=== PATIENT | female | born 1935 | race Caucasian/White ===

== ENCOUNTER 2023-12-18 21:48 | Emergency (ER) | payer MEDICARE, MEDICAID, SELFPAY ==
--- NOTE | ~2023-12-18 | XR_ITS ---
XR hip RT 2V w AP pelvis Ordering provider: Eric Brown MD History: . fall, groin pain . Comparison: None. FINDINGS: BONES: No acute fracture or dislocation. HIP JOINT SPACES: Bilateral hip osteoarthritic changes. SACROILIAC JOINT SPACES/LUMBAR SPINE: The sacroiliac joint spaces are normal. Mild degenerative mclain es of the visualized lower lumbar spine. PUBIC SYMPHYSIS: Normal. SOFT TISSUES: Vascular calcifications. IMPRESSION: No acute osseous abnormality pelvis and right hip. Reviewed, dictated and finalized at location A.
[2023-12-18 21:54] VITALS: BP 138/49; PULSE 80; RESP 17; TEMP 36.5; O2SAT 96
[2023-12-19 00:40] VITALS: BP 121/57; PULSE 75; RESP 18; O2SAT 98
--- NOTE | 2023-12-19 01:54 | ED.GENADULT ---
HPI - General Adult General Chief complaint: Fall Stated complaint: fall, right leg pain Time Seen by Provider: 12/19/23 00:46 History of Present Illness HPI narrative: this is an 88-year-old female presenting ED with chief complaint of hip pain. Patient had a fall earlier today. She was able to get up and ambulate although the pain has been increasing throughout the day. She is not taking anything for pain control yet. No other symptoms. Related Data Allergies Allergy/AdvReac Type Severity Reaction Status Date / Time Penicillins Allergy Unknown Rash Verified 12/19/23 00:43 FOR[facility]LY [facility], [facility]–1983 Family History Family History Sibling Family history of chronic obstructive pulmonary disease Family history of diabetes mellitus in first degree relative Social History Social History Smoking status: Never smoker Alcohol intake: never Exam Narrative: APPEARANCE: No apparent distress. Head: atraumatic. EYES: EOMI, NOSE: Atraumatic NECK: Trachea midline RESPIRATORY: No increased rate of breathing CARDIOVASCULAR: RRR, ABDOMINAL: Non-distended MUSCULOSKELETAl: Focal exam of the right lower extremity revealed no obvious deformity. Neurovascularly intact. No pain with internal-external rotation hip. NEURO: Alert. Moving 4/4 extremities SKIN:: Warm, dry. Normal color PSYCHIATRIC: Normal affect Course Vital Signs Vital signs: Vital Signs Temperature 97.7 F 12/18/23 21:54 Pulse Rate 80 12/18/23 21:54 Respiratory Rate 17 12/18/23 21:54 Blood Pressure 138/49 L 12/18/23 21:54 Pulse Oximetry 96 12/18/23 21:54 Oxygen Delivery Room Air 12/18/23 21:54 Temperature 97.7 F 12/18/23 21:54 Pulse Rate 75 12/19/23 00:40 Respiratory Rate 18 12/19/23 00:40 Blood Pressure 121/57 L 12/19/23 00:40 Pulse Oximetry 98 12/19/23 00:40 Oxygen Delivery Room Air 12/18/23 21:54 Medical Decision Making [facility] Narrative Medical decision making narrative: -Course: 88-year-old female presenting with right hip pain. X-rays negative for fracture. Patient was given tramadol with improvement in pain. She was able ambulate around the emergency department without difficulty. Patient be referred right hip pain medications and discharged with primary care follow-up. -DDX includes but is not limited to: Soft tissue injury, bony injury -Interventions: tramadol 50 mg -Shared decision making / Disposition: discharged -RX tramadol 50 mg Vital Signs Vital Signs: Vital Signs Temperature 97.7 F 12/18/23 21:54 Pulse Rate 80 12/18/23 21:54 Respiratory Rate 17 12/18/23 21:54 Blood Pressure 138/49 L 12/18/23 21:54 Pulse Oximetry 96 12/18/23 21:54 Oxygen Delivery Room Air 12/18/23 21:54 Temperature 97.7 F 12/18/23 21:54 Pulse Rate 75 12/19/23 00:40 Respiratory Rate 18 12/19/23 00:40 Blood Pressure 121/57 L 12/19/23 00:40 Pulse Oximetry 98 12/19/23 00:40 Oxygen Delivery Room Air 12/18/23 21:54 Discharge Plan Discharge Clinical Impression: Acute hip pain Patient Disposition: Home, Self-Care Condition: Stable Instructions: Antibiotic Form, Hip Pain (ED) Additional Instructions: you were seen in the emergency department for hip pain. Please take tramadol for pain. Please follow-up with your primary care physician as needed. Return if you develop severe pain or weakness in your leg. Prescriptions: New tramadol 50 mg tablet 50 mg PO Q6H PRN (Reason: pain) Qty: 20 0RF Follow-up/Referrals: UNKNOWN,DOCTOR [Primary Care Provider] -
[2023-12-19] MEDS: traMADol HCL (*CRX) 50 MG TABLET PO (01:56)
== END 2023-12-19 02:19 | disposition home or self-care (01) ==
LOC: ANHED 12-19 02:02
PROVIDERS: Emergency Provider Emergency Medicine
DX: S79.911A Unspecified injury of right hip, initial encounter (principal); W19.XXXA Unspecified fall, initial encounter
CPT/HCPCS: 73502; 99283; A9270

== ENCOUNTER 2024-08-27 09:16 | Inpatient (IN) | payer MEDICARE, MEDICAID, SELFPAY ==
--- NOTE | ~2024-08-27 | CT_ITS ---
History: Fall PROCEDURE: CT head without contrast. COMPARISON: None TECHNIQUE: Axial imaging of the head performed from the skull base to the vertex without IV contrast. Sagittal a nd coronal reformations obtained. DLP: 530 mGy-cm FINDINGS: The ventricles are enlarged. The dilatation of the ventricles is proportional to the degree of sulcal prominence, not uncommon in the senescent brain. Decreased attenuation is identified within the periventricular white matter, likely secondary to micr ovascular ischemic disease, in a patient of this age. There is no mass, mass effect or midline shift. There is no abnormal extra-axial fluid collection or intracranial hemorrhage. Visualized paranasal sinuses are clear. The mastoid air cells are well aerated. No acute displaced fractures within the overlying cranium. Impression: No acute intracranial hemorrhage or suspicious mass effect. Reviewed, dictated and finalized at location A. CARE SALES REPRESENTATIVE Impression: No acute intracranial hemorrhage or suspicious mass effect.
--- NOTE | ~2024-08-27 | CT_ITS ---
History: Fall PROCEDURE: CT cervical spine and facial bones without intravenous contrast. COMPARISON: None TECHNIQUE: Multiple contiguous axial images of the cervical spine and facial bones were performed without the ad ministration of intravenous contrast. DLP: 526 mGy-cm FINDINGS: Straightening and slight reversal of the normal curvature of the cervical spine is identified, likely muscular in origin. Degenerative disease is also noted, with osteophyte formation, disc space narrowing, endplate changes and facet arthropathy. Ossification of the ligamentum flavum is suspected at the level of C6. No acute fractures are present. Diffuse bony demineralization is present. Densely calcified atherosclerotic disease is noted. The bilateral lung apices are unremarkable. No soft tissue abnormality is present. The airway is patent. Trace mucoperiosteal thickening within the left maxillary sinus. Trace mucoperiosteal thickening with in the bilateral ethmoid sinuses. Remaining paranasal sinuses are unremarkable. Impression: Straightening and slight reversal of the normal curvature of the cervical spine, likely muscular in o rigin. Significant degenerative disease, without acute fracture within the cervical spine. Trace inflammatory sinus disease, without acute facial fracture, as detailed above. Reviewed, dictated and finalized at location A. TER REPRESENTATIVE Impression: Straightening and slight reversal of the normal curvature of the cervical spine , likely muscular in origin. Significant degenerative disease, without acute fracture within the cervical sp ine. Trace inflammatory sinus disease, without acute facial fracture, as detailed ab ove.
--- NOTE | ~2024-08-27 | US_ITS ---
EXAM: RENAL ULTRASOUND HISTORY: SILVINO COMPARISON: Reference is made to a CT examination of the chest dated 08/27/2024 FINDINGS: RIGHT KIDNEY: 10.5 x 3.9 x 3.6 cm. The parenchyma of the right kidney is unremarkable in echogenicity. No hydronephrosis or bulky renal calculi. LEFT KIDNEY: 10.7 x 4.8 x 4.6 cm No hydronephrosis or renal calculi. The parenchyma of the left kidney is unremarkable in echogenicity. Exophytic from the interpolar region of the left kidney is a well-circumscribed anechoic focus measur ing 16 x 13 x 11 mm, consistent with a simple cyst for which no further follow-up is needed. BLADDER: Layering sludge within the bladder. Bilateral ureteral jets are visualized. IMPRESSION: No hydronephrosis or renal calculi. Simple cyst within the left kidney for which no further follow-up is needed. Layering sludge within the bladder. Reviewed, dictated and finalized at location A. IENCE TRAINER
--- NOTE | ~2024-08-27 | XR_ITS ---
EXAMINATION: XR chest 1V portable DATE: 08/27/2024 09:48 INDICATION: Cough and weakness. TECHNIQUE: A single frontal view of the chest was obtained. COMPARISON: Chest 2 views 11/19/2012 FINDINGS: A calcified left lung nodule and calcified left hilar lymph nodes are consistent with old g ranulomatous disease. There are airspace opacities at the lung bases. No pleural effusion or pneumoth orax. The heart size is normal. Median sternotomy wires are noted. IMPRESSION: 1. Airspace opacities at the lung bases, consistent with atelectasis versus pneumonia. Reviewed, dictated and finalized at location A. ISTICAL SECRETARY IMPRESSION: 1. Airspace opacities at the lung bases, consistent with atelectasis versus pne umonia.
--- NOTE | ~2024-08-27 | CT_ITS ---
EXAMINATION: CT chest abdomen pelvis wo con DATE: 08/27/2024 11:48 INDICATION: Cough. Abdominal pain. Hematuria. TECHNIQUE: Computed tomography (CT) of the chest, abdomen, and pelvis was performed without intraveno us contrast. Automated exposure control and iterative reconstruction technique were employed. The dos e-length product was 1064.32 mGy-cm. COMPARISON: Chest single view 08/27/2024 FINDINGS: CHEST CT: There is mild atelectasis in the upper lobes. A calcified left lung nodule and calcified left hilar a nd mediastinal lymph nodes are consistent with old granulomatous disease. There are airspace and grou ndglass opacities in right middle lobe and the lower lobes, consistent with pneumonia. There is a tra ce right pleural effusion. Cardiomegaly is noted. There are coronary artery calcifications. No perica rdial effusion. There is mild mediastinal lymphadenopathy, likely reactive. There is a small sliding hiatal hernia. There is moderate thoracic spondylosis. ABDOMEN/PELVIS CT: Calcifications in the liver and spleen are consistent with old granulomatous disease. The gallbladder , pancreas, adrenal glands, and right kidney are normal. There is a 1.5 cm cyst in left kidney. There is no urolithiasis. There is diverticulosis of the colon without evidence of diverticulitis. The migel endix is not visualized. There is calcified atherosclerosis of the aorta and many of the other arteri es. There are no pathologically enlarged lymph nodes. There is no free intraperitoneal fluid. There i s moderate lumbar spondylosis. IMPRESSION: 1. Airspace and groundglass opacities in right middle lobe and the lower lobes, consistent with pneum onia. 2. Mild mediastinal lymphadenopathy, likely reactive. 3. Small sliding hiatal hernia. Reviewed, dictated and finalized at location A. [employer] IMPRESSION: 1. Airspace and groundglass opacities in right middle lobe and the lower lobes, consistent with pneumonia. 2. Mild mediastinal lymphadenopathy, likely reactive. 3. Small sliding hiatal hernia.
[2024-08-27 09:17] VITALS: BP 97/53; PULSE 85; RESP 18; TEMP 36.1; O2SAT 97
--- NOTE | 2024-08-27 09:31 | ECG_ITS ---
Test Date: 2024-08-27 09:35:56 Measurements Intervals [place] Rate: 77 P: 51 MO: 132 QRS: 1 QRSD: 86 T: 57 QT: 384 QTc: 436 Interpretive Statements SINUS RHYTHM SINGLE RIGHT BUNDLE BRANCH BLOCK COMPLEX LEFT VENTRICULAR HYPERTROPHY AND ST-T CHANGE CONSIDER INFERIOR INFARCT, AGE INDETERMINATE BASELINE ARTIFACT- I, II, III, AVR, AVL, AVF ABNORMAL ECG No previous ECG available for comparison Electronically Signed On 08-27-2024 10:10:48 [employer] by Josh Mccloud D.O.
--- OUTSIDE RECORDS SUMMARY | 2024-08-27 09:44 | XMS_ITS | Encounter Summary ---
Author Organization [facility] Address [facility] [place] [address] Care Team Providers Care System Operation Superintendent Name Role Phone Madelyn Mcbriedecca DESIREE Primary Care Provider [phone] Olman Sanderson MD Unavailable [phone] Arjun Nuñez MD Primary Care Provider [phone] Guilherme Wilson Primary Care Provider [phone] Encounter Details Date Type Department Care Team (Late st Contact Info) Description 08/05/2016 Abstract [facility] AT [address] [address] Brayan Gill MA Social History Tobacco Use Types Packs/Day Years Used Date Smoking Tobacco: Never Smokeless Tobacco: Never Alcohol Use Standard Drinks/Week Comments No 0 (1 standard drink = 0.6 oz pur e alcohol) Comments Unknown Sex and Gender Information Value Date Recorded Sex Assigned at Female 03/03/2019 10:28 AM CDT Legal Sex Female 10:55 PM CDT Gender Identity Female 03/03/2019 10:28 AM CDT Sexual Orientation Straight 03/03/2019 10 :28 AM CDT Occupation Industry Job Start Date Job End Date Not on file Not on file Not on file Not on file documented as of this encounter Plan of Treatment Upcoming Encounters Date Type Department Care Team (Late st Contact Info) Description 09/04/2024 11:00 AM PIT AND 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 SUPERVISOR Patient Outreach [facility] [address] [place] [address] Amelia Costello, PharmD [address] [place] [address] 09/15/2024 8:20 AM CDT Office Visit [facility] Family & Internal [facility] [address] [place] [address] [place] [address] [place] [address] 10/16/2024 10:45 AM CDT Office Visit [facility] [address] [place] [id number] Olman Sanderson MD [address] [address] documented as of this encounter Procedures Procedure Name Priority Date/Time Associated Diagnosis Comments CBC (OUTSIDE LAB) Routine 07/06/2018 COMPREHENSIVE METABOLIC PANEL Routine 07/06/2018 MAGNESIUM Routine 07/06/2018 COMPREHENSIVE METABOLIC PANEL Routine 01/21/2018 THYROID STIM HORMONE TSH Routine 01/21/2018 FOLATE (OUTSIDE LAB) Routine 07/22/2017 CBC (OUTSIDE LAB) Routine 07/22/2017 COMPREHENSIVE METABOLIC PANEL Routine 07/22/2017 IRON BINDING TEST Routine 07/22/2017 IRON Routine 07/22/2017 FERRITIN Routine 07/22/2017 LIPID PANEL Routine 01/23/2017 HEMOGLOBIN, GLYCOSYLATED Routine 01/23/2017 THYROID STIM HORMONE TSH Routine 01/23/2017 IRON Routine 01/23/2017 CBC (OUTSIDE LAB) Routine 01/18/2017 COMPREHENSIVE METABOLIC PANEL Routine 01/18/2017 IRON BINDING TEST Routine 01/18/2017 FERRITIN Routine 01/18/2017 CBC (OUTSIDE LAB) Routine 05/17/2016 BASIC METABOLIC PANEL Routine 05/17/2016 COMPREHENSIVE METABOLIC PANEL Routine 03/23/2016 LIPID PANEL Routine 03/23/2016 HEMOGLOBIN, GLYCOSYLATED Routine 03/23/2016 THYROID STIM HORMONE TSH Routine 03/23/2016 documented in this encounter Results * MAGNESIUM (07/06/2018) MAGNESIUM 1.9 07/06/2018 us Doc [facility] Final Result * (ABNORMAL) COMPREHENSIVE METABOLIC PANEL (07/06/2018) SODIUM S/P/B 138 POTASSIUM S/P/B 3.5 CO2 28.7 CHLORIDE S/P/B 102 GLUCOSE 180 mg/dL CALCIUM S/P/B 8.5 BUN 9 CREATININE S/P/B 1.19(A) 0.5 - 1.0 EGFR AFR. AMER. 49 <=90 EGFR NON-AFR. AMER. 42 <=90 ALKALINE PHOSPHATASE S/P/B 56 ALT 6 AST 12 BILIRUBIN TOTAL S/P/B 0.5 ALBUMIN S/P/B 2.8(A) 3.5 - 5.0 07/06/2018 us Doc [facility] Edited Resul t - Final * CBC (OUTSIDE LAB) (07/06/2018) WBC 6.3 HGB 12.0 HCT 37.7 PLT 184 07/06/2018 us Doc [facility] LAB-OUTSIDE/ABSTRACTED Final Result * THYROID STIM HORMONE, TSH (01/21/2018) Pathologist [facility] TSH 0.587 01/21/2018 us Doc [facility] Final Result * (ABNORMAL) COMPREHENSIVE METABOLIC PANEL (01/21/2018) SODIUM S/P/B 140 POTASSIUM S/P/B 4.6 CO2 30 CHLORIDE S/P/B 101 GLUCOSE 129 mg/dL CALCIUM S/P/B 9.5 BUN 17 CREATININE S/P/B 1.19(A) 0.5 - 1.0 EGFR AFR. AMER. 50 <=90 EGFR NON-AFR. AMER. 43 <=90 ALKALINE PHOSPHATASE S/P/B 74 ALT 8 AST 15 BILIRUBIN TOTAL S/P/B 0.5 ALBUMIN S/P/B 3.7 3.5 - 5.0 TOTAL PROTEIN S/P/B 7.3 01/21/2018 us Doc [facility] Final Result * FOLATE (OUTSIDE LAB) (07/22/2017) FOLATE 8.12 07/22/2017 us Doc [facility] LAB-OUTSIDE/ABSTRACTED Final Result * FERRITIN (07/22/2017) FERRITIN 49.3 07/22/2017 us Doc [facility] Final Result * IRON BINDING TEST (07/22/2017) [facility] IRON BINDING CAPACITY 326 07/22/2017 us Doc [facility] Final Result * IRON (07/22/2017) [facility] IRON 86 07/22/2017 us Doc [facility] Final Result * (ABNORMAL) COMPREHENSIVE METABOLIC PANEL (07/22/2017) [facility] SODIUM S/P/B 143 POTASSIUM S/P/B 4.5 CO2 26 CHLORIDE S/P/B 106 GLUCOSE 131 mg/dL CALCIUM S/P/B 9.7 BUN 15 CREATININE S/P/B 1.11(A) 0.5 - 1.0 EGFR NON-AFR. AMER. 50 <=90 ALKALINE PHOSPHATASE S/P/B 80 ALT <6 AST 14 BILIRUBIN TOTAL S/P/B 0.5 ALBUMIN S/P/B 4.0 3.5 - 5.0 TOTAL PROTEIN S/P/B 7.0 07/22/2017 us Doc [facility] Final Result * CBC (OUTSIDE LAB) (07/22/2017) [facility] WBC 9.9 HGB 14.9 HCT 45.9 PLT 244 07/22/2017 us Doc [facility] LAB-OUTSIDE/ABSTRACTED Final Result * THYROID STIM HORMONE, TSH (01/23/2017) [facility] TSH 2.74 01/23/2017 us Doc [facility] Final Result * LIPID PANEL (01/23/2017) CHOLESTEROL 180 HDL 31 TRIGLYCERIDES 179 DIRECT LDL 126 01/23/2017 us Doc [facility] Final Result * HEMOGLOBIN, GLYCOSYLATED (01/23/2017) HGB A1C 7.2 01/23/2017 us Doc [facility] Final Result * IRON (01/23/2017) IRON 78 01/23/2017 us Doc [facility] Final Result * FERRITIN (01/18/2017) FERRITIN 81.3 01/18/2017 us Doc [facility] Final Result * IRON BINDING TEST (01/18/2017) IRON BINDING CAPACITY 290 01/18/2017 us Doc [facility] Final Result * (ABNORMAL) COMPREHENSIVE METABOLIC PANEL (01/18/2017) SODIUM S/P/B 142 POTASSIUM S/P/B 4.9 CO2 28 CHLORIDE S/P/B 106 GLUCOSE 117 CALCIUM S/P/B 9.1 BUN 17 CREATININE S/P/B 1.10(A) 0.5 - 1.0 EGFR NON-AFR. AMER. 51 <=90 ALKALINE PHOSPHATASE S/P/B 61 ALT <6 AST 12 BILIRUBIN TOTAL S/P/B 0.4 ALBUMIN S/P/B 3.7 3.5 - 5.0 TOTAL PROTEIN S/P/B 7.1 01/18/2017 us Doc [facility] Edited Resul t - Final * CBC (OUTSIDE LAB) (01/18/2017) WBC 9.9 HGB 15.1 HCT 45.1 PLT 225 01/18/2017 us Doc [facility]-OUTSIDE/ABSTRACTED Final Result * CBC (OUTSIDE LAB) (05/17/2016) Pathologist [facility] WBC 8.7 HGB 12.1 HCT 39.1 PLT 269 05/17/2016 us Doc [facility] LAB-OUTSIDE/ABSTRACTED Final Result * (ABNORMAL) BASIC METABOLIC PANEL (05/17/2016) Pathologist [facility] SODIUM S/P/B 137 POTASSIUM S/P/B 4.6 CO2 20 CHLORIDE S/P/B 108 GLUCOSE 99 CALCIUM S/P/B 8.8 BUN 26 CREATININE S/P/B 1.35(A) 0.5 - 1.0 EGFR NON-AFR. AMER. 40 <=90 05/17/2016 us Doc [facility] Final Result * THYROID STIM HORMONE, TSH (03/23/2016) Pathologist [facility] TSH 1.43 03/23/2016 us Doc [facility] Final Result * LIPID PANEL (03/23/2016) Pathologist [facility] CHOLESTEROL 151 HDL 31 TRIGLYCERIDES 185 LDL (CALCULATED) 83 03/23/2016 us Doc [facility] Final Result * HEMOGLOBIN, GLYCOSYLATED (03/23/2016) Pathologist [facility] HGB A1C 7.6 03/23/2016 us Doc [facility] Final Result * (ABNORMAL) COMPREHENSIVE METABOLIC PANEL (03/23/2016) SODIUM S/P/B 140 POTASSIUM S/P/B 4.7 CO2 30 CHLORIDE S/P/B 104 GLUCOSE 116 CALCIUM S/P/B 9.5 BUN 20 CREATININE S/P/B 1.41(A) 0.5 - 1.0 EGFR NON-AFR. AMER. 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 12/29/2023 COVID-19 Rule Out 08/05/2024 08/05/2024 08/05/2024 7:01 AM PIT AND AUXILIARIES SUPERVISOR Influenza - Seasonal 08/05/2024 08/05/2024 025 12:32 AM PIT AND AUXILIARIES SUPERVISOR documented as of this encounter Care Teams System Operation Superintendent Relationship Specialty Start Date End Date Venus Mcbride APNP PCP - General DIRECTOR TRANSLATION 12/04/15 08/04/17 Arjun Nuñ[place] [address] [place] [address] PCP - General FAMILY PRACTICE 08/05/17 08/15/23 [place] [address] [place] [address] PCP - General Physician Seo Manager Medical 08/16/23 Olman Sanderson MD [facility]. [address] [address] [place] [address] Buyer CARDIOVASCULAR DISEASE 12/04/15 documented as of this encounter
--- OUTSIDE RECORDS SUMMARY | 2024-08-27 09:44 | XMS_ITS | Clinical Summary ---
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 Gender Identity Not on file Sexual Orientation Not on file Plan of Treatment Health Maintenance Due Date Last Done Comments Depression Screening 1935 Fall Risk Assessment 1935 Hepatitis B Screening 02[birth year]04[birth year]1954 Well Visit 65+ 02/04/2001 Zoster Vaccine (2 of 2) 10/30/2019 09/04/2019 Covid-19 Vaccine (2023-2 5 season) 2024 04/14/2021, 10/13/2020, 09/17/2020 Influenza Vaccine (#1) 2024 , 03/20/2020, 04/07/2019, Additional history exists DTaP/Tdap/Td Vaccine (2 - Td or Tdap) 03/20/2030 03/20/2020 Pneumococcal vaccine 65+ Completed 04/07/2019, 03/05 Insurance MEDICARE ID[place] Care Teams Instructional Design Technologist Relationship Specialty Start Date End Date No, Physician PCP - General 08/27/21
--- OUTSIDE RECORDS SUMMARY | 2024-08-27 09:44 | XMS_ITS | Clinical Summary ---
Author Organization [facility] Address [address], [facility] [address] [place] [address] Phone Care Team Providers Care Test Development Engineer Name Role Phone Unavailable Primary Care Provider Unavailabl e Allergies Active Allergy Reactions Criticality Noted Date Comments Folic Acid Vomiting 08/01/2015 Penicillins Unknown Medications insulin glargine (LANTUS) 100 UNIT/ML Solution nightly. Act mekhi HYDROcodone-acet aminophen (NORCO) 10-325 MG Tablet 1-2 Tabs as needed for Pain. Active fosinopril (MONOPRIL) 20 MG Tablet 20 mg daily. Active carbidopa-levodo pa CR (SINEMET CR) 50-200 MG Tablet Controlled Release 1 Tab 2 times daily. Active levothyroxine (SYNTHROID) 50 MCG Tablet daily. Active amLODIPine (NORVASC) 5 MG Tablet 5 mg every morning. Active rOPINIRole (REQUIP) 0.5 MG Tablet Take 1 mg by mouth nightly. Active clopidogrel (PLAVIX) 75 MG Tablet Take 75 mg by mouth daily. Active pravastatin (PRAVACHOL) 40 MG Tablet Take 40 mg by mouth daily. Active metoprolol tartrate (LOPRESSOR) 25 MG Tablet Take 25 mg by mouth 2 times daily. Active hydroCHLOROthiaz newotn 12.5 MG Tablet Take by mouth daily. Active Active Problems Patient Care Coordination No te Formatting of this note migh t be different from the original. 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 Iron deficiency anemia Social History Tobacco Use Types Packs/Day Years Used Date Smoking Tobacco: Never Smokeless Tobacco: Never Alcohol Use Standard Drinks/Week Comments Not Asked 0 (1 standard drink = 0.6 oz pur e alcohol) Comments Unknown Sex and Gender Information Value Date Recorded Sex Assigned at Not on file Legal Sex Female 9:27 AM CDT Gender Identity Not on file Sexual Orientation Not on file Last Filed Vital Signs Vital Sign Reading Time Taken Comments Blood Pressure 124/80 10/21/2017 1:49 PM CDT Pulse 64 10/21/2017 1:49 PM CDT Temperature 36.3 C (97.3 F) 10/21/2017 1:49 PM CDT Respiratory Rate - - Oxygen Saturation 97% 10/21/2017 1:49 PM CDT Inhaled Oxygen Concentration - - Weight 103.9 kg (229 lb) 10/21/2017 1:49 PM CDT Height 152.4 cm (5') 08/06/2016 9:55 AM REHAB OFFICE COORDINATOR Body Mass Index 44.72 08/06/2016 9:55 AM REHAB OFFICE COORDINATOR Plan of Treatment Health Maintenance Due Date Last Done Comments DEXA Bone Density 1935 Hepatitis C Virus (HCV) Screening 1935 TdaP Immunization 1935 Pneumococcal Immunization (50+ years) (1 of 1 - PCV) 02/04/1986 Zoster Immunization (1 of 2) 02/04/1986 Respiratory Syncytial Virus (RSV) Immunization (Adult) (1 - 1-dose 75+ series) 02/04/2011 Influenza Immunization (#1) 03/05/202404/04, 03/20/2016, 03/29/2015, Additional history exists SARS-COV-2 Immunization (2023- season) 2024 Hepatitis B Immunization Aged Out No longer eligible based on patient's age to complete this topic Meningococcal Immunization (ACWY) Aged Out No longer eligible based on patient's age to complete this topic Rotavirus Immunization Aged Out No lo nger eligible based on patient's age to complete this topic Insurance MEDICARE [place]ICAID [place]
--- OUTSIDE RECORDS SUMMARY | 2024-08-27 09:44 | XMS_ITS | Clinical Summary ---
Author Organization [facility] Address [address] [address] Phone Care Team Providers Care Associate Drafter Name Role Phone Unavailable Primary Care Provider Unavailabl e Allergies Active Allergy Reactions Criticality Noted Date Comments Folic Acid Vomiting 09/08/2023 Penicillins Hives 09/08/2023 Medications Medication Sig Dispensed Refills Start Date End Date Status amLODIPine (NORVASC) 10 MG tablet Take 10 mg by mouth 1 (one) time each day Active carbidopa-levodopa CR (SINEMET CR) 50-200 MG per CR tablet Take 1 tablet by mouth in the morning and 1 tablet in the evening. Active clopidogrel (PLAVIX) 75 MG tablet Take 75 mg by mouth 1 (one) time each day Active fenofibrate (TRICOR) 54 MG tablet Take 54 mg by mouth 1 (one) time each day with breakfast Active levothyroxine (SYNTHROID) 50 MCG tablet Take 50 mcg by mouth 1 (one) time each day Active metoprolol tartrate (LOPRESSOR) 25 MG tablet Take 25 mg by mouth in the morning and 25 mg in the evening. Active pravastatin (PRAVACHOL) 40 MG tablet Take 40 mg by mouth at bed time Active rOPINIRole (REQUIP) 2 MG tablet Take 2 mg by mouth 3 (three) times a day if needed Active spironolactone (ALDACTONE) 25 MG tablet Take 25 mg by mouth 1 (one) time each day Active traZODone (DESYREL) 50 MG tablet Take 50 mg by mouth every night Active Active Problems Problem Noted Date Diagnosed Date Edema of lower extremity 09/08/2023 Congestive heart failure 09/08/2023 Diabetes mellitus 09/08/2023 Essential hypertension 09/08/2023 Dyslipidemia 09/08/2023 Stage 3b chronic kidney disease 09/08/2023 Resolved Problems Problem Noted Date Diagnosed Date Resolved Date Cellulitis 09/08/2023 09/08/2023 Family History Medical History Relation Comments No Known Problems Father Heart attack Mother Relation Status Comments Father Mother Other Social History Tobacco Use Types Packs/Day Years Used Date Smoking Tobacco: Never Smokeless Tobacco: Never Tobacco Cessation:Counseling Given: Not Answered Alcohol Use Standard Drinks/Week Comments Never 0 (1 standard drink = 0.6 oz pur e alcohol) Sex and Gender Information Value Date Recorded Sex Assigned at Not on file Gender Identity Not on file Sexual Orientation Not on file Last Filed Vital Signs Vital Sign Reading Time Taken Comments Blood Pressure 167/118 04/18/2024 3:04 PM CDT Pulse 88 04/18/2024 3:04 PM CDT Temperature - - Respiratory Rate - - Oxygen Saturation - - Inhaled Oxygen Concentration - - Weight 88.9 kg (196 lb) 04/18/2024 3:04 PM CDT Height 154.9 cm (5' 1) 04/18/2024 3:04 PM CDT Body Mass Index 37.03 04/18/2024 3:04 PM CDT Plan of Treatment Health Maintenance Due Date Last Done Comments Diabetic Foot Exam 02/04/1946 Ophthalmology Exam 02/04/1946 Pneumococcal PPSV23/PCV13 65 + Years / High and Highest Risk (2 of 4 - PPSV23 or PCV20) 07/05/2022 05/10/2022, 03/22/2018 COVID-19 Vaccine (4 - 2023-2 5 season) 2024 04/14/2021, 10/13/2020, 09/17/2020 Influenza Vaccine (#1) 2024 3, 05/10/2022, 04/14/2021, Additional history exists [address] [id number]
--- OUTSIDE RECORDS SUMMARY | 2024-08-27 09:44 | XMS_ITS | Encounter Summary ---
Author Organization [facility] Address [address] [place] [address] Care Team Providers Care Board Finisher Name Role Phone Madelyn Mcbridejudith RAMÍREZ Primary Care Provider [phone] Olman Sanderson MD Unavailable [phone] Arjun Nuñez MD Primary Care Provider [phone] Guilherme Wilson Primary Care Provider [phone] Encounter Details Date Type Department Care Team (Late st Contact Info) Description 12/25/2015 Abstract [facility] CONVERSION [address] [place] [address] , Generic Conversion, Social History Tobacco Use Types Packs/Day Years Used Date Smoking Tobacco: Never Comments Unknown Sex and Gender Information Value Date Recorded Sex Assigned at Female 03/03/2019 10:28 AM CDT Legal Sex Female 10:55 PM CDT Gender Identity Female 03/03/2019 10:28 AM CDT Sexual Orientation Straight 03/03/2019 10 :28 AM CDT documented as of this encounter Plan of Treatment Upcoming Encounters Date Type Department Care Team (Late st Contact Info) Description 09/04/2024 11:00 AM SANE RN Patient Outreach [facility] Family & Internal Medicine [facility] [address] [place] [phone] Amelia Costello, PharmD [address] [place] [address] 09/15/2024 8:20 AM CDT Office Visit [facility] Family & Internal Medicine - [place] [address] [place] [address] [place] [address] [place], [place] [id number] 10/16/2024 10:45 AM CDT Office Visit [facility] [address] [place] [phone] Olman Sanderson MD [address] [address] documented as of this encounter Visit Diagnoses Not on filedocumented in this encounter Additional Health Concerns Infection Onset Date Last Indicated Resolved Time COVID-19 Rule Out 07/14/2021 07/14/2021 07/14/2021 1:26 PM SANE RN COVID-19 Confirmed 07/14/2021 07/14/2021 12:34 AM SANE RN 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) 12/09/2023 01/20/2024 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 [address] [address] [place] CARDIOVASCULAR DISEASE 12/04/15 documented as of this encounter
--- OUTSIDE RECORDS SUMMARY | 2024-08-27 09:44 | XMS_ITS | Clinical Summary ---
Author Organization [facility] Address [address] [place] [address] Care Team Providers Care Hardware Trainer Name Role Phone Olman Sanderson MD Unavailable [phone] Guilherme Wilson Primary Care Provider [phone] Allergies Active Allergy Reactions Criticality Noted Date Comments Folic Acid Vomiting Low 08/01/2015 Penicillins Hives Low 05/19/2016 Medications DIABETIC SHOES Wear daily 0 018 Active ALBUTEROL SULFATE HFA 108 (90 Base) MCG/ACT inhalerIndicatio ns:Wheezing INHALE 2 PUFFS INTO THE LUNGS EVERY 6 HOURS NEEDED FOR WHEEZE 18 g 2 022 Active Blood Pressure Monitoring (BLOOD PRESSURE MONITOR/L CUFF) MiscIndications: Essential (primary) hypertension Take BP as directed 1 each 022 Active clobetasol (TEMOVATE) 0.05 % creamIndications :Rash and other nonspecific skin eruption APPLY TWICE DAILY TO RASH UP TO 2 WEEKS/MONTH NEEDED. 023 Active traMADol (ULTRAM) 50 MG tabletIndication s:Chronic Pain Take 1 tablet (50 mg total) by mouth every 6 (six) hours as needed. Indications: Chronic Pain 30 tablet 024 Active HYDROcodone-acet aminophen (NORCO) 7.5-325 MG tabletIndication s:Chronic Pain Take 1 tablet by mouth every 6 (six) hours as needed for Pain. Indications: Chronic Pain 60 tablet Active Blood Glucose Monitoring Suppl (ONE TOUCH ULTRA 2) w/Device KitIndications:T ype 2 diabetes mellitus without complication, with long-term current use of insulin ([facility]) 1 each by Does not apply route daily. 1 kit 024 Active Glucose Blood (BLOOD GLUCOSE TEST STRIPS 333) StripIndications :Type 2 diabetes mellitus without complication, with long-term current use of insulin ([facility]) 1 each by In Vitro route daily. 100 strip 3 024 Active gentamicin (GARAMYCIN) 0.1 % ointmentIndicati ons:Wound Care Indications: Wound Care Apply with dressing changes 15 g Active insulin detemir (LEVEMIR) 100 UNIT/ML injectionIndicat ions:dm [The details of the medication are not available because there are pending changes by a home health clinician.] 30 mL Active Additional Information Patient taking differently: 35 UnitsSubcutaneous Every morning, Indications: dm, Reported on 07/31/2024 acetaminophen (TYLENOL) 325 MG tabletIndication s:Pain Take 2 tablets (650 mg total) by mouth every 4 (four) hours as needed for Pain or Fever. Active bacitracin 500 UNIT/GM ointmentIndicati ons:Wound Care Apply topically 2 (two) times daily. 28 g 024 Active dextrose (GLUTOSE) 40 % oral gelIndications:D iabetes Mellitus Take 37.5 g by mouth as needed for Low blood sugar. 37.5 g 024 Active ferrous sulfate, 65 mg elemental, 325 (65 FE) MG tabletIndication s:supplement Take 1 tablet (325 mg total) by mouth 2 (two) times daily with meals. 60 tablet 024 Active nystatin (MYCOSTATIN) powderIndication s:Skin Irritation Apply topically 2 (two) times daily. Cleanse areas of excoriation, apply powder under breasts and groin, then apply Interdry 30 g 024 Active polyethylene glycol (GLYCOLAX) packetIndication s:Constipation Take 240 mLs (17 g total) by mouth daily as needed for Constipation. Dissolve powder in 240 mL water 07/02/2 024 Active sodium chloride (OCEAN) 0.65 % SolutionIndicati ons:Nasal Discomfort 1 spray by Each Nostril route 3 (three) times daily. May also 1 spray as needed for Dryness. 50 mL Active naloxone (NARCAN) 4 MG/0.1ML nasal sprayIndications :Reversal of Opioid Effects 1 spray by Nasal route as needed. 1 each Active Skin Protectants, Misc. (INTERDRY 48Z534) SHEET Apply 1 Application topically 2 (two) times a day. Please apply after cleansing areas of excoriation, applying nystatin powder under breasts and groin, then apply InterDry 10 each Active spironolactone (ALDACTONE) 25 MG tabletIndication s:Diuresis take 1 tablet by mouth every day 90 tablet 1 024 Active pravastatin (PRAVACHOL) 40 MG tabletIndication s:Hyperlipidemia take 1 tablet by mouth everyday at bedtime 90 tablet 1 024 Active traZODone (DESYREL) 50 MG tabletIndication s:Insomnia TAKE 1-2 TABLETS BY MOUTH 30-60MIN BEFORE BEDTIME 180 tablet 024 Active clopidogrel (PLAVIX) 75 MG tabletIndication s:Anticoagulant Therapy take 1 tablet by mouth every day 90 tablet 024 Active rOPINIRole (REQUIP) 2 MG tabletIndication s:restless legs Take 1 tablet (2 mg total) by mouth 3 (three) times daily as needed. 270 tablet Active Additional Information Patient not taking.Reported on 07/31/2024 hydroCHLOROthiaz newton (HYDRODIURIL) 25 MG tabletIndication s:Hypertension Take 0.5 tablets (12.5 mg total) by mouth every morning. Indications: High Blood Pressure Disorder 45 tablet 1 024 2024 Active levothyroxine (SYNTHROID) 50 MCG tabletIndication s:Hypothyroidism take 1 tablet by mouth every day 90 tablet 024 Active carbidopa-levodo pa CR (SINEMET CR) 50-200 MG tabletIndication s:Parkinson's Disease take 1 tablet by mouth twice a day 180 tablet 1 024 Active rOPINIRole (REQUIP) 2 MG tabletIndication s:Restless legs syndrome Take 1 tablet (2 mg total) by mouth 3 (three) times daily. 270 tablet Active bumetanide (BUMEX) 1 MG tabletIndication s:Edema TAKE 1 TABLET (1 MG TOTAL) BY MOUTH EVERY OTHER DAY. INDICATIONS: EDEMA 30 tablet Active isosorbide dinitrate (ISORDIL) 10 MG tabletIndication s:Hypertension TAKE 1 TABLET BY MOUTH TWICE A DAY 60 tablet Active fenofibrate (TRICOR) 54 MG tabletIndication s:Hyperlipidemia TAKE 1 TABLET BY MOUTH EVERY DAY WITH BREAKFAST 30 tablet Active gabapentin (NEURONTIN) 300 MG capsuleIndicatio ns:Restless leg syndrome Take 1 capsule (300 mg total) by mouth every evening. 90 capsule 024 2024 Active Insulin Syringe-Needle U-100 (BD INSULIN SYRINGE U/F) 31G X 5/16 0.5 ML MiscIndications: Uncontrolled type 2 diabetes mellitus with hyperglycemia ([facility]) Inject 25 Units into the skin nightly at bedtime. 100 each 2 Active benzonatate (TESSALON PERLES) 100 MG capsuleIndicatio ns:Bronchitis Take 1 capsule (100 mg total) by mouth 3 (three) times daily as needed for Cough. 40 capsule Active levoFLOXacin (LEVAQUIN) 750 MG tablet Take 1 tablet (750 mg total) by mouth daily for 7 days. 7 tablet 025 2024 Active doxycycline hyclate (VIBRAMYCIN) 100 MG capsuleIndicatio ns:Bronchitis Take 1 capsule (100 mg total) by mouth 2 (two) times daily for 10 days. 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 Morbid (severe) obesity due to excess calories ([facility]) 02/20/2022 Body mass index (BMI) 40.0-44.9, adult ([facility]) 02/20/2022 Murmur, cardiac 09/12/2018 Iron deficiency anemia 06/17/2018 Mass of soft tissue of left lower extremity 03/06 Choking episode 02/18/2018 Insomnia 11/17/2017 Folate deficiency 04/22/2017 Restless legs syndrome 08/14/2016 Bilateral carotid artery disease 08/04/2016 Anemia in chronic renal disease 11/28/2013 Parkinson's disease ([facility]) 05/24/2013 Hyperlipidemia 04/28/2013 Hypothyroidism 04/28/2013 Type 2 diabetes mellitus wit hout complication, with long-term current use of insulin ([facility]) 04/28/2013 Essential hypertension Dyslipidemia CAD (coronary artery disease) Arthritis Resolved Problems Problem Noted Date Diagnosed Date Resolved Date Wears glasses 11/17/2017 03/15/2020 Encounters Date Type Department Care Team Description 08/25/2024 8:23 PM [facility] - 08/25/2024 10:41 PM [facility] Emergency [facility] Emergency Room [address] [place] [id number] Ileana Dhaliwal MD Fall Discharge Disposition: Home or Self Care (Routine Discharge) 08/25/2024 Travel 08/24/2024 Telephone [facility] Internal [address] [address] Guilherme Wilson PA UTI 08/23/2024 10:18 PM PANELBOARD ASSEMBLER - 08/24/2024 12:33 AM [facility] Emergency [facility] Emergency Room [address] [place] [address] Aníbal Plasencia MD Urinary Symptoms; Rectal Pain Discharge Disposition: Home or Self Care (Routine Discharge) 08/23/2024 Travel 08/10/2024 Telephone [facility] Family Internal [address] [address] Guilherme Wilson PA Appointment Request 08/07/2024 Telephone [facility] Internal [address] [address] Amelia Costello, PharmD Appointment Request 08/05/2024 5:24 AM PANELBOARD ASSEMBLER - 08/05/2024 10:05 AM PANELBOARD ASSEMBLER Emergency [facility] Emergency Room [address] [place] [id number] Kashif Sheehan MD Harp, Jordan, MD Weakness Discharge Disposition: Home or Self Care (Routine Discharge) 08/05/2024 Travel 07/20/2024 8:40 AM PANELBOARD ASSEMBLER Office Visit [address] [phone] Tasha Medina PA Cough (X 3 weeks) 07/20/2024 Travel 07/13/[address] [phone] Guilherme Wilson, PA Other 07/03/2024 Scan Net[facility] SRVCS Scanned, [facility] 06/09/2024 12:44 PM PANELBOARD ASSEMBLER - 06/09/2024 11:59 PM PANELBOARD ASSEMBLER Hospital Encounter [facility] [address] [place] [phone] Guilherme Wilson, PA Discharge Disposition: Home or Self Care (Routine Discharge) 06/09/2024 9:30 AM PANELBOARD ASSEMBLER Laboratory Only [address] [phone] Guilherme Wilson PA 06/09/2024 8:20 AM PANELBOARD ASSEMBLER Office Visit [address] [phone] Guilherme Wilson PA Follow Up (3 month follow up); Diabetes; Hypothyroidism; Hypertension; Hyperlipidemia 06/09/2024 Travel 06/07/2024 Scan [facility] HE[facility] INFO SRVCS Scanned, [facility] from Last 3 Months Immunizations Name Administration Dates Next Due Fluad influenza vaccine, Prince drivalent (aIIV4), Inactivated, adjuvanted, preservative free, 0.5 mL,IM use 04/14/2021 Fluzone High Dose (IIV, triv alent, 0.5mL) 03/23/2024 Fluzone High Dose - >Age 65 (Prefilled Syringe) 05/09/2022,03/20/2020,04/07/2019,2017,04/18/2017,03/20/2016,03/29/2015,0 03/23/2014 Influenza (Generic) 03/29/2015 Influenza Adult (Generic) 05/25/2023,12/2021,04/14/2021,2017,04/19/2017,03/20/2016,03/23/2014 PFIZER COVID-19 (ORIGINAL FORMULATION, PURPLE CAP) mRNA, LNP-S, PF, 30 MCG/0.3 ML DOSE 04/14/2021,10/13/2020,09/17/2020 PFIZER COVID-19 BIVALENT (12 +) mRNA, LNP-S, PF, 30 MCG/0.3 ML DOSE 03/12/2022 Pneumococcal (Pneumovax 23) 04/07/2019 Pneumococcal (Prevnar 13) 05/10/2022,03/22/2018 Pneumococcal (Prevnar 20) 05/25/2023,05/09/2022 Shingrix 09/04/2019 Tdap (Adacel) 03/20/2020 Tdap (Boostrix) 03/20/2020 Family History Medical History Relation Comments No Known Problems Father Heart Attack Mother Relation Status Comments Father Mother Social History Tobacco Use Types Packs/Day Years Used Date Smoking Tobacco: Never Smokeless Tobacco: Never Tobacco Cessation:Counseling Given: No Comments:no hx tobacco Alcohol Use Standard Drinks/Week Comments No 0 (1 standard drink = 0.6 oz pur e alcohol) OASIS D0700: Social Isolation Answer Da te Recorded Frequency of experiencing loneliness or isolatio n Never 04/24/2024 OASIS A1250: Transportation Answer Date Recorded Lack of Transportation (Medical) No 04/24/2024 Lack of Transportation (Non-Medical) No 04/24/2024 Patient Unable or Declines to Respond No 04/24/2024 OASIS B1300: Health Literacy Answer Kadeem e Recorded Frequency of needing help to read materials from doctor or pharmacy Never 04/24/2024 [facility] Utilities Answer Date Recorded In the past 12 months has th e electric, gas, oil, or water company threatened to shut off services in your home? No 12/29/2023 Humiliation, Afraid, Rape, and Kick questionnair e Answer Date Recorded Within the last year, have y ou been afraid of your partner or ex-partner? Patient declined 12/29/2023 Within the last year, have y ou been humiliated or emotionally abused in other ways by your partner or ex-partner? Patient declined 12/29/2023 Within the last year, have y ou been kicked, hit, slapped, or otherwise physically hurt by your partner or ex-partner? Patient declined 12/29/2023 Within the last year, have y ou been raped or forced to have any kind of sexual activity by your partner or ex-partner? Patient declined 12/29/2023 Overall Financial Resource Strain (CARDIA) Answe r Date Recorded How hard is it for you to pa y for the very basics like food, housing, medical care, and heating? Not hard at all 12/29/2023 PHQ-2 Answer Date Recorded Patient Health Questionnaire-2 Score 0 07/20/2024 Hunger Vital Sign Answer Date Recorded Within the past 12 months, y ou worried that your food would run out before you got the money to buy more. Never true 12/29/19 24 Within the past 12 months, t he food you bought just didn't last and you didn't have money to get more. Never true 12/29/2023 PRAPARE - Transportation Answer Date Re corded In the past 12 months, has l ack of transportation kept you from medical appointments or from getting medications? No 12/04 In the past 12 months, has l ack of transportation kept you from meetings, work, or from getting things needed for daily living? No 12/29/2023 Housing Stability Vital Sign Answer Kadeem e Recorded In the last 12 months, was t here a time when you were not able to pay the mortgage or rent on time? No 12/29/2023 In the past 12 months, how m any times have you moved where you were living? 0 12/29/2023 At any time in the past 12 m [facility], were you homeless or living in a penitentiary (including now)? No 12/29/2023 Comments No Sex and Gender Information Value Date Recorded Sex Assigned at Female 03/03/2019 10:28 AM CDT Legal Sex Female 10:55 PM CDT Gender Identity Female 03/03/2019 10:28 AM CDT Sexual Orientation Straight 03/03/2019 10 :28 AM CDT Occupation Industry Job Start Date Job End Date Not on file Not on file Not on file Not on file Last Filed Vital Signs Vital Sign Reading Time Taken Comments Blood Pressure 130/68 08/25/2024 10:02 PM PANELBOARD ASSEMBLER Pulse 94 08/25/2024 10:02 PM PANELBOARD ASSEMBLER Temperature 36.6 C (97.8 F) 08/25/2024 10:02 PM PANELBOARD ASSEMBLER Respiratory Rate 19 08/25/2024 10:02 PM PANELBOARD ASSEMBLER Oxygen Saturation 94% 08/25/2024 10:02 PM PANELBOARD ASSEMBLER Inhaled Oxygen Concentration - - Weight 86.9 kg (191 lb 9.3 oz) 08/25/2024 8:20 P M PANELBOARD ASSEMBLER Height 152.4 cm (5') 08/25/2024 8:20 PM PANELBOARD ASSEMBLER Body Mass Index 37.42 08/25/2024 8:20 PM PANELBOARD ASSEMBLER Plan of Treatment Upcoming Encounters Date Type Department Care Team (Late st Contact Info) Description 09/04/2024 11:00 AM PANELBOARD ASSEMBLER Patient Outreach [facility] Family & Internal Medicine [address] [phone] Amelia Costello, PharmD [address] [place] [address] 09/15/2024 8:20 AM CDT Office Visit [facility] Family & Internal [facility] [address] [place] [address] [place] [address] [place] [address] 10/16/2024 10:45 AM CDT [facility] [address] [place] [phone] Olman Sanderson MD [facility]. [facility] [address] [place] [address] Health Maintenance Due Date Last Done Comments Annual Medicare Wellness Visit 02/04/2001 RSV Immunization or 60+ Years (1 - 1-dose 75+ series) 02/04/2011 Zoster Vaccines (2 of 2) 10/30/2019 09/04/2019 Diabetes: Retinopathy Eye Exam 11/06/2023 11/05/2021, 10/30/2020 Hemoglobin A1C 09/07/2024 06/09/2024, 12/04, 12/07/2023, Additional history exists Lipid Panel 10/24/2024 10/25/2023, 04/04, 01/08/2021, Additional history exists DTaP, Tdap and Td Vaccines (3 - Td or Tdap) 03/20/2030 03/20/2020, 03/20/2020 Pneumococcal Vaccine: 65+ Years Completed 05/25/2023, 05/10/2022, 05/09/2022, Additional history exists COVID-19 Vaccine Completed 03/23/2024, 02/2022, 04/14/2021, Additional history exists Influenza Adult Completed 03/23/2024, 05/06, 05/10/2022, Additional history exists PHQ-2 (Physician [place]) Completed 07/20/2024 Meningococcal B Vaccine Aged Out No l onger eligible based on patient's age to complete this topic Meningococcal Vaccine Aged Out No khadijah chuck eligible based on patient's age to complete this topic RSV Immunizations Under 20 Months Aged Out No longer eligible based on patient's age to complete this topic Procedures Procedure Name Priority Date/Time Associated Diagnosis Comments CT HEAD WO CON STAT 08/25/2024 9:15 PM PANELBOARD ASSEMBLER LACERATION REPAIR Routine 08/25/2024 8:5 7 PM PANELBOARD ASSEMBLER POCT GLUCOSE - BARBER DOCKED DEVICE Routine 08/25/2024 8:20 PM PANELBOARD ASSEMBLER URINE BACTERIA CULTURE STAT 11:40 PM PANELBOARD ASSEMBLER URINALYSIS, AUTO, COMPLETE STAT 08/23/2024 11:40 PM PANELBOARD ASSEMBLER XR CHEST PORTABLE STAT 08/05/2024 6:3 8 AM PANELBOARD ASSEMBLER CORONAVIRUS (COVID 19) STAT 6:26 AM PANELBOARD ASSEMBLER INFLUENZA A & B STAT 08/05/2024 6:26 AM PANELBOARD ASSEMBLER URINALYSIS, AUTO, COMPLETE STAT 08/05/2024 6:26 AM PANELBOARD ASSEMBLER PRO-BRAIN NATRIURETIC PEPTIDE STAT 08/05/2024 6:26 AM PANELBOARD ASSEMBLER LACTIC ACID W REFLEX (SEPSIS) STAT 08/05/2024 6:26 AM PANELBOARD ASSEMBLER TROPONIN, QUANT STAT 08/05/2024 6:26 AM PANELBOARD ASSEMBLER COMPREHENSIVE METABOLIC PANEL STAT 08/05/2024 6:26 AM PANELBOARD ASSEMBLER CBC W/DIFF AUTOMATED STAT 08/05/2024 6:26 AM PANELBOARD ASSEMBLER POCT GLUCOSE - BARBER DOCKED DEVICE Routine 08/05/2024 6:15 AM PANELBOARD ASSEMBLER ECG 12-LEAD Routine 08/05/2024 5:41 AM PANELBOARD ASSEMBLER COLLECTION VENOUS BLOOD VENIPUNCTURE Routine 06/09/2024 9:50 AM PANELBOARD ASSEMBLER Other iron deficiency anemia Chronic kidney disease, unspecified CKD stage CBC W/DIFF AUTOMATED Routine 06/09/2024 9:26 AM PANELBOARD ASSEMBLER Other iron deficiency anemia COMPREHENSIVE METABOLIC PANEL Routine 06/09/2024 9:26 AM PANELBOARD ASSEMBLER Chronic kidney disease, unspecified CKD stage MAGNESIUM Routine 06/09/2024 9:26 AM PANELBOARD ASSEMBLER Chronic kidney disease, unspecified CKD stage COLLECT.CAPILLARY (FNGR,HEEL,EAR) Routine 06/09/2024 8:39 AM PANELBOARD ASSEMBLER Type 2 diabetes mellitus without complication, with long-term current use of insulin ([facility] HHS/HCC) HEMOGLOBIN, GLYCOSYLATED Routine 06/09/2024 Type 2 diabetes mellitus without complication, with long-term current use of insulin ([facility] HHS/HCC) LIPID PANEL Routine 10/25/2023 12:22 PM CDT Coronary artery disease involving [place] coronary artery of [place] heart without angina pectoris DIABETIC RETINOPATHY EXAM (NEGATIVE)(SCAN ORDER) Routine 11/05/2021 from Last 3 Months or Most Recently Relevant to Health Maintenance Results * CT HEAD WO CON (08/25/2024 9:15 PM PANELBOARD ASSEMBLER) Anatomical Region Laterality Modality Head Computed Tomogra phy 08/25/2024 9:26 PM PANELBOARD ASSEMBLER Impressions 08/25/2024 9:56 PM PANELBOARD ASSEMBLER IMPRESSION: 1. No acute fractures are seen. 2. No acute intracranial abnormality. 3. Redemonstration of partially calcified extra-axial mass along the tuberculum sella suggesting meningioma similar appearance to the previous study. This appears to have some mass effect on the optic chiasm. Gadolinium-enhanced MRI could be considered for more optimal evaluation. 4. Scattered changes of chronic microangiopathy. The attending radiologist has reviewed the image(s) and agrees with the content of this report. Ordered By: ILEANA DHALIWAL Interpreted By: Polo Grove MD, 08/25/2024 9:26 PM Narrative 08/25/2024 9:56 PM PANELBOARD ASSEMBLER [facility] [address] [place] [address] EXAMINATION: CT HEAD WO CON EXAM TIME: 08/25/2024 8:55 PM HISTORY: Fall. Hit chin on carpet. COMPARISON: CT head 12/28/2023. TECHNIQUE: Computed tomography of the head was performed without contrast according to routine protocol. A dose lowering technique was used for this procedure, which may include, but is not limited to, dose reduction technique, automated exposure control, and/or the use of iterative reconstruction, in accordance with ALARA (As Low As Reasonably Achievable)/Image Gently principle. FINDINGS: No acute intracranial hemorrhage or mass effect. There is redemonstration of a partially calcified mass along the tuberculum sella suggesting meningioma similar to previous study. The sella itself is not expanded. There are scattered changes of chronic microangiopathy. The ventricles are normal in size and configuration. The basal cisterns are preserved. The calvarium is unremarkable. There are bilateral lens replacements. There is scattered ethmoid sinus mucosal thickening. The mastoid air cells are clear. There is interval decrease in soft tissue swelling compared to prior head CT 12/28/2023. No acute facial bone fractures are seen. Procedure Note Geovanni Hernandez MD - 08/25/2024 [facility] [address] [facility] [place] [address] EXAMINATION: CT HEAD WO CON EXAM TIME: 08/25/2024 8:55 PM HISTORY: Fall. Hit chin on carpet. COMPARISON: CT head 12/28/2023. TECHNIQUE: Computed tomography of the head was performed without contrastaccording to routine protocol. A dose lowering technique was used for thisprocedure, which may include, but is not limited to, dose reductiontechnique, automated exposure control, and/or the use of iterativereconstruction, in accordance with ALARA (As Low As ReasonablyAchievable)/Image Gently principle. FINDINGS: No acute intracranial hemorrhage or mass effect. There isredemonstration of a partially calcified mass along the tuberculum sellasuggesting meningioma similar to previous study. The sella itself is notexpanded. There are scattered changes of chronic microangiopathy. Theventricles are normal in size and configuration. The basal cisterns arepreserved. The calvarium is unremarkable. There are bilateral lensreplacements. There is scattered ethmoid sinus mucosal thickening. Themastoid air cells are clear. There is interval decrease in soft tissueswelling compared to prior head CT 12/28/2023. No acute facial bonefractures are seen. IMPRESSION: 1. No acute fractures are seen. 2. No acute intracranial abnormality. 3. Redemonstration of partially calcified extra-axial mass along thetuberculum sella suggesting meningioma similar appearance to the previousstudy. This appears to have some mass effect on the optic chiasm.Gadolinium-enhanced MRI could be considered for more optimal evaluation. 4. Scattered changes of chronic microangiopathy. The attending radiologist has reviewed the image(s) and agrees with thecontent of this report. Ordered By: ILEANA DHALIWAL Interpreted By: Polo Grove MD, 08/25/2024 9:26 PM us Ileana Dhaliwal MD CT Final Resul t * Lac Repair (08/25/2024 8:57 PM PANELBOARD ASSEMBLER) Ileana Hamilton MD - 08/25/2024 8:57 PM PANELBOARD ASSEMBLER Ileana Dhaliwal MD 08/25/2024 10:07 PM Lac Repair Date/Time: 08/25/2024 8:57 PM Performed by: Ileana Dhaliwal MD Authorized by: Ileana Dhaliwal MD Consent: Consent obtained: Verbal Consent given by: Patient Risks discussed: Infection, pain, retained foreign body, poor cosmetic result, need for additional repair, nerve damage, poor wound healing and vascular damage Alternatives discussed: No treatment, delayed treatment, observation and referral [place] protocol: Imaging studies available: yes (CT head noncontrast) Patient identity confirmed: Verbally with patient Anesthesia: Anesthesia method: Local infiltration Local anesthetic: Lidocaine 1% WITH epi Laceration details: Wound length (cm): two lacerations, 2 cm and 2.5 cm. Exploration: Limited defect created (wound extended): no Imaging outcome: foreign body not noted Contaminated: no Treatment: Area cleansed with: Saline Amount of cleaning: Standard Debridement: None Skin repair: Repair method: Sutures Suture size: 4-0 Suture material: Nylon Number of sutures: two in laceration 1, three in laceration 2. Repair type: Repair type: Simple Post-procedure details: Procedure completion: Tolerated well, no immediate complications us Ileana Dhaliwal MD PROCEDURE/MINOR SURGICAL OR DERABLES Final Result * (ABNORMAL) POCT glucose (08/25/2024 8:20 PM PANELBOARD ASSEMBLER) Only the most recent of2 resultswithin the time period is included. GLUCOSE POC 286(H) 70 - 110 mg/dL 08/25/2024 8:21 PM PANELBOARD ASSEMBLER [facility] 08/25/2024 8:20 PM PANELBOARD ASSEMBLER us Attending Physician Emergency MD POCT ORDERABLES - DEVICE Final Result [facility] [address] [place] [address], * (ABNORMAL) CULTURE URINE (08/23/2024 11:40 PM PANELBOARD ASSEMBLER) SPEC DESCRIPTION URINE CLEAN CATCH 08/24/2024 12:18 AM PANELBOARD ASSEMBLER [facility] SPECIAL REQUESTS NO SPECIAL REQUEST 08/24/2024 12:18 AM PANELBOARD ASSEMBLER [facility] CULTURE RESULT >100,000 COL/ML PROTEUS MIRABILIS (A) 08/26/2024 7:09 AM PANELBOARD ASSEMBLER [facility] URINE SPECIMEN OBTAINED BY CLEAN CATCH PROCEDURE / Unknown 08/23/2024 11:40 PM PANELBOARD ASSEMBLER 08/24/2024 4:09 AM PANELBOARD ASSEMBLER Narrative Organism Antibiotic Method Susceptibility Proteus mirabilis AMPICILLIN THEODORE (VITEK) <=2: Sensitive Proteus mirabilis AMPICILLIN/SULBACTAM THEODORE (VITEK) <=2: Sensitive Proteus mirabilis CEFTRIAXONE THEODORE (VITEK) <=1: Sensitive Proteus mirabilis CEFTAZIDIME THEODORE (VITEK) <=1: Sensitive Proteus mirabilis CEFAZOLIN THEODORE (VITEK) <=4: Sensitive Proteus mirabilis NITROFURANTOIN THEODORE (VITEK) 64: Resistant Proteus mirabilis GENTAMICIN THEODORE (VITEK) <=1: Sensitive Proteus mirabilis LEVOFLOXACIN THEODORE (VITEK) >=8: Resistant Proteus mirabilis PIPRACIL/TAZO THEODORE (VITEK) <=4: Sensitive Proteus mirabilis TRIMETH-SULFAMETH. THEODORE (VITEK) >=320: Resistant Aníbal Plasencia MD MICROBIOLOGY - GENERAL ORD ERABLES Final Result [facility] [address] [place] [address], [place] [phone] [facility] [address] [place] [address], [place] [phone] * (ABNORMAL) URINALYSIS, AUTO, COMPLETE (08/23/2024 11:40 PM PANELBOARD ASSEMBLER) Only the most recent of2 resultswithin the time period is included. COLOR (U) ORANGE 08/23/2024 11:59 PM PANELBOARD ASSEMBLER [facility] TRANSPARENCY CLOUDY 08/23/2024 11:59 PM PANELBOARD ASSEMBLER [facility] SPECIFIC GRAVITY (U) 1.015 1.000 - 1.030 08/23/2024 11:59 PM PANELBOARD ASSEMBLER [facility] U PH 7.5 5.0 - 9.0 08/23/2024 11:59 PM PANELBOARD ASSEMBLER [facility] LEUKOCYTES (U) TRACE(A) NEGATIVE 08/23/2024 11:59 PM PANELBOARD ASSEMBLER [facility] NITRITES POSITIVE(A) NEGATIVE 08/23/2024 11:59 PM PANELBOARD ASSEMBLER [facility] PROTEIN RANDOM (U) 2+(A) NEGATIVE 08/23/2024 11:59 PM PANELBOARD ASSEMBLER [facility] GLUCOSE (U) 3+(A) NEGATIVE 08/23/2024 11:59 PM PANELBOARD ASSEMBLER [facility] KETONES MG/DL (U) NEGATIVE NEGATIVE 08/23/2024 11:59 PM PANELBOARD ASSEMBLER [facility] BILIRUBIN (U) NEGATIVE NEGATIVE 08/23/2024 11:59 PM PANELBOARD ASSEMBLER [facility] BLOOD (U) TRACE(A) NEGATIVE 08/23/2024 11:59 PM PANELBOARD ASSEMBLER [facility] WBC/HPF 5-10 0 - 5 /HPF 08/23/2024 11:59 PM PANELBOARD ASSEMBLER [facility] RBC/HPF 0-5 0 - 5 /HPF 08/23/2024 11:59 PM PANELBOARD ASSEMBLER [facility] EPI/HPF RARE /HPF 08/23/2024 11:59 PM PANELBOARD ASSEMBLER [facility] BACTERIA (U) MODERATE /HPF 08/23/2024 11:59 PM PANELBOARD ASSEMBLER [facility] URINE SPECIMEN OBTAINED BY CLEAN CATCH PROCEDURE / Unknown 08/23/2024 11:40 PM PANELBOARD ASSEMBLER us Aníbal Plasencia MD URINE ORDERABLES Final Res ult [facility] [address] [place] [address], [place] [phone] * XR CHEST PORTABLE (08/05/2024 6:38 AM PANELBOARD ASSEMBLER) Anatomical Region Laterality Modality Chest Radiographic Adwoa ging 08/05/2024 6:39 AM PANELBOARD ASSEMBLER Impressions 08/05/2024 6:40 AM PANELBOARD ASSEMBLER IMPRESSION: 1. Prominence of pulmonary vascular pattern which may be seen with pulmonary vascular congestion. 2. Mild cardiomegaly. Referred By: Interpreted By: Uche Mckeon MD, 08/05/2024 6:39 AM Narrative 08/05/2024 6:40 AM PANELBOARD ASSEMBLER [place] [id number] [facility] [place] [address] EXAMINATION: XR CHEST PORTABLE, 08/05/2024 6:39 AM TECHNIQUE: AP portable radiograph of the chest HISTORY: Weakness COMPARISON: Chest radiograph 12/28/2023 FINDINGS: Multiple leads overlying the chest. Cerclage wires approximated median sternotomy. Coronary artery stent. Mild cardiomegaly. Prominence of pulmonary vascular pattern. No focal pulmonary consolidation. No pleural effusion. No pneumothorax. 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 Procedure Note Uche Mckeon MD - 08/05/2024 [facility] [address] [facility] [place] [address] EXAMINATION: XR CHEST PORTABLE, 08/05/2024 6:39 AM TECHNIQUE: AP portable radiograph of the chest HISTORY: Weakness COMPARISON: Chest radiograph 12/28/2023 FINDINGS: Multiple leads overlying the chest. Cerclage wires approximatedmedian sternotomy. Coronary artery stent. Mild cardiomegaly. Prominenceof pulmonary vascular pattern. No focal pulmonary consolidation. Nopleural effusion. No pneumothorax. 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 IMPRESSION: 1. Prominence of pulmonary vascular pattern which may be seen withpulmonary vascular congestion. 2. Mild cardiomegaly. Referred By: Interpreted By: Uche Mckeon MD, 08/05/2024 6:39 AM Kashif Sheehan MD GENERAL IMAGING Final Result * LACTIC ACID W REFLEX (SEPSIS) (08/05/2024 6:26 AM PANELBOARD ASSEMBLER) LACTIC ACID VENOUS 1.4 0.4 - 2.0 MMOL/L 08/05/2024 6:59 AM PANELBOARD ASSEMBLER [facility] 08/05/2024 6:26 AM PANELBOARD ASSEMBLER Kashif Sheehan MD LABORATORY Final Result [facility] [address] [place] [address], [place] [phone] * CORONAVIRUS (COVID-19) MOLECULAR (08/05/2024 6:26 AM PANELBOARD ASSEMBLER) CORONAVIRUS SARS COV 2 RNA NEGATIVE NEGATIVE 08/05/2024 7:01 AM PANELBOARD ASSEMBLER [facility] Comment: NEGATIVE RESULTS DO NOT RULE OUT COVID 19 AND SHOULD NOT BE USED THE SOLE BASIS FOR TREATMENT OR PATIENT MANAGEMENT DECISIONS, INCLUDING INFECTION CONTROL DECISIONS. NEGATIVE RESULTS SHOULD BE CONSIDERED IN THE CONTEXT OF A PATIENT'S RECENT EXPOSURES, HISTORY AND THE PRESENCE OF CLINICAL SIGNS AND SYMPTOMS CONSISTENT WITH COVID 19. THE ID NOW COVID-19 2.0 TEST HAS BEEN AUTHORIZED BY THE FDA UNDER EAU FOR USE BY AUTHORIZED LABORATORIES. PERFORMED BY NUCLEIC ACID AMPLIFICATION FOR MOLECULAR QUALITATIVE DETECTION OF SARS-COV-2. SPECIMEN TYPE NASAL 08/05/2024 6:29 AM PANELBOARD ASSEMBLER [facility] NASOPHARYNGEAL SWAB / Unknown 08/05/2024 6:26 AM PANELBOARD ASSEMBLER us Kashif Sheehan MD MICROBIOLOGY - G ENERAL ORDERABLES Final Result Performing Organization Address City/State/[facility] Co de Phone Number [facility] [address] [place] [address], [place] [phone] * (ABNORMAL) PRO-BRAIN NATRIURETIC PEPTIDE (08/05/2024 6:26 AM PANELBOARD ASSEMBLER) PRO-B TYPE NATRIURETIC PEPTIDE 1,535(H) <450 PG/ML 08/05/2024 7:05 AM PANELBOARD ASSEMBLER [facility] Comment: CUT POINTS ESTABLISHED BY INTERNATIONAL COLL[employer] ON NT PROBNP (ICON) STUDY (2006). AGE INDEPENDENT: <300 PG/ML HAS A 99% NEGATIVE PREDICTIVE VALUE FOR EXCLUDING ACUTE CHF <50 YEARS: >450 PG/ML IS CONSISTENT WITH ACUTE CHF 50-75 YEARS: >900 PG/ML IS CONSISTENT WITH ACUTE CHF >75 YEARS: >1800 PG/ML IS CONSISTENT WITH ACUTE CHF IN PATIENTS WITH RENAL INSUFFICIENCY (GFR <60), >1200 PG/ML YIELDS A DIAGNOSTIC SENSITIVITY AND SPECIFICITY OF 89% AND 72% FOR ACUTE CHF. 08/05/2024 6:26 AM PANELBOARD ASSEMBLER us Kashif Sheehan MD LABORATORY Final Result Performing Organization Address City/[facility] Co de Phone Number [facility] [address] [place] [address], [place] [phone] * (ABNORMAL) INFLUENZA A & B (08/05/2024 6:26 AM PANELBOARD ASSEMBLER) SPECIMEN TYPE NASOPHARYNGEAL SWAB 08/05/2024 6:35 AM PANELBOARD ASSEMBLER [facility] INFLUENZA A NEGATIVE NEGATIVE 08/05/2024 7:02 AM PANELBOARD ASSEMBLER [facility] INFLUENZA B POSITIVE(A) NEGATIVE 08/05/2024 7:02 AM [facility] NASAL NASOPHARYNGEAL SWAB / Unknown 08/05/2024 6:26 AM PANELBOARD ASSEMBLER Kashif Sheehan MD MICROBIOLOGY - G ENERAL ORDERABLES Final Result Performing Organization Address [facility] de Phone Number [facility] [address] [place] [address], [place] [phone] * (ABNORMAL) COMPREHENSIVE METABOLIC PANEL (08/05/2024 6:26 AM PANELBOARD ASSEMBLER) Only the most recent of2 resultswithin the time period is included. GLUCOSE 305(H) 70 - 99 MG/DL 08/05/2024 7:05 AM [facility] BUN 32(H) 7 - 18 MG/DL 08/05/2024 7:05 AM [facility] CREATININE S/P/B 1.52(H) 0.55 - 1.02 MG/DL 08/05/2024 7:05 AM [facility] SODIUM S/P/B 137 136 - 145 MMOL/L 08/05/2024 7:05 AM [facility] POTASSIUM S/P/B 3.8 3.5 - 5.1 MMOL/L 08/05/2024 7:05 AM [facility] CHLORIDE S/P/B 100 100 - 108 MMOL/L 08/05/2024 7:05 AM [facility] CO2 26.8 21 - 32 MMOL/L 08/05/2024 7:05 AM [facility] CALCIUM S/P/B 9.2 8.5 - 10.1 MG/DL 08/05/2024 7:05 AM [facility] BILIRUBIN TOTAL S/P/B 0.3 0.2 - 1.2 MG/DL 08/05/2024 7:05 AM [facility] TOTAL PROTEIN S/P/B 7.5 6.4 - 8.2 G/DL 08/05/2024 7:05 AM [facility] ALBUMIN S/P/B 3.2(L) 3.4 - 5.0 G/DL 08/05/2024 7:05 AM [facility] AST 26 15 - 37 U/L 08/05/2024 7:05 AM [facility] ALT 23 14 - 55 U/L 08/05/2024 7:05 AM [facility] ALKALINE PHOSPHATASE S/P/B 66 50 - 136 U/L 08/05/2024 7:05 AM [facility] ANION GAP 10.2 5 - 15 MMOL/L 08/05/2024 7:05 AM [facility] BUN CREATININE RATIO 21.1 6 - 26 08/05/2024 7:05 AM [facility] A/G RATIO 0.7(L) 1.0 - 2.0 RATIO 08/05/2024 7:05 AM [facility] GFR ESTIMATE 33(L) >90 ML/MIN/1.7 3 M2 08/05/2024 7:05 AM [facility] Comment: NOTE: eGFR is not calculated for patients <18 years of age. This is an estimated GFR calculation using the new CKD EPI creatinine equation without race and so does not require a correction factor for race. This estimated GFR should not be used for calculating drug doses. 08/05/2024 6:26 AM PANELBOARD ASSEMBLER Kashif Sheehan MD LABORATORY Final Result [facility] [address] [place] [address], [place] [phone] * (ABNORMAL) CBC W/DIFF AUTOMATED (08/05/2024 6:26 AM PANELBOARD ASSEMBLER) Only the most recent of2 resultswithin the time period is included. WBC 10.09 4.4 - 11.0 x10'3/uL 08/05/2024 6:40 AM [facility] RBC 5.30(H) 4.50 - 5.10 x10'6/uL 08/05/2024 6:40 AM [facility] HGB 12.9 12.3 - 15.3 G/DL 08/05/2024 6:40 AM [facility] HCT 41.6 35.9 - 44.6 % 08/05/2024 6:40 AM [facility] MCV 78.5(L) 80.0 - 96.0 FL 08/05/2024 6:40 AM [facility] MCH 24.3(L) 25.3 - 30.9 PG 08/05/2024 6:40 AM [facility] MCHC 31.0 31.0 - 34.1 G/DL 08/05/2024 6:40 AM [facility] RDW 16.4(H) 12.4 - 15.1 % 08/05/2024 6:40 AM [facility] PLT 268 151 - 353 x10'3/uL 08/05/2024 6:40 AM [facility] MPV 10.2 9.6 - 12.0 FL 08/05/2024 6:40 AM [facility] RBC MORPHOLOGY NORMAL 08/05/2024 6:40 AM [facility] PLT MORPH. NORMAL 08/05/2024 6:40 AM [facility] WBC MORPHOLOGY NORMAL 08/05/2024 6:40 AM [facility] LYMPHOCYTES % 19.8 15.8 - 45.0 % 08/05/2024 6:40 AM [facility] NEUTROPHILS % 66.2 42.1 - 71.9 % 08/05/2024 6:40 AM [facility] MONOCYTES % 9.2 5.7 - 12.5 % 08/05/2024 6:40 AM [facility] EOSINOPHILS 4.1 0.0 - 5.6 % 08/05/2024 6:40 AM [facility] BASOPHILS 0.4 0.0 - 1.3 % 08/05/2024 6:40 AM [facility] ABS. NEUTROPHILS 6.68(H) 1.40 - 6.00 x10'3/uL 08/05/2024 6:40 AM [facility] IMMATURE GRANS % 0.3 0.0 - 0.5 % 08/05/2024 6:40 AM [facility] ABS. LYMPHOCYTES 2.00 0.80 - 4.70 x10'3/uL 08/05/2024 6:40 AM [facility] 08/05/2024 6:26 AM PANELBOARD ASSEMBLER Kashif Sheehan MD LABORATORY Final Result Performing Organization Address City/State/[facility] Co de Phone Number [facility] [address] [place] [address], [place] [phone] * TROPONIN, QUANT (08/05/2024 6:26 AM PANELBOARD ASSEMBLER) TROPONIN I HIGH SENSITIVITY 34 0 - 50 ng/L 08/05/2024 7:01 AM PANELBOARD ASSEMBLER [facility] Comment: HIGH DOSES OF BIOTIN, TROPONIN-SPECIFIC AUTOANTIBODIES, AND ANTIBODY THERAPY CONTAINING HAMA MAY INTERFERE WITH THIS TEST RESULT. CORRELATION TO CLINICAL HISTORY AND PRESENTATION RECOMMENDED. 08/05/2024 6:26 AM PANELBOARD ASSEMBLER Kashif Sheehan MD LABORATORY Final Result Performing Organization Address [facility] Co de Phone Number [facility] [address] [place] [address], * ECG 12 lead (08/05/2024 5:41 AM PANELBOARD ASSEMBLER) 08/05/2024 5:41 AM PANELBOARD ASSEMBLER Narrative [facility] RAD - 08/05/2024 11:51 AM PANELBOARD ASSEMBLER [facility] Test Date: 2024-08-05 Pat Name: MOSES NAPIER Department: 85 Room: [place] [address] Gender: Female Veterinary Medicine Teacher: : 1935 Requested By: KASHIF SHEEHAN Order Number: [id number] Reading MD: Olman Sanderson Measurements Intervals [place] Rate: 78 P: 31 MT: 143 QRS: -4 QRSD: 83 T: 85 QT: 395 QTc: 450 Interpretive Statements SINUS RHYTHM LEFT VENTRICULAR HYPERTROPHY AND ST-T CHANGE [VOLTAGE CRITERIA PLUS ST/T ABNORMALITY] Compared to ECG 12/28/2023 12:48:57 Left ventricular hypertrophy now present ST (T wave) deviation now present T-wave abnormality no longer present LBOARD ASSEMBLER Procedure Note Olman Sanderson MD - 08/05/2024 [facility] Test Date: 2024-08-05 Pat Name: MOSES NAPIER Department: 85 Room: [place] [address] Gender: Female Veterinary Medicine Teacher: : 1935 Requested By: KASHIF SHEEHAN Order Number: [id number] Reading MD: Olman Sanderson Measurements Intervals [place] Rate: 78 P: 31 MT: 143 QRS: -4 QRSD: 83 T: 85 QT: 395 QTc: 450 Interpretive Statements SINUS RHYTHM LEFT VENTRICULAR HYPERTROPHY AND ST-T CHANGE [VOLTAGE CRITERIA PLUSST/T ABNORMALITY] Compared to ECG 12/28/2023 12:48:57 Left ventricular hypertrophy now present ST (T wave) deviation now present T-wave abnormality no longer present LBOARD ASSEMBLER us Kashif Sheehan MD ECG ORDERABLES Final Result Performing Organization Address City/[facility] Co de Phone Number [facility] RAD * MAGNESIUM (06/09/2024 9:26 AM PANELBOARD ASSEMBLER) MAGNESIUM 2.0 1.8 - 2.4 MG/DL 06/09/2024 2:01 PM PANELBOARD ASSEMBLER [facility] 06/09/2024 9:26 AM PANELBOARD ASSEMBLER us Guilherme DAVIDSON LABORATORY Final Result Performing Organization Address City/[facility]/ZIP Co de Phone Number [facility] [address] [place] [address], [place] [phone] * A1C (BACK OFFICE) (06/09/2024) HGB A1C 10.1 % [id number] [facility] 06/09/2024 us Guilherme DAVIDSON LABORATORY Final Result [id number] SAJ[facility] [address] [place] [address], * (ABNORMAL) LIPID PANEL (10/25/2023 12:22 PM CDT) CHOLESTEROL 106 <200.0 MG/DL 10/25/2023 1:49 PM CDT [facility] TRIGLYCERIDES 101 <150 MG/DL 10/25/2023 1:49 PM CDT [facility] HDL 36(L) >40.0 MG/DL 10/25/2023 1:49 PM CDT [facility] LDL (CALCULATED) 50 <100 MG/DL 10/25/19 1:49 PM CDT [facility] NON HDL CHOLESTEROL 70 <130 MG/DL 10/24 1:49 PM CDT [facility] CHOL/HDL RATIO 2.9 0.0 - 4.5 10/25/2023 1:49 PM CDT [facility] VLDL CALCULATION 20 5 - 55 MG/DL 10/25/2023 1:49 PM CDT [facility] LIPID INTERPRETATION 10/25/2023 1:49 PM CDT [facility] Comment: [facility] CONCENSUS REPORT RECOMMENDATIONS: ADULT CHILD LOW RISK: CHOLESTEROL <200 <170 TRIGLYCERIDE <150 --- HDL >=60 --- LDL <100 <110 BORDERLINE: CHOLESTEROL 200-239 170-199 TRIGLYCERIDE 150-199 --- HDL 40-59 --- LDL 100-159 110-129 HIGH RISK: CHOLESTEROL >=240 >=200 TRIGLYCERIDE >=200 --- HDL <40 --- LDL >=160 >=130 10/25/2023 12:2 2 PM CDT Amelia Platt SUPERVISOR [employer] LABORATORY Final Result Performing Organization Address City/[facility] Co de Phone Number [facility] [address] [place] [address], * DIABETIC RETINOPATHY EXAM (NEGATIVE)(SCAN) (11/05/2021) us Documents Scanned SCANNING Final Result 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 12/29/2023 [facility] [address] MEDICAID Advance Directives * Full Code (Latest Code Status on File) Date Activated Date Inactivated Comments 01/26/2024 9:01 AM 08/05/2024 5:24 AM * Full Code Date Activated Date Inactivated Comments 12/28/2023 9:40 PM 01/04/2024 2:47 PM * Full Code Date Activated Date Inactivated Comments 11/08/2023 8:33 AM 12/28/2023 12:13 PM * Full Code Date Activated Date Inactivated Comments 08/09/2023 11:11 AM 08/16/2023 5:25 PM Care Teams Hardware Trainer Relationship Specialty [place] [address] [place] [address] PCP - General Physician Sharepoint Administrator Medical 08/16/23 Olman Sanderson MD [facility]. [address] [address] Jonny Microphone Operator CARDIOVASCULAR DISEASE 12/04/15
--- OUTSIDE RECORDS SUMMARY | 2024-08-27 09:44 | XMS_ITS | Encounter Summary ---
Author Organization [facility] Address [facility] [place] [address] Care Team Providers Care Labor Economics Teacher Name Role Phone Olman Sanderson MD Unavailable [phone] Arjun Nuñez MD Primary Care Provider [phone] Guilherme Wilson Primary Care Provider [phone] Encounter Details Date Type Department Care Team (Late st Contact Info) Description 08/28/2021 Abstract [facility] [address] Brayan Gill MA Social History Tobacco Use Types Packs/Day Years Used Date Smoking Tobacco: Never Smokeless Tobacco: Never Alcohol Use Standard Drinks/Week Comments No 0 (1 standard drink = 0.6 oz pur e alcohol) PHQ-2 Answer Date Recorded PHQ-2 Score - If the patient scores above 3, please move on to questions 3-9 0 08/29/2021 Comments No Sex and Gender Information Value Date Recorded Sex Assigned at Female 03/03/2019 10:28 AM CDT Legal Sex Female 10:55 PM CDT Gender Identity Female 03/03/2019 10:28 AM CDT Sexual Orientation Straight 03/03/2019 10 :28 AM CDT Occupation Industry Job Start Date Job End Date Not on file Not on file Not on file Not on file COVID-19 Exposure Response Date Recorded In the last 10 days, have yo u been in contact with someone who was confirmed or suspected to have Coronavirus/COVID-19? No / Unsure 08/29/2021 11:13 AM EDUCATION DEPARTMENT REGISTRAR documented as of this encounter Plan of Treatment Upcoming Encounters Date Type Department Care Team (Late st Contact Info) Description 09/04/2024 11:00 AM EDUCATION DEPARTMENT REGISTRAR Patient Outreach [facility] [address] [place] [address] Amelia Costello, PharmD [address] [place] [address] 09/15/2024 8:20 AM CDT Office Visit [facility] [address] [place] [address] [place] [address] [place], [place] [id number] 10/16/2024 10:45 AM CDT [facility] [address] [place] [address] Olman Sanderson MD [address] [address] documented as of this encounter Procedures Procedure Name Priority Date/Time Associated Diagnosis Comments NT-PRO BNP VISTA Routine 08/27/2021 CBC (OUTSIDE LAB) Routine 08/27/2021 COMPREHENSIVE METABOLIC PANEL Routine 08/27/2021 THYROID STIM HORMONE TSH Routine 08/27/2021 documented in this encounter Results * Nt-Pro Bnp [place] (08/27/2021) PRO-BRAIN NATRIURETIC PEPTIDE 838 08/27/2021 us Doc [facility] GENERAL SUPPLY & EQUIPMENT O RDERABLES Final Result * THYROID STIM HORMONE, TSH (08/27/2021) Pathologist [facility] TSH 3.24 08/27/2021 us Doc [facility] Abstract LABORATORY Edited Resul t - Final * (ABNORMAL) COMPREHENSIVE METABOLIC PANEL (08/27/2021) Pathologist [facility] SODIUM S/P/B 137 POTASSIUM S/P/B 4.9 CO2 22 CHLORIDE S/P/B 103 GLUCOSE 142 mg/dL CALCIUM S/P/B 9.4 BUN 26 CREATININE S/P/B 1.07(A) 0.5 - 1.0 EGFR NON-AFR. AMER. 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 [address] [address] Jonny Crane Helper CARDIOVASCULAR DISEASE 12/04/15 documented as of this encounter
--- OUTSIDE RECORDS SUMMARY | 2024-08-27 09:44 | XMS_ITS | Encounter Summary ---
Author Organization [facility] Address [facility] [place] [address] Care Team Providers Care Sales Consultant Name Role Phone Olman Sanderson MD Unavailable [phone] Guilherme Wilson Primary Care Provider [phone] Reason for Visit * Reason Onset Date Comments UTI 08/24/2024 Encounter Details Date Type Department Care Team (Late st Contact Info) Description 08/24/2024 Telephone [facility] Medical [facility] Family & Internal Medicine [facility] [address] [place] [address] Guilherme Wilson [place] [id number] [place] [address] UTI Social History Tobacco Use Types Packs/Day Years Used Date Smoking Tobacco: Never Smokeless Tobacco: Never Comments:no hx tobacco Alcohol Use Standard Drinks/Week [...] materials from doctor or pharmacy Never 04/24/2024 [facility] Utilities Answer Date Recorded In [...] any time in the past 12 m [facility], were you homeless or living in a senior care (including now)? No 12/29/2023 Comments No Sex [...] on file documented as of this encounter Functional Status * Are you deaf or do you have serious difficulty hearing Answer Date of Assessment Author Status No 12/28/2023 11:00 PM LINDAT Vidya Navas RN Active * Are you blind or do you have serious difficulty seeing, even when wearing glasses? Answer Date of Assessment Author Status No 12/28/2023 11:00 PM LINDAT Vidya Navas RN Active * Do you have serious difficulty walking or climbing stairs? Answer Date of Assessment Author Status Yes 12/28/2023 11:00 PM Vidya Martinez RN Active * Do you have difficulty dressing or bathing? Answer Date of Assessment Author Status No 12/28/2023 11:00 PM Vidya Martinez RN Active * Because of a physical, mental, or emotional condition, do you have difficulty doing errands alone such as visiting a doctor's office or shopping? Answer Date of Assessment Author Status No 12/28/2023 11:00 PM Vidya Martinez RN Active documented as of this encounter Mental Status * Because of a physical, mental, or emotional condition, do you have serious difficulty concentrating, remembering, or making decisions? Answer Entry Date Author Status No 12/28/2023 11:00 PM Vidya Martinez RN Active documented in this encounter Progress Notes * Priscilla Vuong RN - 08/24/2024 2:31 PM CST Noted. UCTION CONTROL SCHEDULER * Roxanne Pelaez LPN - 08/24/2024 10:51 AM CST Pt was at ER [facility] 08/23/24 UTI meds given but she is having extreme burning even when not urinating Pt wants to see [facility] PCP she will come to [facility] tomorrow morning as Parish is in [facility] No request to call back [phone] UCTION CONTROL SCHEDULER documented in this encounter Plan of Treatment Upcoming Encounters Date Type Department Care Team (Late st Contact Info) Description 09/04/2024 11:00 AM PRODUCTION CONTROL SCHEDULER Patient Outreach [facility] Family & Internal Medicine [facility] [address] [place] [address] Amelia Costello, PharmD [address] [place] [address] 09/15/2024 8:20 AM CDT Office Visit [facility] Family & Internal [facility] [address] [place] [address] [place] [address] [place], [place] [id number] 10/16/2024 10:45 AM CDT Office Visit 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 [address] [address] [place] Bilingual Executive Assistant CARDIOVASCULAR DISEASE 12/04/15 documented as of this encounter
--- OUTSIDE RECORDS SUMMARY | 2024-08-27 09:44 | XMS_ITS | Encounter Summary ---
Author Organization [facility] Address [address] [place] [address] Care Team Providers Care Electrical Engineer Name Role Phone Madelyn Mcbridejudith RAMÍREZ Primary Care Provider [phone] Olman Sanderson MD Unavailable [phone] Arjun Nuñez MD Primary Care Provider [phone] Guilherme Wilson Primary Care Provider [phone] Encounter Details Date Type Department Care Team (Late st Contact Info) Description 02/22/2015 Abstract [facility] CONVERSION [address] [place] [address] , Generic Conversion, Social History [...] st Contact Info) Description 09/04/2024 11:00 AM CONGRESSIONAL REPRESENTATIVE Patient Outreach [facility] Family & Internal Medicine [facility] [address] [place] [phone] Amelia Costello, PharmD [address] [place] [address] 09/15/2024 8:20 AM CDT Office Visit [facility] Family & Internal Medicine - [place] [address] [place] [address] [place] [address] [place], [place] [phone] 10/16/2024 10:45 AM CDT Office Visit [facility] [address] [place] [phone] Olman Sanderson MD [address] [address] documented as of this encounter Visit Diagnoses Not on filedocumented in this encounter Additional Health Concerns Infection Onset Date Last Indicated Resolved Time COVID-19 Rule Out 07/14/2021 07/14/2021 07/14/2021 1:26 PM CONGRESSIONAL REPRESENTATIVE COVID-19 Confirmed 07/14/2021 07/14/2021 12:34 AM CONGRESSIONAL REPRESENTATIVE 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 [address] [address] [place] Craniologist CARDIOVASCULAR DISEASE 12/04/15 documented as of this encounter
--- OUTSIDE RECORDS SUMMARY | 2024-08-27 09:44 | XMS_ITS | Referral Summary ---
Author Organization [address] Address [address] [place] [address] Care Team Providers Care Client Program Manager Name Role Phone No, Physician Primary Care Provider [phone] Social History Tobacco Use Types Packs/Day Years Used Date Smoking Tobacco: Never Assessed Personal Safety Answer Date Recorded Getting School Help Needed Not on file 09/18 Comments Unknown Sex and Gender Information Value Date Recorded Sex Assigned at Not on file Legal Sex Female 10:35 AM MARINA PORTER Gender Identity Not on file Sexual Orientation Not on file Plan of Treatment Not on file Insurance [address] [place] [phone] [address] [facility] Address: [address] [address] [place] [address] ID[employer] Care Teams Client Program Manager Relationship Specialty Start Date End Date No, Physician PCP - General 08/27/21
--- OUTSIDE RECORDS SUMMARY | 2024-08-27 09:44 | XMS_ITS | Encounter Summary ---
Author Organization [facility] Address [address] [place] [address] Care Team Providers Care [place] Seamer Name Role Phone Olman Sanderson MD Unavailable [phone] Guilherme Wilson Primary Care Provider [phone] Reason for Referral * Imaging (Emergency) - New Request Specialty Diagnoses / Procedures Referred By Sameera vitale Referred To Contact RADIOLOGY Procedures CT HEAD WO CON Ileana Dhaliwal MD [address] [place] [address] Phone: tel: fax: Referral ID Status Reason Start Date Expiration Date V isits Requested Visits Authorized New Request 08/25/2024 08/25/2025 1 1 ION PLANNER Reason for Visit * Reason Comments Fall Encounter Details Date Type Department Care Team (Late st Contact Info) Description 08/25/2024 8:23 PM MISSION PLANNER - 08/25/2024 10:41 PM MISSION PLANNER Emergency [facility] Emergency Room [id number] [place] [address] Ileana Dhaliwal MD [address] [place] [id number] Fall Discharge Disposition: Home or Self Care (Routine Discharge) Social History Tobacco Use Types Packs/Day Years [...] materials from doctor or pharmacy Never 04/24/2024 [facility] Utilities Answer Date Recorded In the past 12 months has e [place] gas, oil, or water [employer] threatened to shut off services in your [...] any time in the past 12 m [facility], were you homeless or living in a senior living (including now)? No 12/29/2023 Comments No Sex [...] on file documented as of this encounter Last Filed Vital Signs Vital Sign Reading Time Taken Comments Blood Pressure 130/68 08/25/2024 10:02 PM MISSION PLANNER Pulse 94 08/25/2024 10:02 PM MISSION PLANNER Temperature 36.6 C (97.8 F) 08/25/2024 10:02 PM MISSION PLANNER Respiratory Rate 19 08/25/2024 10:02 PM MISSION PLANNER Oxygen Saturation 94% 08/25/2024 10:02 PM MISSION PLANNER Inhaled Oxygen Concentration - - Weight 86.9 kg (191 lb 9.3 oz) 08/25/2024 8:20 P M MISSION PLANNER Height 152.4 cm (5') 08/25/2024 8:20 PM MISSION PLANNER Body Mass Index 37.42 08/25/2024 8:20 PM MISSION PLANNER documented in this encounter Functional Status * Are you deaf or do you have serious difficulty hearing Answer Date of Assessment Author Status No 12/28/2023 11:00 PM CDT Vidya Navas RN Active * Are you blind or do you have serious difficulty seeing, even when wearing glasses? Answer Date of Assessment Author Status No 12/28/2023 11:00 PM Vidya Martinez RN Active * Do you have serious [...] Martinez RN Active documented in this encounter Discharge Instructions * Discharge Instructions* Ileana Dhaliwal MD - 08/25/2024 9:00 PM MISSION PLANNER Suture can be removed at your Primary care doctors office in 5 days ION PLANNER documented in this encounter Medications at Time of Discharge acetaminophen (TYLENOL) 325 MG tabletIndications: Pain Take 2 tablets (650 mg total) by mouth every 4 (four) hours as needed for Pain or Fever. 01/04/2024 ALBUTEROL SULFATE HFA 108 (90 Base) MCG/ACT inhalerIndications :Wheezing INHALE 2 PUFFS INTO THE LUNGS EVERY 6 HOURS NEEDED FOR WHEEZE 18 g 2 12/08/2021 bacitracin 500 UNIT/GM ointmentIndication s:Wound Care Apply topically 2 (two) times daily. 28 g 01/04/2024 benzonatate (TESSALON PERLES) 100 MG capsuleIndications :Bronchitis Take 1 capsule (100 mg total) by mouth 3 (three) times daily as needed for Cough. 40 capsule 07/20/2024 Blood Glucose Monitoring Suppl (ONE TOUCH ULTRA 2) w/Device KitIndications:Typ e 2 diabetes mellitus without complication, with long-term current use of insulin ([facility] HHS/HCC) 1 each by Does not apply route daily. 1 kit 12/07/2023 Blood Pressure Monitoring (BLOOD PRESSURE MONITOR/L CUFF) MiscIndications:Es sential (primary) hypertension Take BP as directed 1 each 04/13/2022 bumetanide (BUMEX) 1 MG tabletIndications: Edema TAKE 1 TABLET (1 MG TOTAL) BY MOUTH EVERY OTHER DAY. INDICATIONS: EDEMA 30 tablet 06/06/2024 carbidopa-levodopa CR (SINEMET CR) 50-200 MG tabletIndications: Parkinson's Disease take 1 tablet by mouth twice a day 180 tablet 1 03/24/2024 clobetasol (TEMOVATE) 0.05 % creamIndications:R bel and other nonspecific skin eruption APPLY TWICE DAILY TO RASH UP TO 2 WEEKS/MONTH NEEDED. 07/09/2022 clopidogrel (PLAVIX) 75 MG tabletIndications: Anticoagulant Therapy take 1 tablet by mouth every day 90 tablet 02/14/2024 dextrose (GLUTOSE) 40 % oral gelIndications:Micaela betes Mellitus Take 37.5 g by mouth as needed for Low blood sugar. 37.5 g 01/04/2024 DIABETIC SHOES Wear daily 0 06/13/2018 fenofibrate (TRICOR) 54 MG tabletIndications: Hyperlipidemia TAKE 1 TABLET BY MOUTH EVERY DAY WITH BREAKFAST 30 tablet 06/06/2024 ferrous sulfate, 65 mg elemental, 325 (65 FE) MG tabletIndications: supplement Take 1 tablet (325 mg total) by mouth 2 (two) times daily with meals. 60 tablet 01/04/2024 gabapentin (NEURONTIN) 300 MG capsuleIndications :Restless leg syndrome Take 1 capsule (300 mg total) by mouth every evening. 90 capsule 06/09/2024 gentamicin (GARAMYCIN) 0.1 % ointmentIndication s:Wound Care Indications: Wound Care Apply with dressing changes 15 g 12/13/2023 Glucose Blood (BLOOD GLUCOSE TEST STRIPS 333) StripIndications:T ype 2 diabetes mellitus without complication, with long-term current use of insulin ([facility] HHS/HCC) 1 each by In Vitro route daily. 100 strip 3 12/07/2023 hydroCHLOROthiazid e (HYDRODIURIL) 25 MG tabletIndications: Hypertension Take 0.5 tablets (12.5 mg total) by mouth every morning. Indications: High Blood Pressure Disorder 45 tablet 1 03/15/2024 5 HYDROcodone-acetam inophen (NORCO) 7.5-325 MG tabletIndications: Chronic Pain Take 1 tablet by mouth every 6 (six) hours as needed for Pain. Indications: Chronic Pain 60 tablet 11/04/2023 insulin detemir (LEVEMIR) 100 UNIT/ML injectionIndicatio ns:dm [The details of the medication are not available because there are pending changes by a home health clinician.] 30 mL 01/04/2024 Insulin Syringe-Needle U-100 (BD INSULIN SYRINGE U/F) 31G X 5/16 0.5 ML MiscIndications:Un controlled type 2 diabetes mellitus with hyperglycemia (CMS/HCC HHS/HCC) Inject 25 Units into the skin nightly at bedtime. 100 each 2 06/09/2024 isosorbide dinitrate (ISORDIL) 10 MG tabletIndications: Hypertension TAKE 1 TABLET BY MOUTH TWICE A DAY 60 tablet 06/06/2024 levoFLOXacin (LEVAQUIN) 750 MG tablet Take 1 tablet (750 mg total) by mouth daily for 7 days. 7 tablet 08/24/2024 5 levothyroxine (SYNTHROID) 50 MCG tabletIndications: Hypothyroidism take 1 tablet by mouth every day 90 tablet 03/24/2024 naloxone (NARCAN) 4 MG/0.1ML nasal sprayIndications:R eversal of Opioid Effects 1 spray by Nasal route as needed. 1 each 01/04/2024 nystatin (MYCOSTATIN) powderIndications: Skin Irritation Apply topically 2 (two) times daily. Cleanse areas of excoriation, apply powder under breasts and groin, then apply Interdry 30 g 01/04/2024 polyethylene glycol (GLYCOLAX) packetIndications: Constipation Take 240 mLs (17 g total) by mouth daily as needed for Constipation. Dissolve powder in 240 mL water 01/04/2024 pravastatin (PRAVACHOL) 40 MG tabletIndications: Hyperlipidemia take 1 tablet by mouth everyday at bedtime 90 tablet 1 02/14/2024 rOPINIRole (REQUIP) 2 MG tabletIndications: restless legs Take 1 tablet (2 mg total) by mouth 3 (three) times daily as needed. 270 tablet 03/08/2024 rOPINIRole (REQUIP) 2 MG tabletIndications: Restless legs syndrome Take 1 tablet (2 mg total) by mouth 3 (three) times daily. 270 tablet 03/31/2024 Skin Protectants, Misc. (INTERDRY 31Y689) SHEET Apply 1 Application topically 2 (two) times a day. Please apply after cleansing areas of excoriation, applying nystatin powder under breasts and groin, then apply InterDry 10 each 01/04/2024 sodium chloride (OCEAN) 0.65 % SolutionIndication s:Nasal Discomfort 1 spray by Each Nostril route 3 (three) times daily. May also 1 spray as needed for Dryness. 50 mL 01/04/2024 spironolactone (ALDACTONE) 25 MG tabletIndications: Diuresis take 1 tablet by mouth every day 90 tablet 1 02/14/2024 traMADol (ULTRAM) 50 MG tabletIndications: Chronic Pain Take 1 tablet (50 mg total) by mouth every 6 (six) hours as needed. Indications: Chronic Pain 30 tablet 09/01/2023 traZODone (DESYREL) 50 MG tabletIndications: Insomnia TAKE 1-2 TABLETS BY MOUTH 30-60MIN BEFORE BEDTIME 180 tablet 02/14/2024 documented as of this encounter ED Notes * Ileana Dhaliwal MD - 08/25/2024 8:51 PM CSTAssociated Order(s): Lac Repair Chief Complaint Chief Complaint Patient presents with Fall History of Present Illness 89-year-old female with a history of HTN, CAD, who presents following a ground- level fall which shelanded on her chin. She has a history of gait instability, restless leg syndrome, states that she was wearing a footwear that made her fall. She denies chest pain, shortness of breath or palpitation prior to the fall. No dizziness or loss of consciousness. He sustained multiple lacerations to her left valentin. Of note she is not on blood thinners. No focal weakness of upper or lower limbs, vision orspeech changes. Medical History ALLERGIES: Review of patient's allergies indicates: Allergen Reactions Folic Acid Vomiting Penicillins Hives MEDICATIONS: Prior to Admission medications Medication Sig Start Date End Date Taking? Authorizing Provider acetaminophen (TYLENOL) 325 MG tablet Take 2 tablets (650 mg total) by mouth every 4 (four) hours as needed for Pain or Fever. 01/04/24 [place] G BEATRIZ Vides ALBUTEROL SULFATE HFA 108 (90 Base) MCG/ACT inhaler INHALE 2 PUFFS INTO THE LUNGS EVERY 6 HOURS NEEDED FOR WHEEZE 12/08/21 Arjun Nuñez MD bacitracin 500 UNIT/GM ointment Apply topically 2 (two) times daily. 01/04/24 [place] G BEATRIZ Vides benzonatate (TESSALON PERLES) 100 MG capsule Take 1 capsule (100 mg total) by mouth 3 (three) timesdaily as needed for Cough. 07/20/24 LETY Rocha Blood Glucose Monitoring Suppl (ONE TOUCH ULTRA 2) w/Device Kit 1 each by Does not apply route daily. 12/07/23 LETY Lopez Blood Pressure Monitoring (BLOOD PRESSURE MONITOR/L CUFF) [facility] Take BP as directed 04/13/22 Olman Sanderson MD bumetanide (BUMEX) 1 MG tablet TAKE 1 TABLET (1 MG TOTAL) BY MOUTH EVERY OTHER DAY. INDICATIONS: EDEMA 06/06/24 IBIS Patterson carbidopa-levodopa CR (SINEMET CR) 50-200 MG tablet take 1 tablet by mouth twice a day 03/24/24 LETY Lopez clobetasol (TEMOVATE) 0.05 % cream APPLY TWICE DAILY TO RASH UP TO 2 WEEKS/MONTH NEEDED. 07/09/22 Default History Genericprovider clopidogrel (PLAVIX) 75 MG tablet take 1 tablet by mouth every day 02/14/24 Arjun Nuñez MD dextrose (GLUTOSE) 40 % oral gel Take 37.5 g by mouth as needed for Low blood sugar. 01/04/24 Caryl Vides NP DIABETIC SHOES Wear daily 06/13/18 Doc [facility] fenofibrate (TRICOR) 54 MG tablet TAKE 1 TABLET BY MOUTH EVERY DAY WITH BREAKFAST 06/06/24 IBIS Patterson ferrous sulfate, 65 mg elemental, 325 (65 FE) MG tablet Take 1 tablet (325 mg total) by mouth 2 (two) times daily with meals. 01/04/24 [place] G BEATRIZ Vides gabapentin (NEURONTIN) 300 MG capsule Take 1 capsule (300 mg total) by mouth every evening. LETY Lopez gentamicin (GARAMYCIN) 0.1 % ointment Indications: Wound Care Apply with dressing changes 12/13/23 LETY Lopez Glucose Blood (BLOOD GLUCOSE TEST STRIPS 333) Strip 1 each by In Vitro route daily. 12/07/23 LETY Burton hydroCHLOROthiazide (HYDRODIURIL) 25 MG tablet Take 0.5 tablets (12.5 mg total) by mouth every morning. Indications: High Blood Pressure Disorder 03/15/24 09/11/24 LETY Lopez HYDROcodone-acetaminophen (NORCO) 7.5-325 MG tablet Take 1 tablet by mouth every 6 (six) hours as needed for Pain. Indications: Chronic Pain 11/04/23 Arjun Nuñez MD insulin detemir (LEVEMIR) 100 UNIT/ML injection Inject 20 Units into the skin every morning. Indications: dm Patient taking differently: Inject 35 Units into the skin every morning. Indications: dm 01/04/24 [place] Vides NP Insulin Syringe-Needle U-100 (BD INSULIN SYRINGE U/F) 31G X 11/17 0.5 ML Misc Inject 25 Units into the skin nightly at bedtime. 06/09/24 LETY Lopez isosorbide dinitrate (ISORDIL) 10 MG tablet TAKE 1 TABLET BY MOUTH TWICE A DAY 06/06/24 Olman Sanderson MD levoFLOXacin (LEVAQUIN) 750 MG tablet Take 1 tablet (750 mg total) by mouth daily for 7 days. 08/24/24 08/31/24 Aníbal Plasencia MD levothyroxine (SYNTHROID) 50 MCG tablet take 1 tablet by mouth every day 03/24/24 Arjun Nuñez MD naloxone (NARCAN) 4 MG/0.1ML nasal spray 1 spray by Nasal route as needed. 01/04/24 [place] G BEATRIZ Vides nystatin (MYCOSTATIN) powder Apply topically 2 (two) times daily. Cleanse areas of excoriation, apply powder under breasts and groin, then apply Interdry 01/04/24 [place] G Mahogany, [employer] polyethylene glycol (GLYCOLAX) packet Take 240 mLs (17 g total) by mouth daily as needed for Constipation. Dissolve powder in 240 mL water 01/04/24 [place] G Kras, [employer] pravastatin (PRAVACHOL) 40 MG tablet take 1 tablet by mouth everyday at bedtime 02/14/24 Olman Villegas MD rOPINIRole (REQUIP) 2 MG tablet Take 1 tablet (2 mg total) by mouth 3 (three) times daily as needed. Patient not taking: Reported on 07/31/2024 03/08/24 LETY Lopez rOPINIRole (REQUIP) 2 MG tablet Take 1 tablet (2 mg total) by mouth 3 (three) times daily. 03/31/24 LETY Lopez Skin Protectants, Misc. (INTERDRY 49H968) SHEET Apply 1 Application topically 2 (two) times a day. Please apply after cleansing areas of excoriation, applying nystatin powder under breasts and groin, then apply InterDry 01/04/24 [place] G Mahogany, [employer] sodium chloride (OCEAN) 0.65 % Solution 1 spray by Each Nostril route 3 (three) times daily. May also 1 spray as needed for Dryness. 01/04/24 [place] G Mahogany, [employer] spironolactone (ALDACTONE) 25 MG tablet take 1 tablet by mouth every day 02/14/24 Olman Sanderson MD traMADol (ULTRAM) 50 MG tablet Take 1 tablet (50 mg total) by mouth every 6 (six) hours as needed. Indications: Chronic Pain 09/01/23 LETY Lopez traZODone (DESYREL) 50 MG tablet TAKE 1-2 TABLETS BY MOUTH 30-60MIN BEFORE BEDTIME 02/14/24 Arjun Banda MD PAST MEDICAL HISTORY: Past Medical History: Diagnosis Date Arthritis CAD (coronary artery disease) CHF (congestive heart failure) ([facility]) COVID-19 07/2021 Diabetes ([facility]) Dyslipidemia Essential hypertension Rheumatic fever 1937 PAST SURGICAL HISTORY: Past Surgical History: Procedure Laterality Date CABG, ARTERIAL, THREE CORONARY ANGIOPLASTY HEART CATH HYSTERECTOMY FAMILY HISTORY: Family History Problem Relation Name Age of Onset Heart Attack Mother No Known Problems Father unknown SOCIAL HISTORY: Social History Tobacco Use Smoking status: Never Smokeless tobacco: Never Tobacco comments: no hx tobacco Vaping Use Vaping status: Never Used Substance Use Topics Alcohol use: No Drug use: Not Currently Review of Systems Review of Systems Physical Exam Filed Vitals: 08/25/24 2030 08/25/24 2115 08/25/24 2130 08/25/24 2202 BP: 132/74 138/66 132/81 130/68 Pulse: 83 87 89 94 Resp: 15 19 19 19 Temp: TempSrc: SpO2: 97% 95% 95% 94% Weight: Height: Physical Exam Vitals reviewed. Constitutional: Appearance: Normal appearance. HENT: Mouth/Throat: Mouth: Mucous membranes are moist. Eyes: General: No scleral icterus. Cardiovascular: Rate and Rhythm: Normal rate and regular rhythm. Heart sounds: No murmur heard. Pulmonary: Effort: Pulmonary effort is normal. No respiratory distress. Breath sounds: No wheezing. Abdominal: General: Abdomen is flat. There is no distension. Tenderness: There is no abdominal tenderness. Musculoskeletal: Right lower leg: No edema. Left lower leg: No edema. Skin: Coloration: Skin is not jaundiced. Comments: Vertical laceration at the chin measuring about 2 cm and a nearby horizontal laceration at this chin measuring about 2.5 cm. Surrounding ecchymosis noted. Neurological: General: No focal deficit present. Mental Status: She is alert and oriented to person, place, and time. Cranial Nerves: No cranial nerve deficit. Sensory: No sensory deficit. Motor: No weakness. Coordination: Coordination normal. Gait: Gait abnormal (Gait instability,). Diagnostic Studies / Procedures ELECTROCARDIOGRAMS: No results found for this visit on 08/25/24. LABORATORY STUDIES: Results for orders placed or performed during the hospital encounter of 08/25/24 POCT glucose Result Value Ref Range GLUCOSE POC 286 (H) 70 - 110 mg/dL IMAGING STUDIES CT HEAD WO CON Final Result by User, [id number] (08/25 2158) [facility] [address] [place] [address] EXAMINATION: CT HEAD WO CON EXAM TIME: [...] No acute facial bone fractures are seen. IMPRESSION: 1. No acute fractures [...] By: Polo Grove MD, 08/25/2024 9:26 PM Lac Repair Date/Time: 08/25/2024 8:57 PM Performed by: Ileana Dhaliwal MD Authorized by: Ileana Dhaliwal MD Consent: Consent obtained: Verbal Consent given by: Patient Risks discussed: Infection, pain, retained foreign body, poor cosmetic result, need for additional repair, nerve damage, poor wound healing and vascular damage Alternatives discussed: No treatment, delayed treatment, observation and referral [place] protocol: Imaging studies available: yes (CT head [...] Procedure completion: Tolerated well, no immediate complications ED Course / Medical Decision Making Patient had a mechanical fall. No focal neurological deficits. Sustained a laceration to her chin. Last Tdap was 5 years ago, laceration is clean, no foreign body noted. Bleeding arrested with directlocal pressure and lidocaine with epinephrine. Head CT done, ruled out any intracranial hemorrhage or abnormality and was negative. two lacerations, measuring 2 cm and 2.5 cm, respectively, apposed with Ethilon 4.0 sutures. Procedure was well-tolerated. No immediate complications noted. She was discharged from in stable condition with sutures to be removed in 5 to 7 days. Medical Decision Making ED Course as of 08/25/242206Aug 25, 20242206 CT HEAD WO CON IMPRESSION: 1. No acute fractures are seen. 2. No acute intracranial abnormality. [JN] ED Course User Index [JN] Ileana Dhaliwal MD Clinical Impression Ground-level fall (Primary) Facial laceration, initial encounter Disposition: Discharge Ileana Dhaliwal MD 08/25/242206 ION PLANNER * Arabella Valles RN - 08/25/2024 8:20 PM CSTSummary: Triage Pt arrived via-EMS from home with complaints of ground level fall this evening. Pt has lac to chin and was irrigated with NS. Pt is on Plavix. Pt is A&O4, calm & cooperative, and uses assisted devices at home. Pt states that she and her family are looking into ALFs to keep her safe. Pt is non-compliant with insulin injections. BS at home was 336 and upon arrival was 286. Filed Vitals: 08/25/242019 BP: 115/45 Pulse: 88 Resp: 16 Temp: 97.3 ??F (36.3 ??C) TempSrc: Temporal SpO2: 96% Weight: 86.9 kg (191 lb 9.3 oz) Height: 1.524 m (5') ION PLANNER documented in this encounter Plan of Treatment Upcoming Encounters Date Type Department Care Team (Late st Contact Info) Description 09/04/2024 11:00 AM MISSION PLANNER Patient Outreach [facility] [address] [place] [address] Amelia Costello, PharmD [address] [place] [address] 09/15/2024 8:20 AM CDT Office Visit [facility] [id number] [place] [phone] [place] [address] [place], [place] [id number] 10/16/2024 10:45 AM CDT Office Visit [facility] [phone] Olman Sanderson MD [address] [address] documented as of this encounter Procedures Procedure Name Priority Date/Time Associated Diagnosis Comments CT HEAD WO CON STAT 08/25/2024 9:15 PM MISSION PLANNER LACERATION REPAIR Routine 08/25/2024 8:5 7 PM MISSION PLANNER POCT GLUCOSE - BARBER DOCKED DEVICE Routine 08/25/2024 8:20 PM MISSION PLANNER documented in this encounter Results * CT HEAD WO CON (08/25/2024 9:15 PM MISSION PLANNER) Anatomical Region Laterality Modality Head Computed Tomogra phy 08/25/2024 9:26 PM MISSION PLANNER Impressions 08/25/2024 9:56 PM MISSION PLANNER IMPRESSION: 1. No acute fractures are seen. [...] 08/25/2024 9:26 PM Narrative 08/25/2024 9:56 PM MISSION PLANNER [place] [id number] [facility]. [place] [id number] EXAMINATION: CT HEAD WO CON EXAM TIME: [...] Procedure Note Geovanni Hernandez MD - 08/25/2024 [facility] [address] [place] [address] EXAMINATION: CT HEAD WO CON EXAM TIME: [...] t * Lac Repair (08/25/2024 8:57 PM MISSION PLANNER) Narrative Ileana Dhaliwal MD - 08/25/2024 8:57 PM MISSION PLANNER Ileana Dhaliwal MD 08/25/2024 10:07 PM Lac Repair Date/Time: 08/25/2024 8:57 PM Performed by: Ileana Dhaliwal MD Authorized by: Ileana Dhaliwal MD Consent: Consent obtained: Verbal Consent given by: Patient Risks discussed: Infection, pain, retained foreign body, poor cosmetic result, need for additional repair, nerve damage, poor wound healing and vascular damage Alternatives discussed: No treatment, delayed treatment, observation and referral [place] protocol: Imaging studies available: yes (CT head [...] Procedure completion: Tolerated well, no immediate complications Ileana Dhaliwal MD PROCEDURE/MINOR SURGICAL OR DERABLES Final Result * (ABNORMAL) POCT glucose (08/25/2024 8:20 PM MISSION PLANNER) GLUCOSE POC 286(H) 70 - 110 mg/dL 08/25/2024 8:21 PM MISSION PLANNER [facility] 08/25/2024 8:20 PM MISSION PLANNER Attending Physician Emergency MD POCT ORDERABLES - DEVICE Final Result [facility] [address] [place] [address], [place] [phone] documented in this encounter Visit Diagnoses Diagnosis Ground-level fall- Primary Facial laceration, initial encounter documented in this encounter Administered Medications Inactive Administered Medications - up to 3 most recent administrations Medication Order MAR Action Action Date Dose Rate Site lidocaine-EPINEPHrine 1 %-1:670117 injection 1 mL 1 mL, Intradermal, Once, 1 dose, On Wed08/25/24 at 2044 Given 08/25/2024 8:34 PM MISSION PLANNER 1 mL Face lidocaine-EPINEPHrine 1 %-1:849746 injection 1 dose, Starting on Wed08/25/24 at 2031, Until Wed08/25/24 at 2033, Created by cabinet override mupirocin (BACTROBAN) 2 % ointment Topical, Once, 1 dose, On Wed08/25/24 at 2099 Given 08/25/2024 9:15 PM MISSION PLANNER documented in this encounter Active and Recently Administered Medications Times are shown in MISSION PLANNER. 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 [address] [address] [place] Assistant [employer] CARDIOVASCULAR DISEASE 12/04/15 documented as of this encounter
--- NOTE | 2024-08-27 10:02 | PCCCNOTE ---
Addendum entered by Polly Dennison RN 08/27/24 11:49: Daughter notes the pt has been in facility once in [facility] but decided to leave due to being unhappy with her care.-yadiel Addendum entered by Polly Dennison RN 08/27/24 10:08: Linda Shaffer's contact info [phone] and is the youngest child. Original Note: Called to the pt's room per the daughter Linda Shaffer's request. Stated they have a room held for her at [facility]. Linda states her daughter in law works there however they are waiting on a few forms from the pt's PCP Guilherme DAVIDSON in [facility] to submit some forms for placement. Stated the pt was living at home independently suffering multiple falls until 08/26/24 where she requested to go home with her daughter Linda because she needed help. Stated currently the pt is unable to stand on her own to use the bathroom and needing to wear adult briefs. Stated the pt is diabetic and hasn't been taking her medication, falls with her walker recently fracturing her nose. Linda states she is unable to care for her mother as she only weights 100lbs and has a bad back. Shared this info with the ED provider as the medical work up is still pending.-yadiel.
[2024-08-27 10:17] LABS: Basophils Percent Auto 0.3 % (0.2-1.2); Eosinophils Absolute Auto 0.3 K/mm3 (0-0.3); Eosinophils Percent Auto 2.5 % (0-4.4); Hematocrit 40.1 % (37.0-47.0); Hemoglobin 12.6 g/dL (12.0-15.0); Lymphocytes Absolute Auto 1.43 K/mm3 (0.9-3.2); Lymphocytes Percent Auto 13.6 % (18.3-44.2); Mean Corpuscular HGB Conc 31.4 g/dl (32-36); Mean Corpuscular Hemoglobin 24.6 pg (26-34); Mean Corpuscular Volume 78.2 fl (80-100); Mean Platelet Volume 9.9 fl (7.4-10.4); Monocytes Absolute Auto 0.9 K/mm3 (0.1-0.6); Monocytes Percent Auto 8.6 % (2.6-8.5); Neutrophils Absolute Auto 7.8 K/mm3 (1.3-6.7); Platelet Count Result 336 k/mm3 (150-375); Red Blood Count 5.13 M/mm3 (4.2-5.4); Red Cell Distribution Width 17.2 % (11.5-14.5); White Blood Count 10.5 K/mm3 (4.5-10.0)
[2024-08-27 10:27] LABS: Alanine Aminotransferase 17 U/L (6-35); Albumin Level 3.3 g/dL (3.5-5.1); Alkaline Phosphatase 79 U/L (38-126); Anion Gap 14 mmol/L (4-12); Aspartate Amino Transferase 36 U/L (14-36); Bilirubin,Total 0.5 mg/dL (0.2-1.3); Blood Urea Nitrogen 58 mg/dL (7-17); Carbon Dioxide 21 mmol/L (22-30); Chloride 98 mmol/L (98-107); Estimated CRCL calculation 16 ml/min; Estimated Glomerular Filt Rate 22; Glucose 306 mg/dL (65-110); Potassium 4.5 mmol/L (3.4-5.0); Sodium 133 mmol/L (137-145)
[2024-08-27 10:28] LABS: Lactic Acid Reflex 1.5 mmol/L (0.7-2.0)
[2024-08-27 11:04] LABS: Add Urine Microscopic? YES; Appearance Urine Turbid (Clear); Bacteria Urine 4+ /hpf; Bilirubin Urine Negative (Negative); Blood Urine 3+ (Negative); Color Urine Yellow (Yellow); Glucose Urine UA 2+ mg/dL (Negative); Ketones Urine Trace mg/dL (Negative); Leukocyte Esterase Ur 3+ LEU/UL (Negative); Nitrate Urine Negative (Negative); Protein Urine 3+ mg/dL (Negative); RBC Urine >100 /hpf (0-2); Squamous Epithelial Cell Urine None Seen /hpf (Few); Urobilinogen Urine 0.2 mg/dL (<2.0); WBC Urine >100 /hpf (0-3); pH Urine 8.5 (5.0-9.0)
--- NOTE | 2024-08-27 11:07 | ED.GENADULT ---
HPI - General Adult General Chief complaint: Weakness Stated complaint: UTI, WEAKNESS Time Seen by Provider: 08/27/24 09:37 History of Present Illness HPI narrative: 89-year-old female present to the emergency department for evaluation for increased generalized weakness and increase falls. Patient was recently moved in with her daughter due to increased falls but the states they are unable to even assist with transitioning heard due to the patient's having increased weakness. Patient is complaining of cough for the last 4 weeks and increased burning with urination. Related Data Home Medications ?Medication ?Instructions ?Recorded ?Confirmed ?Last Taken ?Type acetaminophen 325 mg capsule 650 mg PO Q4H PRN fever or pain 08/27/24 08/27/24 Unknown History albuterol sulfate 90 mcg/actuation 2 puff inhalation Q6H PRN wheeze 08/27/24 08/27/24 Unknown History aerosol inhaler (Ventolin HFA) bacitracin 500 unit/gram topical 1 applic topical BID 08/27/24 08/27/24 Unknown History ointment benzonatate 100 mg capsule 100 mg PO TID 08/27/24 08/27/24 Unknown History bumetanide 1 mg tablet 1 mg PO .QOD 08/27/24 08/27/24 Unknown History carbidopa ER 50 mg-levodopa 200 mg 1 tablet PO BID 08/27/24 08/27/24 Unknown History tablet,extended release clobetasol 0.05 % topical cream 1 applic topical .BID 08/27/24 08/27/24 Unknown History clopidogrel 75 mg tablet 75 mg PO DAILY 08/27/24 08/27/24 Unknown History fenofibrate 54 mg tablet 54 mg PO DAILY 08/27/24 08/27/24 Unknown History ferrous sulfate 325 mg (65 mg 325 mg PO BID 08/27/24 08/27/24 Unknown History iron) tablet (FeroSul) gabapentin 300 mg capsule 300 mg PO HS 08/27/24 08/27/24 Unknown History gentamicin 0.1 % topical ointment 1 applic topical DAILY PRN dressing 08/27/24 08/27/24 Unknown History hydrochlorothiazide 25 mg tablet 12.5 mg PO DAILY 08/27/24 08/27/24 Unknown History hydrocodone 7.5 mg-acetaminophen 1 tablet PO Q6H PRN chronic pain 08/27/24 08/27/24 Unknown History 325 mg tablet insulin detemir U-100 100 unit/mL 20 unit subcut DAILY 08/27/24 08/27/24 Unknown History subcutaneous solution (Levemir U-100 Insulin) isosorbide dinitrate 10 mg tablet 10 mg PO BID 08/27/24 08/27/24 Unknown History levofloxacin 750 mg tablet 750 mg PO DAILY 08/27/24 08/27/24 Unknown History levothyroxine 50 mcg tablet 50 mcg PO DAILY 08/27/24 08/27/24 Unknown History naloxone 4 mg/actuation nasal 4 mg intranasal Q2-3M PRN opioid 08/27/24 08/27/24 Unknown History spray (Narcan) overdose nystatin 100,000 unit/gram topical 1 applic topical BID 08/27/24 08/27/24 Unknown History powder polyethylene glycol 3350 17 17 g PO DAILY PRN constipation 08/27/24 08/27/24 Unknown History gram/dose oral powder (Miralax) pravastatin 40 mg tablet 40 mg PO HS 08/27/24 08/27/24 Unknown History ropinirole 2 mg tablet 2 mg PO TID PRN restless legs 08/27/24 08/27/24 Unknown History sodium chloride 0.65 % nasal spray 1 spray intranasal TID PRN nasal 08/27/24 08/27/24 Unknown History aerosol (Little Remedies Saline) dryness spironolactone 25 mg tablet 25 mg PO DAILY 08/27/24 08/27/24 Unknown History trazodone 50 mg tablet 50 mg PO HS PRN insomnia 08/27/24 08/27/24 Unknown History Allergies Allergy/AdvReac Type Severity Reaction Status Date / Time Penicillins Allergy Unknown Rash Verified 08/28/24 15:32 Review of Systems Review of Systems: All systems reviewed & are unremarkable except as noted in HPI and below PMFSH Family History Family History Sibling Family history of chronic obstructive pulmonary disease Family history of diabetes mellitus in first degree relative Social History Social History Smoking status: Never smoker Second hand tobacco smoke exposure: Yes Alcohol intake: never Do You Feel Safe in your Home?: Yes Lack of Transportation: YES Lack of Food: Never True Current Housing: I Have Housing Concerned About Future Housing: No Difficulty Paying Gas/Electric Bills: No Difficulty Paying for Meds: No Currently Unemployed: No Education: Don't Know Difficulty w/ Childcare or Family Care: No Spiritual care concerns: No Exam Narrative: APPEARANCE: Well appearing, no pain, no distress, well-nourished. HEAD: normocephalic, atraumatic. EYES: PERRLA/EOMI, conjunctivae clear. NOSE: Normal no drainage EARS:TMS clear with good light reflex. THROAT: Pharynx clear, no exudate. NECK: Supple. No adenopathy, no masses. RESPIRATORY: Airway patent, respirations nonlabored. Clear to auscultation bilaterally, no rales, rhonchi, wheezing. CARDIOVASCULAR: Regular rate and rhythm without murmurs rubs or gallops. ABDOMINAL: Soft, nontender, nondistended, normal bowel sounds MUSCULOSKELETAL: Moves all extremities. Strength/ROM intact, No edema, No calf tenderness. NEURO: Alert. Cranial nerves II through XII intact. SKIN: Excoriation and skin irritation over general, resolving ecchymosis on chin Course Vital Signs Vital signs: Vital Signs Temperature 97.0 F L 08/27/24 09:17 Pulse Rate 85 08/27/24 09:17 Respiratory Rate 18 08/27/24 09:17 Blood Pressure 97/53 L 08/27/24 09:17 Pulse Oximetry 97 08/27/24 09:17 Oxygen Delivery Room Air 08/27/24 09:17 Temperature 98.2 F 08/28/24 14:00 Pulse Rate 70 08/28/24 14:00 Respiratory Rate 18 08/28/24 14:00 Blood Pressure 117/63 08/28/24 14:00 Pulse Oximetry 98 08/28/24 14:00 Oxygen Delivery Room Air 08/28/24 10:23 Medical Decision Making [facility] Narrative Medical decision making narrative: 81-year-old female presents to the emergency department for evaluation for cough and weakness. Patient is currently afebrile but does have a leukocytosis of 10.5 and a stable hemoglobin of 12.6. Patient does have a possible acute kidney injury with a creatinine of 2.4. Patient was having increased generalized weakness. Patient was admitted for pneumonia Differential Diagnosis Differential Diagnosis: COVID, RSV, influenza, pneumonia, failure to thrive Vital Signs Vital Signs: Vital Signs Temperature 97.0 F L 08/27/24 09:17 Pulse Rate 85 08/27/24 09:17 Respiratory Rate 18 08/27/24 09:17 Blood Pressure 97/53 L 08/27/24 09:17 Pulse Oximetry 97 08/27/24 09:17 Oxygen Delivery Room Air 08/27/24 09:17 Temperature 98.2 F 08/28/24 14:00 Pulse Rate 70 08/28/24 14:00 Respiratory Rate 18 08/28/24 14:00 Blood Pressure 117/63 08/28/24 14:00 Pulse Oximetry 98 08/28/24 14:00 Oxygen Delivery Room Air 08/28/24 10:23 Lab Data 08/28/24 06:19 08/28/24 06:19 Labs: Lab Results 08/27/24 08/27/24 08/27/24 Range/Units 10:08 10:54 17:21 WBC 10.5 H (4.5-10.0) K/mm3 RBC 5.13 (4.2-5.4) M/mm3 Hgb 12.6 (12.0-15.0) g/dL Hct 40.1 (37.0-47.0) % MCV 78.2 L (80-100) fl MCH 24.6 L (26-34) pg MCHC 31.4 L (32-36) g/dl RDW 17.2 H (11.5-14.5) % Plt Count 336 (150-375) k/mm3 MPV 9.9 (7.4-10.4) fl Immature Gran % (Auto) 1.0 H (0-0.5) % Neut % (Auto) 74.0 H (45.5-73.1) % Lymph % (Auto) 13.6 L (18.3-44.2) % [place] % (Auto) 8.6 H (2.6-8.5) % Eos % (Auto) 2.5 (0-4.4) % Baso % (Auto) 0.3 (0.2-1.2) % Lymph # (Auto) 1.43 (0.9-3.2) K/mm3 [place] # (Auto) 0.9 H (0.1-0.6) K/mm3 Eos # (Auto) 0.3 (0-0.3) K/mm3 Baso # (Auto) 0.0 (0.0-0.1) K/mm3 Abs Immat Gran (auto) 0.10 H (0.00-0.031) K/mm3 Absolute Neuts (auto) 7.8 H (1.3-6.7) K/mm3 Absolute Nucleated RBC 0.000 (0.0-0.012) K/mm3 Band Neutrophils % Nucleated RBC % 0.0 (0.0-0.2) % Platelet Estimate (Adequate) Hypochromasia Anisocytosis Schistocytes Sodium 133 L (137-145) mmol/L Potassium 4.5 (3.4-5.0) mmol/L Chloride 98 (98-107) mmol/L Carbon Dioxide 21 L (22-30) mmol/L Anion Gap 14 H (4-12) mmol/L BUN 58 H (7-17) mg/dL Creatinine 2.14 H (0.7-1.0) mg/dL Estim Creat Clear Calc 16 ml/min Estimated GFR 22 L (59 - ) Glucose 306 H (65-110) mg/dL POC Capillary Glucose 354 H (65-105) mg/dl Lactic Acid 1.5 (0.7-2.0) mmol/L Calcium 9.0 (8.4-10.2) mg/dL Total Bilirubin 0.5 (0.2-1.3) mg/dL AST 36 (14-36) U/L ALT 17 (6-35) U/L Alkaline Phosphatase 79 (38-126) U/L Total Protein 7.0 (6.3-8.2) g/dL Albumin 3.3 L (3.5-5.1) g/dL Urine Color Yellow (Yellow) Urine Appearance Turbid H (Clear) Urine pH 8.5 (5.0-9.0) Ur Specific [place] 1.020 (1.001-1.035) Urine Protein 3+ H (Negative) mg/dL Urine Glucose (UA) 2+ H (Negative) mg/dL Urine Ketones Trace H (Negative) mg/dL Ur Blood (Man) 3+ H (Negative) Urine Nitrate Negative (Negative) Urine Bilirubin Negative (Negative) Urine Urobilinogen 0.2 (<2.0) mg/dL Leukocyte Esterase Rfl 3+ H (Negative) MILTON/UL Urine RBC >100 H (0-2) /hpf Urine WBC >100 H (0-3) /hpf Ur Squamous Epith Cells None seen (Few) /hpf Urine Bacteria 4+ H /hpf Urine Casts 3-5 Nasal MRSA (PCR) (NOT DETECTE) 08/27/24 08/27/24 08/27/24 Range/Units 19:35 19:39 22:52 WBC (4.5-10.0) K/mm3 RBC (4.2-5.4) M/mm3 Hgb (12.0-15.0) g/dL Hct (37.0-47.0) % MCV (80-100) fl MCH (26-34) pg MCHC (32-36) g/dl RDW (11.5-14.5) % Plt Count (150-375) k/mm3 MPV (7.4-10.4) fl Immature Gran % (Auto) (0-0.5) % Neut % (Auto) (45.5-73.1) % Lymph % (Auto) (18.3-44.2) % [place] % (Auto) (2.6-8.5) % Eos % (Auto) (0-4.4) % Baso % (Auto) (0.2-1.2) % Lymph # (Auto) (0.9-3.2) K/mm3 [place] # (Auto) (0.1-0.6) K/mm3 Eos # (Auto) (0-0.3) K/mm3 Baso # (Auto) (0.0-0.1) K/mm3 Abs Immat Gran (auto) (0.00-0.031) K/mm3 Absolute Neuts (auto) (1.3-6.7) K/mm3 Absolute Nucleated RBC (0.0-0.012) K/mm3 Band Neutrophils % Nucleated RBC % (0.0-0.2) % Platelet Estimate (Adequate) Hypochromasia Anisocytosis Schistocytes Sodium (137-145) mmol/L Potassium (3.4-5.0) mmol/L Chloride (98-107) mmol/L Carbon Dioxide (22-30) mmol/L Anion Gap (4-12) mmol/L BUN (7-17) mg/dL Creatinine (0.7-1.0) mg/dL Estim Creat Clear Calc ml/min Estimated GFR (59 - ) Glucose (65-110) mg/dL POC Capillary Glucose 414 H 278 H (65-105) mg/dl Lactic Acid (0.7-2.0) mmol/L Calcium (8.4-10.2) mg/dL Total Bilirubin (0.2-1.3) mg/dL AST (14-36) U/L ALT (6-35) U/L Alkaline Phosphatase (38-126) U/L Total Protein (6.3-8.2) g/dL Albumin (3.5-5.1) g/dL Urine Color (Yellow) Urine Appearance (Clear) Urine pH (5.0-9.0) Ur Specific [place] (1.001-1.035) Urine Protein (Negative) mg/dL Urine Glucose (UA) (Negative) mg/dL Urine Ketones (Negative) mg/dL Ur Blood (Man) (Negative) Urine Nitrate (Negative) Urine Bilirubin (Negative) Urine Urobilinogen (<2.0) mg/dL Leukocyte Esterase Rfl (Negative) MILTON/UL Urine RBC (0-2) /hpf Urine WBC (0-3) /hpf Ur Squamous Epith Cells (Few) /hpf Urine Bacteria /hpf Urine Casts Nasal MRSA (PCR) Detected A* (NOT DETECTE) 08/28/24 08/28/24 Range/Units 06:19 08:03 WBC 11.0 H (4.5-10.0) K/mm3 RBC 4.77 (4.2-5.4) M/mm3 Hgb 11.4 L (12.0-15.0) g/dL Hct 38.4 (37.0-47.0) % MCV 80.5 (80-100) fl MCH 23.9 L (26-34) pg MCHC 29.7 L (32-36) g/dl RDW 17.4 H (11.5-14.5) % Plt Count 302 (150-375) k/mm3 MPV 9.8 (7.4-10.4) fl Immature Gran % (Auto) 1.1 H (0-0.5) % Neut % (Auto) 70.1 (45.5-73.1) % Lymph % (Auto) 15.6 L (18.3-44.2) % [place] % (Auto) 9.1 H (2.6-8.5) % Eos % (Auto) 3.8 (0-4.4) % Baso % (Auto) 0.3 (0.2-1.2) % Lymph # (Auto) 1.72 (0.9-3.2) K/mm3 [place] # (Auto) 1.0 H (0.1-0.6) K/mm3 Eos # (Auto) 0.4 H (0-0.3) K/mm3 Baso # (Auto) 0.0 (0.0-0.1) K/mm3 Abs Immat Gran (auto) 0.12 H (0.00-0.031) K/mm3 Absolute Neuts (auto) 7.7 H (1.3-6.7) K/mm3 Absolute Nucleated RBC 0.000 (0.0-0.012) K/mm3 Band Neutrophils % Not Reportable Nucleated RBC % 0.0 (0.0-0.2) % Platelet Estimate Adequate (Adequate) Hypochromasia 1+ Anisocytosis 1+ Schistocytes None seen Sodium 136 L (137-145) mmol/L Potassium 4.6 (3.4-5.0) mmol/L Chloride 104 (98-107) mmol/L Carbon Dioxide 22 (22-30) mmol/L Anion Gap 10 (4-12) mmol/L BUN 42 H D (7-17) mg/dL Creatinine 1.51 H (0.7-1.0) mg/dL Estim Creat Clear Calc 23 ml/min Estimated GFR 33 L (59 - ) Glucose 179 H (65-110) mg/dL POC Capillary Glucose 202 H (65-105) mg/dl Lactic Acid (0.7-2.0) mmol/L Calcium 8.5 (8.4-10.2) mg/dL Total Bilirubin 0.4 (0.2-1.3) mg/dL AST 25 (14-36) U/L ALT 19 (6-35) U/L Alkaline Phosphatase 65 (38-126) U/L Total Protein 6.0 L (6.3-8.2) g/dL Albumin 2.5 L (3.5-5.1) g/dL Urine Color (Yellow) Urine Appearance (Clear) Urine pH (5.0-9.0) Ur Specific [place] (1.001-1.035) Urine Protein (Negative) mg/dL Urine Glucose (UA) (Negative) mg/dL Urine Ketones (Negative) mg/dL Ur Blood (Man) (Negative) Urine Nitrate (Negative) Urine Bilirubin (Negative) Urine Urobilinogen (<2.0) mg/dL Leukocyte Esterase Rfl (Negative) MILTON/UL Urine RBC (0-2) /hpf Urine WBC (0-3) /hpf Ur Squamous Epith Cells (Few) /hpf Urine Bacteria /hpf Urine Casts Nasal MRSA (PCR) (NOT DETECTE) Discharge Plan Discharge Clinical Impression: Weakness, Cough, Pneumonia Patient Disposition: Still a Patient Condition: Serious
[2024-08-27 11:16] VITALS: BP 108/52; PULSE 74; RESP 15; O2SAT 97
[2024-08-27 11:17] VITALS: O2SAT 97
[2024-08-27] MEDS: AZITHROMYCIN 500 MG/NS 250 ML 500 MG/250 ML BAG 250 MG IVPB (11:23)
[2024-08-27] MEDS: SODIUM CHLORIDE 0.9% IV 1,000 ML 999 ML IV CONT (11:28)
[2024-08-27 13:15] VITALS: BP 107/84; PULSE 75; RESP 20; O2SAT 97
[2024-08-27 14:00] VITALS: BP 127/78; PULSE 81; RESP 16; TEMP 36.5; O2SAT 98
--- NOTE | 2024-08-27 16:32 | PM.IMHP ---
H&P: HPI History of Present Illness Date/Time: 08/27/24 16:32 Chief Complaint: SOB and fall Narrative: 89 yo female with PMH of HTN, DM2 who presented to [facility] ER on after a fall. She noted she has been having SOB and dysuria for about a week, and last night stated she was walking to the bathroom when she got tired and her legs gave out and she fall forward and hit her face on the floor. Denies any LOC. Stated she has been coughing, but denies any vomiting, abd pain, diarrhea, focal weakness. noted poor oral intake the past week. ER eval notable for stable vital signs wnl. labs notable for WBC 10.5, Cr 2.14 BUUN 58, BG 306, UA positive for LE adn RBC >100 and EBC >100. CT AP and chest showed airspace and Ground[place] opacities in the right middle love and marielle lower lobes, consistent with pneumonia. Review of Systems Review of Systems: All other systems were reviewed and negative except as noted in the HPI above. [facility] Family History Family History Sibling Family history of chronic obstructive pulmonary disease Family history of diabetes mellitus in first degree relative Social History Social History Smoking status: Never smoker Second hand tobacco smoke exposure: Yes Alcohol intake: never Do You Feel Safe in your Home?: Yes Lack of Transportation: YES Lack of Food: Never True Current Housing: I Have Housing Concerned About Future Housing: No Difficulty Paying Gas/Electric Bills: No Difficulty Paying for Meds: No Currently Unemployed: No Education: Don't Know Difficulty w/ Childcare or Family Care: No Spiritual care concerns: No Meds Home Medications and Allergies Home Medications ?Medication ?Instructions ?Recorded ?Confirmed ?Type tramadol 50 mg tablet 50 mg PO Q6H PRN pain #20 tabs 12/19/23 Rx Allergies Allergy/AdvReac Type Severity Reaction Status Date / Time Penicillins Allergy Unknown Rash Verified 08/27/24 11:17 Vital Signs Vital Signs - 24 hr 08/27/24 09:17 08/27/24 11:16 08/27/24 11:17 Temperature 97.0 F L Pulse Rate 85 74 Respiratory Rate 18 15 Blood Pressure 97/53 L 108/52 L Pulse Oximetry 97 97 97 Oxygen Delivery Room Air Room Air 08/27/24 13:15 08/27/24 14:00 Temperature 97.7 F Pulse Rate 75 81 Respiratory Rate 20 16 Blood Pressure 107/84 127/78 Pulse Oximetry 97 98 Oxygen Delivery Exam Narrative: General: alert and comfortable Eyes: EOMI, PERRLA ENNT External ears normal, Neck is supple, no masses, Respiratory systems: Clear to auscultation Cardiovascular S1, S2, normal rhythm, no murmur, rub, or gallop; no thrill or palpable murmurs on palpation. Gastrointestinal: soft, non-tender, and non-distended abdomen with no masses; BS present Skin: chin purpura Musculoskeletal: no abnormality and no tenderness, normal ROM Neurologic: Alert and oriented x3, non focal Mental Status Exam: normal affect H&P: Results Labs Labs: Short CBC 08/27/24 Range/Units 10:08 WBC 10.5 H (4.5-10.0) K/mm3 Hgb 12.6 (12.0-15.0) g/dL Hct 40.1 (37.0-47.0) % Plt Count 336 (150-375) k/mm3 BMP 08/27/24 10:08 Sodium 133 L Potassium 4.5 Chloride 98 Carbon Dioxide 21 L BUN 58 H Creatinine 2.14 H Glucose 306 H Calcium 9.0 Liver Function 08/27/24 Range/Units 10:08 Total Bilirubin 0.5 (0.2-1.3) mg/dL AST 36 (14-36) U/L ALT 17 (6-35) U/L Alkaline Phosphatase 79 (38-126) U/L Albumin 3.3 L (3.5-5.1) g/dL Urine 08/27/24 Range/Units 10:54 Urine Color Yellow (Yellow) Urine Appearance Turbid H (Clear) Urine pH 8.5 (5.0-9.0) Ur Specific [place] 1.020 (1.001-1.035) Urine Protein 3+ H (Negative) mg/dL Urine Glucose (UA) 2+ H (Negative) mg/dL Assessment and Plan Assessment and plan (1) Pneumonia: Code(s): J18.9 - Pneumonia, unspecified organism Status: Acute (2) Weakness: Code(s): R53.1 - Weakness Status: Acute Plan Pneumonia CT Chest showed RML and RLL pneumonia Blood and sputum cultures ordered MRSA pending Rocephin, Azithromycin and Flagyl ordered SILVINO Likely from poor oral intake intake no historical to compare Cr 2.14 and BUN 58 continue IVF and encourage oral intake UTI patient noted dysuria UA positive for Leukocyte esterase and pyuria urine culture pending continue abx Fall with purpura/ecchymosis of the chin Patient noted worsening generalized weakness noted her legs gave out and she fell face forward Stat CT head, CT cervical and Ct facial ordered PT/OT encourage oral intake and monitor HTN Titrate home meds with clinical course DM2 SSi with accucheks DVT prophylaxis on Sq Lovenox Full code Surrogate decision maker is Daughter Linda Du
[2024-08-27 17:24] LABS: Glucose Point of Care 354 mg/dl (65-105)
[2024-08-27] MEDS: SODIUM CHLORIDE 0.9% IV 1,000 ML 100 ML IV CONT (19:40)
[2024-08-27] MEDS: metroNIDAZOLE 500 MG/ISO 100ML 500 MG/100 ML BAG 100 MG IVPB (19:42)
[2024-08-27 19:51] LABS: Glucose Point of Care 414 mg/dl (65-105)
[2024-08-27] MEDS: INSULIN ASPART (*BKC) 100 UNITS/ML 8 UNITS SUB-Q (19:57)
[2024-08-27 20:46] VITALS: BP 125/42; PULSE 85; RESP 18; TEMP 37.2; O2SAT 94
[2024-08-27 21:56] LABS: MRSA (PCR) DETECTED (NOT DETECTE)
[2024-08-27] MEDS: INSULIN ASPART (*BKC) 100 UNITS/ML SUB-Q (22:53)
[2024-08-27 23:06] LABS: Glucose Point of Care 278 mg/dl (65-105)
[2024-08-28] MEDS: metroNIDAZOLE 500 MG/ISO 100ML 500 MG/100 ML BAG 100 MG IVPB ×2 (00:23→08:14)
[2024-08-28 05:09] VITALS: BP 142/58; PULSE 73; RESP 20; TEMP 37.1; O2SAT 98
[2024-08-28 08:00] VITALS: O2SAT 98
[2024-08-28] MEDS: BENZONATATE 100 MG CAPSULE PO ×3 (08:13→16:25)
[2024-08-28] MEDS: LEVOTHYROXINE SODIUM 50 MCG TABLET PO (08:13)
[2024-08-28] MEDS: CLOPIDOGREL BISULFATE 75 MG TABLET PO (08:14)
[2024-08-28] MEDS: FERROUS SULFATE 325 MG TABLET DR PO ×2 (08:14→16:25)
[2024-08-28] MEDS: ENOXAPARIN 30 MG/0.3 ML SYRINGE SUB-Q (08:14)
[2024-08-28] MEDS: ISOSORBIDE DINITRATE 10 MG TABLET PO ×2 (08:14→16:25)
[2024-08-28] MEDS: CARBIDOPA/LEVODOPA 25/100 MG CR TABLET 1 TABLET PO ×2 (08:18→20:23)
[2024-08-28] MEDS: MUPIROCIN 2% OINT 22 GM TUBE 1 APPLIC EACH NARE ×2 (08:18→20:29)
[2024-08-28] MEDS: rOPINIRole HCL 1 MG TABLET 2 MG PO ×2 (08:25→20:20)
[2024-08-28] MEDS: HYDROcodone/acetaminophen (*CRX) 7.5-325 MG TABLET 1 TAB PO (08:25)
[2024-08-28 08:26] LABS: Glucose Point of Care 202 mg/dl (65-105)
[2024-08-28 08:32] LABS: Basophils Percent Auto 0.3 % (0.2-1.2); Eosinophils Absolute Auto 0.4 K/mm3 (0-0.3); Eosinophils Percent Auto 3.8 % (0-4.4); Hematocrit 38.4 % (37.0-47.0); Hemoglobin 11.4 g/dL (12.0-15.0); Immature Granulocyte Absolute 0.12 K/mm3 (0.00-0.031); Immature Granulocyte Percent A 1.1 % (0-0.5); Lymphocytes Absolute Auto 1.72 K/mm3 (0.9-3.2); Lymphocytes Percent Auto 15.6 % (18.3-44.2); Mean Corpuscular HGB Conc 29.7 g/dl (32-36); Mean Corpuscular Hemoglobin 23.9 pg (26-34); Mean Corpuscular Volume 80.5 fl (80-100); Mean Platelet Volume 9.8 fl (7.4-10.4); Monocytes Percent Auto 9.1 % (2.6-8.5); Neutrophils Absolute Auto 7.7 K/mm3 (1.3-6.7); Neutrophils Percent Auto 70.1 % (45.5-73.1); Platelet Count Result 302 k/mm3 (150-375); Red Blood Count 4.77 M/mm3 (4.2-5.4); Red Cell Distribution Width 17.4 % (11.5-14.5)
[2024-08-28 09:07] LABS: Alanine Aminotransferase 19 U/L (6-35); Albumin Level 2.5 g/dL (3.5-5.1); Alkaline Phosphatase 65 U/L (38-126); Anion Gap 10 mmol/L (4-12); Aspartate Amino Transferase 25 U/L (14-36); Bilirubin,Total 0.4 mg/dL (0.2-1.3); Blood Urea Nitrogen 42 mg/dL (7-17); Calcium 8.5 mg/dL (8.4-10.2); Carbon Dioxide 22 mmol/L (22-30); Chloride 104 mmol/L (98-107); Estimated CRCL calculation 23 ml/min; Estimated Glomerular Filt Rate 33; Glucose 179 mg/dL (65-110); Potassium 4.6 mmol/L (3.4-5.0); Sodium 136 mmol/L (137-145)
--- NOTE | 2024-08-28 09:12 | PCSTNOTE ---
Order for ST communication evaluation noted. INSTRUMENTATION TECH called and spoke to Dr. Cain to confirm order. Physician indicated he wanted bedside swallow evaluation and not the communication evaluation and requested that INSTRUMENTATION TECH adjust the order.
[2024-08-28] MEDS: ONDANSETRON INJ 4 MG/2 ML VIAL IV PUSH (09:32)
[2024-08-28] MEDS: SODIUM CHLORIDE 0.9% IV 1,000 ML 100 ML IV CONT (09:33)
[2024-08-28] MEDS: INSULIN GLARGINE (*BKC) 100 UNITS/ML 20 UNITS SUB-Q (09:33)
[2024-08-28] MEDS: VANCOMYCIN 1,250 MG/NS 250 ML 1,250 MG/250 ML BAG 166.67 MG IVPB (09:44)
--- NOTE | 2024-08-28 10:09 | P.PNIM_ITS ---
Progress Note: A&P Assessment and Plan (1) Pneumonia: Code(s): J18.9 - Pneumonia, unspecified organism Status: Acute (2) Weakness: Code(s): R53.1 - Weakness Status: Acute Plan Pneumonia with Positive MRSA CT Chest showed RML and RLL pneumonia Blood and sputum cultures ordered MRSA positive Day 2 Rocephin, Azithromycin and Flagyl ordered Started on Vancomycin today plan is to complete 7 days of Antibiotics awaiting pT/OT eval SILVINO, improving Likely from poor oral intake intake no historical to compare Cr 2.14 and BUN 58 on admission Cr 1.51 and BUN 42 today continue IVF and encourage oral intake Possibly stop IVF tomorrow if renal function continues to improve UTI patient noted dysuria UA positive for Leukocyte esterase and pyuria urine culture pending continue abx Fall with purpura/ecchymosis of the chin Patient noted worsening generalized weakness noted her legs gave out and she fell face forward Stat CT head, CT cervical and Ct facial ordered PT/OT encourage oral intake and monitor HTN Titrate home meds with clinical course DM2 SSi with accucheks DVT prophylaxis on Sq Lovenox Full code Surrogate decision maker is Daughter Linda Du Awaiting PT/OT Subjective Date/time seen: 08/28/24 10:09 Interval history: Patient comfortable at bedside MRSA positive and now on Vanc awaiting PT/OT eval Review of Systems Review of Systems: All other systems were reviewed and negative except as noted in the HPI above. Exam Narrative: General: alert and comfortable Eyes: EOMI, PERRLA ENNT External ears normal, Neck is supple, no masses, Respiratory systems: Clear to auscultation Cardiovascular S1, S2, normal rhythm, no murmur, rub, or gallop; no thrill or palpable murmurs on palpation. Gastrointestinal: soft, non-tender, and non-distended abdomen with no masses; BS present Skin: chin purpura Musculoskeletal: no abnormality and no tenderness, normal ROM Neurologic: Alert and oriented x3, non focal Mental Status Exam: normal affect Objective Data Vital Signs Vital Signs: Vital Signs - 24 hr 08/27/24 11:16 08/27/24 11:17 08/27/24 13:15 Temperature Pulse Rate 74 75 Respiratory Rate 15 20 Blood Pressure 108/52 L 107/84 Pulse Oximetry 97 97 97 Oxygen Delivery Room Air 08/27/24 14:00 08/27/24 20:00 08/27/24 20:46 Temperature 97.7 F 98.9 F Pulse Rate 81 85 Respiratory Rate 16 18 Blood Pressure 127/78 125/42 L Pulse Oximetry 98 94 Oxygen Delivery Room Air 08/28/24 05:09 08/28/24 08:00 Temperature 98.7 F Pulse Rate 73 Respiratory Rate 20 Blood Pressure 142/58 H Pulse Oximetry 98 98 Oxygen Delivery Room Air Intake/Output Intake/Output: Intake & Output 08/25/24 08/26/24 08/27/24 08/28/24 23:59 23:59 23:59 23:59 Intake Total 2090 1100 Output Total 200 300 Balance 1890 800 Meds/Results Medications: Active Medications Generic Name Dose Route Start Last Admin Trade Name Freq PRN Reason Stop Dose Admin Hydrocodone Bitart/Acetaminophen 1 tab 08/28/24 07:36 08/28/24 08:25 Hydrocodone/Acetaminophen (*Crx) 7.5-325 Mg Tablet PO 1 tab Q6H PRN Administration chronic pain Albuterol 2 puff 08/28/24 07:36 Albuterol Sulfate (*Sp) Aerosol 1 Puff INHALATION Q6H PRN wheeze Benzonatate 100 mg 08/28/24 09:00 08/28/24 08:13 Benzonatate 100 Mg Capsule PO 100 mg TID SONIA Administration Bumetanide 1 mg 08/28/24 09:00 08/28/24 09:30 Bumetanide 1 Mg Tablet PO Not Given Q48H SONIA Carbidopa/Levodopa 1 tablet 08/28/24 08:00 08/28/24 08:18 Carbidopa/Levodopa 25/100 Mg Cr Tablet PO 1 tablet Q12H SONIA Administration Clopidogrel Bisulfate 75 mg 08/28/24 09:00 08/28/24 08:14 Clopidogrel Bisulfate 75 Mg Tablet PO 75 mg DAILY SONIA Administration Dextrose 12.5 gm 08/27/24 16:36 Dextrose 50% 25 Gm/50 Ml Syringe IV PUSH PRN PRN Hypoglycemia Protocol Enoxaparin Sodium 30 mg 08/28/24 09:00 08/28/24 08:14 Enoxaparin 30 Mg/0.3 Ml Syringe SUB-Q 30 mg DAILY SONIA Administration Ferrous Sulfate 325 mg 08/28/24 09:00 08/28/24 08:14 Ferrous Sulfate [address] PO 325 mg BID SONIA Administration Gabapentin 300 mg 08/28/24 21:00 Gabapentin 300 Mg Capsule PO HS SONIA Glucagon 1 mg 08/27/24 16:36 Glucagon For Inj 1 Mg Vial IM PRN PRN Hypoglycemia Protocol Glucose 15 gm 08/27/24 16:36 Glucose Oral Gel 15 Gm Of Glucse In 37.5 Gm Tube PO PRN PRN Hypoglycemia Protocol Hydrochlorothiazide 12.5 mg 08/28/24 09:00 08/28/24 09:30 Hydrochlorothiazide 12.5 Mg Capsule PO Not Given QAM SONIA Azithromycin 500 mg in 250 mls @ 250 mls/hr 08/28/24 12:00 Zithromax IVPB Q24H SONIA Ceftriaxone Sodium 1 gm in 50 mls @ 100 mls/hr 08/28/24 12:00 Rocephin 1 Gm/Ns 50 Ml IVPB Q24H SONIA Sodium Chloride 1,000 mls @ 75 mls/hr 08/27/24 16:30 08/28/24 09:33 Normal Saline Iv IV CONT 100 mls/hr .[id number] SONIA Administration Metronidazole 500 mg in 100 mls @ 100 mls/hr 08/27/24 17:00 08/28/24 08:14 Flagyl 500 Mg/Iso Soln 100 Ml IVPB 100 mls/hr Q8H SONIA Administration Dextrose 1,000 mls @ 100 mls/hr 08/27/24 16:36 Dextrose 5% 1,000 Ml IVPB PRN PRN Hypoglycemia Protocol Insulin Aspart 3 - 6 units 08/27/24 17:00 08/28/24 09:04 Insulin Aspart (*Bkc) 100 Units/Ml SUB-Q Not Given TIDWM PENDING SALE TO [facility] Protocol Insulin Aspart 1 - 3 units 08/27/24 21:00 08/27/24 22:53 Insulin Aspart (*Bkc) 100 Units/Ml SUB-Q 2 units HS SONIA Administration Protocol Insulin Glargine 20 units 08/28/24 09:00 08/28/24 09:33 Insulin Glargine (*Bkc) 100 Units/Ml SUB-Q 20 units DAILY SONIA Administration Isosorbide Dinitrate 10 mg 08/28/24 09:00 08/28/24 08:14 Isosorbide Dinitrate 10 Mg Tablet PO 10 mg BID SONIA Administration Levothyroxine Sodium 50 mcg 08/28/24 06:30 08/28/24 08:13 Levothyroxine Sodium 50 Mcg Tablet PO 50 mcg DAILY@0630 SONIA Administration Miscellaneous Information 1 each 08/28/24 00:01 Fenofibrate 54mg Nonformulary. We Stock 48mg XX 09/27/24 00:00 CLARIFY SONIA Mupirocin 1 applic 08/28/24 09:00 08/28/24 08:18 Mupirocin 2% Oint 22 Gm Tube EACH NARE 09/01/24 21:01 1 applic Q12HR SONIA Administration Non-Formulary Medication 54 mg 08/28/24 09:00 Fenofibrate PO 09/27/24 08:59 DAILY SONIA Ondansetron HCl 4 mg 08/28/24 09:11 08/28/24 09:32 Ondansetron Inj 4 Mg/2 Ml Vial IV PUSH 4 mg Q4H PRN Administration Nausea And Vomiting Ropinirole HCl 2 mg 08/28/24 07:36 08/28/24 08:25 Ropinirole Hcl 1 Mg Tablet PO 2 mg TID PRN Administration restless legs Trazodone HCl 50 - 100 mg 08/28/24 09:58 Trazodone Hcl 50 Mg Tablet PO HS PRN insomnia Vancomycin HCl 1 each 08/28/24 07:35 Vancomycin For Acute Kidney Injury IVPB PRN PRN Vancomycin Protocol Radiology Results: ITS Impressions Chest X-Ray 08/27/24 09:50 IMPRESSION: 1. Airspace opacities at the lung bases, consistent with atelectasis versus pneumonia. Chest/Abdomen/Pelvis CT 08/27/24 11:50 IMPRESSION: 1. Airspace and groundglass opacities in right middle lobe and the lower lobes, consistent with pneumonia. 2. Mild mediastinal lymphadenopathy, likely reactive. 3. Small sliding hiatal hernia. Head CT 08/27/24 18:49 Impression: No acute intracranial hemorrhage or suspicious mass effect. Head/Cervical Spine/Facial Bones CT 08/27/24 19:05 Impression: Straightening and slight reversal of the normal curvature of the cervical spine, likely muscular in origin. Significant degenerative disease, without acute fracture within the cervical spine. Trace inflammatory sinus disease, without acute facial fracture, as detailed above. Renal Ultrasound 08/28/24 09:27 IMPRESSION: No hydronephrosis or renal calculi. Simple cyst within the left kidney for which no further follow-up is needed. Layering sludge within the bladder. Labs Labs: Laboratory Results - last 24 hr 08/27/24 08/27/24 08/27/24 10:08 10:54 17:21 WBC 10.5 H RBC 5.13 Hgb 12.6 Hct 40.1 MCV 78.2 L MCH 24.6 L MCHC 31.4 L RDW 17.2 H Plt Count 336 MPV 9.9 Immature Gran % (Auto) 1.0 H Neut % (Auto) 74.0 H Lymph % (Auto) 13.6 L [place] % (Auto) 8.6 H Eos % (Auto) 2.5 Baso % (Auto) 0.3 Lymph # (Auto) 1.43 [place] # (Auto) 0.9 H Eos # (Auto) 0.3 Baso # (Auto) 0.0 Abs Immat Gran (auto) 0.10 H Absolute Neuts (auto) 7.8 H Absolute Nucleated RBC 0.000 Nucleated RBC % 0.0 Sodium 133 L Potassium 4.5 Chloride 98 Carbon Dioxide 21 L Anion Gap 14 H BUN 58 H Creatinine 2.14 H Estim Creat Clear Calc 16 Estimated GFR 22 L Glucose 306 H POC Capillary Glucose 354 H Lactic Acid 1.5 Calcium 9.0 Total Bilirubin 0.5 AST 36 ALT 17 Alkaline Phosphatase 79 Total Protein 7.0 Albumin 3.3 L Urine Color Yellow Urine Appearance Turbid H Urine pH 8.5 Ur Specific [place] 1.020 Urine Protein 3+ H Urine Glucose (UA) 2+ H Urine Ketones Trace H Ur Blood (Man) 3+ H Urine Nitrate Negative Urine Bilirubin Negative Urine Urobilinogen 0.2 Leukocyte Esterase Rfl 3+ H Urine RBC >100 H Urine WBC >100 H Ur Squamous Epith Cells None seen Urine Bacteria 4+ H Urine Casts 3-5 Nasal MRSA (PCR) 08/27/24 08/27/24 08/27/24 19:35 19:39 22:52 WBC RBC Hgb Hct MCV MCH MCHC RDW Plt Count MPV Immature Gran % (Auto) Neut % (Auto) Lymph % (Auto) [place] % (Auto) Eos % (Auto) Baso % (Auto) Lymph # (Auto) [place] # (Auto) Eos # (Auto) Baso # (Auto) Abs Immat Gran (auto) Absolute Neuts (auto) Absolute Nucleated RBC Nucleated RBC % Sodium Potassium Chloride Carbon Dioxide Anion Gap BUN Creatinine Estim Creat Clear Calc Estimated GFR Glucose POC Capillary Glucose 414 H 278 H Lactic Acid Calcium Total Bilirubin AST ALT Alkaline Phosphatase Total Protein Albumin Urine Color Urine Appearance Urine pH Ur Specific [place] Urine Protein Urine Glucose (UA) Urine Ketones Ur Blood (Man) Urine Nitrate Urine Bilirubin Urine Urobilinogen Leukocyte Esterase Rfl Urine RBC Urine WBC Ur Squamous Epith Cells Urine Bacteria Urine Casts Nasal MRSA (PCR) Detected A* 08/28/24 08/28/24 06:19 08:03 WBC RBC Hgb Hct MCV MCH MCHC RDW Plt Count MPV Immature Gran % (Auto) Neut % (Auto) Lymph % (Auto) [place] % (Auto) Eos % (Auto) Baso % (Auto) Lymph # (Auto) [place] # (Auto) Eos # (Auto) Baso # (Auto) Abs Immat Gran (auto) Absolute Neuts (auto) Absolute Nucleated RBC Nucleated RBC % Sodium 136 L Potassium 4.6 Chloride 104 Carbon Dioxide 22 Anion Gap 10 BUN 42 H D Creatinine 1.51 H Estim Creat Clear Calc 23 Estimated GFR 33 L Glucose 179 H POC Capillary Glucose 202 H Lactic Acid Calcium 8.5 Total Bilirubin 0.4 AST 25 ALT 19 Alkaline Phosphatase 65 Total Protein 6.0 L Albumin 2.5 L Urine Color Urine Appearance Urine pH Ur Specific [place] Urine Protein Urine Glucose (UA) Urine Ketones Ur Blood (Man) Urine Nitrate Urine Bilirubin Urine Urobilinogen Leukocyte Esterase Rfl Urine RBC Urine WBC Ur Squamous Epith Cells Urine Bacteria Urine Casts Nasal MRSA (PCR)
[2024-08-28 10:10] VITALS: BMI 10.0
--- NOTE | 2024-08-28 10:27 | PCSTNOTE ---
Please refer to the Bedside Swallow Evaluation in the EMR. Please note, silent aspiration cannot be ruled out at bedside.
[2024-08-28 10:53] LABS: Anisocytosis 1+; Platelet Estimate Adequate (Adequate)
[2024-08-28 10:54] LABS: Hypochromasia 1+; Schistocytes None Seen
[2024-08-28 11:57] LABS: Glucose Point of Care 286 mg/dl (65-105)
[2024-08-28] MEDS: INSULIN ASPART (*BKC) 100 UNITS/ML SUB-Q ×3 (12:02→20:21)
[2024-08-28] MEDS: AZITHROMYCIN 500 MG/NS 250 ML 500 MG/250 ML BAG 250 MG IVPB (12:36)
[2024-08-28] MEDS: FENOFIBRATE,MICRONIZED 48 MG TABLET PO (13:11)
[2024-08-28 14:00] VITALS: BP 117/63; PULSE 70; RESP 18; TEMP 36.8; O2SAT 98
[2024-08-28] MEDS: metroNIDAZOLE 500 MG TABLET PO ×2 (16:25→20:20)
[2024-08-28 17:06] LABS: Glucose Point of Care 269 mg/dl (65-105)
[2024-08-28 20:00] VITALS: PULSE 68; RESP 12; O2SAT 96
[2024-08-28] MEDS: SODIUM CHLORIDE 0.9% IV 1,000 ML 75 ML IV CONT (20:19)
[2024-08-28] MEDS: traZODone HCL 50 MG TABLET PO (20:20)
[2024-08-28] MEDS: GABAPENTIN 300 MG CAPSULE PO (20:20)
[2024-08-28 20:49] VITALS: BP 115/37; PULSE 68; RESP 12; TEMP 36.8; O2SAT 96
[2024-08-28 20:54] LABS: Glucose Point of Care 259 mg/dl (65-105)
[2024-08-29] MEDS: HYDROcodone/acetaminophen (*CRX) 7.5-325 MG TABLET 1 TAB PO ×2 (00:38→10:39)
[2024-08-29] MEDS: metroNIDAZOLE 500 MG TABLET PO ×3 (05:37→22:00)
[2024-08-29] MEDS: LEVOTHYROXINE SODIUM 50 MCG TABLET PO (05:37)
[2024-08-29 05:38] LABS: Basophils Percent Auto 0.3 % (0.2-1.2); Eosinophils Absolute Auto 0.5 K/mm3 (0-0.3); Eosinophils Percent Auto 5.2 % (0-4.4); Hematocrit 34.1 % (37.0-47.0); Hemoglobin 10.2 g/dL (12.0-15.0); Immature Granulocyte Absolute 0.12 K/mm3 (0.00-0.031); Immature Granulocyte Percent A 1.3 % (0-0.5); Lymphocytes Absolute Auto 2.03 K/mm3 (0.9-3.2); Lymphocytes Percent Auto 22.5 % (18.3-44.2); Mean Corpuscular HGB Conc 29.9 g/dl (32-36); Mean Corpuscular Volume 80.2 fl (80-100); Mean Platelet Volume 9.4 fl (7.4-10.4); Monocytes Absolute Auto 0.7 K/mm3 (0.1-0.6); Neutrophils Absolute Auto 5.7 K/mm3 (1.3-6.7); Neutrophils Percent Auto 62.7 % (45.5-73.1); Platelet Count Result 259 k/mm3 (150-375); Red Blood Count 4.25 M/mm3 (4.2-5.4); Red Cell Distribution Width 17.7 % (11.5-14.5)
[2024-08-29 05:53] LABS: Lactic Acid Reflex 0.9 mmol/L (0.7-2.0)
[2024-08-29 05:55] LABS: Alanine Aminotransferase 7 U/L (6-35); Albumin Level 2.5 g/dL (3.5-5.1); Alkaline Phosphatase 56 U/L (38-126); Anion Gap 5 mmol/L (4-12); Aspartate Amino Transferase 25 U/L (14-36); Bilirubin,Total 0.2 mg/dL (0.2-1.3); Blood Urea Nitrogen 38 mg/dL (7-17); Calcium 7.9 mg/dL (8.4-10.2); Carbon Dioxide 23 mmol/L (22-30); Chloride 106 mmol/L (98-107); Estimated CRCL calculation 26 ml/min; Estimated Glomerular Filt Rate 37; Glucose 186 mg/dL (65-110); Magnesium 1.9 mg/dL (1.6-2.3); Potassium 4.3 mmol/L (3.4-5.0); Sodium 134 mmol/L (137-145); Vancomycin Random 8.6 ug/mL (10-20)
[2024-08-29 06:00] VITALS: BP 111/37; PULSE 60; RESP 12; TEMP 36.3; O2SAT 95
[2024-08-29] MEDS: VANCOMYCIN 1,500 MG/NS 500 ML 1,500 MG/500 ML BAG 250 MG IVPB (06:47)
[2024-08-29 06:56] LABS: Anisocytosis 1+; Hypochromasia 1+; Platelet Estimate Adequate (Adequate); Schistocytes None Seen
--- NOTE | 2024-08-29 07:29 | PM.IMPN ---
Progress Note: A&P Assessment and Plan (1) Pneumonia: Code(s): J18.9 - Pneumonia, unspecified organism Status: Acute (2) Weakness: Code(s): R53.1 - Weakness Status: Acute Plan Pneumonia with Positive MRSA CT Chest showed RML and RLL pneumonia Blood and sputum cultures ordered MRSA positive Day 2 Rocephin, Azithromycin and Flagyl ordered Started on Vancomycin 08/28 plan is to complete 7 days of Antibiotics SILVINO, improving Likely from poor oral intake intake no historical to compare Cr 2.14 and BUN 58 on admission continue IVF and encourage oral intake Possibly stop IVF tomorrow if renal function continues to improve, creatinine 1.34 UTI patient noted dysuria UA positive for Leukocyte esterase and pyuria urine culture pending continue abx Fall with purpura/ecchymosis of the chin Patient noted worsening generalized weakness noted her legs gave out and she fell face forward Stat CT head, CT cervical and Ct facial ordered PT/OT encourage oral intake and monitor HTN Titrate home meds with clinical course DM2 SSi with accucheks DVT prophylaxis on Sq Lovenox Full code Surrogate decision maker is Daughter Linda Du Awaiting PT/OT May discharge patient tomorrow if patient condition continue to improve Subjective Date/time seen: 08/29/24 07:29 Interval history: Patient feels comfortable today, still feel weak, still has a cough with scant phlegm, condition continue to improve Exam Narrative: General: alert and comfortable Eyes: EOMI, PERRLA ENNT External ears normal, Neck is supple, no masses, Respiratory systems: Clear to auscultation Cardiovascular S1, S2, normal rhythm, no murmur, rub, or gallop; no thrill or palpable murmurs on palpation. Gastrointestinal: soft, non-tender, and non-distended abdomen with no masses; BS present Skin: chin purpura Musculoskeletal: no abnormality and no tenderness, normal ROM Neurologic: Alert and oriented x3, non focal Mental Status Exam: normal affect Objective Data Vital Signs Vital Signs: Vital Signs - 24 hr 08/28/24 08:00 08/28/24 10:10 08/28/24 10:23 Temperature Pulse Rate Respiratory Rate Blood Pressure Pulse Oximetry 98 Oxygen Delivery Room Air Room Air Room Air 08/28/24 14:00 08/28/24 20:00 08/28/24 20:49 Temperature 98.2 F 98.2 F Pulse Rate 70 68 68 Respiratory Rate 18 12 12 Blood Pressure 117/63 115/37 L Pulse Oximetry 98 96 96 Oxygen Delivery Room Air 08/29/24 06:00 Temperature 97.3 F L Pulse Rate 60 Respiratory Rate 12 Blood Pressure 111/37 L Pulse Oximetry 95 Oxygen Delivery Intake/Output Intake/Output: Intake & Output 08/26/24 08/27/24 08/28/24 08/29/24 23:59 23:59 23:59 23:59 Intake Total 2090 2646.7 100 Output Total 200 700 100 Balance 1890 1946.7 0 Meds/Results Medications: Active Medications Generic Name Dose Route Start Last Admin Trade Name Freq PRN Reason Stop Dose Admin Hydrocodone Bitart/Acetaminophen 1 tab 08/28/24 07:36 08/29/24 00:38 Hydrocodone/Acetaminophen (*Crx) 7.5-325 Mg Tablet PO 1 tab Q6H PRN Administration chronic pain Albuterol 2 puff 08/28/24 07:36 Albuterol Sulfate (*Sp) Aerosol 1 Puff INHALATION Q6H PRN wheeze Azithromycin 500 mg 08/29/24 09:00 Azithromycin 250 Mg Tablet PO 08/31/24 09:01 DAILY SONIA Benzonatate 100 mg 08/28/24 09:00 08/28/24 16:25 Benzonatate 100 Mg Capsule PO 100 mg TID SONIA Administration Bumetanide 1 mg 08/28/24 09:00 08/28/24 09:30 Bumetanide 1 Mg Tablet PO Not Given Q48H SONIA Carbidopa/Levodopa 1 tablet 08/28/24 08:00 08/28/24 20:23 Carbidopa/Levodopa 25/100 Mg Cr Tablet PO 1 tablet Q12H SONIA Administration Clopidogrel Bisulfate 75 mg 08/28/24 09:00 08/28/24 08:14 Clopidogrel Bisulfate 75 Mg Tablet PO 75 mg DAILY SONIA Administration Dextrose 12.5 gm 08/27/24 16:36 Dextrose 50% 25 Gm/50 Ml Syringe IV PUSH PRN PRN Hypoglycemia Protocol Enoxaparin Sodium 30 mg 08/28/24 09:00 08/28/24 08:14 Enoxaparin 30 Mg/0.3 Ml Syringe SUB-Q 30 mg DAILY SONIA Administration Fenofibrate 48 mg 08/28/24 09:00 08/28/24 13:11 Fenofibrate,Micronized 48 Mg Tablet PO 48 mg QAM SONIA Administration Ferrous Sulfate 325 mg 08/28/24 09:00 08/28/24 16:25 Ferrous Sulfate [address] PO 325 mg BID SONIA Administration Gabapentin 300 mg 08/28/24 21:00 08/28/24 20:20 Gabapentin 300 Mg Capsule PO 300 mg HS SONIA Administration Glucagon 1 mg 08/27/24 16:36 Glucagon For Inj 1 Mg Vial IM PRN PRN Hypoglycemia Protocol Glucose 15 gm 08/27/24 16:36 Glucose Oral Gel 15 Gm Of Glucse In 37.5 Gm Tube PO PRN PRN Hypoglycemia Protocol Hydrochlorothiazide 12.5 mg 08/28/24 09:00 08/28/24 09:30 Hydrochlorothiazide 12.5 Mg Capsule PO Not Given QAM SONIA Ceftriaxone Sodium 1 gm in 50 mls @ 100 mls/hr 08/28/24 12:00 08/28/24 12:00 Rocephin 1 Gm/Ns 50 Ml IVPB 100 mls/hr Q24H SONIA Administration Sodium Chloride 1,000 mls @ 75 mls/hr 08/27/24 16:30 08/28/24 20:19 Normal Saline Iv IV CONT 75 mls/hr .[id number] SONIA Administration Dextrose 1,000 mls @ 100 mls/hr 08/27/24 16:36 Dextrose 5% 1,000 Ml IVPB PRN PRN Hypoglycemia Protocol Vancomycin HCl 1,500 mg in 500 mls @ 250 mls/hr 08/29/24 07:00 08/29/24 06:47 Vancomycin 1,500 Mg/Ns 500 Ml IVPB 250 mls/hr Q36H SONIA Administration Insulin Aspart 3 - 6 units 08/27/24 17:00 08/28/24 17:45 Insulin Aspart (*Bkc) 100 Units/Ml SUB-Q 4 units TIDWM SONIA Administration Protocol Insulin Aspart 1 - 3 units 08/27/24 21:00 08/28/24 20:21 Insulin Aspart (*Bkc) 100 Units/Ml SUB-Q 2 units HS SONIA Administration Protocol Insulin Glargine 20 units 08/28/24 09:00 08/28/24 09:33 Insulin Glargine (*Bkc) 100 Units/Ml SUB-Q 20 units DAILY SONIA Administration Isosorbide Dinitrate 10 mg 08/28/24 09:00 08/28/24 16:25 Isosorbide Dinitrate 10 Mg Tablet PO 10 mg BID SONIA Administration Levothyroxine Sodium 50 mcg 08/28/24 06:30 08/29/24 05:37 Levothyroxine Sodium 50 Mcg Tablet PO 50 mcg DAILY@0630 SONIA Administration Metronidazole 500 mg 08/28/24 16:00 08/29/24 05:37 Metronidazole 500 Mg Tablet PO 09/02/24 23:59 500 mg Q8HR SONIA Administration Mupirocin 1 applic 08/28/24 09:00 08/28/24 20:29 Mupirocin 2% Oint 22 Gm Tube EACH NARE 09/01/24 21:01 1 applic Q12HR SONIA Administration Ondansetron HCl 4 mg 08/28/24 09:11 08/28/24 09:32 Ondansetron Inj 4 Mg/2 Ml Vial IV PUSH 4 mg Q4H PRN Administration Nausea And Vomiting Ropinirole HCl 2 mg 08/28/24 07:36 08/28/24 20:20 Ropinirole Hcl 1 Mg Tablet PO 2 mg TID PRN Administration restless legs Trazodone HCl 50 - 100 mg 08/28/24 09:58 08/28/24 20:20 Trazodone Hcl 50 Mg Tablet PO 100 mg HS PRN Administration insomnia Radiology Results: ITS Impressions Chest X-Ray 08/27/24 09:50 IMPRESSION: 1. Airspace opacities at the lung bases, consistent with atelectasis versus pneumonia. Chest/Abdomen/Pelvis CT 08/27/24 11:50 IMPRESSION: 1. Airspace and groundglass opacities in right middle lobe and the lower lobes, consistent with pneumonia. 2. Mild mediastinal lymphadenopathy, likely reactive. 3. Small sliding hiatal hernia. Head CT 08/27/24 18:49 Impression: No acute intracranial hemorrhage or suspicious mass effect. Head/Cervical Spine/Facial Bones CT 08/27/24 19:05 Impression: Straightening and slight reversal of the normal curvature of the cervical spine, likely muscular in origin. Significant degenerative disease, without acute fracture within the cervical spine. Trace inflammatory sinus disease, without acute facial fracture, as detailed above. Renal Ultrasound 08/28/24 09:27 IMPRESSION: No hydronephrosis or renal calculi. Simple cyst within the left kidney for which no further follow-up is needed. Layering sludge within the bladder. Labs Labs: Laboratory Results - last 24 hr 08/28/24 08/28/24 08/28/24 06:19 08:03 11:47 WBC 11.0 H RBC 4.77 Hgb 11.4 L Hct 38.4 MCV 80.5 MCH 23.9 L MCHC 29.7 L RDW 17.4 H Plt Count 302 MPV 9.8 Immature Gran % (Auto) 1.1 H Neut % (Auto) 70.1 Lymph % (Auto) 15.6 L [place] % (Auto) 9.1 H Eos % (Auto) 3.8 Baso % (Auto) 0.3 Lymph # (Auto) 1.72 [place] # (Auto) 1.0 H Eos # (Auto) 0.4 H Baso # (Auto) 0.0 Abs Immat Gran (auto) 0.12 H Absolute Neuts (auto) 7.7 H Absolute Nucleated RBC 0.000 Band Neutrophils % Not Reportable Nucleated RBC % 0.0 Platelet Estimate Adequate Hypochromasia 1+ Anisocytosis 1+ Schistocytes None seen Sodium 136 L Potassium 4.6 Chloride 104 Carbon Dioxide 22 Anion Gap 10 BUN 42 H D Creatinine 1.51 H Estim Creat Clear Calc 23 Estimated GFR 33 L Glucose 179 H POC Capillary Glucose 202 H 286 H Lactic Acid Calcium 8.5 Magnesium Total Bilirubin 0.4 AST 25 ALT 19 Alkaline Phosphatase 65 Total Protein 6.0 L Albumin 2.5 L Random Vancomycin 08/28/24 08/28/24 08/29/24 16:58 20:11 05:14 WBC 9.0 RBC 4.25 Hgb 10.2 L Hct 34.1 L MCV 80.2 MCH 24.0 L MCHC 29.9 L RDW 17.7 H Plt Count 259 MPV 9.4 Immature Gran % (Auto) 1.3 H Neut % (Auto) 62.7 Lymph % (Auto) 22.5 [place] % (Auto) 8.0 Eos % (Auto) 5.2 H Baso % (Auto) 0.3 Lymph # (Auto) 2.03 [place] # (Auto) 0.7 H Eos # (Auto) 0.5 H Baso # (Auto) 0.0 Abs Immat Gran (auto) 0.12 H Absolute Neuts (auto) 5.7 Absolute Nucleated RBC 0.000 Band Neutrophils % Not Reportable Nucleated RBC % 0.0 Platelet Estimate Adequate Hypochromasia 1+ Anisocytosis 1+ Schistocytes None seen Sodium 134 L Potassium 4.3 Chloride 106 Carbon Dioxide 23 Anion Gap 5 BUN 38 H Creatinine 1.34 H Estim Creat Clear Calc 26 Estimated GFR 37 L Glucose 186 H POC Capillary Glucose 269 H 259 H Lactic Acid 0.9 Calcium 7.9 L Magnesium 1.9 Total Bilirubin 0.2 AST 25 ALT 7 Alkaline Phosphatase 56 Total Protein 6.0 L Albumin 2.5 L Random Vancomycin 8.6 L
[2024-08-29 08:40] LABS: Glucose Point of Care 151 mg/dl (65-105)
[2024-08-29 08:55] VITALS: O2SAT 96
[2024-08-29] MEDS: BENZONATATE 100 MG CAPSULE PO ×3 (08:56→17:08)
[2024-08-29] MEDS: FERROUS SULFATE 325 MG TABLET DR PO ×2 (08:56→17:08)
[2024-08-29] MEDS: ISOSORBIDE DINITRATE 10 MG TABLET PO ×2 (08:56→17:08)
[2024-08-29] MEDS: CLOPIDOGREL BISULFATE 75 MG TABLET PO (08:56)
[2024-08-29] MEDS: CARBIDOPA/LEVODOPA 25/100 MG CR TABLET 1 TABLET PO ×2 (08:56→20:19)
[2024-08-29] MEDS: AZITHROMYCIN 250 MG TABLET 500 MG PO (08:56)
[2024-08-29] MEDS: hydroCHLOROthiazide 12.5 MG CAPSULE PO (08:56)
[2024-08-29] MEDS: ENOXAPARIN 30 MG/0.3 ML SYRINGE SUB-Q (08:56)
[2024-08-29] MEDS: INSULIN GLARGINE (*BKC) 100 UNITS/ML 20 UNITS SUB-Q (08:57)
[2024-08-29] MEDS: MUPIROCIN 2% OINT 22 GM TUBE 1 APPLIC EACH NARE ×2 (08:58→20:19)
[2024-08-29] MEDS: FENOFIBRATE,MICRONIZED 48 MG TABLET PO (08:58)
[2024-08-29] MEDS: INSULIN ASPART (*BKC) 100 UNITS/ML SUB-Q ×2 (11:58→20:34)
[2024-08-29 12:04] LABS: Glucose Point of Care 204 mg/dl (65-105)
[2024-08-29 14:00] VITALS: BP 131/57; PULSE 66; RESP 18; TEMP 36.6; O2SAT 95
[2024-08-29 17:03] LABS: Glucose Point of Care 178 mg/dl (65-105)
[2024-08-29 20:00] VITALS: O2SAT 95
[2024-08-29] MEDS: rOPINIRole HCL 1 MG TABLET 2 MG PO (20:18)
[2024-08-29] MEDS: GABAPENTIN 300 MG CAPSULE PO (20:22)
[2024-08-29 20:43] VITALS: BP 114/56; PULSE 68; RESP 20; TEMP 36.7; O2SAT 95
[2024-08-29 20:50] LABS: Glucose Point of Care 213 mg/dl (65-105)
[2024-08-29] MEDS: SODIUM CHLORIDE 0.9% IV 1,000 ML 75 ML IV CONT (22:00)
[2024-08-30] MEDS: LEVOTHYROXINE SODIUM 50 MCG TABLET PO (05:31)
[2024-08-30] MEDS: metroNIDAZOLE 500 MG TABLET PO ×2 (05:31→13:33)
[2024-08-30 05:50] VITALS: BP 127/61; PULSE 62; RESP 20; TEMP 36.7; O2SAT 97
[2024-08-30 08:17] LABS: Glucose Point of Care 174 mg/dl (65-105)
[2024-08-30] MEDS: hydroCHLOROthiazide 12.5 MG CAPSULE PO (09:02)
[2024-08-30] MEDS: CLOPIDOGREL BISULFATE 75 MG TABLET PO (09:02)
[2024-08-30] MEDS: cefuroxime axetiL 250 MG TABLET PO (09:02)
[2024-08-30] MEDS: BUMETANIDE 1 MG TABLET PO (09:02)
[2024-08-30] MEDS: CARBIDOPA/LEVODOPA 25/100 MG CR TABLET 1 TABLET PO (09:02)
[2024-08-30] MEDS: ENOXAPARIN 30 MG/0.3 ML SYRINGE SUB-Q (09:02)
[2024-08-30] MEDS: BENZONATATE 100 MG CAPSULE PO ×2 (09:02→12:14)
[2024-08-30] MEDS: FENOFIBRATE,MICRONIZED 48 MG TABLET PO (09:02)
[2024-08-30] MEDS: DOXYCYCLINE HYCLATE 100 MG TABLET PO (09:02)
[2024-08-30] MEDS: ISOSORBIDE DINITRATE 10 MG TABLET PO (09:02)
[2024-08-30] MEDS: FERROUS SULFATE 325 MG TABLET DR PO (09:03)
[2024-08-30] MEDS: MUPIROCIN 2% OINT 22 GM TUBE 1 APPLIC EACH NARE (09:03)
[2024-08-30] MEDS: INSULIN GLARGINE (*BKC) 100 UNITS/ML 20 UNITS SUB-Q (09:04)
[2024-08-30] MEDS: rOPINIRole HCL 1 MG TABLET 2 MG PO (09:15)
[2024-08-30 12:05] LABS: Glucose Point of Care 227 mg/dl (65-105)
[2024-08-30] MEDS: INSULIN ASPART (*BKC) 100 UNITS/ML SUB-Q (12:14)
--- NOTE | 2024-08-30 13:26 | PCOTNOTE ---
The patient treatment was not able to be completed patient states she is leaving and is just waiting on the paperwork. Will plan to continue treatment per plan of care.
[2024-08-30 14:00] VITALS: BP 118/68; PULSE 64; RESP 18; TEMP 36.5; O2SAT 97
--- NOTE | 2024-08-30 14:24 | PCPTNOTE ---
Attempted to see patient for PT, however patient refuse due to anticipated discharge.
--- NOTE | 2024-08-30 15:16 | PM.DS ---
DS: Admitting Diagnosis Discharge Date 08/30/24 Admitting Diagnosis Weakness DS: Discharge Diagnosis Discharge Diagnosis (1) Pneumonia: Code(s): J18.9 - Pneumonia, unspecified organism Status: Acute (2) Weakness: Code(s): R53.1 - Weakness Status: Acute (3) SILVINO (acute kidney injury): Code(s): N17.9 - Acute kidney failure, unspecified Status: Acute (4) UTI (urinary tract infection): Code(s): N39.0 - Urinary tract infection, site not specified Status: Acute (5) Fall: Code(s): W19.XXXA - Unspecified fall, initial encounter Status: Acute (6) Essential hypertension: Code(s): I10 - Essential (primary) hypertension Status: Acute (7) Diabetes mellitus: Code(s): E11.9 - Type 2 diabetes mellitus without complications Status: Acute DS: Summary Hospital Course Reason for hospitalization: 89yo female with DM and HTN here for weakness and fall. Please see H&P for details. Hospital Course: Patient presented with weakness. Patient remained afebrile. WBC mildly elevated before normalizing. CT chest showing airspace and groundglass opacities in RML and BLL with mild mediastinal lymphadenopathy likely reactive. Sputum culture negative. Blood cultures no growth to date. MRSA nasal swab was positive. EKG showing no acute ST-T wave changes. She was started on IV Rocephin, Azithro and Vancomycin. Flagyl was added for possible aspiration but her bedside speech therapy evaluation showed no concerns. She was transtioned to oral abx. Her UA was concerning for UTI. Her urine culture grew proteus mirabilis. She was continued on abx. Cr 2.14 and BUN 58 on admission likely from poor oral intake but no historical labs to compare. She was treated with IV fluids and Cr down to 1.34 now. Renal ultrasound showed sludge in the bladder but no acute findings. Patient had a fall prior to admission. She has noted worsening generalized weakness and then her legs gave out and she fell face forward. CT head, CT cervical and CT facial ordered showing no fractures. She worked with PT/OT. She overall did well and was able to be discharged to SNF for further rehab. Hospital course and followup plan discussed with daughter. All questions answered. Status at Discharge Cognitive/behavioral status at discharge: stable Time Spent with Patient Time attestation: Total time spent providing and/or coordinating discharge services: 35 minutes Time spent: Greater than 30 minutes Exam Narrative: AF 97.7 118/68 64 18 97% ra Gen - NARD HEENT - bruising noted chin and upper neck area. Chest - lungs clear anteriorly. CV - RRR S1/S2 Abd - Soft, NT/ND, Positive BS Ext - No pedal edema Psych - Nml mood and affect Skin - Warm and dry DS: Data Data Completed and Pending Labs on day of discharge: Labs from last 24 hours 08/30/24 08/30/24 08/29/24 11:52 08:07 20:33 POC Capillary Glucose 227 H 174 H 213 H 08/29/24 16:56 POC Capillary Glucose 178 H Preliminary micro results at discharge 08/27/24 10:08 Blood Culture - Preliminary Blood 08/27/24 10:23 Blood Culture - Preliminary Blood Discharge Plan Discharge Attending physician on discharge: Andrea oGod Discharging Clinician: Andrea Good Anticipated Discharge Date/Time: 08/30/24 15:33 Patient Disposition: SNF Activity: as tolerated Diet: diabetic Discharge Instructions: Please check glucose before meals and before bed. Record for the doctor's review. Check blood pressure 1 to 2 times a day. Record for the doctor's review. Take precautions to avoid falls. Rise slowly from a lying or sitting position. Pause before standing or walking. Contact the doctor if the patient has any type of trauma, lightheadedness with standing or other worrisome symptoms. Avoid NSAIDs (ibuprofen, naproxen, Aleve). Tylenol is safe to take. Please have her chronic pain addressed with appropriate treatment. Follow-up with the provider at the facility. Thank you for using [facility] for your health care needs. Patient Instructions: Pain Management (DC), Safe Use of Anticoagulants (GEN), Bleeding Disorders (GEN), Blood Thinners (GEN) Patient Language: Upper Sorbian Stand Alone Forms: General Discharge Information Follow-up/Referrals: Steve,LETY Hall [Primary Care Provider] - Discharge Medications: New cefuroxime axetil 250 mg Tablet 250 mg PO Q12HR Qty: 7 0RF mupirocin 2 % Ointment 1 applic EACH NARE Q12HR Qty: 5 0RF doxycycline hyclate 100 mg Tablet 100 mg PO Q12HR Qty: 9 0RF Continued clobetasol 0.05 % cream 1 applic TOPICAL .BID clopidogrel 75 mg tablet 75 mg PO DAILY gabapentin 300 mg capsule 300 mg PO HS hydrochlorothiazide 25 mg tablet 12.5 mg PO DAILY Levemir U-100 Insulin 100 unit/mL solution 20 unit SUBCUT DAILY isosorbide dinitrate 10 mg tablet 10 mg PO BID levothyroxine 50 mcg tablet 50 mcg PO DAILY pravastatin 40 mg tablet 40 mg PO HS ropinirole 2 mg tablet 2 mg PO TID PRN (Reason: restless legs) Rx Instructions: restless legs spironolactone 25 mg tablet 25 mg PO DAILY nystatin 100,000 unit/gram powder 1 applic topical BID Rx Instructions: red areas under breasts & groin naloxone [Narcan] 4 mg/actuation spray,non-aerosol 4 mg intranasal Q2-3M PRN (Reason: opioid overdose) Rx Instructions: spray 1 dose into ONE nostril; alternate nostrils w each dose until help arrives ferrous sulfate [FeroSul] 325 mg (65 mg iron) tablet 325 mg PO BID acetaminophen 325 mg capsule 650 mg PO Q4H PRN (Reason: fever or pain) albuterol sulfate [Ventolin HFA] 90 mcg/actuation HFA aerosol inhaler 2 puff inhalation Q6H PRN (Reason: wheeze) fenofibrate 54 mg tablet 54 mg PO DAILY Rx Instructions: with breakfast polyethylene glycol 3350 [Miralax] 17 gram/dose powder 17 g PO DAILY PRN (Reason: constipation) Little Remedies Saline 0.65 % aerosol,spray 1 spray intranasal TID PRN (Reason: nasal dryness) trazodone 50 mg tablet 50 mg PO HS PRN (Reason: insomnia) Qty: 1 0RF tramadol 50 mg tablet 50 mg PO Q6H PRN (Reason: pain) Qty: 4 0RF hydrocodone-acetaminophen 7.5-325 mg tablet 1 tablet PO Q6H PRN (Reason: chronic pain) Qty: 4 0RF Changed carbidopa-levodopa 50-200 mg tablet extended release 1 tablet PO Q12H Qty: 60 0RF benzonatate 100 mg capsule 100 mg PO TID PRN (Reason: Cough) Qty: 10 0RF bumetanide 1 mg tablet 1 mg PO Q48H Qty: 15 0RF Discontinued gentamicin 0.1 % ointment 1 applic TOPICAL DAILY PRN (Reason: dressing) levofloxacin 750 mg tablet 750 mg PO DAILY Rx Instructions: for 7 days bacitracin 500 unit/gram ointment 1 applic topical BID Other Ambulatory Orders: Basic Metabolic Panel (Routine) Timeframe: 1 Week Location: Determined by Patient Ordered By: Andrea Good Date of admission: 08/28/24 09:41 Primary Care Provider: SteveGuilherme Admitting Provider: Mayco Riojas Attending physician on admission: Marilu Cain Condition: Stable Hospitalist MIPS Heart Failure (Exclusion) Patient has history of Heart Transplant or Left Ventricular Assistive Device?: No IF YES, STOP HERE Heart Failure (Qualifier) Patient has current or prior documentation of LVEF less than or equal to 40%, or mod/servere depressed LVSF?: No IF NO, STOP HERE
== END 2024-08-30 16:15 | DRG 194 ==
LOC: ANHED 09:41 → ANH2MED 13:14
PROVIDERS: Internal Medicine; Admitting Provider Internal Medicine; Emergency Provider Emergency Medicine; PCP Physician Assistant; Visit Provider Internal Medicine
DX: J18.9 Pneumonia, unspecified organism (principal); N17.9 Acute kidney failure, unspecified; N39.0 Urinary tract infection, site not specified; Z22.322 Carrier or suspected carrier of Methicillin resistant Staphylococcus aureus; S00.83XA Contusion of other part of head, initial encounter; B96.4 Proteus (mirabilis) (morganii) as the cause of diseases classified elsewhere; I10 Essential (primary) hypertension; E11.9 Type 2 diabetes mellitus without complications; W19.XXXA Unspecified fall, initial encounter; Z79.02 Long term (current) use of antithrombotics/antiplatelets; Z79.4 Long term (current) use of insulin; Z88.0 Allergy status to penicillin
CPT/HCPCS: 36415; 70450; 70486; 71045; 71250; 72125; 74176; 76775; 80053; 80202; 81001; 82948; 83605; 83735; 85025; 87040; 87070; 87086; 87186; 87205; 87641; 92610; 93005; 96365; 96366; 96367; 96368; 96375; 96376; 97110; 97162; 97166; 97530; 99285; A9270; G0378; J0456; J0696; J1650; J1815; J1836; J2405; J3370; J7030

== ENCOUNTER 2025-02-19 10:57 | Observation (INO) | payer MEDICARE, MEDICAID, SELFPAY ==
[2025-02-19] VITALS (7 sets, daily range): BP systolic 140–164; BP diastolic 85–126; PULSE 80–121; RESP 18–24; TEMP 36.3–36.6; O2SAT 90–94; BMI 36.8
--- NOTE | ~2025-02-19 | CT_ITS ---
EXAMINATION: CT brain wo con DATE: 02/19/2025 11:46 INDICATION: Altered mental status TECHNIQUE: Computed tomography (CT) of the head was performed without intravenous contrast. Sagittal and coronal reconstructions were performed. The mA was adjusted according to patient size. Iterative reconstruction technique was employed. The dose-length product was 1210.67 mGy-cm. COMPARISON: head CT dated 08/27/2024 FINDINGS: No acute intracranial hemorrhage, acute infarction or abnormal extra axial fluid collection. There is mild scattered white matter hypoattenuation consistent with chronic small vessel ischemic disease. S ymmetric prominence of the sulci consistent with mild age-appropriate diffuse cerebral volume loss. Ventricles are normal and symmetric. 2.5 x 2.4 cm suprasellar mass with central calcification which e xtends 1.5 cm cephalad to the superior margin of the sella. 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 Changes of bilateral intraocular lens replacement. The orbits, paranasal sinuses and mastoid air cells are normal. IMPRESSION: 1. Age-related changes the brain with mild diffuse on loss and mild scattered white matter hypoattenu ation consistent with chronic small vessel ischemic disease. No acute intracranial process. 2. 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 The differential would include neoplasm either benign such as meningioma or malignant and centrally thrombosed and calcified aneurysm. Recommend fur ther evaluation with pre and postcontrast imaging and would prefer MRI over CT. 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 Reviewed, dictated and finalized at location A. IMPRESSION: 1. Age-related changes the brain with mild diffuse on loss and mild scattered w wilton matter hypoattenuation consistent with chronic small vessel ischemic disea se. No acute intracranial process. 2. 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 The differential would in clude neoplasm either benign such as meningioma or malignant and centrally thro mbosed and calcified aneurysm. Recommend further evaluation with pre and postco ntrast imaging and would prefer MRI over CT. 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
--- NOTE | ~2025-02-19 | XR_ITS ---
Clinical history:Altered mental status EXAM:X-ray chest one view portable TECHNIQUE:2 frontal images of the chest were obtained Comparisons:08/27/2024 FINDINGS: Cardiomediastinal silhouette is enlarged. Median sternotomy wires are present. No pneumothorax. No pl eural effusion. Patchy opacities in the left mid and lower lung. Differential includes atelectasis or infiltrates. Co nsider a short-term follow-up study. IMPRESSION: 1.Patchy opacities in the left mid and lower lung. Differential includes atelectasis or infiltrates. Consider a short-term follow-up study. Reviewed, dictated and finalized at location A. IMPRESSION: 1.Patchy opacities in the left mid and lower lung. Differential includes atelec tasis or infiltrates. Consider a short-term follow-up study.
--- NOTE | ~2025-02-19 | CT_ITS ---
EXAMINATION: CTA brain DATE: 02/19/2025 13:52 INDICATION: Abnormal head CT. TECHNIQUE: Computed tomographic angiography (CTA) of the head was performed with 100 mL Omnipaque-350 intravenous contrast. Volume-rendered and maximum intensity projection 3D reconstructions of the int racranial arteries were created by the technologist on a separate workstation. Automated exposure con trol and iterative reconstruction technique were employed. The dose-length product was 495.35 mGy-cm. COMPARISON: None. FINDINGS: There is significant motion which distorts the arteries throughout the brain. Bilateral vertebral art eries are codominant. There is no evident hemodynamically significant stenosis in the vertebral, basi lar and internal carotid arteries. Again seen is horizontally predominant focal dilation of the dista l basilar artery at the origin of the patent bilateral P1 segments and the bilateral superior cerebel lar arteries. Given the configuration would favor junctional dilation of the basilar tip over a basil ar tip aneurysm. Both A1 and P1 segments are patent. Cerebral arterial arborization appears symmetri c. Again seen is a centrally calcified suprasellar mass. IMPRESSION: 1. Study significantly limited by motion artifact. Again noted is a horizontally predominant dilation of the distal basilar artery with configuration favoring junctional dilation of the basilar tip over a basilar tip aneurysm. 2. Centrally calcified suprasellar mass as further detailed on prior CT. Reviewed, dictated and finalized at location A. IMPRESSION: 1. Study significantly limited by motion artifact. Again noted is a horizontall y predominant dilation of the distal basilar artery with configuration favoring junctional dilation of the basilar tip over a basilar tip aneurysm. 2. Centrally calcified suprasellar mass as further detailed on prior CT.
--- NOTE | 2025-02-19 11:00 | ECG_ITS ---
Test Date: 2025-02-19 11:56:01 Measurements Intervals [place] Rate: 94 P: 0 HI: 0 QRS: 85 QRSD: 86 T: 108 QT: 330 QTc: 413 Interpretive Statements SINUS RHYTHM WITH ATRIAL AND VENTRICULAR PREMATURE COMPLEXES DELAYED PRECORDIAL R/S TRANSITION CONSIDER INFERIOR INFARCT, AGE INDETERMINATE NONSPECIFIC ST & T-WAVE ABNORMALITY- ANT/HIGH LAT LEADS BASELINE ARTIFACT- I, II, AVR, AVL, AVF, V4-V6 ABNORMAL ECG Compared to ECG 08/27/2024 09:35:56 NO SIGNIFICANT CHANGE Electronically Signed On 02-19-2025 12:04:15 CDT by Josh Mccloud D.O.
--- NOTE | 2025-02-19 11:03 | ED_ITS ---
HPI - Altered Mental Status General Chief Complaint: Altered Mental Status Stated Complaint: UTI Time Seen by Provider: 02/19/25 10:58 Source: patient and EMS Mode of arrival: EMS Limitations: altered mental status, clinical condition and dementia History of Present Illness HPI narrative: patient is an 89-year-old female who lives at home with her family and had acute onset of delirium this morning. She woke up with symptoms. She started a cough about a week ago. She has had a UTI in the past that caused similar delirium. MD complaint: altered mental status Onset (ago): day(s) ( One) Timing confirmed by: family member Severity: moderate Consistency of symptoms: getting Worse Context: other ( patient has acute onset of delirium today with altered mental status) Associated symptoms: cough Treatments prior to arrival: other ( none) Related Data Home Medications ?Medication ?Instructions ?Recorded ?Confirmed ?Last Taken ?Type fenofibrate 54 mg tablet 54 mg PO DAILY 08/27/24 02/19/25 Unknown History ferrous sulfate 325 mg (65 mg 325 mg PO BID 08/27/24 02/19/25 Unknown History iron) tablet (FeroSul) gabapentin 300 mg capsule 300 mg PO HS 08/27/24 02/19/25 Unknown History insulin detemir U-100 100 unit/mL 20 unit subcut DAILY 08/27/24 02/19/25 Unknown History subcutaneous solution (Levemir U-100 Insulin) isosorbide dinitrate 10 mg tablet 10 mg PO BID 08/27/24 02/19/25 Unknown History levothyroxine 50 mcg tablet 50 mcg PO DAILY 08/27/24 02/19/25 Unknown History naloxone 4 mg/actuation nasal 4 mg intranasal Q2-3M PRN opioid 08/27/24 02/19/25 Unknown History spray (Narcan) overdose polyethylene glycol 3350 17 17 g PO DAILY PRN constipation 08/27/24 02/19/25 Unknown History gram/dose oral powder (Miralax) pravastatin 40 mg tablet 40 mg PO HS 08/27/24 02/19/25 Unknown History ropinirole 2 mg tablet 2 mg PO TID PRN restless legs 08/27/24 02/19/25 Unknown History sodium chloride 0.65 % nasal spray 1 spray intranasal TID PRN nasal 08/27/24 02/19/25 Unknown History aerosol (Little Remedies Saline) dryness spironolactone 25 mg tablet 25 mg PO DAILY 08/27/24 02/19/25 Unknown History aspirin 81 mg tablet,delayed 81 mg PO DAILY 02/19/25 02/19/25 Unknown History release (Adult Low Dose Aspirin) Allergies Allergy/AdvReac Type Severity Reaction Status Date / Time Penicillins Allergy Unknown Rash Verified 02/19/25 10:58 Review of Systems 2 Review of Systems: All systems reviewed & are unremarkable except as noted in HPI and below Constitutional: Constitutional: Reports no additional constitutional complaints Eyes: Eyes: Reports no additional eye complaints ENT: Reports system reviewed and no additional complaints, except as documented Cardiovascular: Cardiovascular: Reports no additional cardiovascular complaints Respiratory: Respiratory: Reports no additional respiratory complaints Gastrointestinal: Gastrointestinal: Reports no additional gastrointestinal complaints Genitourinary: Genitourinary: Reports no additional female genitourinary complaints Musculoskeletal: Musculoskeletal: Reports no additional musculoskeletal complaints Integumentary/Breasts: Skin/Breast: Reports system reviewed and no additional complaints, except as docu Neurologic: Reports system reviewed and no additional complaints, except as documented Psychiatric: Psychiatric: Reports no additional psychiatric complaints Endocrine: Endocrine: Reports no additional endocrine complaints Hematologic/Lymphatic: Hematologic/Lymphatic: Reports no additional hematologic/lymphatic complaints Allergic/Immunologic: Allergic/Immunologic: Reports no additional allergic/immunologic complaints [facility] Family History Family History Sibling Family history of chronic obstructive pulmonary disease Family history of diabetes mellitus in first degree relative Social History Social History Smoking status: Never smoker Second hand tobacco smoke exposure: Yes Alcohol intake: never Do You Feel Safe in your Home?: Yes Lack of Transportation: YES Lack of Food: Never True Current Housing: I Have Housing Concerned About Future Housing: No Difficulty Paying Gas/Electric Bills: No Difficulty Paying for Meds: No Currently Unemployed: No Education: Don't Know Difficulty w/ Childcare or Family Care: No Spiritual care concerns: No Exam 2 Const: General: healthy appearing, alert and confusion; No no acute distress ( Patient has acute distress of confusion more so) Nutritional Appearance: w ell nourished Orientation/consciousness: No patient oriented x3 L imitations: altered mental status and other limitations ( baseline dementia and currently altered mental status with delirium) HENMT: Head: normal to inspection Ears: external ears normal F trisha/Nose/Sinus: Normal external nose present Eyes: Conjunctivae: conjunctivae normal Pupils: Equal, round and reactive pupils present EOM: EOMs intact bilaterally Neck: Neck: normal visual inspection Chest: Chest palpation & inspection: normal inspection of the chest Resp: Effort & Inspection: normal respiratory effort and not labored A uscultation: clear to auscultation bilaterally, crackles ( left lower lobe), no rales, rhonchi, no wheezes, breath sounds present and diminished lung sounds Cardio: Rate: regular rate Rhythm: regular rhythm Heart sounds: no murmurs GI: Inspection: non-distended GI Palp: Yes Soft to palpation and No Tenderness to palpation present (GI) Auscultation: normal bowel sounds : General: Yes bladder normal to palpation Back/Spine/Pelvis: Back: no CVA tenderness Skin: General skin exam: normal color Rashes: no rashes Wounds: no wounds Neuro: General: No patient oriented x3, moves all extremities, no meningeal signs, no focal motor deficits and CN's II-XI intact bilaterally Cranial nerves: Yes Nystagmus not present Speech: normal speech Gait exam (Neuro): gait abnormal Extrem: General: normal to inspection Psych: Mental Status: mental status grossly abnormal Affect: Anxious affect present Attitude: not cooperative Other: patient is acutely confused with delirium and altered mental status; she is anxious due to the confusion and we are unable to get any answers from her at this time; her baseline is normal to include AAO x4 Course Vital Signs Vital signs: Vital Signs Temperature 36.6 C 02/19/25 10:58 Pulse Rate 121 H 02/19/25 10:58 Respiratory Rate 20 02/19/25 10:58 Blood Pressure 140/126 H 02/19/25 10:58 Pulse Oximetry 94 02/19/25 10:58 Oxygen Delivery Room Air 02/19/25 10:58 Temperature 36.6 C 02/19/25 10:58 Pulse Rate 121 H 02/19/25 10:58 Respiratory Rate 20 02/19/25 10:58 Blood Pressure 140/126 H 02/19/25 10:58 Pulse Oximetry 94 02/19/25 10:58 Oxygen Delivery Room Air 02/19/25 10:58 MDM - Altered Mental Status MDM Narrative Medical decision making narrative: patient is an 89-year-old female with altered mental status / delirium similar to prior UTI symptoms per family. We will do a septic workup at this time. Will start with fluids. we will admit the patient here to this facility for pneumonia treatment and delirium monitoring. Lab Data Attestation: I reviewed the patient's lab results. 02/19/25 12:04 02/19/25 12:03 Labs: Lab Results 02/19/25 02/19/25 02/19/25 Range/Units 11:12 11:55 12:03 WBC (4.8-10.8) K/mm3 RBC (4.20-5.40) M/mm3 Hgb (11.7-13.8) g/dL Hct (35.0-42.0) % MCV (78.0-102.0) fL MCH (27.0-31.0) pg MCHC (32-36) g/dL RDW (11.6-14.4) % Plt Count (150-420) K/mm3 MPV (9.2-11.8) fl Immature Gran % (Auto) (0.0-0.0) % Neut % (Auto) (50.0-70.0) % Lymph % (Auto) (18.0-42.0) % [place] % (Auto) (2.0-11.0) % Eos % (Auto) (1.0-6.0) % Baso % (Auto) (0.0-1.0) % Lymph # (Auto) (1.10-4.50) K/mm3 [place] # (Auto) (0.10-0.90) K/mm3 Eos # (Auto) (0.02-0.50) K/mm3 Baso # (Auto) (0.00-0.10) K/mm3 Abs Immat Gran (auto) (0.00-0.00) K/mm3 Absolute Neuts (auto) (1.70-7.20) K/mm3 Absolute Nucleated RBC (0.00-0.00) K/mm3 Nucleated RBC % (0-0.0) % % Immature Plt Fraction (1.0-7.0) % Sodium 140 (137-145) mmol/L Potassium 4.5 (3.4-5.0) mmol/L Chloride 109 H (98-107) mmol/L Carbon Dioxide 17 L (22-30) mmol/L Anion Gap 14 H (4-12) mmol/L BUN 19 H D (7-17) mg/dL Creatinine 1.00 (0.7-1.0) mg/dL Estim Creat Clear Calc Not Reportable Estimated GFR 52 L (59 - ) Glucose 197 H (65-110) mg/dL Calculated Osmolality 297 H (285-295) mOsm/kg Lactic Acid 2.6 H (0.4-2.0) mmol/L Calcium 9.3 (8.4-10.2) mg/dL Magnesium 1.7 (1.6-2.3) mg/dL Total Bilirubin 1.1 (0.2-1.3) mg/dL AST 36 (14-36) U/L ALT 12 (6-35) U/L Alkaline Phosphatase 53 (38-126) U/L Troponin I 0.024 (0.000-0.034) ng/mL Total Protein 7.9 (6.3-8.2) g/dL Albumin 4.4 (3.5-5.1) g/dL Urine Color Brown A (Yellow) Urine Appearance Clear (Clear) Urine pH 6.0 (5.0-8.0) Ur Specific [place] >= 1.030 H (1.010-1.020) Urine Protein 3+ H (Negative) Urine Glucose (UA) Negative (Negative) Urine Ketones Negative (Negative) Ur Blood (Man) Trace-intact H (Negative) Urine Nitrate Negative (Negative) Urine Bilirubin 1+ H (Negative) Urine Urobilinogen 0.2 (0.2-1.0) mg/dL Leukocyte Esterase Rfl Negative (Negative) MILTON/UL Urine RBC 0-2 (0-2) /hpf Urine WBC 0-3 (0-3) /hpf Ur Squamous Epith Cells Occasional (Few) /hpf Urine Bacteria Trace (None) /hpf 02/19/25 02/19/25 Range/Units 12:04 14:25 WBC 8.9 (4.8-10.8) K/mm3 RBC 4.73 (4.20-5.40) M/mm3 Hgb 12.5 (11.7-13.8) g/dL Hct 40.5 (35.0-42.0) % MCV 85.6 (78.0-102.0) fL MCH 26.4 L (27.0-31.0) pg MCHC 30.9 L (32-36) g/dL RDW 18.6 H (11.6-14.4) % Plt Count 237 (150-420) K/mm3 MPV 9.4 (9.2-11.8) fl Immature Gran % (Auto) 0.2 H (0.0-0.0) % Neut % (Auto) 75.0 H (50.0-70.0) % Lymph % (Auto) 17.8 L (18.0-42.0) % [place] % (Auto) 4.8 (2.0-11.0) % Eos % (Auto) 1.9 (1.0-6.0) % Baso % (Auto) 0.3 (0.0-1.0) % Lymph # (Auto) 1.59 (1.10-4.50) K/mm3 [place] # (Auto) 0.43 (0.10-0.90) K/mm3 Eos # (Auto) 0.17 (0.02-0.50) K/mm3 Baso # (Auto) 0.03 (0.00-0.10) K/mm3 Abs Immat Gran (auto) 0.02 H (0.00-0.00) K/mm3 Absolute Neuts (auto) 6.68 (1.70-7.20) K/mm3 Absolute Nucleated RBC 0.00 (0.00-0.00) K/mm3 Nucleated RBC % 0.0 (0-0.0) % % Immature Plt Fraction 1.1 (1.0-7.0) % Sodium (137-145) mmol/L Potassium (3.4-5.0) mmol/L Chloride (98-107) mmol/L Carbon Dioxide (22-30) mmol/L Anion Gap (4-12) mmol/L BUN (7-17) mg/dL Creatinine (0.7-1.0) mg/dL Estim Creat Clear Calc Estimated GFR (59 - ) Glucose (65-110) mg/dL Calculated Osmolality (285-295) mOsm/kg Lactic Acid 2.3 H (0.4-2.0) mmol/L Calcium (8.4-10.2) mg/dL Magnesium (1.6-2.3) mg/dL Total Bilirubin (0.2-1.3) mg/dL AST (14-36) U/L ALT (6-35) U/L Alkaline Phosphatase (38-126) U/L Troponin I (0.000-0.034) ng/mL Total Protein (6.3-8.2) g/dL Albumin (3.5-5.1) g/dL Urine Color (Yellow) Urine Appearance (Clear) Urine pH (5.0-8.0) Ur Specific [place] (1.010-1.020) Urine Protein (Negative) Urine Glucose (UA) (Negative) Urine Ketones (Negative) Ur Blood (Man) (Negative) Urine Nitrate (Negative) Urine Bilirubin (Negative) Urine Urobilinogen (0.2-1.0) mg/dL Leukocyte Esterase Rfl (Negative) [place]/UL Urine RBC (0-2) /hpf Urine WBC (0-3) /hpf Ur Squamous Epith Cells (Few) /hpf Urine Bacteria (None) /hpf Imaging Data Attestation: I personally reviewed and interpreted this imaging study as follows: Radiologist's impression: CT scan of the brain shows IMPRESSION: 1. Age-related changes the brain with mild diffuse on loss and mild scattered white matter hypoattenuation consistent with chronic small vessel ischemic disease. No acute intracranial process. 2. 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 The differential would include neoplasm either benign such as meningioma or malignant and centrally thrombosed and calcified aneurysm. Recommend further evaluation with pre and postcontrast imaging and would prefer MRI over CT. 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 chest x-ray shows IMPRESSION: 1.Patchy opacities in the left mid and lower lung. Differential includes atelectasis or infiltrates. Consider a short-term follow-up study. CTA of the brain shows IMPRESSION: 1. Study significantly limited by motion artifact. Again noted is a horizontally predominant dilation of the distal basilar artery with configuration favoring junctional dilation of the basilar tip over a basilar tip aneurysm. 2. Centrally calcified suprasellar mass as further detailed on prior CT. ECG Data EKG #1: Attestation: I personally reviewed and interpreted this ECG as follows: ECG completion date: 02/19/25 ECG completion time: 11:16 EKG Interpretation: normal rate, sinus rhythm, PVCs, PACs, non-specific ST changes, normal QRS, normal QT and NL axis Discharge Plan Discharge Clinical Impression: Delirium due to another medical condition, Metabolic acidosis Pneumonia Qualifiers: Pneumonia type: due to unspecified organism Laterality: unspecified laterality Lung location: unspecified part of lung Qualified Code(s): J18.9 - Pneumonia, unspecified organism Patient Disposition: [facility] Condition: Stable Patient Language: Citizen Of [place] Prescriptions: No Action aspirin [Adult Low Dose Aspirin] 81 mg tablet,delayed release (DR/EC) 81 mg PO DAILY gabapentin 300 mg capsule 300 mg PO HS Levemir U-100 Insulin 100 unit/mL solution 20 unit SUBCUT DAILY isosorbide dinitrate 10 mg tablet 10 mg PO BID levothyroxine 50 mcg tablet 50 mcg PO DAILY pravastatin 40 mg tablet 40 mg PO HS ropinirole 2 mg tablet 2 mg PO TID PRN (Reason: restless legs) Rx Instructions: restless legs spironolactone 25 mg tablet 25 mg PO DAILY naloxone [Narcan] 4 mg/actuation spray,non-aerosol 4 mg intranasal Q2-3M PRN (Reason: opioid overdose) Rx Instructions: spray 1 dose into ONE nostril; alternate nostrils w each dose until help arrives ferrous sulfate [FeroSul] 325 mg (65 mg iron) tablet 325 mg PO BID fenofibrate 54 mg tablet 54 mg PO DAILY Rx Instructions: with breakfast polyethylene glycol 3350 [Miralax] 17 gram/dose powder 17 g PO DAILY PRN (Reason: constipation) Little Remedies Saline 0.65 % aerosol,spray 1 spray intranasal TID PRN (Reason: nasal dryness) trazodone 50 mg tablet 50 mg PO HS PRN (Reason: insomnia) Qty: 1 0RF carbidopa-levodopa 50-200 mg tablet extended release 1 tablet PO Q12H Qty: 60 0RF tramadol 50 mg tablet 50 mg PO Q6H PRN (Reason: pain) Qty: 4 0RF Follow-up/Referrals: UNKNOWN,DOCTOR [Non-Staff] - Time of Disposition: 15:09
[2025-02-19 11:18] LABS: Add Urine Microscopic? YES; Appearance Urine Clear (Clear); Glucose Urine UA Negative (Negative); Leukocyte Esterase Ur Negative LEU/UL (Negative); Nitrate Urine Negative (Negative); Specific Grav Ur >= 1.030 (1.010-1.020)
[2025-02-19] MEDS: SODIUM CHLORIDE 0.9% IV 1,000 ML 999 ML IV CONT (11:57)
--- OUTSIDE RECORDS SUMMARY | 2025-02-19 11:57 | XMS_ITS | Clinical Summary ---
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 Active hydroCHLOROthiaz [place] 12.5 MG Tablet Take by mouth daily. 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 Plan of Treatment Health Maintenance Due Date Last Done Comments Hepatitis C Virus (HCV) Screening 1935 TdaP Immunization 1935 Pneumococcal Immunization (50+ years) (1 of 1 - PCV) 02/04/1986 Zoster Immunization (1 of 2) 02/04/1986 Respiratory Syncytial Virus (RSV) Immunization (Adult) (1 - 1-dose 75+ series) 02/04/2011 SARS-COV-2 Immunization ( - season) 2024 Influenza Immunization (#1) 03/05/202504/04, 03/20/2016, 03/29/2015, Additional history exists Hepatitis B Immunization Aged Out No longer eligible based on patient's age to complete this topic Human Papillomavirus (HPV) Immunization Aged Out No longer eligible based on patient's age to complete this topic Meningococcal Immunization (ACWY) Aged Out No longer eligible based on patient's age to complete this topic Rotavirus Immunization Aged Out No lo nger eligible based on patient's age to complete this topic Insurance MEDICARE [place]ICAID [place]
--- OUTSIDE RECORDS SUMMARY | 2025-02-19 11:57 | XMS_ITS | Clinical Summary ---
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 Name Role Phone Unavailable Primary Care Provider Unavailabl e Allergies Active Allergy Reactions Criticality Noted Date Comments Folic Acid Vomiting 09/08/2023 Penicillins Hives 09/08/2023 Medications amLODIPine (NORVASC) 10 MG tablet Take 10 mg by mouth 1 (one) time each day Active carbidopa-levod opa CR (SINEMET CR) 50-200 MG per CR [...] at Not on file Legal Sex Female 9:05 AM [facility] Gender Identity Not on file Sexual Orientation [...] and Highest Risk (2 of 4 - PPSV23, PCV20, or PCV21) 07/05/2022 05/10/2022, 03/22/2018 COVID-19 Vaccine (4 - 2023-2 5 season) 2024 04/14/2021, 10/13/2020, 09/17/2020 Influenza Vaccine (#1) 2025 3, 05/10/2022, 04/14/2021, Additional history exists Insurance [employer] [address] [facility]
--- OUTSIDE RECORDS SUMMARY | 2025-02-19 11:57 | XMS_ITS | Clinical Summary ---
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 Gender Identity Not on file Sexual Orientation Not on file Plan of Treatment Health Maintenance Due Date Last Done Comments Depression Screening 1935 Fall Risk Assessment 1935 Osteoporosis Screening-Bone Density Scan 1935 Hepatitis B Screening 02/04/1953 Well Visit 65+ 02/04/2001 Zoster Vaccine (2 of 2) 10/30/2019 09/04/2019 Covid-19 Vaccine (2023-2 5 season) 2024 04/14/2021, 10/13/2020, 09/17/2020 Influenza Vaccine (#1) 2025 , 03/20/2020, 04/07/2019, Additional history exists DTaP/Tdap/Td Vaccine (2 - Td or Tdap) 03/20/2030 03/20/2020 Pneumococcal vaccine 65+ Completed 04/07/2019, 03/05 Insurance MARY BERMUDEZ [address] [place] [id number] MEDICARE [employer] Care Teams Internal Corrosion Specialist Relationship Specialty Start Date End Date No, Physician PCP - General 08/27/21
[2025-02-19 12:15] LABS: Hematocrit 40.5 % (35.0-42.0); Hemoglobin 12.5 g/dL (11.7-13.8); Immature Granulocyte Percent A 0.2 % (0.0-0.0); Immature Platelet Fraction Pct 1.1 % (1.0-7.0); Lymphocytes Absolute Auto 1.59 K/mm3 (1.10-4.50); Mean Corpuscular HGB Conc 30.9 g/dL (32-36); Mean Corpuscular Hemoglobin 26.4 pg (27.0-31.0); Mean Corpuscular Volume 85.6 fL (78.0-102.0); Nucleated Red Blood Cells Absolute Auto 0.00 K/mm3 (0.00-0.00); Nucleated Red Blood Cells Perc 0.0 % (0-0.0); Platelet Count Result 237 K/mm3 (150-420); Red Blood Count 4.73 M/mm3 (4.20-5.40); White Blood Count 8.9 K/mm3 (4.8-10.8)
[2025-02-19 12:21] LABS: Alanine Aminotransferase 12 U/L (6-35); Albumin Level 4.4 g/dL (3.5-5.1); Alkaline Phosphatase 53 U/L (38-126); Anion Gap 14 mmol/L (4-12); Aspartate Amino Transferase 36 U/L (14-36); Bilirubin,Total 1.1 mg/dL (0.2-1.3); Blood Urea Nitrogen 19 mg/dL (7-17); Calcium 9.3 mg/dL (8.4-10.2); Carbon Dioxide 17 mmol/L (22-30); Chloride 109 mmol/L (98-107); Estimated Glomerular Filt Rate 52; Glucose 197 mg/dL (65-110); Osmolality Calculated 297 mOsm/kg (285-295); Sodium 140 mmol/L (137-145); Total Protein 7.9 g/dL (6.3-8.2)
[2025-02-19] MEDS: OLANZapine 5 MG, WATER, STERILE FOR INJECTION 2.1 ML IM ×2 (12:22→16:03)
[2025-02-19 12:28] LABS: Potassium 4.5 mmol/L (3.4-5.0)
[2025-02-19 12:32] LABS: Troponin I 0.024 ng/mL (0.000-0.034)
--- NOTE | 2025-02-19 12:44 | PC.NURSE ---
Pt resting well on cot in room with family at bedside. Pt calm and cooperative at this time. Lab in room attempting to draw remaining bloodwork.
--- OUTSIDE RECORDS SUMMARY | 2025-02-19 13:02 | XMS_ITS | Clinical Summary ---
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 Address: [address] [address] [place] [address] [employer]PA Care Teams Truck Repair Supervisor Relationship Specialty Start Date End Date No, Physician PCP - General 08/27/21
--- OUTSIDE RECORDS SUMMARY | 2025-02-19 13:02 | XMS_ITS | Clinical Summary ---
Author Organization [facility] Address [address], [place] [address] Phone Care Team Providers Care Pressure Tester Name Role Phone Unavailable Primary Care Provider [...] on file Legal Sex Female 9:05 AM [facility] Gender Identity Not on file [...] Additional history exists Insurance [employer] [address] [facility]
[2025-02-19 13:09] LABS: Magnesium 1.7 mg/dL (1.6-2.3)
[2025-02-19] MEDS: levoFLOXacin 750 MG/D5W 150 ML 750 MG/150 ML BAG 100 MG IVPB (13:09)
--- NOTE | 2025-02-19 13:34 | PC.NURSE ---
Pt in radiology for CTA
--- NOTE | 2025-02-19 14:37 | PC.NURSE ---
Pt resting well on stretcher in room.
--- NOTE | 2025-02-19 15:25 | PC.NURSE ---
Pt assigned to 2nd floor room 6
--- NOTE | 2025-02-19 16:07 | PC.NURSE ---
Pt taken to 2nd floor by tech for admission
[2025-02-19 16:33] LABS: Cannabinoid Screen Urine Negative (Negative)
[2025-02-19 16:39] LABS: Ammonia < 9 umol/L (9-30)
--- NOTE | 2025-02-19 16:46 | ADMGEN ---
This patient, Donna Anaya, was admitted to 2nd Floor Room 206-1. Family oriented to hospital policies and general routines including ID bracelet, bed and alarms, visiting hours, pain management, procedures, bathroom and other care routines, personal items, smoking policy, room service/diet, and visiting hours,patient is unable to comprehend at this time. Information on how to activate the Rapid Response Team has been discussed. Patient/Family are encouraged to report perceived risks to care and to ask questions if they do not understand what they are told or what they should do.
--- NOTE | 2025-02-19 17:07 | PC.NURSE ---
telemetry applied, normal sinus rhythmn noted 80-90
[2025-02-19 17:13] LABS: Thyroid Stimulating Hormone 8.320 uIU/mL (0.465-4.680)
--- NOTE | 2025-02-19 17:18 | PC.NURSE ---
Order to DC hydralzine dose, blood pressure recheck 142/85
[2025-02-19] MEDS: SODIUM CHLORIDE 0.9% IV 1,000 ML 100 ML IV CONT (17:26)
--- NOTE | 2025-02-19 20:41 | PC.NURSE ---
Lab here for blood draw.
--- NOTE | 2025-02-19 20:50 | PC.NURSE ---
Lab successful with draw, needing 2 nurses to hold patient down while patient was screaming and attempting to move arms.
--- NOTE | 2025-02-19 21:06 | PC.NURSE ---
Attempted to give patient Tramadol, seroquel, and trazodone, medication spat out.
[2025-02-19 21:33] LABS: Procalcitonin 0.1 ng/mL
--- NOTE | 2025-02-19 21:44 | PC.NURSE ---
Daughter Lovely Pena, called for update on patient. Aware that patient is still confused and not taking medications.
[2025-02-19] MEDS: INSULIN GLARGINE (*BKC) 1,000 UNITS/10 ML VIAL 20 UNITS SUB-Q (21:56)
[2025-02-19] MEDS: TOLNAFTATE 1% POWDER 45 GM BTL 1 APPLIC TOPICAL (21:57)
[2025-02-20] VITALS: BP 143/92; PULSE 102; PULSE 98; RESP 20; TEMP 37.2; O2SAT 93
[2025-02-20 04:00] VITALS: PULSE 101
[2025-02-20 05:37] LABS: Hematocrit 39.7 % (35.0-42.0); Hemoglobin 12.2 g/dL (11.7-13.8); Immature Granulocyte Percent A 0.2 % (0.0-0.0); Lymphocytes Absolute Auto 2.23 K/mm3 (1.10-4.50); Mean Corpuscular HGB Conc 30.7 g/dL (32-36); Mean Corpuscular Hemoglobin 26.1 pg (27.0-31.0); Mean Corpuscular Volume 84.8 fL (78.0-102.0); Nucleated Red Blood Cells Absolute Auto 0.00 K/mm3 (0.00-0.00); Nucleated Red Blood Cells Perc 0.0 % (0-0.0); Platelet Count Result 248 K/mm3 (150-420); Red Blood Count 4.68 M/mm3 (4.20-5.40); White Blood Count 10.6 K/mm3 (4.8-10.8)
[2025-02-20 05:51] LABS: Alanine Aminotransferase 21 U/L (6-35); Albumin Level 4.2 g/dL (3.5-5.1); Alkaline Phosphatase 57 U/L (38-126); Anion Gap 12 mmol/L (4-12); Aspartate Amino Transferase 38 U/L (14-36); Bilirubin,Total 0.9 mg/dL (0.2-1.3); Blood Urea Nitrogen 13 mg/dL (7-17); Calcium 9.8 mg/dL (8.4-10.2); Carbon Dioxide 19 mmol/L (22-30); Chloride 109 mmol/L (98-107); Estimated Glomerular Filt Rate 50; Glucose 130 mg/dL (65-110); Osmolality Calculated 292 mOsm/kg (285-295); Potassium 4.0 mmol/L (3.4-5.0); Sodium 140 mmol/L (137-145); Total Protein 7.4 g/dL (6.3-8.2)
[2025-02-20 08:00] VITALS: PULSE 103
[2025-02-20] MEDS: SODIUM CHLORIDE 0.9% IV 1,000 ML 100 ML IV CONT (08:00)
[2025-02-20] MEDS: TOLNAFTATE 1% POWDER 45 GM BTL 1 APPLIC TOPICAL (08:02)
[2025-02-20] MEDS: cefTRIAXone 1 GM in SODIUM CHLORIDE 0.9% IV 50 ML 100 ML IVPB (08:05)
[2025-02-20 09:14] LABS: Free T4 Free Thyroxine 1.09 ng/dL (0.78-2.19)
[2025-02-20 09:15] VITALS: BP 197/95; PULSE 90; RESP 22; TEMP 36.2; O2SAT 95
[2025-02-20 09:33] LABS: Ferritin 22.30 ng/mL (11.1-264)
--- NOTE | 2025-02-20 09:37 | PM.IMHP ---
H&P: HPI History of Present Illness Date/Time: 02/20/25 09:37 Chief Complaint: AMS Narrative: Patient is an 89-year-old female who presented to the emergency department via EMS after family found at home altered mental status. Per medical chart patient is usually alert oriented x4 and cares for herself at home. patient reported she progressively got worse with altered mental status was unable to ambulate speaking coherently they were concerned that she may need another UTI. patient unable to communicate and has just been moaning out to stimuli. patient was admitted up to the medical unit with possible Pneumonia causing infectious delirium and was initiated on IV Rocephin on room air with chest x-ray showed atelectasis versus opacities. per medical chart and medications patient appears to have a past medical history diabetes, hypothyroidism, neuropathy, anemia, HLD, and Parkinson's no family at bedside to confirm. Upon further evaluation following day patient remained aphasic only unable to communicate or respond appropriately and will not follow directions, patient was able to move all extremities appropriately and no facial asymmetry. I continued with further infectious workup which included a normal WBC, and normal procalcitonin but did initially have a elevated lactic acid at 2.3. I personally reviewed chest x-ray with low suspicion of pneumonia and UA negative. patient also with metabolic acidosis of assist likely secondary to dehydration poor intake unsure how long patient eaten or drinking and she had been taking any of her home medications. 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 I also checked ammonia level which was <0.9 and TSH patient with history of hypothyroidism elevated at 8.320/t4 1.0. Due to patient's continued altered mental status and aphasia with low suspicion of infectious process I contacted Dr. Quintero at [facility] regarding patient's assessment in Diagnostic imaging at which time he agreed patient needed transfer for tertiary care and an MRI for further evaluation and would accept consult. Spoke with Dr. Cain hospitalist who accepted patient for transfer into admit to hospitalist team. Of note patient had an IV infiltrated that had been placed to the upper chest causing edematous area. Review of Systems Review of Systems: ROS unobtainable: Yes unobtainable due to medical condition and unobtainable due to mental status [facility] [place] Past Medical History Medical History Neuropathy Parkinsons Hypothyroidism Diabetes mellitus Essential hypertension Family History Family History Sibling Family history of chronic obstructive pulmonary disease Family history of diabetes mellitus in first degree relative Social History Social History Smoking status: Never smoker Second hand tobacco smoke exposure: No Alcohol intake: never Substance use: never Do You Feel Safe in your Home?: Yes Lack of Transportation: YES Lack of Food: Never True Current Housing: I Have Housing Concerned About Future Housing: No Difficulty Paying Gas/Electric Bills: No Difficulty Paying for Meds: No Currently Unemployed: No Education: Don't Know Difficulty w/ Childcare or Family Care: No Spiritual care concerns: No Meds Home Medications and Allergies Home Medications ?Medication ?Instructions ?Recorded ?Confirmed ?Type fenofibrate 54 mg tablet 54 mg PO DAILY 08/27/24 02/19/25 History ferrous sulfate 325 mg (65 mg 325 mg PO BID 08/27/24 02/19/25 History iron) tablet (FeroSul) gabapentin 300 mg capsule 300 mg PO HS 08/27/24 02/19/25 History insulin detemir U-100 100 unit/mL 20 unit subcut DAILY 08/27/24 02/19/25 History subcutaneous solution (Levemir U-100 Insulin) isosorbide dinitrate 10 mg tablet 10 mg PO BID 08/27/24 02/19/25 History levothyroxine 50 mcg tablet 50 mcg PO DAILY 08/27/24 02/19/25 History naloxone 4 mg/actuation nasal 4 mg intranasal Q2-3M PRN opioid 08/27/24 02/19/25 History spray (Narcan) overdose polyethylene glycol 3350 17 17 g PO DAILY PRN constipation 08/27/24 02/19/25 History gram/dose oral powder (Miralax) pravastatin 40 mg tablet 40 mg PO HS 08/27/24 02/19/25 History ropinirole 2 mg tablet 2 mg PO TID PRN restless legs 08/27/24 02/19/25 History sodium chloride 0.65 % nasal spray 1 spray intranasal TID PRN nasal 08/27/24 02/19/25 History aerosol (Little Remedies Saline) dryness spironolactone 25 mg tablet 25 mg PO DAILY 08/27/24 02/19/25 History carbidopa ER 50 mg-levodopa 200 mg 1 tablet PO Q12H #60 tabs 08/30/24 02/19/25 Rx tablet,extended release tramadol 50 mg tablet 50 mg PO Q6H PRN pain #4 tabs 08/30/24 02/19/25 Rx trazodone 50 mg tablet 50 mg PO HS PRN insomnia #1 tablet 08/30/24 02/19/25 Rx aspirin 81 mg tablet,delayed 81 mg PO DAILY 02/19/25 02/19/25 History release (Adult Low Dose Aspirin) Allergies Allergy/AdvReac Type Severity Reaction Status Date / Time Penicillins Allergy Unknown Rash Verified 02/19/25 10:58 Vital Signs Vital Signs - 24 hr 02/19/25 10:58 02/19/25 15:55 02/19/25 16:08 Temperature 97.9 F Pulse Rate 121 H 90 110 H Respiratory Rate 20 20 24 H Blood Pressure 140/126 H 164/109 H Pulse Oximetry 94 90 91 Oxygen Delivery Room Air Room Air Room Air 02/19/25 16:48 02/19/25 17:05 02/19/25 17:16 Temperature 97.3 F L Pulse Rate 90 80 90 Respiratory Rate 20 18 20 Blood Pressure 140/98 H 142/85 H Pulse Oximetry 90 Oxygen Delivery Room Air 02/19/25 20:00 02/20/25 00:00 02/20/25 00:00 Temperature 98.9 F Pulse Rate 90 102 H 98 Respiratory Rate 20 20 Blood Pressure 143/92 H Pulse Oximetry 90 93 Oxygen Delivery Room Air Room Air 02/20/25 04:00 Temperature Pulse Rate 101 H Respiratory Rate Blood Pressure Pulse Oximetry Oxygen Delivery Exam Const: Other: Female only responding to stimuli and will moan out when touched but eye tracking HENMT: Face/Nose/Sinus: Normal nares present Mouth: Yes dry mucous membranes Eyes: General: appearance normal, both eyes and all related structures Sclera: sclerae normal Pupils: Equal, round and reactive pupils present EOM: EOMs intact bilaterally Neck: Neck: supple and no JVD Resp: Effort & Inspection: normal respiratory effort Auscultation: clear to auscultation bilaterally Cardio: Rate: tachycardic Rhythm: regular rhythm GI: GI Palp: Yes Soft to palpation Auscultation: normal bowel sounds : General: Yes bladder normal to palpation Skin: General skin exam: normal color and no rashes or lesions noted Other: edematous to her right chest from infiltrated IV Neuro: General: moves all extremities, Normal light touch and pain sensation and Unable to assess gait Cranial nerves: Yes facial sensation intact/muscles of mastication intact, Yes Equal, round and reactive pupils present and Yes facial symmetry Cognition (Neuro): abnormal cognition Speech: Expressive aphasia present Gait exam (Neuro): Unable to assess gait Motor exam (neuro): 5/5 motor strength present throughout Extrem: General: edema bilateral (1+ BLE) Psych: Affect: Anxious affect present Other: Patient anxious and tearful moaning with stimuli H&P: Results Labs Labs: Short CBC 02/19/25 02/20/25 Range/Units 12:04 05:21 WBC 8.9 10.6 (4.8-10.8) K/mm3 Hgb 12.5 12.2 (11.7-13.8) g/dL Hct 40.5 39.7 (35.0-42.0) % Plt Count 237 248 (150-420) K/mm3 BMP 02/19/25 02/20/25 12:03 05:21 Sodium 140 140 Potassium 4.5 4.0 Chloride 109 H 109 H Carbon Dioxide 17 L 19 L BUN 19 H D 13 D Creatinine 1.00 1.04 H Glucose 197 H 130 H Calcium 9.3 9.8 Cardiac Enzymes 02/19/25 Range/Units 12:03 Troponin I 0.024 (0.000-0.034) ng/mL Liver Function 02/19/25 02/20/25 Range/Units 12:03 05:21 Total Bilirubin 1.1 0.9 (0.2-1.3) mg/dL AST 36 38 H (14-36) U/L ALT 12 21 (6-35) U/L Alkaline Phosphatase 53 57 (38-126) U/L Albumin 4.4 4.2 (3.5-5.1) g/dL Urine 08/18/25 Range/Units 11:12 Urine Color Brown A (Yellow) Urine Appearance Clear (Clear) Urine pH 6.0 (5.0-8.0) Ur Specific Peculiar >= 1.030 H (1.010-1.020) Urine Protein 3+ H (Negative) Urine Glucose (UA) Negative (Negative) Assessment and Plan Assessment and plan (1) Altered mental status: Code(s): R41.82 - Altered mental status, unspecified Status: Acute (2) Aphasia: Code(s): R47.01 - Aphasia Status: Acute (3) Essential hypertension: Code(s): I10 - Essential (primary) hypertension Status: Acute (4) Diabetes mellitus: Code(s): E11.9 - Type 2 diabetes mellitus without complications Status: Acute (5) Hypothyroidism: Code(s): E03.9 - Hypothyroidism, unspecified Status: Acute (6) Metabolic acidosis: Code(s): E87.20 - Acidosis, unspecified Status: Acute (7) SILVINO (acute kidney injury): Code(s): N17.9 - Acute kidney failure, unspecified Status: Acute (8) Parkinsons: Code(s): G20.A1 - Parkinson's disease without dyskinesia, without mention of fluctuations Status: Acute (9) Neuropathy: Code(s): G62.9 - Polyneuropathy, unspecified Status: Acute Plan after evaluation of patient she will need a neurological consult and workup to further evaluate her altered mental status with MRI she will be transferred to [facility] with a consult to the neurology team. Plan for MRI. Patient to be transferred via EMS to room 242. Accepting [address] Cain hospitalist with consult to Dr. Quintero with Neurology Quality VTE Prophylaxis VTE prophylaxis: pharmacologic ordered -Patient's previous records reviewed on admission -ER notes reviewed in detail on admission -discussed all findings and current treatment plan with patient/Family/POA -Consultations reviewed for recommendations -Patient's disposition for safe discharge discussed with manager case management Dictation performed by [employer] direct speech recognition software, therefore certified tumor registrar variants and typographical errors may occur. Hospitalist MIPS Advance Care Plan I have confirmed that the patient's Advanced Care Plan is present, code status is documented, or surrogate decision maker is listed in patient medical record.: Yes Medication Reconciliation I have utilized all available resources to obtain, update and review the patients current medications (includes all prescriptions, OTC, herbals, cannabis, and nutritional supplements).: Yes The patient is not eligible for med reconciliation; the patient is in a emergent medical situation where delaying treatment would jeopardize the patients health.: No
[2025-02-20 09:40] VITALS: BP 152/69; PULSE 93
--- NOTE | 2025-02-20 09:40 | PC.NURSE ---
Telephone consent obtained for transfer to [facility].
[2025-02-20 10:00] VITALS: BP 176/81; PULSE 93
--- NOTE | 2025-02-20 10:05 | PC.NURSE ---
Pt's granddaughter called for update. Update given by Sherwin Anton RN.
--- NOTE | 2025-02-20 10:07 | P.TS_ITS ---
Transfer Discharge Sum: Prov Provider Date of admission: 02/19/25 15:28 Primary care physician: Peter Romo MD Admitting clinician: Lobo Good MD Attending physician on admission: Andrea Good Attending physician on discharge: Andrea Good Discharging clinician: Kate Guzman Anticipated date of transfer: 02/20/25 Receiving physician/facility: [facility]/Dr Cain and Dr. Quintero consulting DS: Admitting Diagnosis Discharge Date 02/20/2025 Admitting Diagnosis AMS DS: Discharge Diagnosis Discharge Diagnosis (1) Essential hypertension: Code(s): I10 - Essential (primary) hypertension Status: Acute (2) Diabetes mellitus: Code(s): E11.9 - Type 2 diabetes mellitus without complications Status: Acute (3) Hypothyroidism: Code(s): E03.9 - Hypothyroidism, unspecified Status: Acute (4) Aphasia: Code(s): R47.01 - Aphasia Status: Acute (5) Altered mental status: Code(s): R41.82 - Altered mental status, unspecified Status: Acute (6) Parkinsons: Code(s): G20.A1 - Parkinson's disease without dyskinesia, without mention of fluctuations Status: Acute (7) Neuropathy: Code(s): G62.9 - Polyneuropathy, unspecified Status: Acute (8) Metabolic acidosis: Code(s): E87.20 - Acidosis, unspecified Status: Acute (9) SILVINO (acute kidney injury): Code(s): N17.9 - Acute kidney failure, unspecified Status: Acute Transfer Discharge Sum: Med Medications Active and Home Medications: Home Medications fenofibrate 54 mg tablet 54 mg PO DAILY 08/27/24 [History Confirmed 02/19/25] ferrous sulfate 325 mg (65 mg iron) tablet (FeroSul) 325 mg PO BID 08/27/24 [History Confirmed 02/19/25] gabapentin 300 mg capsule 300 mg PO HS 08/27/24 [History Confirmed 02/19/25] insulin detemir U-100 100 unit/mL subcutaneous solution (Levemir U-100 Insulin) 20 unit subcut DAILY 08/27/24 [History Confirmed 02/19/25] isosorbide dinitrate 10 mg tablet 10 mg PO BID 08/27/24 [History Confirmed 02/19/25] levothyroxine 50 mcg tablet 50 mcg PO DAILY 08/27/24 [History Confirmed 02/19/25] naloxone 4 mg/actuation nasal spray (Narcan) 4 mg intranasal Q2-3M PRN opioid overdose 08/27/24 [History Confirmed 02/19/25] polyethylene glycol 3350 17 gram/dose oral powder (Miralax) 17 g PO DAILY PRN constipation 08/27/24 [History Confirmed 02/19/25] pravastatin 40 mg tablet 40 mg PO HS 08/27/24 [History Confirmed 02/19/25] ropinirole 2 mg tablet 2 mg PO TID PRN restless legs 08/27/24 [History Confirmed 02/19/25] sodium chloride 0.65 % nasal spray aerosol (Little Remedies Saline) 1 spray intranasal TID PRN nasal dryness 08/27/24 [History Confirmed 02/19/25] spironolactone 25 mg tablet 25 mg PO DAILY 08/27/24 [History Confirmed 02/19/25] carbidopa ER 50 mg-levodopa 200 mg tablet,extended release 1 tablet PO Q12H #60 tabs 08/30/24 [Rx Confirmed 02/19/25] tramadol 50 mg tablet 50 mg PO Q6H PRN pain #4 tabs 08/30/24 [Rx Confirmed 02/19/25] trazodone 50 mg tablet 50 mg PO HS PRN insomnia #1 tablet 08/30/24 [Rx Confirmed 02/19/25] aspirin 81 mg tablet,delayed release (Adult Low Dose Aspirin) 81 mg PO DAILY 02/19/25 [History Confirmed 02/19/25] Active Medications Acetaminophen (Acetaminophen 325 Mg Tablet) 650 mg PO Q4H PRN PRN Reason: Mild Pain (1-3) or Fever Aspirin (Aspirin 81 Mg Enteric Tablet) 81 mg PO DAILY [facility] Azithromycin (Azithromycin 250 Mg Tablet) 500 mg PO DAILY [facility] Carbidopa/Levodopa (Carbidopa/Levodopa 25/100 Mg Cr Tablet) 1 tablet PO Q12H [facility] Last Admin: 02/19/25 21:55 Dose: Not Given Dextrose (Dextrose 50% 25 Gm/50 Ml Syringe) 12.5 gm IV PUSH PRN PRN; Protocol PRN Reason: Hypoglycemia Enoxaparin Sodium (Enoxaparin 40 Mg/0.4 Ml Syringe) 40 mg SUB-Q DAILY [facility] Ferrous Sulfate (Ferrous Sulfate [address]) 325 mg PO BID [facility] Last Admin: 02/19/25 17:31 Dose: Not Given Gabapentin (Gabapentin 300 Mg Capsule) 300 mg PO [facility] Last Admin: 02/19/25 21:55 Dose: Not Given Glucagon (Glucagon For Inj 1 Mg Vial) 1 mg IM PRN PRN; Protocol PRN Reason: Hypoglycemia Glucose (Glucose Oral Gel 15 Gm Of Glucse In 37.5 Gm Tube) 15 gm PO PRN PRN; Protocol PRN Reason: Hypoglycemia Hydralazine HCl (Hydralazine Hcl 20 Mg/Ml Vial) 10 mg IV PUSH Q8H PRN PRN Reason: Blood Pressure - High Last Admin: 02/20/25 09:27 Dose: 10 mg Dextrose (Dextrose 5% 1,000 Ml) 1,000 mls @ 100 mls/hr IVPB PRN PRN; Protocol PRN Reason: Hypoglycemia Ceftriaxone Sodium 1 gm/ (Sodium Chloride) 50 mls @ 100 mls/hr IVPB Q24H [facility] Last Infusion: 02/20/25 08:35 Dose: Infused Sodium Chloride (Normal Saline Iv) 1,000 mls @ 100 mls/hr IV CONT .Q10H [facility] Last Admin: 02/20/25 08:00 Dose: 100 mls/hr Insulin Glargine (Insulin Glargine (*Bkc) 1,000 Units/10 Ml Vial) 20 units SUB- Q [facility] Last Admin: 02/19/25 21:56 Dose: 20 units Insulin Human Lispro (Insulin Human Lispro (*Bkc) 1,000 Units/10 Ml Vial) 2 - 5 units SUB-Q TIDWM [facility]; Protocol Last Admin: 02/20/25 08:02 Dose: Not Given Isosorbide Dinitrate (Isosorbide Dinitrate 10 Mg Tablet) 10 mg PO BID [facility] Last Admin: 02/19/25 17:31 Dose: Not Given Levothyroxine Sodium (Levothyroxine Sodium 50 Mcg Tablet) 50 mcg PO DAILY@0630 [facility] Last Admin: 02/20/25 07:55 Dose: Not Given Naloxone HCl (Naloxone Hcl 0.4 Mg/Ml Vial) 0.1 mg IV PUSH Q2M PRN PRN Reason: Opiate Reversal Ondansetron HCl (Ondansetron Inj 4 Mg/2 Ml Vial) 4 mg IV PUSH Q6H PRN PRN Reason: Nausea And Vomiting Polyethylene Glycol (Polyethylene Glycol 3350 17 Gm Powd.Pack) 17 gm PO DAILY P RN PRN Reason: constipation Pravastatin Sodium (Pravastatin Sodium 20 Mg Tablet) 40 mg PO HS [facility] Last Admin: 02/19/25 21:55 Dose: Not Given Quetiapine Fumarate (Quetiapine Fumarate 25 Mg Tablet) 25 mg PO HS [facility] Last Admin: 02/19/25 21:05 Dose: Not Given Ropinirole HCl (Ropinirole Hcl 1 Mg Tablet) 2 mg PO TID PRN PRN Reason: restless legs Sodium Chloride (Saline 0.65% Cali Soln 44 Ml Btl) 1 spray NASAL TID PRN PRN Reason: nasal dryness Spironolactone (Spironolactone 25 Mg Tablet) 25 mg PO DAILY [facility] Tolnaftate (Tolnaftate 1% Powder 45 Gm Btl) 1 applic TOPICAL Q12HR [facility] Last Admin: 02/20/25 08:02 Dose: 1 applic Tramadol HCl (Tramadol Hcl (*Crx) 50 Mg Tablet) 50 mg PO Q6H PRN PRN Reason: PAIN RATED 4-6 Trazodone HCl (Trazodone Hcl 50 Mg Tablet) 50 mg PO HS PRN PRN Reason: insomnia Transfer Discharge Sum: Hosp Hospital Course Hospital course: Patient is an 89-year-old female who presented to the emergency department via EMS after family found at home altered mental status. Per medical chart patient is usually alert oriented x4 and cares for herself at home. patient reported she progressively got worse with altered mental status was unable to ambulate speaking coherently they were concerned that she may need another UTI. patient unable to communicate and has just been moaning out to stimuli. patient was admitted up to the medical unit with possible Pneumonia causing infectious delirium and was initiated on IV Rocephin on room air with chest x-ray showed atelectasis versus opacities. per medical chart and medications patient appears to have a past medical history diabetes, hypothyroidism, neuropathy, anemia, HLD, and Parkinson's no family at bedside to confirm. Upon further evaluation following day patient remained aphasic only unable to communicate or respond appropriately and will not follow directions, patient was able to move all extremities appropriately and no facial asymmetry. I continued with further infectious workup which included a normal WBC, and normal procalcitonin but did initially have a elevated lactic acid at 2.3. I personally reviewed chest x-ray with low suspicion of pneumonia and UA negative. patient also with metabolic acidosis of assist likely secondary to dehydration poor intake unsure how long patient eaten or drinking and she had been taking any of her home medications. 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 I also checked ammonia level which was <0.9 and TSH patient with history of hypothyroidism elevated at 8.320/t4 1.0. Due to patient's continued altered mental status and aphasia with low suspicion of infectious process I contacted Dr. Quintero at [facility] regarding patient's assessment in Diagnostic imaging at which time he agreed patient needed transfer for tertiary care and an MRI for further evaluation and would accept consult. Spoke with Dr. Cain hospitalist who accepted patient for transfer into admit to hospitalist team. Of note patient had an IV infiltrated that had been placed to the upper chest causing edematous area. Patient Condition: Gaurded Prognosis Time Spent with Patient Time attestation: Total time spent providing and/or coordinating transfer services: Total time spent: Greater than 30 minutes Exam Const: Other: Female only responding to stimuli and will moan out when touched but eye tracking HENMT: Face/Nose/Sinus: Normal nares present Mouth: Yes dry mucous membranes Eyes: General: appearance normal, both eyes and all related structures Sclera: sclerae normal Pupils: Equal, round and reactive pupils present EOM: EOMs intact bilaterally Neck: Neck: supple and no JVD Resp: Effort & Inspection: normal respiratory effort Auscultation: clear to auscultation bilaterally Cardio: Rate: tachycardic Rhythm: regular rhythm GI: Auscultation: normal bowel sounds : General: Yes bladder normal to palpation Bimanual exam- vagina & [place]: bladder normal to palpation Skin: General skin exam: normal color and no rashes or lesions noted Other: edematous to her right chest from infiltrated IV Neuro: General: moves all extremities, Normal light touch and pain sensation and Unable to assess gait Cranial nerves: Yes facial sensation intact/muscles of mastication intact, Yes Equal, round and reactive pupils present and Yes facial symmetry Cognition (Neuro): abnormal cognition Speech: Expressive aphasia present Gait exam (Neuro): Unable to assess gait Motor exam (neuro): 5/5 motor strength present throughout Extrem: General: edema bilateral (1+ BLE) Psych: Affect: Anxious affect present Other: Patient anxious and tearful moaning with stimuli DS: Data Data Completed and Pending Labs on day of discharge: Labs from last 24 hours 02/20/25 02/20/25 02/19/25 07:00 05:21 21:52 WBC 10.6 RBC 4.68 Hgb 12.2 Hct Pending 39.7 MCV 84.8 MCH 26.1 L MCHC 30.7 L RDW 18.6 H Plt Count 248 MPV 8.8 L Immature Gran % (Auto) 0.2 H Neut % (Auto) 70.3 H Lymph % (Auto) 21.1 Bonner % (Auto) 7.5 Eos % (Auto) 0.4 L Baso % (Auto) 0.5 Lymph # (Auto) 2.23 Bonner # (Auto) 0.79 Eos # (Auto) 0.04 Baso # (Auto) 0.05 Abs Immat Gran (auto) 0.02 H Absolute Neuts (auto) 7.42 H Absolute Nucleated RBC 0.00 Nucleated RBC % 0.0 % Immature Plt Fraction Sodium 140 Potassium 4.0 Chloride 109 H Carbon Dioxide 19 L Anion Gap 12 BUN 13 D Creatinine 1.04 H Estim Creat Clear Calc Not Reportable Estimated GFR 50 L Glucose 130 H POC Capillary Glucose 138 H Calculated Osmolality 292 Lactic Acid Calcium 9.8 Magnesium Ferritin 22.30 Total Bilirubin 0.9 AST 38 H ALT 21 Alkaline Phosphatase 57 Ammonia Troponin I Total Protein 7.4 Albumin 4.2 RBC Folate Hemolysate Pending RBC Folate Pending Procalcitonin TSH Free T4 1.09 Urine Color Urine Appearance Urine pH Ur Specific [place] Urine Protein Urine Glucose (UA) Urine Ketones Ur Blood (Man) Urine Nitrate Urine Bilirubin Urine Urobilinogen Leukocyte Esterase Rfl Urine RBC Urine WBC Ur Squamous Epith Cells Urine Bacteria Urine Opiates Screen Urine Methadone Screen Ur Barbiturates Screen Ur Phencyclidine Scrn Ur Amphetamine Screen U Benzodiazepines Scrn Urine Cocaine Screen U Cannabinoids Screen 02/19/25 02/19/25 02/19/25 20:48 16:24 14:25 WBC RBC Hgb Hct MCV MCH MCHC RDW Plt Count MPV Immature Gran % (Auto) Neut % (Auto) Lymph % (Auto) Bonner % (Auto) Eos % (Auto) Baso % (Auto) Lymph # (Auto) Bonner # (Auto) Eos # (Auto) Baso # (Auto) Abs Immat Gran (auto) Absolute Neuts (auto) Absolute Nucleated RBC Nucleated RBC % % Immature Plt Fraction Sodium Potassium Chloride Carbon Dioxide Anion Gap BUN Creatinine Estim Creat Clear Calc Estimated GFR Glucose POC Capillary Glucose Calculated Osmolality Lactic Acid 2.3 H Calcium Magnesium Ferritin Total Bilirubin AST ALT Alkaline Phosphatase Ammonia < 9 L Troponin I Total Protein Albumin RBC Folate Hemolysate RBC Folate Procalcitonin 0.1 TSH 8.320 H Free T4 Urine Color Urine Appearance Urine pH Ur Specific [place] Urine Protein Urine Glucose (UA) Urine Ketones Ur Blood (Man) Urine Nitrate Urine Bilirubin Urine Urobilinogen Leukocyte Esterase Rfl Urine RBC Urine WBC Ur Squamous Epith Cells Urine Bacteria Urine Opiates Screen Urine Methadone Screen Ur Barbiturates Screen Ur Phencyclidine Scrn Ur Amphetamine Screen U Benzodiazepines Scrn Urine Cocaine Screen U Cannabinoids Screen 02/19/25 02/19/25 02/19/25 12:04 12:03 11:55 WBC 8.9 RBC 4.73 Hgb 12.5 Hct 40.5 MCV 85.6 MCH 26.4 L MCHC 30.9 L RDW 18.6 H Plt Count 237 MPV 9.4 Immature Gran % (Auto) 0.2 H Neut % (Auto) 75.0 H Lymph % (Auto) 17.8 L Bonner % (Auto) 4.8 Eos % (Auto) 1.9 Baso % (Auto) 0.3 Lymph # (Auto) 1.59 Bonner # (Auto) 0.43 Eos # (Auto) 0.17 Baso # (Auto) 0.03 Abs Immat Gran (auto) 0.02 H Absolute Neuts (auto) 6.68 Absolute Nucleated RBC 0.00 Nucleated RBC % 0.0 % Immature Plt Fraction 1.1 Sodium 140 Potassium 4.5 Chloride 109 H Carbon Dioxide 17 L Anion Gap 14 H BUN 19 H D Creatinine 1.00 Estim Creat Clear Calc Not Reportable Estimated GFR 52 L Glucose 197 H POC Capillary Glucose Calculated Osmolality 297 H Lactic Acid 2.6 H Calcium 9.3 Magnesium 1.7 Ferritin Total Bilirubin 1.1 AST 36 ALT 12 Alkaline Phosphatase 53 Ammonia Troponin I 0.024 Total Protein 7.9 Albumin 4.4 RBC Folate Hemolysate RBC Folate Procalcitonin TSH Free T4 Urine Color Urine Appearance Urine pH Ur Specific [place] Urine Protein Urine Glucose (UA) Urine Ketones Ur Blood (Man) Urine Nitrate Urine Bilirubin Urine Urobilinogen Leukocyte Esterase Rfl Urine RBC Urine WBC Ur Squamous Epith Cells Urine Bacteria Urine Opiates Screen Urine Methadone Screen Ur Barbiturates Screen Ur Phencyclidine Scrn Ur Amphetamine Screen U Benzodiazepines Scrn Urine Cocaine Screen U Cannabinoids Screen 02/19/25 11:12 WBC RBC Hgb Hct MCV MCH MCHC RDW Plt Count MPV Immature Gran % (Auto) Neut % (Auto) Lymph % (Auto) Bonner % (Auto) Eos % (Auto) Baso % (Auto) Lymph # (Auto) Bonner # (Auto) Eos # (Auto) Baso # (Auto) Abs Immat Gran (auto) Absolute Neuts (auto) Absolute Nucleated RBC Nucleated RBC % % Immature Plt Fraction Sodium Potassium Chloride Carbon Dioxide Anion Gap BUN Creatinine Estim Creat Clear Calc Estimated GFR Glucose POC Capillary Glucose Calculated Osmolality Lactic Acid Calcium Magnesium Ferritin Total Bilirubin AST ALT Alkaline Phosphatase Ammonia Troponin I Total Protein Albumin RBC Folate Hemolysate RBC Folate Procalcitonin TSH Free T4 Urine Color Brown A Urine Appearance Clear Urine pH 6.0 Ur Specific [place] >= 1.030 H Urine Protein 3+ H Urine Glucose (UA) Negative Urine Ketones Negative Ur Blood (Man) Trace-intact H Urine Nitrate Negative Urine Bilirubin 1+ H Urine Urobilinogen 0.2 Leukocyte Esterase Rfl Negative Urine RBC 0-2 Urine WBC 0-3 Ur Squamous Epith Cells Occasional Urine Bacteria Trace Urine Opiates Screen Negative Urine Methadone Screen Negative Ur Barbiturates Screen Negative Ur Phencyclidine Scrn Negative Ur Amphetamine Screen Negative U Benzodiazepines Scrn Negative Urine Cocaine Screen Negative U Cannabinoids Screen Negative Imaging Radiologist's impression: EXAMINATION: CTA brain DATE: 02/19/2025 13:52 INDICATION: Abnormal head CT. TECHNIQUE: Computed tomographic angiography (CTA) of the head was performed with 100 mL Omnipaque-350 intravenous contrast. Volume-rendered and maximum intensity projection 3D reconstructions of the intracranial arteries were created by the technologist on a separate workstation. Automated exposure control and iterative reconstruction technique were employed. The dose-length product was 495.35 mGy- cm. COMPARISON: None. FINDINGS: There is significant motion which distorts the arteries throughout the brain. Bilateral vertebral arteries are codominant. There is no evident hemodynamically significant stenosis in the vertebral, basilar and internal carotid arteries. Again seen is horizontally predominant focal dilation of the distal basilar artery at the origin of the patent bilateral P1 segments and the bilateral superior cerebellar arteries. Given the configuration would favor junctional dilation of the basilar tip over a basilar tip aneurysm. Both A1 and P1 segments are patent. Cerebral arterial arborization appears symmetric. Again seen is a centrally calcified suprasellar mass. IMPRESSION: 1. Study significantly limited by motion artifact. Again noted is a horizontally predominant dilation of the distal basilar artery with configuration favoring junctional dilation of the basilar tip over a basilar tip aneurysm. 2. Centrally calcified suprasellar mass as further detailed on prior CT. EXAMINATION: CT brain wo con DATE: 02/19/2025 11:46 INDICATION: Altered mental status TECHNIQUE: Computed tomography (CT) of the head was performed without intravenous contrast. Sagittal and coronal reconstructions were performed. The mA was adjusted according to patient size. Iterative reconstruction technique was employed. The dose-length product was 1210.67 mGy-cm. COMPARISON: head CT dated 08/27/2024 FINDINGS: No acute intracranial hemorrhage, acute infarction or abnormal extra axial fluid collection. There is mild scattered white matter hypoattenuation consistent with chronic small vessel ischemic disease. Symmetric prominence of the sulci consistent with mild age-appropriate diffuse cerebral volume loss. Ventricles are normal and symmetric. 2.5 x 2.4 cm suprasellar mass with central calcification which extends 1.5 cm cephalad to the superior margin of the sella. 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 Changes of bilateral intraocular lens replacement. The orbits, paranasal sinuses and mastoid air cells are normal. IMPRESSION: 1. Age-related changes the brain with mild diffuse on loss and mild scattered white matter hypoattenuation consistent with chronic small vessel ischemic disease. No acute intracranial process. 2. 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 The differential would include neoplasm either benign such as meningioma or malignant and centrally thrombosed and calcified aneurysm. Recommend further evaluation with pre and postcontrast imaging and would prefer MRI over CT. 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 Clinical history:Altered mental status EXAM:X-ray chest one view portable TECHNIQUE:2 frontal images of the chest were obtained Comparisons:08/27/2024 FINDINGS: Cardiomediastinal silhouette is enlarged. Median sternotomy wires are present. No pneumothorax. No pleural effusion. Patchy opacities in the left mid and lower lung. Differential includes atelectasis or infiltrates. Consider a short-term follow-up study. IMPRESSION: 1.Patchy opacities in the left mid and lower lung. Differential includes atelectasis or infiltrates. Consider a short-term follow-up study.
--- NOTE | 2025-02-20 10:28 | PC.NURSE ---
Report called to YOVANA Silva at [facility]. All questions answered. Awaiting ambulance.
--- NOTE | 2025-02-20 11:25 | PC.NURSE ---
Report given to SAAS at bedside. All questions answered. Pt transferred to stretcher by EMS and hospital staff.
[2025-02-21 13:08] LABS: Folate, Hemolysate 427.0 ng/mL (Not Estab.); Folate, RBC 988 ng/mL (>498); Hematocrit 43.2 % (34.0-46.6)
== END 2025-02-20 11:30 | disposition short-term general hospital (02) ==
LOC: CHSED 15:09 → CHS2ND 15:33
PROVIDERS: Nurse Practitioner Family; Admitting Provider Internal Medicine; Emergency Provider Emergency Medicine; PCP Internal Medicine; Visit Provider Internal Medicine
DX: I63.9 Cerebral infarction, unspecified (principal); D32.9 Benign neoplasm of meninges, unspecified; J18.9 Pneumonia, unspecified organism; E87.20 Acidosis, unspecified; N17.9 Acute kidney failure, unspecified; I42.9 Cardiomyopathy, unspecified; I35.0 Nonrheumatic aortic (valve) stenosis; E83.42 Hypomagnesemia; E87.6 Hypokalemia; Z79.4 Long term (current) use of insulin; E03.9 Hypothyroidism, unspecified; E78.5 Hyperlipidemia, unspecified; G20.A1 Parkinson's disease without dyskinesia, without mention of fluctuations; E11.40 Type 2 diabetes mellitus with diabetic neuropathy, unspecified; I10 Essential (primary) hypertension; Z20.822 Contact with and (suspected) exposure to COVID-19
CPT/HCPCS: 36415; 70450; 70496; 71045; 80053; 80307; 81001; 82140; 82728; 82747; 82948; 83605; 83735; 84145; 84439; 84443; 84484; 85025; 85055; 87040; 93005; 96361; 96365; 96367; 96372; 96376; 97162; 99285; A9270; G0378; J0360; J0696; J1815; J1956; J2359; J7030; Q9967

== ENCOUNTER 2025-02-20 12:05 | Inpatient (IN) | payer MEDICARE, MEDICAID, SELFPAY ==
--- NOTE | 2025-02-20 | ECHO_ITS ---
Patient Info Name: Donna Anaya Age: 89 years : 1935 Gender: Female Ht: 59 in Wt: 182 lbs BSA: 1.90 m2 HR: 82 bpm BP: 176 / 81 mmHg Technical Quality: Good Exam Date: 02/20/2025 2:10 PM Patient Status: I Admit Date: 02/20/2025 Exam Type: CA echo dop bubble study w con Complete two-dimentional, color flow and Doppler transthoracic echocardiogram is performed with agitated saline and with contrast to opacify the left ventricle and to improve the delineation of the left ventricle endocardial borders. Staff Referring Physician: Kate Guzman Grinder Set Up Operator Thread Tool: Diana Giron Attending Provider: Marilu Cain Contrast/Agitated Saline Contrast/Ag. Saline: Definity Amount: 2.00 ml Contrast/Ag. Saline: Agitated Saline Amount: 20.00 ml Summary 1. Definity contrast administered improved wall motion interpretation. 2. Left ventricular chamber dimension is normal. 3. Left ventricular systolic function is moderately globally reduced, estimated at 40-45. 4. There is moderate concentric increased left ventricular wall thickness. 5. The left ventricular diastolic function is grade I diastolic dysfunction. 6. E/e' 33 is significantly elevated. 7. Left atrial chamber dimension is moderately enlarged. 8. The aortic valve is not well visualized. Cannot determine number of aortic valve leaflets. 9. There is severe aortic valve sclerosis. 10. There is severe aortic valve stenosis with a peak velocity of 359 cm/s, mean gradient of 30 mmHg, and aortic valve area of 0.7 cm2. 11. There is mild mitral valve regurgitation. 12. There is mild tricuspid valve regurgitation. 13. No pulmonary hypertension, estimated pulmonary arterial systolic pressure is 39 mmHg. 14. There is mild pulmonic regurgitation. Left Ventricle E/e' 33 is significantly elevated. Left ventricular chamber dimension is normal. Left ventricular systolic function is moderately globally reduced, estimated at 40-45. There is moderate concentric increased left ventricular wall thickness. The left ventricular diastolic function is grade I diastolic dysfunction. Definity contrast administered improved wall motion interpretation. Right Ventricle Right ventricular chamber dimension is not well visualized. Left Atria Left atrial chamber dimension is moderately enlarged. Right Atria Right atrial chamber dimension is normal. Atrial Septum Intact interatrial septum visualized by 2D and agitated saline imaging. Agitated saline injection with patient screaming with valsalva maneuver opacified right side cardiac chambers without shunt to left side cardiac chambers. Aortic Valve The aortic valve is not well visualized. Cannot determine number of aortic valve leaflets. There is severe aortic valve sclerosis. There is severe aortic valve stenosis with a peak velocity of 359 cm/s, mean gradient of 30 mmHg, and aortic valve area of 0.7 cm2. There is no aortic valve regurgitation. Pulmonic Valve There is mild pulmonic regurgitation. Mitral Valve There is no mitral valve stenosis. There is mild mitral valve regurgitation. Tricuspid Valve There is mild tricuspid valve regurgitation. No pulmonary hypertension, estimated pulmonary arterial systolic pressure is 39 mmHg. Pericardium/Pleural There is no pericardial effusion. Inferior Vena Cava Normal inferior vena cava with >50% collapse upon inspiration consistent with normal right atrial pressure, 5 mmHg. Aorta The aortic root size at the sinus of Valsalva is normal. Left Ventricular Outflow Tract Name Value Normal LVOT 2D LVOT Diameter 1.6 cm LVOT Doppler LVOT Peak Velocity 102 cm/s LVOT Peak Gradient 4 mmHg LVOT Mean Gradient 2 mmHg LVOT VTI 27 cm LVOT VTI/AV VTI Ratio 0.4 LVOT Stroke Volume 53 ml LVOT CO 3.5 l/min LVOT CI 1.8 l/min/m2 Pulmonic Valve Name Value Normal RVOT Doppler RVOT Peak Velocity 97 cm/s RVOT Peak Gradient 4 mmHg PV Doppler PV Peak Velocity 106 cm/s PV Peak Gradient 5 mmHg Mitral Valve Name Value Normal MV Diastolic Function MV E Peak Velocity 116 cm/s MV A Peak Velocity 137 cm/s MV E/A 0.8 MV Decel Time (PW) 186 ms MV Annular TDI MV E/e' (Septal) 32.3 MV E/e' (Lateral) 34.5 MV E/e' (Average) 33.4 Tricuspid Valve Name Value Normal TV Regurgitation Doppler TR Peak Velocity 290 cm/s TR Peak Gradient 34 mmHg Estimated PAP/RSVP RA Pressure 5 mmHg <=5 PA Systolic Pressure 39 mmHg <36 RV Systolic Pressure 39 mmHg <36 Aortic Valve Name Value Normal AV Doppler AV Peak Velocity 359 cm/s AV Peak Gradient 49 mmHg AV Mean Gradient 30 mmHg AV VTI 74 cm AV Area (Cont Eq VTI) 0.7 cm2 >=3.0 AV Area (Cont Eq Terry) 0.6 cm2 AV DI (Terry) 0.28 AV Regurgitation 2D LVOT Area 2.0 cm2 Ventricles Name Value Normal LV Dimensions 2D/MM IVS Diastolic Thickness (2D) 1.6 cm 0.6-1.0 LVID Diastole (2D) 3.7 cm 3.8-5.2 LVIW Diastolic Thickness (2D) 1.2 cm 0.6-0.9 LVID Systole (2D) 3.1 cm 2.2-3.5 LVOT Diameter 1.6 cm LV Mass (2D Cubed) 189.13 g 67.00-162.00 LV Mass Index (2D Cubed) 100 g/m2 43-95 Relative Wall Thickness (2D) 0.65 <=0.42 LV Fractional Shortening/Ejection Fraction 2D/MM LV Fractional Shortening (2D) 17 % 27-45 LV EF (2D Teichholz) 36 % LV Diastolic Volume (4C MOD) 73 ml LV EF (4C MOD) 51 % LV Diastolic Volume (2C MOD) 95 ml LV EF (2C MOD) 39 % LV Diastolic Volume (BP MOD) 85 ml 46-106 LV Diastolic Volume Index (BP MOD) 45 ml/m2 29-61 LV Systolic Volume (BP MOD) 46 ml 14-42 LV Systolic Volume Index (BP MOD) 24 ml/m2 8-24 LV EF (BP MOD) 46 % 54-74 LV Diastolic Length (4C) 7.9 cm LV Systolic Length (4C) 7.0 cm LV Stroke Volume (4C MOD) 37 ml Atria Name Value Normal LA Dimensions LA Volume (4C A-L) 44 ml LA Volume (BP A-L) 31 ml RA Dimensions RA Systolic Major Wolcott Length (4C) 4.8 cm 2.2-2.8 RA Area (4C) 12.0 cm2 <=18.0 Report Signatures Amended by Josh Mccloud DO on 02/22/2025 04:29 PM
--- NOTE | ~2025-02-20 | XR_ITS ---
EXAMINATION: XR shoulder LT min 2V, XR shoulder RT min 2V DATE: 02/23/2025 13:34 INDICATION: Bilateral shoulder pain and bruising TECHNIQUE: 1. AP and transscapular Y views of the affected shoulder were obtained. 2. AP and transscapular Y views of the affected shoulder were obtained. COMPARISON: None FINDINGS: Right shoulder: Mild cephalad subluxation of the bilateral humeral heads with narrowing of the subacromial spaces suggesting prior rotator cuff tears. 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 The joint space narrowing is not clearly profiled on the provided projections but can be seen on chest CT from 08/27/2024. Moderate osteoarthritis at the bilateral acromioclavicular joints. No fracture. Soft tissues are unremarkable. Visualized portion of the bilateral mid to upper lungs are clear. Prior median sternotomy. 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 Reviewed, dictated and finalized at location A. IMPRESSION: Relatively symmetric severe bilateral glenohumeral and moderate acromioclavicul ar osteoarthritis.
--- NOTE | ~2025-02-20 | US_ITS ---
EXAMINATION:US venous doppler UE LT INDICATION:Swelling TECHNIQUE: Multiple grayscale, color flow and Doppler images of the left upper extremity deep venous systems were obtained and reviewed. COMPARISON:None available FINDINGS: The left jugular vein, subclavian vein, axillary vein, brachial vein, basilic vein, cephalic vein, radial vein and ulnar vein demonstrate normal respiratory variation, augmentation and compressibility. IMPRESSION: 1: No left upper extremity deep venous thrombosis identified. Reviewed, dictated and finalized at location Q.
--- NOTE | ~2025-02-20 | MR_ITS ---
EXAMINATION: MR brain/brain stem wo/w con DATE: 02/21/2025 08:32 INDICATION: Altered mental status. Mass. TECHNIQUE: Magnetic resonance imaging (MRI) of the brain and brainstem was performed without and with 15 mL Multihance intravenous contrast. Sequences included sagittal and axial T1-weighted SE, axial diffusion-weighted FS SE, axial T2*-weighted GRE, axial T2-weighted FLAIR, and axial T2-weighted FSE. Postcontrast axial and coronal T1-weighted SE was obtained. Apparent diffusion coefficient (ADC) maps were created. COMPARISON: Head CT and CT angiogram dated 02/19/2025 FINDINGS: Study is moderately limited by motion artifact most significant on the sagittal T1, axial FLAIR and the post contrast imaging. Small region of restricted diffusion at the medial periventricular left temporal occipital region consistent with acute infarct. No intracranial hemorrhage. Again seen is a mass in the suprasellar cistern which demonstrates avid enhancement. This appears contiguous with enhancement in the sella proper however unable to definitively determine whether the mass arises within the sella is a distinct lesion separate from the pituitary motion artifact. There are scattered areas of nonspecific increased T2-weighted signal intensity in the cerebral white matter, predominantly involving the deep and periventricular white matter. There are no intraparenchymal signal abnormalities seen on the other pulse sequences. Symmetric prominence of the sulci consistent with mild age-appropriate diffuse cerebral volume loss. The ventricles are symmetric and normal in size. There are no abnormal extra-axial fluid collections. Flow voids are seen in the cerebral arteries on the T2-weighted sequences consistent with their expected patency. Changes of bilateral intraocular lens replacement. Visualized orbits and soft tissues are unremarkable. IMPRESSION: 1. Small left temporal occipital acute infarct. 2. Avidly enhancing mass in the suprasellar cistern with central calcification suggestive of meningioma. Assessment is however significantly limited on MRI due to prominent motion artifact on multiple sequences included on the post contrast images and a pituitary origin could not be absolutely excluded. Would consider follow-up pituitary protocol MRI when patient's mental status improves sufficient to allow for imaging without motion. 3. Age-related changes including mild diffuse volume loss and moderate scattered white matter T2 hyperintensity consistent with chronic small vessel ischemic disease. Reviewed, dictated and finalized at location A. IMPRESSION: 1. Small left temporal occipital acute infarct. 2. Avidly enhancing mass in the suprasellar cistern with central calcification suggestive of meningioma. Assessment is however significantly limited on MRI du e to prominent motion artifact on multiple sequences included on the post contr ast images and a pituitary origin could not be absolutely excluded. Would consi jatinder follow-up pituitary protocol MRI when patient's mental status improves suff icient to allow for imaging without motion. 3. Age-related changes including mild diffuse volume loss and moderate scattere d white matter T2 hyperintensity consistent with chronic small vessel ischemic disease.
--- NOTE | 2025-02-20 12:05 | ADMGEN ---
This patient, Donna Anaya, was admitted to Medical Room 245-. Patient/family oriented to hospital policies and general routines including ID bracelet, bed and alarms, visiting hours, pain management, procedures, bathroom and other care routines, personal items, smoking policy, room service/diet, and visiting hours. Information on how to activate the Rapid Response Team has been discussed. Patient/Family are encouraged to report perceived risks to care and to ask questions if they do not understand what they are told or what they should do.
--- OUTSIDE RECORDS SUMMARY | 2025-02-20 12:18 | XMS_ITS | Clinical Summary ---
Author Organization [address] Address [address] [place] [id number] Care Team Providers Care Site Medical Director Name Role Phone No, Physician Primary Care Provider [phone] Social History Tobacco Use Types Packs/Day Years Used Date Smoking Tobacco: Never Assessed Personal Safety Answer Date Recorded Getting School Help Needed Not on file 09/18 Comments Unknown Sex and Gender Information Value Date Recorded Sex Assigned at Not on file Legal Sex Female 10:35 AM [employer]INE [employer] Gender Identity Not on file Sexual Orientation [...] 65+ Completed 04/07/2019, 03/05 Insurance MARY BERMUDEZ [address] [place] [id number] MEDICARE IDPA Care Teams Site Medical Director Relationship Specialty Start Date End Date No, Physician PCP - General 08/27/21
--- OUTSIDE RECORDS SUMMARY | 2025-02-20 12:18 | XMS_ITS | Clinical Summary ---
Author Organization [facility] Address [address] [address] Phone Care Team Providers Care Integrity Engineer Name Role Phone Unavailable Primary Care [...] on file Legal Sex Female 9:05 AM [facility] Gender Identity Not on file Sexual Orientation [...] Additional history exists Insurance [employer] [address] [facility]
--- NOTE | 2025-02-20 13:00 | PC.NURSE ---
Informed provider Kate Guzman that pt's BP was 184/76 and she stated that she was fine with that BP since we don't want the pt's BP to get too low if pt had a stroke.
[2025-02-20 13:12] VITALS: BMI 34.4
[2025-02-20 14:00] VITALS: BP 184/76; PULSE 96; RESP 28; TEMP 36.7; O2SAT 92
--- NOTE | 2025-02-20 14:48 | WPDNEURCNPN ---
Assessment and Plan Assessment and plan (1) Altered mental status: Code(s): R41.82 - Altered mental status, unspecified Status: Acute Plan 1. Encephalopathy 2. 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 Patient was transferred here to have a try of the brain. 4 his small left temporal occipital acute infarct on the MRI 5. 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 This particular tumor was noted on the study of February 19, 2025 as well raising the possibility basal artery aneurysm at the time. Thorough discussion need to be made with the patient's family, considering the age of the patient and mental status with further intervention is necessary or not. Consult date: 02/21/25 HPI: Donna Anaya is a 89 year old female admitted to the hospital on transfer from another institution where she presented to the ER subsequent to her being found at home with a change in mental status. Patient usually awake alert oriented x4 and cares for herself at home recently she was progressively getting worse with change in mental status, is unable to ambulate and unable to communicate just moaning and groaning initially she was admitted to medical unit with possible pneumonia attributing to the communication difficulties was started on Rocephin intravenously and the chest x-ray documented atelectasis versus opacities. Does have ongoing history of 1. Diabetes mellitus 2. Hypothyroidism 3. Neuropathy 4. Any 5. Hyperlipidemia 6. Parkinson disease initial workup at other institution was found to have elevated lactic acid of 2.3, chest x-ray with possible pneumonia, findings suggestive of dehydration, calcified suprasellar mass and 7x4mm basilar tip aneurysm versus anatomic variation which had not been present on previous CT scan. TSH was 8.3 but she continued to have a change in mental status was transferred to this institution for further evaluation particularly for the MRI of the brain. As mentioned before she has ongoing history of Parkinson disease, neuropathy, diabetes mellitus, and hypothyroidism, no history of alcohol intake, no history of smoking, she has been taking multiple medications outlined particularly pravastatin 40mg at night, ropinirole 2mg 3 times a day, carbidopa levodopa 50/201 tab every 12hours, trazodone 50mg HS, aspirin 81mg daily, on repeat evaluation in the ER here her repeat pulse was 121 respiration 20 blood pressure 140/126 she was responding to stimuli moaning and groaning, was able to move all 4 extremities though she did not ambulate, his strength in upper and lower extremities was symmetrical, but she was extremely anxious, CTA here limited by motion artifact with predominant dilatation of distal basilar artery configuration favoring junctional dilatation of the basilar tip over a basilar tip aneurysm in addition to centrally calcified suprasellar mass as noted on previous CT scan. Review of Systems Review of Systems: All systems reviewed & are unremarkable except as noted in HPI and below PMFSH Past Medical History Medical History Neuropathy Parkinsons Hypothyroidism Diabetes mellitus Essential hypertension Family History Family History Sibling Family history of chronic obstructive pulmonary disease Family history of diabetes mellitus in first degree relative Social History Social History Smoking status: Unknown if ever smoked Second hand tobacco smoke exposure: No Alcohol intake: never Substance use: never Substance use type: does not use Do You Feel Safe in your Home?: Yes Lack of Transportation: YES Lack of Food: Never True Current Housing: I Have Housing Concerned About Future Housing: No Difficulty Paying Gas/Electric Bills: No Difficulty Paying for Meds: No Currently Unemployed: No Education: Don't Know Difficulty w/ Childcare or Family Care: No Spiritual care concerns: No Meds Home Medications and Allergies Home Medications ?Medication ?Instructions ?Recorded ?Confirmed ?Type fenofibrate 54 mg tablet 54 mg PO DAILY 08/27/24 02/20/25 History ferrous sulfate 325 mg (65 mg 325 mg PO BID 08/27/24 02/20/25 History iron) tablet (FeroSul) gabapentin 300 mg capsule 300 mg PO HS 08/27/24 02/20/25 History insulin detemir U-100 100 unit/mL 20 unit subcut DAILY 08/27/24 02/20/25 History subcutaneous solution (Levemir U-100 Insulin) isosorbide dinitrate 10 mg tablet 10 mg PO BID 08/27/24 02/20/25 History levothyroxine 50 mcg tablet 50 mcg PO DAILY 08/27/24 02/20/25 History naloxone 4 mg/actuation nasal 4 mg intranasal Q2-3M PRN opioid 08/27/24 02/20/25 History spray (Narcan) overdose polyethylene glycol 3350 17 17 g PO DAILY PRN constipation 08/27/24 02/20/25 History gram/dose oral powder (Miralax) pravastatin 40 mg tablet 40 mg PO HS 08/27/24 02/20/25 History ropinirole 2 mg tablet 2 mg PO TID PRN restless legs 08/27/24 02/20/25 History sodium chloride 0.65 % nasal spray 1 spray intranasal TID PRN nasal 08/27/24 02/20/25 History aerosol (Little Remedies Saline) dryness spironolactone 25 mg tablet 25 mg PO DAILY 08/27/24 02/20/25 History carbidopa ER 50 mg-levodopa 200 mg 1 tablet PO Q12H #60 tabs 08/30/24 02/20/25 Rx tablet,extended release tramadol 50 mg tablet 50 mg PO Q6H PRN pain #4 tabs 08/30/24 02/20/25 Rx trazodone 50 mg tablet 50 mg PO HS PRN insomnia #1 tablet 08/30/24 02/20/25 Rx aspirin 81 mg tablet,delayed 81 mg PO DAILY 02/19/25 02/20/25 History release (Adult Low Dose Aspirin) acetaminophen 325 mg tablet 650 mg PO Q4H PRN fever or pain 02/20/25 02/20/25 History (Tylenol) carbidopa 25 mg-levodopa 100 mg 1 tablet PO Q12H 02/20/25 02/20/25 History tablet epinastine 0.05 % eye drops 1 drp EACH EYE Q12H 02/20/25 02/20/25 History Allergies Allergy/AdvReac Type Severity Reaction Status Date / Time Penicillins Allergy Unknown Rash Verified 02/20/25 14:25 Exam Narrative: Exam revealed her to be awake , head normocephalic with no bruit ear nose throat are examination normal, Neck supple with no cervical bruit no thyromegaly no lymphadenopathy, heart regular with no murmur, is clear to auscultation with no rhonchi or crepitations, abdomen soft flabby nontender with normal bowel sounds, neurologically she is awake alert she tries to follow the verbal commands appropriately but disoriented in time and place firs round regular feels the vision is full to the threat stimuli extraocular movements are spontaneously full with no nystagmus face symmetric tongue in the oral cavity motor examination revealed her to have decreased strength in upper and lower extremities sluggish reflexes and downgoing plantar responses. She responded to pinprick stimuli all over. Cerebellar function could not be reliably checked. And we were unable to assess the gait as well. Results Labs 02/21/25 04:50 02/21/25 04:50
--- NOTE | 2025-02-20 14:50 | P.HP_ITS ---
H&P: HPI History of Present Illness Date/Time: 02/20/25 14:50 Chief Complaint: AMS Narrative: Patient is an 89-year-old female who presented to the emergency department via EMS at [facility] and transferred to [facility] for further neurological evaluation. Family had found patient at home with altered mental status With patient is normally alert and oriented x4 lives alone and cares for herself last well unknown. Per medical chart patient is usually alert oriented x4 and cares for herself at home. patient reported she progressively got worse with altered mental status was unable to ambulate speaking coherently they were concerned that she may need another UTI. patient unable to communicate and has just been moaning out to stimuli. patient was admitted up to the medical unit with possi ble Pneumonia causing infectious delirium and was initiated on IV Rocephin on room air with chest x-ray showed atelectasis versus opacities. per medical chart and medications patient appears to have a past medical history diabetes, hypothyroidism, neuropathy, anemia, HLD, and Parkinson's no family at bedside to confirm. Upon further evaluation following day patient remained aphasic only unable to communicate or respond appropriately and will not follow directions, patient was able to move all extremities appropriately and no facial asymmetry. I continued with further infectious workup which included a normal WBC, and normal procalcitonin but did initially have a elevated lactic acid at 2.3. I personally reviewed chest x-ray with low suspicion of pneumonia and UA negative. patient also with metabolic acidosis of assist likely secondary to dehydration poor intake unsure how long patient eaten or drinking and she had been taking any of her home medications. 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 I also checked ammonia level which was <0.9 and TSH patient with history of hypothyroidism elevated at 8.320/t4 1.0. Due to patient's continued altered mental status and aphasia with low suspicion of infectious process I contacted Dr. Quintero at [facility] regarding patient's assessment in Diagnostic imaging at which time he agreed patient needed transfer for tertiary care and an MRI for further evaluation and would accept consult. Spoke with Dr. Cain hospitalist who accepted patient for transfer into admit to hospitalist team. Of note patient had an IV infiltrated that had been placed to the upper chest causing edematous area. Review of Systems Review of Systems: ROS unobtainable: Yes unobtainable due to medical condition and unobtainable due to mental status PMF Past Medical History Medical History Neuropathy Parkinsons Hypothyroidism Diabetes mellitus Essential hypertension Family History Family History Sibling Family history of chronic obstructive pulmonary disease Family history of diabetes mellitus in first degree relative Social History Social History Smoking status: Unknown if ever smoked Second hand tobacco smoke exposure: No Alcohol intake: never Substance use: never Substance use type: does not use Do You Feel Safe in your Home?: Yes Lack of Transportation: YES Lack of Food: Never True Current Housing: I Have Housing Concerned About Future Housing: No Difficulty Paying Gas/Electric Bills: No Difficulty Paying for Meds: No Currently Unemployed: No Education: Don't Know Difficulty w/ Childcare or Family Care: No Spiritual care concerns: No Meds Home Medications and Allergies Home Medications ?Medication ?Instructions ?Recorded ?Confirmed ?Type fenofibrate 54 mg tablet 54 mg PO DAILY 08/27/2402/02 History ferrous sulfate 325 mg (65 mg 325 mg PO BID 08/27/24 0 02/20/25 History iron) tablet (FeroSul) gabapentin 300 mg capsule 300 mg PO HS 08/27/24 History insulin detemir U-100 100 unit/mL 20 unit subcut DAILY 08/27/24 02/20/25 History subcutaneous solution (Levemir U-100 Insulin) isosorbide dinitrate 10 mg tablet 10 mg PO BID 5 02/20/25 History levothyroxine 50 mcg tablet 50 mcg PO DAILY 08/27/24 0 02/20/25 History naloxone 4 mg/actuation nasal 4 mg intranasal Q2-3M GA N opioid 08/27/24 02/20/25 History spray (Narcan) overdose polyethylene glycol 3350 17 17 g PO DAILY PRN constipa tion 08/27/24 02/20/25 History gram/dose oral powder (Miralax) pravastatin 40 mg tablet 40 mg PO HS 08/27/24 5 History ropinirole 2 mg tablet 2 mg PO TID PRN restless leg s 08/27/24 02/20/25 History sodium chloride 0.65 % nasal spray 1 spray intranasal TID PRN nasal 08/27/24 02/20/25 History aerosol (Little Remedies Saline) dryness spironolactone 25 mg tablet 25 mg PO DAILY 08/27/24 History carbidopa ER 50 mg-levodopa 200 mg 1 tablet PO Q12H #6 0 tabs 08/30/24 02/20/25 Rx tablet,extended release tramadol 50 mg tablet 50 mg PO Q6H PRN pain #4 tab s 08/30/24 02/20/25 Rx trazodone 50 mg tablet 50 mg PO HS PRN insomnia #1 tablet 08/30/24 02/20/25 Rx aspirin 81 mg tablet,delayed 81 mg PO DAILY 02/19/25 0 02/20/25 History release (Adult Low Dose Aspirin) acetaminophen 325 mg tablet 650 mg PO Q4H PRN fever or pain 02/20/25 02/20/25 History (Tylenol) carbidopa 25 mg-levodopa 100 mg 1 tablet PO Q12H 02/2002/20/25 History tablet Allergies Allergy/AdvReac Type Severity Reaction Status Date / Time Penicillins Allergy Unknown Rash Verified 02/20/25 14:25 Vital Signs Vital Signs - 24 hr 02/19/25 10:58 02/19/25 15:55 02/19/25 16:08 Temperature 97.9 F Pulse Rate 121 H 90 110 H Respiratory Rate 20 20 24 H Blood Pressure 140/126 H 164/109 H Pulse Oximetry 94 90 91 Oxygen Delivery Room Air Room Air Room Air 02/19/25 16:48 02/19/25 17:05 02/19/25 17:16 Temperature 97.3 F L Pulse Rate 90 80 90 Respiratory Rate 20 18 20 Blood Pressure 140/98 H 142/85 H Pulse Oximetry 90 Oxygen Delivery Room Air 02/19/25 20:00 02/20/25 00:00 02/20/25 00:00 Temperature 98.9 F Pulse Rate 90 102 H 98 Respiratory Rate 20 20 Blood Pressure 143/92 H Pulse Oximetry 90 93 Oxygen Delivery Room Air Room Air 02/20/25 04:00 Temperature Pulse Rate 101 H Respiratory Rate Blood Pressure Pulse Oximetry Oxygen Delivery Exam Const: Other: Female only responding to stimuli and will moan out when touched but eye tracking HENMT: Face/Nose/Sinus: Normal nares present Mouth: Yes dry mucous membranes Eyes: General: appearance normal, both eyes and all related structures Sclera: sclerae normal Pupils: Equal, round and reactive pupils present EOM: EOMs intact bilaterally Neck: Neck: supple and no JVD Resp: Effort & Inspection: normal respiratory effort Auscultation: clear to auscultation bilaterally Cardio: Rate: tachycardic Rhythm: regular rhythm GI: GI Palp: Yes Soft to palpation Auscultation: normal bowel sounds : General: Yes bladder normal to palpation Skin: General skin exam: normal color and no rashes or lesions noted Other: edematous to her right chest from infiltrated IV Neuro: General: moves all extremities, Normal light touch and pain sensation and Unable to assess gait Cranial nerves: Yes facial sensation intact/muscles of mastication intact, Yes Equal, round and reactive pupils present and Yes facial symmetry Cognition (Neuro): abnormal cognition Speech: Expressive aphasia present Gait exam (Neuro): Unable to assess gait Motor exam (neuro): 5/5 motor strength present throughout Other: Patient responding to stimuli/moaning out but unable to formulate any words or sentences Extrem: General: edema bilateral (1+ BLE) Psych: Affect: Anxious affect present Other: Patient anxious and tearful moaning with stimuli H&P: Results Labs Labs: Short CBC 02/19/25 02/20/25 Range/Units 12:04 05:21 WBC 8.9 10.6 (4.8-10.8) K/mm3 Hgb 12.5 12.2 (11.7-13.8) g/dL Hct 40.5 39.7 (35.0-42.0) % Plt Count 237 248 (150-420) K/mm3 [facility] 02/19/25 02/20/25 12:03 05:21 Sodium 140 140 Potassium 4.5 4.0 Chloride 109 H 109 H Carbon Dioxide 17 L 19 L BUN 19 H D 13 D Creatinine 1.00 1.04 H Glucose 197 H 130 H Calcium 9.3 9.8 Cardiac Enzymes 02/19/25 Range/Units 12:03 Troponin I 0.024 (0.000-0.034) ng/mL Liver Function 02/19/25 02/20/25 Range/Units 12:03 05:21 Total Bilirubin 1.1 0.9 (0.2-1.3) mg/dL AST 36 38 H (14-36) U/L ALT 12 21 (6-35) U/L Alkaline Phosphatase 53 57 (38-126) U/L Albumin 4.4 4.2 (3.5-5.1) g/dL Urine 02/19/25 Range/Units 11:12 Urine Color Brown A (Yellow) Urine Appearance Clear (Clear) Urine pH 6.0 (5.0-8.0) Ur Specific [place] >= 1.030 H (1.010-1.020) Urine Protein 3+ H (Negative) Urine Glucose (UA) Negative (Negative) Assessment and Plan Assessment and plan (1) Altered mental status: Code(s): R41.82 - Altered mental status, unspecified Status: Acute Assessment and Plan: patient with altered mental status unknown last will patient lives alone and feeling worse she was alert and oriented times or caring for herself presented to the emergency department with altered mental status aphasia alert responding to stimuli to form or words. CT and CTA [facility]: a 2.5 x 2.4 cm centrally calcified suprasellar mass. The differential would include neoplasm either benign such as meningioma or malignant and centrally thrombosed and calcified aneurysm. Recommend further evaluation with pre and postcontrast imaging and would prefer MRI over CT. 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 these findings were not present in his CT head scan done August of 2024. * neurology consulted * MRI pending * infectious workup negative attempted viral panel the patient staff to do it * TSH elevated T4 WNL patient history of hypothyroidism unsure if patient was taking her medication * ammonia level within normal limits * UA negative * CX are atelectasis versus infiltrates but patient on room air not hypoxic no WBC and Procal 0.1 * Neuro check q.4 hour for the 1st 24 hours. 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 * Blood pressure management. allow permissive blood pressure pending stroke r/o * PT/OT eval when able * Check for LDL and hemoglobin A1c. (2) Aphasia: Code(s): R47.01 - Aphasia Status: Acute Assessment and Plan: * See Above #1 * will need speech eval when able (3) Essential hypertension: Code(s): I10 - Essential (primary) hypertension Status: Acute Assessment and Plan: * patient currently on only on Imdur * from added IV hydralazine as needed for systolic over 160 patient is not taking anything orally * may need to add medication once able (4) Diabetes mellitus: Code(s): E11.9 - Type 2 diabetes mellitus without complications Status: Acute Assessment and Plan: * patient on 20 units of Levemir at home can transition to Lantus 20 units was tolerating orals intake but is on hold for now * currently on dextrose 5 in LR since she is not taking any oral intake * Accu-Checks a.c. HS * low-dose SSI * hypoglycemic protocol * diabetic diet (5) Hypothyroidism: Code(s): E03.9 - Hypothyroidism, unspecified Status: Acute Assessment and Plan: patient with history of hypothyroidism TSH 8.320/Free t4 10.9 * resume the patient's levothyroxine unknown last time patient took her medications (6) Metabolic acidosis: Code(s): E87.20 - Acidosis, unspecified Status: Acute Assessment and Plan: * improving with IV fluids * patient currently not taking oral intake * continue to trend (7) SILVINO (acute kidney injury): Code(s): N17.9 - Acute kidney failure, unspecified Status: Acute Assessment and Plan: * mildly elevated 1.04 likely secondary to dehydration * improved with IV fluids * patient with good urinary output * avoid nephrotoxins (8) Parkinsons: Code(s): G20.A1 - Parkinson's disease without dyskinesia, without mention of fluctuations Status: Acute Assessment and Plan: * resume patient's carbidopa levodopa currently not taking any oral medications refusing (9) Neuropathy: Code(s): G62.9 - Polyneuropathy, unspecified Status: Acute Assessment and Plan: * continue patient's gabapentin but currently still refusing medication Plan Code status: Full code per patient DVT prophylaxis: Lovenox Stress ulcer prophylaxis: NA PT/OT notes: PT/OT / ST evaluation once patient is able Disposition: patient admitted to the medical unit telemetry for further evaluation altered mental status neurological workup and new mass. neurology consult and MRI pending. Patient before was living on her own at home A&O times 4 caring for herself discharge planning pending patient's progression and prognosis. Quality VTE Prophylaxis VTE prophylaxis: pharmacologic ordered -Patient's previous records reviewed on admission -ER notes reviewed in detail on admission -discussed all findings and current treatment plan with patient/Family/POA -Consultations reviewed for recommendations -Patient's disposition for safe discharge discussed with caseworker intake Dictation performed by [employer] direct speech recognition software, therefore cotton wringer variants and typographical errors may occur. Hospitalist MIPS Advance Care Plan I have confirmed that the patient's Advanced Care Plan is present, code status is documented, or surrogate decision maker is listed in patient medical record.: Yes Medication Reconciliation I have utilized all available resources to obtain, update and review the patients current medications (includes all prescriptions, OTC, herbals, cannabis, and nutritional supplements).: Yes The patient is not eligible for med reconciliation; the patient is in a emergent medical situation where delaying treatment would jeopardize the patients health.: No
--- NOTE | 2025-02-20 15:16 | PC.NURSE ---
Called MRI to see when they were able to get pt down to get test done, MRI worker stated that pt would not be able to get test done today but hopefully tomorrow. Called hospitalist Kate Guzman and neurologist Dr. Quintero to inform them.
[2025-02-20] MEDS: DEXTROSE 5%/LACTATED RINGERS 1,000 ML 100 ML IV CONT (15:19)
[2025-02-20] MEDS: PERFLUTREN LIPID MICROSPHERES 1.5 ML VIAL DILUTED TO 10 ML TOTAL VOLUME IV PUSH (15:22)
--- NOTE | 2025-02-20 15:22 | IVDEFINITY ---
Prior to administration of IV Definity the patient was educated on the risks and benefits of the imaging enhancing agent including potential adverse side effects. The patient verbalized understanding. Allergies were verified. No exclusion criteria were identified and at least one of the following inclusion criteria were met: 1) physician request, 2) patient technically difficult to image (per the [place] [employer] guidelines of two or more segments not discernable within the apical view), or 3) questionable left ventricular function. ?
[2025-02-20 16:00] VITALS: PULSE 85
[2025-02-20 20:00] VITALS: PULSE 88
[2025-02-20 20:44] VITALS: BP 160/100; PULSE 101; RESP 20; TEMP 36.7; O2SAT 95
[2025-02-21] VITALS (10 sets, daily range): BP systolic 150–160; BP diastolic 75–84; PULSE 63–95; RESP 17–20; TEMP 36.3–36.5; O2SAT 91–96
[2025-02-21 04:58] LABS: Hematocrit 43.3 % (37.0-47.0); Hemoglobin 12.9 g/dL (12.0-15.0); Immature Granulocyte Percent A 0.2 % (0-0.5); Lymphocytes Absolute Auto 1.97 K/mm3 (0.9-3.2); Mean Corpuscular HGB Conc 29.8 g/dl (32-36); Mean Corpuscular Hemoglobin 26.1 pg (26-34); Mean Corpuscular Volume 87.7 fl (80-100); Nucleated Red Blood Cells Absolute Auto 0.000 K/mm3 (0.0-0.012); Nucleated Red Blood Cells Perc 0.0 % (0.0-0.2); Platelet Count Result 217 k/mm3 (150-375); Red Blood Count 4.94 M/mm3 (4.2-5.4); White Blood Count 9.3 K/mm3 (4.5-10.0)
[2025-02-21 05:04] LABS: Hemoglobin A1C 6.7 % (<5.7)
[2025-02-21 05:07] LABS: Alanine Aminotransferase 25 U/L (6-35); Albumin Level 3.8 g/dL (3.5-5.1); Alkaline Phosphatase 54 U/L (38-126); Anion Gap 10 mmol/L (4-12); Aspartate Amino Transferase 45 U/L (14-36); Bilirubin,Total 0.8 mg/dL (0.2-1.3); Blood Urea Nitrogen 11 mg/dL (7-17); Calcium 9.4 mg/dL (8.4-10.2); Carbon Dioxide 18 mmol/L (22-30); Chloride 111 mmol/L (98-107); Cholesterol 174 mg/dL (0-200); Estimated Glomerular Filt Rate 55; Glucose 125 mg/dL (65-110); HDL Direct 31 mg/dL; Magnesium 1.6 mg/dL (1.6-2.3); Potassium 3.2 mmol/L (3.4-5.0); Sodium 139 mmol/L (137-145); Total Protein 7.3 g/dL (6.3-8.2); Triglycerides 98 mg/dL (<150)
--- NOTE | 2025-02-21 07:15 | P.PNIM_ITS ---
Progress Note: A&P Assessment and Plan (1) Acute CVA (cerebrovascular accident): Code(s): I63.9 - Cerebral infarction, unspecified Status: Acute Assessment and Plan: - presented with AMS. LKW unclear. Normally alert and oriented x4 and lives alone. - CT and CTA [place]: a 2.5 x 2.4 cm centrally calcified suprasellar mass. The differential would include neoplasm either benign such as meningioma or malignan t and centrally thrombosed and calcified aneurysm. Recommend further evaluation with pre and postcontrast imaging and would prefer MRI over CT. 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 These findings were not present in his CT head scan done August of 2024. - MRI brain with Small left temporal occipital acute infarct. Avidly enhancing mass in the suprasellar cistern with central calcification suggestive of meningioma. Assessment is however significantly limited on MRI due to prominent motion artifact on multiple sequences included on the post contrast images and a pituitary origin could not be absolutely excluded. Would consider follow-up pituitary protocol MRI when patient's mental status improves sufficient to allow for imaging without motion. - continue neuro checks - PT/OT/[employer] - monitor on telemetry - continue ASA, stop pravastatin and start atorvastatin 40mg. Start Plavix. - permissive hypertension <220/120 x 24-28 hours - neurology consulted, appreciate recs (2) Altered mental status: Code(s): R41.82 - Altered mental status, unspecified Status: Acute Assessment and Plan: -patient with altered mental status unknown last known well. Patient lives alone, she was alert and oriented x4, caring for herself presented to the emergency department with altered mental status, aphasia 3. Age-related changes including mild diffuse volume loss and moderate scattered white matter T2 hyperintensity consistent with chronic small vessel ischemic disease. - viral panel negative -TSH elevated T4 WNL patient history of hypothyroidism unsure if patient was taking her medication - ammonia level within normal limits - UA negative - CXR with atelectasis versus infiltrates but patient on room air not hypoxic no WBC and Procal 0.1 - may be secondary to acute CVA vs infection vs dehydration - improving this AM - continue to monitor mental status (3) Pneumonia: Qualifiers: Laterality: unspecified laterality Lung location: unspecified part of lung Pneumonia type: due to unspecified organism Qualified Code(s): J18.9 - Pneumonia, unspecified organism Code(s): J18.9 - Pneumonia, unspecified organism Status: Acute Assessment and Plan: -chest x-ray with patchy opacities in the left mid and lower lung -afebrile, no leukocytosis. Procalcitonin 0.1. -per family, patient had productive cough prior to onset of altered mental status -start Rocephin and azithromycin -follow-up blood cultures (4) Essential hypertension: Code(s): I10 - Essential (primary) hypertension Status: Acute Assessment and Plan: -patient currently on only on Imdur - IV hydralazine as needed for systolic over 160 patient is not taking anything orally - permissive HTN x24-48 hours given CVA - may need to add medication once able (5) Diabetes mellitus: Code(s): E11.9 - Type 2 diabetes mellitus without complications Status: Acute Assessment and Plan: -patient on 20 units of Levemir at home can transition to Lantus 20 units was tolerating orals intake but is on hold for now - currently on dextrose 5 in LR since she is not taking any oral intake. Monitor for continued need. - Accu-Checks a.c. HS - low-dose SSI - hypoglycemic protocol - diabetic diet (6) Hypothyroidism: Code(s): E03.9 - Hypothyroidism, unspecified Status: Acute Assessment and Plan: - patient with history of hypothyroidism TSH 8.320/Free t4 1.09 - resume the patient's levothyroxine unknown last time patient took her medications (7) Metabolic acidosis: Code(s): E87.20 - Acidosis, unspecified Status: Acute Assessment and Plan: -improved with IV fluids -patient currently not taking oral intake -continue to trend (8) SILVINO (acute kidney injury): Code(s): N17.9 - Acute kidney failure, unspecified Status: Acute Assessment and Plan: -mildly elevated 1.04 likely secondary to dehydration - improved with IV fluids - patient with good urinary output -avoid nephrotoxins (9) Parkinsons: Code(s): G20.A1 - Parkinson's disease without dyskinesia, without mention of fluctuations Status: Acute Assessment and Plan: - resume patient's carbidopa levodopa when able to take PO (10) Neuropathy: Code(s): G62.9 - Polyneuropathy, unspecified Status: Acute Assessment and Plan: - continue patient's gabapentin but currently still refusing medication (11) Cardiomyopathy: Code(s): I42.9 - Cardiomyopathy, unspecified Status: Acute Assessment and Plan: - echo with EF 40-45%, grade 1 diastolic dysfunction - per history per family, follows with Dr. Sanderson as outpatient - monitor volume status (12) Aortic stenosis: Code(s): I35.0 - Nonrheumatic aortic (valve) stenosis Status: Acute Assessment and Plan: - echo with severe aortic valve stenosis, 0.7cm CHEPE - unclear if known to patient. Will attempt to obtain more information from family Plan Code status: Full code per family DVT prophylaxis: Lovenox Stress ulcer prophylaxis: NA PT/OT notes: PT/OT / ST evaluation once patient is able Disposition: patient admitted to the medical unit telemetry for further evaluation altered mental status neurological workup and new mass. Patient before was living on her own at home A&O times 4 caring for herself discharge planning pending patient's progression and prognosis. Subjective Date/time seen: 02/21/25 07:15 Interval history: Patient is an 89-year-old female who presented to the emergency department via EMS at [place] and transferred to [facility] for further neurological evaluation. Patient seen examined at bedside. Patient unable to provide history as patient is somnolent after receiving Ativan prior to MRI. Per nursing, she was awake this morning and oriented to self, place and took her medications. Updated lillian Porras over the phone. Review of Systems Review of Systems: All systems reviewed & are unremarkable except as noted in HPI and below Exam Narrative: General: somnolent Eyes: EOMI ENT: neck supple Cardiovascular: Regular rate and rhythm Respiratory: Clear to auscultation, respirations even and unlabored on RA Gastrointestinal: Soft, non tender Genitourinary: no suprapubic tenderness Musculoskeletal: No edema Skin: warm, dry Neuro: somnolent, arouses to name, does not open eyes or follow commands, withdraws to pain all four extremities, face symmetric Psych: Mood appropriate Objective Data Vital Signs Vital Signs: Vital Signs - 24 hr 02/20/25 14:00 02/20/25 16:00 02/20/25 16:28 Temperature 98.1 F Pulse Rate 96 85 Respiratory Rate 28 H Blood Pressure 184/76 H Pulse Oximetry 92 Oxygen Delivery Room Air 02/20/25 20:00 02/20/25 20:00 02/20/25 20:44 Temperature 98.1 F Pulse Rate 88 101 H Respiratory Rate 20 Blood Pressure 160/100 H Pulse Oximetry 95 Oxygen Delivery Room Air 02/21/25 00:00 02/21/25 04:00 02/21/25 06:00 Temperature 97.4 F L Pulse Rate 87 67 95 Respiratory Rate 20 Blood Pressure 157/80 H Pulse Oximetry 91 Oxygen Delivery Intake/Output Intake/Output: Intake & Output 02/18/25 02/19/25 02/20/25 02/21/25 23:59 23:59 23:59 23:59 Output Total 1200 700 Balance -1200 -700 Meds/Results Medications: Active Medications Generic Name Dose Route Start Last Admin Trade Name Freq PRN Reason Stop Dose Admin Acetaminophen 650 mg 02/20/25 13:17 Acetaminophen 325 Mg Tablet PO Q4H PRN Mild Pain (1-3) or Fever Aspirin 81 mg 02/21/25 09:00 Aspirin 81 Mg Enteric Tablet PO DAILY SONIA Carbidopa/Levodopa 1 tablet 02/20/25 21:00 02/21/25 00:43 Carbidopa/Levodopa 25/100 Mg Cr Tablet PO Not Given Q12H SONIA Dextrose 12.5 gm 02/20/25 13:21 Dextrose 50% 25 Gm/50 Ml Syringe IV PUSH PRN PRN Hypoglycemia Protocol Enoxaparin Sodium 40 mg 02/21/25 09:00 Enoxaparin 40 Mg/0.4 Ml Syringe SUB-Q DAILY [facility] Fenofibrate 48 mg 02/21/25 09:00 Fenofibrate,Micronized 48 Mg Tablet PO QAM [facility] Ferrous Sulfate 325 mg 02/20/25 17:00 02/20/25 18:14 Ferrous Sulfate [address] BY MOUTH Not Given BID SONIA Gabapentin 300 mg 02/20/25 21:00 02/21/25 00:43 Gabapentin 300 Mg Capsule PO Not Given HS SONIA Glucagon 1 mg 02/20/25 13:21 Glucagon For Inj 1 Mg Vial IM PRN PRN Hypoglycemia Protocol Glucose 15 gm 02/20/25 13:21 Glucose Oral Gel 15 Gm Of Glucse In 37.5 Gm Tube PO PRN PRN Hypoglycemia Protocol Hydralazine HCl 20 mg 02/20/25 13:24 Hydralazine Hcl 20 Mg/Ml Vial IV PUSH Q8H PRN hypertension Dextrose 1,000 mls @ 100 mls/hr 02/20/25 13:21 Dextrose 5% 1,000 Ml IVPB PRN PRN Hypoglycemia Protocol Dextrose/Lactated Ringer's 1,000 mls @ 100 mls/hr 02/20/25 14:55 02/20/25 15:19 Dextrose 5%/Lactated Ringers IV CONT 100 mls/hr .Q10H SONIA Administration Insulin Aspart 2 - 5 units 02/20/25 17:00 02/20/25 18:14 Insulin Aspart (*Bkc) 100 Units/Ml SUB-Q Not Given TIDWM [facility] Protocol Isosorbide Dinitrate 10 mg 02/20/25 17:00 02/20/25 18:14 Isosorbide Dinitrate 10 Mg Tablet PO Not Given BID [facility] Levothyroxine Sodium 50 mcg 02/21/25 06:30 02/21/25 06:59 Levothyroxine Sodium 50 Mcg Tablet PO Not Given DAILY@0630 [facility] Miscellaneous Information 1 each 02/20/25 00:01 Nonformulary Drug (Epinastine 0.05 % Drops) Can Patient Use From Home? XX 03/22/25 00:00 CLARIFY [facility] Morphine Sulfate 2 mg 02/20/25 13:17 Morphine Sulfate (*Crx) 2 Mg/Ml Inj IV PUSH Q4H PRN Pain Rated 7-10 Non-Formulary Medication 1 drop 02/20/25 16:00 Epinastine EACH EYE 03/22/25 15:59 Q12H [facility] Ondansetron HCl 4 mg 02/20/25 13:17 Ondansetron Inj 4 Mg/2 Ml Vial IV PUSH Q6H PRN Nausea And Vomiting Polyethylene Glycol 17 gm 02/20/25 14:50 Polyethylene Glycol 3350 17 Gm Powd.Pack PO DAILY PRN Constipation Pravastatin Sodium 40 mg 02/20/25 21:00 02/21/25 00:43 Pravastatin Sodium 20 Mg Tablet PO Not Given HS [facility] Ropinirole HCl 2 mg 02/20/25 14:50 Ropinirole Hcl 1 Mg Tablet PO TID PRN restless legs Sodium Chloride 1 spray 02/20/25 14:50 Saline 0.65% Cali Soln 44 Ml Btl NASAL TID PRN nasal dryness Spironolactone 25 mg 02/21/25 09:00 Spironolactone 25 Mg Tablet PO DAILY [facility] Tramadol HCl 50 mg 02/20/25 14:50 Tramadol Hcl (*Crx) 50 Mg Tablet PO Q6H PRN Pain 4-6 Trazodone HCl 50 mg 02/20/25 14:50 Trazodone Hcl 50 Mg Tablet PO HS PRN Insomnia Labs Labs: Laboratory Results - last 24 hr 02/20/25 02/20/25 02/20/25 12:59 17:04 20:30 WBC RBC Hgb Hct MCV MCH MCHC RDW Plt Count MPV Immature Gran % (Auto) Neut % (Auto) Lymph % (Auto) Clare % (Auto) Eos % (Auto) Baso % (Auto) Lymph # (Auto) Clare # (Auto) Eos # (Auto) Baso # (Auto) Abs Immat Gran (auto) Absolute Neuts (auto) Absolute Nucleated RBC Nucleated RBC % Sodium Potassium Chloride Carbon Dioxide Anion Gap BUN Creatinine Estim Creat Clear Calc Estimated GFR Glucose POC Capillary Glucose 100 101 121 H Hemoglobin A1c Calcium Magnesium Total Bilirubin AST ALT Alkaline Phosphatase Total Protein Albumin Triglycerides Cholesterol LDL Cholesterol Direct HDL Direct 02/21/25 04:50 WBC 9.3 RBC 4.94 Hgb 12.9 Hct 43.3 MCV 87.7 MCH 26.1 MCHC 29.8 L RDW 19.0 H Plt Count 217 MPV 9.2 Immature Gran % (Auto) 0.2 Neut % (Auto) 66.8 Lymph % (Auto) 21.1 Clare % (Auto) 7.6 Eos % (Auto) 3.7 Baso % (Auto) 0.6 Lymph # (Auto) 1.97 Clare # (Auto) 0.7 H Eos # (Auto) 0.4 H Baso # (Auto) 0.1 Abs Immat Gran (auto) 0.02 Absolute Neuts (auto) 6.2 Absolute Nucleated RBC 0.000 Nucleated RBC % 0.0 Sodium 139 Potassium 3.2 L Chloride 111 H Carbon Dioxide 18 L Anion Gap 10 BUN 11 Creatinine 0.96 Estim Creat Clear Calc Not Reportable Estimated GFR 55 L Glucose 125 H POC Capillary Glucose Hemoglobin A1c 6.7 H Calcium 9.4 Magnesium 1.6 Total Bilirubin 0.8 AST 45 H ALT 25 Alkaline Phosphatase 54 Total Protein 7.3 Albumin 3.8 Triglycerides 98 Cholesterol 174 LDL Cholesterol Direct 112 HDL Direct 31 Quality VTE Prophylaxis VTE prophylaxis: pharmacologic ordered
[2025-02-21] MEDS: LEVOTHYROXINE SODIUM 50 MCG TABLET PO (07:29)
[2025-02-21] MEDS: LORazepam INJ (*CRX) 2 MG/ML VIAL IV PUSH (07:43)
[2025-02-21 08:34] LABS: Influenza A QL RT-PCR Negative (Negative); Influenza B QL RT-PCR Negative (Negative); RSV RNA, RT-PCR Negative (Negative); SARS-CoV-2 RNA PCR Negative (Negative)
[2025-02-21] MEDS: DEXTROSE 5%/LACTATED RINGERS 1,000 ML 100 ML IV CONT ×2 (08:46→21:15)
[2025-02-21] MEDS: ENOXAPARIN 40 MG/0.4 ML SYRINGE SUB-Q (10:43)
[2025-02-21] MEDS: cefTRIAXone 1 GM in SODIUM CHLORIDE 0.9% IV 50 ML 100 ML IVPB (12:05)
[2025-02-21 12:28] LABS: Procalcitonin 0.1 ng/mL
[2025-02-21] MEDS: AZITHROMYCIN IV 500 MG in SODIUM CHLORIDE 0.9% IV 250 ML 125 ML IVPB (12:45)
[2025-02-22] VITALS (9 sets, daily range): BP systolic 144–146; BP diastolic 86–106; PULSE 72–84; RESP 16–20; TEMP 36–36.6; O2SAT 90–99
[2025-02-22 05:01] LABS: Hematocrit 40.2 % (37.0-47.0); Hemoglobin 12.1 g/dL (12.0-15.0); Immature Granulocyte Percent A 0.3 % (0-0.5); Lymphocytes Absolute Auto 1.90 K/mm3 (0.9-3.2); Mean Corpuscular HGB Conc 30.1 g/dl (32-36); Mean Corpuscular Hemoglobin 25.7 pg (26-34); Mean Corpuscular Volume 85.5 fl (80-100); Nucleated Red Blood Cells Absolute Auto 0.000 K/mm3 (0.0-0.012); Nucleated Red Blood Cells Perc 0.0 % (0.0-0.2); Platelet Count Result 240 k/mm3 (150-375); Red Blood Count 4.70 M/mm3 (4.2-5.4); White Blood Count 9.1 K/mm3 (4.5-10.0)
--- NOTE | 2025-02-22 05:05 | PC.NURSE ---
Pt blood pressure is often inaccurate as pt becomes very resistant and screams when blood pressure cuff is applied and inflated. Manual pressure checks limited by significant background noise and auto cuffs are limited by pt movement/tensing/screaming.
[2025-02-22 05:22] LABS: Alanine Aminotransferase 26 U/L (6-35); Albumin Level 3.5 g/dL (3.5-5.1); Alkaline Phosphatase 47 U/L (38-126); Anion Gap 10 mmol/L (4-12); Aspartate Amino Transferase 43 U/L (14-36); Bilirubin,Total 0.7 mg/dL (0.2-1.3); Blood Urea Nitrogen 11 mg/dL (7-17); Calcium 9.1 mg/dL (8.4-10.2); Carbon Dioxide 19 mmol/L (22-30); Chloride 107 mmol/L (98-107); Estimated Glomerular Filt Rate > 60; Glucose 175 mg/dL (65-110); Magnesium 1.5 mg/dL (1.6-2.3); Potassium 3.3 mmol/L (3.4-5.0); Sodium 136 mmol/L (137-145); Total Protein 6.5 g/dL (6.3-8.2)
[2025-02-22] MEDS: LEVOTHYROXINE SODIUM 50 MCG TABLET PO (05:48)
--- NOTE | 2025-02-22 07:08 | P.PNIM_ITS ---
Progress Note: A&P Assessment and Plan (1) Acute CVA (cerebrovascular accident): Code(s): I63.9 - Cerebral infarction, unspecified Status: Acute Assessment and Plan: - presented with AMS. LKW unclear. Normally alert and oriented x4 and lives alone. - CT and CTA [facility]: a 2.5 x 2.4 cm centrally calcified suprasellar mass. The differential would include neoplasm either benign such as meningioma or malignan t and centrally thrombosed and calcified aneurysm. Recommend further evaluation with pre and postcontrast imaging and would prefer MRI over CT. 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 These findings were not present in his CT head scan done August of 2024. 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 - permissive hypertension <220/120 x 24-28 hours - neurology consulted, appreciate recs (2) Altered mental status: Code(s): R41.82 - Altered mental status, unspecified Status: Acute Assessment and Plan: -patient with altered mental status unknown last known well. Patient lives alone, she was alert and oriented x4, caring for herself presented to the emergency department with altered mental status, aphasia - viral panel negative -TSH elevated T4 WNL patient history of hypothyroidism unsure if patient was taking her medication - ammonia level within normal limits - neuroimaging as above - UA negative - CXR with atelectasis versus infiltrates but patient on room air not hypoxic no WBC and Procal 0.1 - patient received IV Ativan 2mg prior to MRI which caused increased sedation and confusion yesterday. Improving this AM. - initial AMS may be secondary to acute CVA vs infection vs dehydration - continue to monitor mental status (3) Pneumonia: Qualifiers: Laterality: unspecified laterality Lung location: unspecified part of lung Pneumonia type: due to unspecified organism Qualified Code(s): J18.9 - Pneumonia, unspecified organism Code(s): J18.9 - Pneumonia, unspecified organism Status: Acute Assessment and Plan: -chest x-ray with patchy opacities in the left mid and lower lung -afebrile, no leukocytosis. Procalcitonin 0.1. -per family, patient had productive cough prior to onset of altered mental status -continue Rocephin and azithromycin -follow-up blood cultures (4) Meningioma: Code(s): D32.9 - Benign neoplasm of meninges, unspecified Status: Acute Assessment and Plan: - MRI brain Avidly enhancing mass in the suprasellar cistern with central calcification suggestive of meningioma. Assessment is however significantly limited on MRI due to prominent motion artifact on multiple sequences included on the post contrast images and a pituitary origin could not be absolutely excluded. Would consider follow-up pituitary protocol MRI when patient's mental status improves sufficient to allow for imaging without motion. -Discussed findings with on-call neurosurgery Dr. Brown over the phone. Highly unlikely that this is causing patient's altered mental status. Dr. Brown recommended MRI pituitary gland once patient is able to hold still (inpatient vs. outpatient) and follow-up with neurosurgery as outpatient for further endocrine labs. No acute surgical intervention warranted. (5) Hypokalemia: Code(s): E87.6 - Hypokalemia Status: Acute Assessment and Plan: - K+ 3.3 - replacement ordered (6) Hypomagnesemia: Code(s): E83.42 - Hypomagnesemia Status: Acute Assessment and Plan: - Mag 1.5 - replacement ordered (7) Essential hypertension: Code(s): I10 - Essential (primary) hypertension Status: Acute Assessment and Plan: -patient currently on only on Imdur - IV hydralazine as needed for systolic over 160 patient is not taking anything orally - permissive HTN x24-48 hours given CVA - may need to add medication once able (8) Diabetes mellitus: Code(s): E11.9 - Type 2 diabetes mellitus without complications Status: Acute Assessment and Plan: -patient on 20 units of Levemir at home can transition to Lantus 20 units once tolerating orals intake but is on hold for now - currently on dextrose 5 in LR since she is not taking any oral intake. Monitor for continued need. - Accu-Checks a.c. HS - low-dose SSI - hypoglycemic protocol - diabetic diet (9) Hypothyroidism: Code(s): E03.9 - Hypothyroidism, unspecified Status: Acute Assessment and Plan: - patient with history of hypothyroidism TSH 8.320/Free t4 1.09 - resume the patient's levothyroxine unknown last time patient took her medications (10) Metabolic acidosis: Code(s): E87.20 - Acidosis, unspecified Status: Acute Assessment and Plan: -improved with IV fluids -patient currently not taking oral intake -continue to trend (11) SILVINO (acute kidney injury): Code(s): N17.9 - Acute kidney failure, unspecified Status: Acute Assessment and Plan: -mildly elevated 1.04 likely secondary to dehydration - improved with IV fluids - patient with good urinary output -avoid nephrotoxins (12) Parkinsons: Code(s): G20.A1 - Parkinson's disease without dyskinesia, without mention of fluctuations Status: Acute Assessment and Plan: - resume patient's carbidopa levodopa when able to take PO (13) Neuropathy: Code(s): G62.9 - Polyneuropathy, unspecified Status: Acute Assessment and Plan: - continue patient's gabapentin but currently still refusing medication (14) Cardiomyopathy: Code(s): I42.9 - Cardiomyopathy, unspecified Status: Acute Assessment and Plan: - echo with EF 40-45%, grade 1 diastolic dysfunction - per history per family, follows with Dr. Sanderson as outpatient - monitor volume status (15) Aortic stenosis: Code(s): I35.0 - Nonrheumatic aortic (valve) stenosis Status: Acute Assessment and Plan: - echo with severe aortic valve stenosis, 0.7cm CHEPE - unclear if known to patient. Will attempt to obtain more information from family Plan Code status: Full code per family DVT prophylaxis: Lovenox Disposition: TBD pending PT/OT eval Subjective Date/time seen: 02/22/25 07:08 Interval history: Patient is an 89-year-old female who presented to the emergency department via EMS at [facility] and transferred to [facility] for further neurological evaluation. Patient seen and examined at bedside. More awake this AM, answering some questions appropriately. Denies pain. Review of Systems Review of Systems: ROS unobtainable: Yes unobtainable due to medical condition and unobtainable due to mental status Exam Narrative: General: NAD Eyes: EOMI ENT: neck supple Cardiovascular: Regular rate and rhythm, +systolic murmur Respiratory: Clear to auscultation, respirations even and unlabored on RA Gastrointestinal: Soft, non tender Genitourinary: no suprapubic tenderness Musculoskeletal: No edema Skin: warm, dry Neuro: drowsy, awakens easily. Strength 5/5 in BUE. Face symmetric. Follows some commands. Psych: Mood appropriate Objective Data Vital Signs Vital Signs: Vital Signs - 24 hr 02/21/25 07:43 02/21/25 12:00 02/21/25 14:00 Temperature 97.7 F Pulse Rate 77 88 Respiratory Rate 20 19 Blood Pressure 150/75 H Pulse Oximetry 91 96 Oxygen Delivery Room Air 02/21/25 16:00 02/21/25 20:00 02/21/25 20:00 Temperature Pulse Rate 88 86 70 Respiratory Rate Blood Pressure Pulse Oximetry 96 Oxygen Delivery Room Air 02/21/25 20:45 02/21/25 23:08 02/22/25 00:00 Temperature 97.7 F Pulse Rate 63 76 Respiratory Rate 17 Blood Pressure 160/84 H Pulse Oximetry 91 Oxygen Delivery 02/22/25 04:00 02/22/25 05:19 Temperature 97.6 F Pulse Rate 72 80 Respiratory Rate 20 Blood Pressure 144/106 H Pulse Oximetry 90 Oxygen Delivery Intake/Output Intake/Output: Intake & Output 02/19/25 02/20/25 02/21/25 02/22/25 23:59 23:59 23:59 23:59 Intake Total 2300.0 Output Total 1200 1500 200 Balance -1200 800.0 -200 Meds/Results Medications: Active Medications Generic Name Dose Route Start Last Admin Trade Name Freq PRN Reason Stop Dose Admin Acetaminophen 650 mg 02/20/25 13:17 Acetaminophen 325 Mg Tablet PO Q4H PRN Mild Pain (1-3) or Fever Aspirin 81 mg 02/21/25 09:00 02/21/25 11:43 Aspirin 81 Mg Enteric Tablet PO Not Given DAILY [facility] Atorvastatin Calcium 40 mg 02/21/25 11:50 02/21/25 12:06 Atorvastatin 40 Mg Tablet PO Not Given DAILY [facility] Carbidopa/Levodopa 1 tablet 02/20/25 21:00 02/21/25 22:38 Carbidopa/Levodopa 25/100 Mg Cr Tablet PO Not Given Q12H [facility] Clopidogrel Bisulfate 75 mg 02/21/25 11:50 02/21/25 12:06 Clopidogrel Bisulfate 75 Mg Tablet PO Not Given QAM [facility]ON[facility] Dextrose 12.5 gm 02/20/25 13:21 Dextrose 50% 25 Gm/50 Ml Syringe IV PUSH PRN PRN Hypoglycemia Protocol Enoxaparin Sodium 40 mg 02/21/25 09:00 02/21/25 10:43 Enoxaparin 40 Mg/0.4 Ml Syringe SUB-Q 40 mg DAILY [facility]ON[facility] Administration Fenofibrate 48 mg 02/21/25 09:00 02/21/25 11:44 Fenofibrate,Micronized 48 Mg Tablet PO Not Given QAM SONIA Ferrous Sulfate 325 mg 02/20/25 17:00 02/21/25 16:34 Ferrous Sulfate [address] BY MOUTH Not Given BID [facility] Gabapentin 300 mg 02/20/25 21:00 02/21/25 22:38 Gabapentin 300 Mg Capsule PO Not Given HS [facility]ONIA Glucagon 1 mg 02/20/25 13:21 Glucagon For Inj 1 Mg Vial IM PRN PRN Hypoglycemia Protocol Glucose 15 gm 02/20/25 13:21 Glucose Oral Gel 15 Gm Of Glucse In 37.5 Gm Tube PO PRN PRN Hypoglycemia Protocol Dextrose 1,000 mls @ 50 mls/hr 02/20/25 13:21 Dextrose 5% 1,000 Ml IVPB PRN PRN Hypoglycemia Protocol Dextrose/Lactated Ringer's 1,000 mls @ 100 mls/hr 02/20/25 14:55 02/21/25 23:12 Dextrose 5%/Lactated Ringers IV CONT Not Given .Q10H [facility]ONIA Ceftriaxone Sodium 1 gm/ 50 mls @ 100 mls/hr 02/21/25 12:00 02/21/25 12:35 Sodium Chloride IVPB Infused Q24H [facility] Infusion Azithromycin 500 mg/ Sodium 250 mls @ 250 mls/hr 02/21/25 13:00 02/21/25 14:45 Chloride IVPB Infused Q24H [facility] Infusion Magnesium Sulfate 2 gm in 50 mls @ 25 mls/hr 02/22/25 07:06 Magnesium Sulf 2 Gm/Water 50ml IVPB 02/22/25 09:05 ONCE ONE Insulin Aspart 2 - 5 units 02/20/25 17:00 02/21/25 16:54 Insulin Aspart (*Bkc) 100 Units/Ml SUB-Q Not Given TIDWM [facility] Protocol Isosorbide Dinitrate 10 mg 02/20/25 17:00 02/21/25 16:34 Isosorbide Dinitrate 10 Mg Tablet PO Not Given BID [facility] Levothyroxine Sodium 50 mcg 02/21/25 06:30 02/22/25 05:48 Levothyroxine Sodium 50 Mcg Tablet PO 50 mcg DAILY@0630 [facility] Administration Miscellaneous Information 1 each 02/20/25 00:01 Nonformulary Drug (Epinastine 0.05 % Drops) Can Patient Use From Home? XX 03/22/25 00:00 CLARIFY [facility] Non-Formulary Medication 1 drop 02/20/25 16:00 Epinastine EACH EYE 03/22/25 15:59 Q12H [facility] Ondansetron HCl 4 mg 02/20/25 13:17 Ondansetron Inj 4 Mg/2 Ml Vial IV PUSH Q6H PRN Nausea And Vomiting Polyethylene Glycol 17 gm 02/20/25 14:50 Polyethylene Glycol 3350 17 Gm Powd.Pack PO DAILY PRN Constipation Ropinirole HCl 2 mg 02/20/25 14:50 Ropinirole Hcl 1 Mg Tablet PO TID PRN restless legs Sodium Chloride 1 spray 02/20/25 14:50 Saline 0.65% Cali Soln 44 Ml Btl NASAL TID PRN nasal dryness Spironolactone 25 mg 02/21/25 09:00 02/21/25 11:44 Spironolactone 25 Mg Tablet PO Not Given DAILY [facility] Tramadol HCl 50 mg 02/20/25 14:50 Tramadol Hcl (*Crx) 50 Mg Tablet PO Q6H PRN Pain 4-6 Trazodone HCl 50 mg 02/20/25 14:50 Trazodone Hcl 50 Mg Tablet PO HS PRN Insomnia Radiology Results: ITS Impressions Brain MRI 02/21/25 08:33 IMPRESSION: 1. Small left temporal occipital acute infarct. 2. Avidly enhancing mass in the suprasellar cistern with central calcification suggestive of meningioma. Assessment is however significantly limited on MRI due to prominent motion artifact on multiple sequences included on the post contrast images and a pituitary origin could not be absolutely excluded. Would consider follow-up pituitary protocol MRI when patient's mental status improves sufficient to allow for imaging without motion. 3. Age-related changes including mild diffuse volume loss and moderate scattered white matter T2 hyperintensity consistent with chronic small vessel ischemic disease. Labs Labs: Laboratory Results - last 24 hr 02/20/25 02/21/25 02/21/25 14:51 04:50 07:49 WBC RBC Hgb Hct MCV MCH MCHC RDW Plt Count MPV Immature Gran % (Auto) Neut % (Auto) Lymph % (Auto) [place] % (Auto) Eos % (Auto) Baso % (Auto) Lymph # (Auto) [place] # (Auto) Eos # (Auto) Baso # (Auto) Abs Immat Gran (auto) Absolute Neuts (auto) Absolute Nucleated RBC Nucleated RBC % Sodium Potassium Chloride Carbon Dioxide Anion Gap BUN Creatinine Estim Creat Clear Calc Estimated GFR Glucose POC Capillary Glucose Calcium Magnesium Total Bilirubin AST ALT Alkaline Phosphatase Total Protein Albumin Procalcitonin 0.1 Influenza A (RT-PCR) Cancelled Negative Influenza B (RT-PCR) Cancelled Negative RSV (RT-PCR) Cancelled Negative SARS-CoV-2 RNA (RT-PCR) Cancelled Negative 02/21/25 02/21/25 02/21/25 08:41 11:56 16:50 WBC RBC Hgb Hct MCV MCH MCHC RDW Plt Count MPV Immature Gran % (Auto) Neut % (Auto) Lymph % (Auto) [place] % (Auto) Eos % (Auto) Baso % (Auto) Lymph # (Auto) [place] # (Auto) Eos # (Auto) Baso # (Auto) Abs Immat Gran (auto) Absolute Neuts (auto) Absolute Nucleated RBC Nucleated RBC % Sodium Potassium Chloride Carbon Dioxide Anion Gap BUN Creatinine Estim Creat Clear Calc Estimated GFR Glucose POC Capillary Glucose 127 H 172 H 137 H Calcium Magnesium Total Bilirubin AST ALT Alkaline Phosphatase Total Protein Albumin Procalcitonin Influenza A (RT-PCR) Influenza B (RT-PCR) RSV (RT-PCR) SARS-CoV-2 RNA (RT-PCR) 02/21/25 02/22/25 20:40 04:39 WBC 9.1 RBC 4.70 Hgb 12.1 Hct 40.2 MCV 85.5 MCH 25.7 L MCHC 30.1 L RDW 18.4 H Plt Count 240 MPV 9.6 Immature Gran % (Auto) 0.3 Neut % (Auto) 66.0 Lymph % (Auto) 21.0 [place] % (Auto) 6.4 Eos % (Auto) 6.0 H Baso % (Auto) 0.3 Lymph # (Auto) 1.90 [place] # (Auto) 0.6 Eos # (Auto) 0.5 H Baso # (Auto) 0.0 Abs Immat Gran (auto) 0.03 Absolute Neuts (auto) 6.0 Absolute Nucleated RBC 0.000 Nucleated RBC % 0.0 Sodium 136 L Potassium 3.3 L Chloride 107 Carbon Dioxide 19 L Anion Gap 10 BUN 11 Creatinine 0.78 Estim Creat Clear Calc Not Reportable Estimated GFR > 60 Glucose 175 H POC Capillary Glucose 157 H Calcium 9.1 Magnesium 1.5 L Total Bilirubin 0.7 AST 43 H ALT 26 Alkaline Phosphatase 47 Total Protein 6.5 Albumin 3.5 Procalcitonin Influenza A (RT-PCR) Influenza B (RT-PCR) RSV (RT-PCR) SARS-CoV-2 RNA (RT-PCR) Quality VTE Prophylaxis VTE prophylaxis: pharmacologic ordered
[2025-02-22] MEDS: MAGNESIUM SULF 2 GM/WATER 50ML 2 GM/50 ML BAG IVPB (08:54)
[2025-02-22] MEDS: ENOXAPARIN 40 MG/0.4 ML SYRINGE SUB-Q (08:59)
[2025-02-22] MEDS: cefTRIAXone 1 GM in SODIUM CHLORIDE 0.9% IV 50 ML 100 ML IVPB (11:31)
[2025-02-22] MEDS: AZITHROMYCIN IV 500 MG in SODIUM CHLORIDE 0.9% IV 250 ML IVPB (12:13)
--- NOTE | 2025-02-22 13:23 | WPDNEUROSGCN ---
Assessment and Plan Assessment and plan (1) Meningioma: Code(s): D32.9 - Benign neoplasm of meninges, unspecified Status: Acute Plan Ms. Anaya is an 89-year-old female who was admitted on February 20 for altered mental status who was incidentally found to have an anterior skull base mass on presentation. She does not have any obvious symptoms related to this. I do detect some deficit of her right temporal visual field, and she seems to have a partial 6th nerve palsy on the right as well. 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 Although it was not mentioned in the radiology report, this was present on her CT scan performed in August and shows that the mass is partially calcified, which again leads me to believe that this is likely a meningioma. This is unrelated to her symptoms of presentation. I do not recommend any acute intervention. It would be reasonable to obtain a better quality MRI brain without and with contrast as an outpatient, and she could see me in clinic as an outpatient as well. It would also be in her best interest to have a full pituitary hormone workup (prolactin, TSH, T3/T4, ACTH, IGF-1, FSH, LH, cortisol) and Endocrinology evaluation if any of those labs are abnormal. She would also benefit from seeing an field service representative as an outpatient to do formal visual field testing and visual assessment. Consult date: 02/22/25 HPI: Donna Anaya is a 89 year old female who presented to the emergency room on February 20 for altered mental status. During that time, she had imaging performed of her head which incidentally showed an anterior skull base lesion for which Neurosurgery was consulted yesterday evening. The patient has improved quite a bit since admission and is able to answer some questions for me. She denies any issues with headaches, nausea, vomiting, visual changes, or other neurologic complaints. She is unaware of having a brain mass. Review of Systems Review of Systems: All systems reviewed & are unremarkable except as noted in HPI and below PMFSH Past Medical History Medical History Neuropathy Parkinsons Hypothyroidism Diabetes mellitus Essential hypertension Family History Family History Sibling Family history of chronic obstructive pulmonary disease Family history of diabetes mellitus in first degree relative Social History Social History Smoking status: Unknown if ever smoked Second hand tobacco smoke exposure: No Alcohol intake: never Substance use: never Substance use type: does not use Do You Feel Safe in your Home?: Yes Lack of Transportation: YES Lack of Food: Never True Current Housing: I Have Housing Concerned About Future Housing: No Difficulty Paying Gas/Electric Bills: No Difficulty Paying for Meds: No Currently Unemployed: No Education: Don't Know Difficulty w/ Childcare or Family Care: No Spiritual care concerns: No Meds Home Medications and Allergies Home Medications ?Medication ?Instructions ?Recorded ?Confirmed ?Type fenofibrate 54 mg tablet 54 mg PO DAILY 08/27/24 02/20/25 History ferrous sulfate 325 mg (65 mg 325 mg PO BID 08/27/24 02/20/25 History iron) tablet (FeroSul) gabapentin 300 mg capsule 300 mg PO HS 08/27/24 02/20/25 History insulin detemir U-100 100 unit/mL 20 unit subcut DAILY 08/27/24 02/20/25 History subcutaneous solution (Levemir U-100 Insulin) isosorbide dinitrate 10 mg tablet 10 mg PO BID 08/27/24 02/20/25 History levothyroxine 50 mcg tablet 50 mcg PO DAILY 08/27/24 02/20/25 History naloxone 4 mg/actuation nasal 4 mg intranasal Q2-3M PRN opioid 08/27/24 02/20/25 History spray (Narcan) overdose polyethylene glycol 3350 17 17 g PO DAILY PRN constipation 08/27/24 02/20/25 History gram/dose oral powder (Miralax) pravastatin 40 mg tablet 40 mg PO HS 08/27/24 02/20/25 History ropinirole 2 mg tablet 2 mg PO TID PRN restless legs 08/27/24 02/20/25 History sodium chloride 0.65 % nasal spray 1 spray intranasal TID PRN nasal 08/27/24 02/20/25 History aerosol (Little Remedies Saline) dryness spironolactone 25 mg tablet 25 mg PO DAILY 08/27/24 02/20/25 History carbidopa ER 50 mg-levodopa 200 mg 1 tablet PO Q12H #60 tabs 08/30/24 02/20/25 Rx tablet,extended release tramadol 50 mg tablet 50 mg PO Q6H PRN pain #4 tabs 08/30/24 02/20/25 Rx trazodone 50 mg tablet 50 mg PO HS PRN insomnia #1 tablet 08/30/24 02/20/25 Rx aspirin 81 mg tablet,delayed 81 mg PO DAILY 02/19/25 02/20/25 History release (Adult Low Dose Aspirin) acetaminophen 325 mg tablet 650 mg PO Q4H PRN fever or pain 02/20/25 02/20/25 History (Tylenol) carbidopa 25 mg-levodopa 100 mg 1 tablet PO Q12H 02/20/25 02/20/25 History tablet epinastine 0.05 % eye drops 1 drp EACH EYE Q12H 02/20/25 02/20/25 History Allergies Allergy/AdvReac Type Severity Reaction Status Date / Time Penicillins Allergy Unknown Rash Verified 02/20/25 14:25 Vital Signs Vital Signs - 24 hr 02/21/25 14:00 02/21/25 16:00 02/21/25 20:00 Temperature 97.7 F Pulse Rate 88 88 86 Respiratory Rate 19 Blood Pressure 150/75 H Pulse Oximetry 96 96 Oxygen Delivery Room Air 02/21/25 20:00 02/21/25 20:45 02/21/25 23:08 Temperature 97.7 F Pulse Rate 70 63 Respiratory Rate 17 Blood Pressure 160/84 H Pulse Oximetry 91 Oxygen Delivery 02/22/25 00:00 02/22/25 04:00 02/22/25 05:19 Temperature 97.6 F Pulse Rate 76 72 80 Respiratory Rate 20 Blood Pressure 144/106 H Pulse Oximetry 90 Oxygen Delivery Exam Narrative: AO to person, hospital, month but not year or specific location Partial right 6th nerve palsy Right temporal hemianopsia Facial sensation intact Symmetric smile Tongue protrudes in midline Able to lift arms/legs off bed Sensation intact to light touch Results Labs 02/22/25 04:39 02/22/25 04:39 Labs: Short CBC 02/22/25 Range/Units 04:39 WBC 9.1 (4.5-10.0) K/mm3 Hgb 12.1 (12.0-15.0) g/dL Hct 40.2 (37.0-47.0) % Plt Count 240 (150-375) k/mm3 BMP 02/22/25 04:39 Sodium 136 L Potassium 3.3 L Chloride 107 Carbon Dioxide 19 L BUN 11 Creatinine 0.78 Glucose 175 H Calcium 9.1 Liver Function 02/22/25 Range/Units 04:39 Total Bilirubin 0.7 (0.2-1.3) mg/dL AST 43 H (14-36) U/L ALT 26 (6-35) U/L Alkaline Phosphatase 47 (38-126) U/L Albumin 3.5 (3.5-5.1) g/dL Imaging My impression: I personally reviewed the CT head which shows a partially calcified mass along the planum / tuberculum that may extend into the sella I personally reviewed the MRI brain which is quite limited due to motion artifact. There is homogeneous enhancement of this lesion along the anterior skull base. the lesion measures approximately 1.9 x 1.1 x 2.2 cm
--- NOTE | 2025-02-22 13:43 | PHAR ---
home med verified epinastine 0.05% drops 1 drop both eyes bid
[2025-02-22] MEDS: CLOPIDOGREL BISULFATE 75 MG TABLET PO (14:00)
--- NOTE | 2025-02-22 15:01 | PC.NURSE ---
I let hospitalist Lashawn Batres know I haven't run the azithromycin and potassium IV due to loss of IV access. Informed her we are waiting for vascular access. She asked me to try and give some of patient's morning meds.
[2025-02-22] MEDS: traMADol HCL (*CRX) 50 MG TABLET PO (15:38)
[2025-02-22] MEDS: DEXTROSE 5%/LACTATED RINGERS 1,000 ML 100 ML IV CONT (15:43)
[2025-02-22] MEDS: ISOSORBIDE DINITRATE 10 MG TABLET PO (15:47)
[2025-02-22] MEDS: ASPIRIN 81 MG ENTERIC TABLET PO (15:48)
[2025-02-22] MEDS: CARBIDOPA/LEVODOPA 25/100 MG CR TABLET 1 TABLET PO ×2 (15:48→20:34)
[2025-02-22] MEDS: SPIRONOLACTONE 25 MG TABLET PO (15:50)
[2025-02-22] MEDS: ATORVASTATIN 40 MG TABLET PO (15:51)
[2025-02-22] MEDS: FENOFIBRATE,MICRONIZED 48 MG TABLET PO (15:57)
[2025-02-22] MEDS: FERROUS SULFATE 325 MG TABLET DR BY MOUTH (15:58)
[2025-02-22] MEDS: KCL 20 MEQ/SW 100 ML 100 ML 25 MEQ IVPB (15:58)
[2025-02-22] MEDS: POTASSIUM CHLORIDE 20 MEQ PACKET (FOR LIQUID) 40 MEQ PO (16:46)
[2025-02-22] MEDS: GABAPENTIN 300 MG CAPSULE PO (20:33)
[2025-02-23] VITALS (9 sets, daily range): BP systolic 139–150; BP diastolic 58–78; PULSE 58–80; RESP 16–18; TEMP 36.3–36.8; O2SAT 98–100
[2025-02-23 05:01] LABS: Hematocrit 38.3 % (37.0-47.0); Hemoglobin 11.5 g/dL (12.0-15.0); Immature Granulocyte Percent A 0.1 % (0-0.5); Lymphocytes Absolute Auto 2.09 K/mm3 (0.9-3.2); Mean Corpuscular HGB Conc 30.0 g/dl (32-36); Mean Corpuscular Hemoglobin 26.2 pg (26-34); Mean Corpuscular Volume 87.2 fl (80-100); Nucleated Red Blood Cells Absolute Auto 0.000 K/mm3 (0.0-0.012); Nucleated Red Blood Cells Perc 0.0 % (0.0-0.2); Platelet Count Result 201 k/mm3 (150-375); Red Blood Count 4.39 M/mm3 (4.2-5.4); White Blood Count 6.9 K/mm3 (4.5-10.0)
[2025-02-23] MEDS: LEVOTHYROXINE SODIUM 50 MCG TABLET PO (05:03)
[2025-02-23 05:14] LABS: Albumin Level 3.4 g/dL (3.5-5.1); Alkaline Phosphatase 49 U/L (38-126); Anion Gap 8 mmol/L (4-12); Aspartate Amino Transferase 35 U/L (14-36); Bilirubin,Total 0.6 mg/dL (0.2-1.3); Blood Urea Nitrogen 16 mg/dL (7-17); Calcium 8.7 mg/dL (8.4-10.2); Carbon Dioxide 19 mmol/L (22-30); Chloride 111 mmol/L (98-107); Estimated Glomerular Filt Rate 50; Glucose 135 mg/dL (65-110); Magnesium 2.2 mg/dL (1.6-2.3); Potassium 3.8 mmol/L (3.4-5.0); Sodium 138 mmol/L (137-145); Total Protein 6.4 g/dL (6.3-8.2)
[2025-02-23 05:19] LABS: Alanine Aminotransferase < 6 U/L (6-35)
--- NOTE | 2025-02-23 07:36 | P.PNIM_ITS ---
Progress Note: A&P Assessment and Plan (1) Acute CVA (cerebrovascular accident): Code(s): I63.9 - Cerebral infarction, unspecified Status: Acute Assessment and Plan: - presented with AMS. LKW unclear. Normally alert and oriented x4 and lives alone. - CT and CTA [place]: a 2.5 x 2.4 cm centrally calcified suprasellar mass. No acute LVO or significant stenosis. - MRI brain with small left temporal occipital acute infarct - continue neuro checks - PT/OT - recommended SNF - [employer] - recommended regular diet - monitor on telemetry - continue ASA,Plavix, atorvastatin. - neurology consulted, appreciate recs L (2) Altered mental status: Code(s): R41.82 - Altered mental status, unspecified Status: Acute Assessment and Plan: -patient with altered mental status unknown last known well. Patient lives alone, she was alert and oriented x4, caring for herself presented to the emergency department with altered mental status, aphasia - viral panel negative -TSH elevated T4 WNL patient history of hypothyroidism unsure if patient was taking her medication - ammonia level within normal limits - neuroimaging as above - UA negative - CXR with atelectasis versus infiltrates - management of pnuemonia as below - patient received IV Ativan 2mg prior to MRI which caused increased sedation and confusion. Continues to improve. - initial AMS may be secondary to acute CVA vs infection vs dehydration - continue to monitor mental status (3) Pneumonia: Qualifiers: Laterality: unspecified laterality Lung location: unspecified part of lung Pneumonia type: due to unspecified organism Qualified Code(s): J18.9 - Pneumonia, unspecified organism Code(s): J18.9 - Pneumonia, unspecified organism Status: Acute Assessment and Plan: -chest x-ray with patchy opacities in the left mid and lower lung -afebrile, no leukocytosis. Procalcitonin 0.1. -per family, patient had productive cough prior to onset of altered mental status - completed azithromycin 500 mg x3 days - transitioned to Levaquin to complete 3 day course (4) Meningioma: Code(s): D32.9 - Benign neoplasm of meninges, unspecified Status: Acute Assessment and Plan: - MRI brain Avidly enhancing mass in the suprasellar cistern with central calcification suggestive of meningioma. Assessment is however significantly limited on MRI due to prominent motion artifact on multiple sequences included on the post contrast images and a pituitary origin could not be absolutely excluded. Would consider follow-up pituitary protocol MRI when patient's mental status improves sufficient to allow for imaging without motion. -neurosurgery consulted- highly unlikely that this is causing patient's altered mental status. Dr. Brown recommended MRI pituitary gland once patient is able to hold still (inpatient vs. outpatient) and follow-up with neurosurgery as outpatient for further endocrine labs. No acute surgical intervention warranted. Also recommended Ophthalmology consultation as outpatient (5) Essential hypertension: Code(s): I10 - Essential (primary) hypertension Status: Acute Assessment and Plan: - BP stable -continue home Imdur (6) Diabetes mellitus: Code(s): E11.9 - Type 2 diabetes mellitus without complications Status: Acute Assessment and Plan: - Accu-Checks a.c. HS - low-dose SSI - hypoglycemic protocol - diabetic diet - patient on Levemir 20u at home, resume long-acting insulin as needed. (7) Hypothyroidism: Code(s): E03.9 - Hypothyroidism, unspecified Status: Acute Assessment and Plan: - patient with history of hypothyroidism TSH 8.320/Free t4 1.09 - continue Synthroid (8) SILVINO (acute kidney injury): Code(s): N17.9 - Acute kidney failure, unspecified Status: Acute Assessment and Plan: -mildly elevated 1.04 likely secondary to dehydration - improved with IV fluids - patient with good urinary output -avoid nephrotoxins (9) Parkinsons: Code(s): G20.A1 - Parkinson's disease without dyskinesia, without mention of fluctuations Status: Acute Assessment and Plan: - continue home carbidopa levodopa (10) Neuropathy: Code(s): G62.9 - Polyneuropathy, unspecified Status: Acute Assessment and Plan: - continue gabapentin (11) Cardiomyopathy: Code(s): I42.9 - Cardiomyopathy, unspecified Status: Acute Assessment and Plan: - echo with EF 40-45%, grade 1 diastolic dysfunction - per history per family, follows with Dr. Sanderson as outpatient - monitor volume status (12) Aortic stenosis: Code(s): I35.0 - Nonrheumatic aortic (valve) stenosis Status: Acute Assessment and Plan: - echo with severe aortic valve stenosis, CHEPE 0.7 cm2 - called patient's cardiology office (Dr. Sanderson, [facility]). Patient was being followed for this and TAVR has been discussed. Office recommended following up as soon as possible as outpatient to discuss options. (13) Edema of left upper extremity: Code(s): R60.0 - Localized edema Status: Acute Assessment and Plan: - LUE doppler ordered (14) Bilateral shoulder pain: Code(s): M25.511 - Pain in right shoulder; M25.512 - Pain in left shoulder Status: Acute Assessment and Plan: - bruising noted over bilateral shoulders - bilateral shoulder XR ordered Plan Code status: Full code per family DVT prophylaxis: Lovenox Disposition: [facility] Subjective Date/time seen: 02/23/25 07:36 Interval history: Patient is an 89-year-old female who presented to the emergency department via EMS at [facility] and transferred to [facility] for further neurological evaluation. Patient seen and examined at bedside. Alert and oriented x3-4 this AM. States she feels like herself again. Granddaughter Chiquita updated over the phone. Review of Systems Review of Systems: All systems reviewed & are unremarkable except as noted in HPI and below Exam Narrative: General: NAD Eyes: EOMI ENT: neck supple Cardiovascular: Regular rate and rhythm, +systolic murmur Respiratory: Clear to auscultation, respirations even and unlabored on RA Gastrointestinal: Soft, non tender Genitourinary: no suprapubic tenderness Musculoskeletal: +LUE edema with tenderness to palpation, R shoulder with TTP over the trapezius area. Bilateral scapular bruising Skin: warm, dry Neuro: Alert and oriented x3-4. Face symmetric. Speech clear. Psych: Mood appropriate Objective Data Vital Signs Vital Signs: Vital Signs - 24 hr 02/22/25 08:00 02/22/25 12:00 02/22/25 14:00 Temperature 97.8 F Pulse Rate 72 74 84 Respiratory Rate 19 Blood Pressure 146/89 H Pulse Oximetry 94 Oxygen Delivery 02/22/25 14:30 02/22/25 14:48 02/22/25 16:00 Temperature Pulse Rate 76 Respiratory Rate Blood Pressure Pulse Oximetry Oxygen Delivery Room Air Room Air 02/22/25 20:00 08/21/25 20:00 02/22/25 21:22 Temperature 96.8 F L Pulse Rate 74 77 74 Respiratory Rate 16 16 Blood Pressure 145/86 H Pulse Oximetry 99 99 Oxygen Delivery Room Air 02/23/25 00:00 02/23/25 04:00 02/23/25 05:44 Temperature 97.6 F Pulse Rate 67 58 L 64 Respiratory Rate 16 Blood Pressure 139/78 Pulse Oximetry 100 Oxygen Delivery Intake/Output Intake/Output: Intake & Output 02/20/25 02/21/25 02/22/25 02/23/25 23:59 23:59 23:59 23:59 Intake Total 2300.0 1599.2 200 Output Total 1200 1500 525 400 Balance -1200 800.0 1074.2 -200 Meds/Results Medications: Active Medications Generic Name Dose Route Start Last Admin Trade Name Freq PRN Reason Stop Dose Admin Acetaminophen 650 mg 02/20/25 13:17 Acetaminophen 325 Mg Tablet PO Q4H PRN Mild Pain (1-3) or Fever Aspirin 81 mg 02/21/25 09:00 02/22/25 15:48 Aspirin 81 Mg Enteric Tablet PO 81 mg DAILY SONIA Administration Atorvastatin Calcium 40 mg 02/21/25 11:50 02/22/25 15:51 Atorvastatin 40 Mg Tablet PO 40 mg DAILY SONIA Administration Carbidopa/Levodopa 1 tablet 02/20/25 21:00 02/22/25 20:34 Carbidopa/Levodopa 25/100 Mg Cr Tablet PO 1 tablet Q12H SONIA Administration Clopidogrel Bisulfate 75 mg 02/21/25 11:50 02/22/25 08:54 Clopidogrel Bisulfate 75 Mg Tablet PO Not Given QAM SONIA Dextrose 12.5 gm 02/20/25 13:21 Dextrose 50% 25 Gm/50 Ml Syringe IV PUSH PRN PRN Hypoglycemia Protocol Enoxaparin Sodium 40 mg 02/21/25 09:00 02/22/25 08:59 Enoxaparin 40 Mg/0.4 Ml Syringe SUB-Q 40 mg DAILY SONIA Administration Fenofibrate 48 mg 02/21/25 09:00 02/22/25 15:57 Fenofibrate,Micronized 48 Mg Tablet PO 48 mg QAM SONIA Administration Ferrous Sulfate 325 mg 02/20/25 17:00 02/22/25 16:24 Ferrous Sulfate [address] BY MOUTH Not Given BID SONIA Gabapentin 300 mg 02/20/25 21:00 02/22/25 20:33 Gabapentin 300 Mg Capsule PO 300 mg HS SONIA Administration Glucagon 1 mg 02/20/25 13:21 Glucagon For Inj 1 Mg Vial IM PRN PRN Hypoglycemia Protocol Glucose 15 gm 02/20/25 13:21 Glucose Oral Gel 15 Gm Of Glucse In 37.5 Gm Tube PO PRN PRN Hypoglycemia Protocol Dextrose 1,000 mls @ 50 mls/hr 02/20/25 13:21 Dextrose 5% 1,000 Ml IVPB PRN PRN Hypoglycemia Protocol Ceftriaxone Sodium 1 gm/ 50 mls @ 100 mls/hr 02/21/25 12:00 02/22/25 12:01 Sodium Chloride IVPB Infused Q24H [facility] Infusion Azithromycin 500 mg/ Sodium 250 mls @ 250 mls/hr 02/21/25 13:00 02/22/25 13:13 Chloride IVPB Infused Q24H [facility] Infusion Insulin Aspart 2 - 5 units 02/20/25 17:00 02/22/25 17:44 Insulin Aspart (*Bkc) 100 Units/Ml SUB-Q Not Given TIDWM [facility] Protocol Isosorbide Dinitrate 10 mg 02/20/25 17:00 02/22/25 16:25 Isosorbide Dinitrate 10 Mg Tablet PO Not Given BID [facility] Levothyroxine Sodium 50 mcg 02/21/25 06:30 02/23/25 05:03 Levothyroxine Sodium 50 Mcg Tablet PO 50 mcg DAILY@0630 [facility] Administration Home Med ( 1 drop 02/22/25 21:00 02/23/25 05:01 Epinastine 0.05 % EACH EYE 03/24/25 20:59 Not Given Drops) Q12HR [facility] Ondansetron HCl 4 mg 02/20/25 13:17 Ondansetron Inj 4 Mg/2 Ml Vial IV PUSH Q6H PRN Nausea And Vomiting Polyethylene Glycol 17 gm 02/20/25 14:50 Polyethylene Glycol 3350 17 Gm Powd.Pack PO DAILY PRN Constipation Ropinirole HCl 2 mg 02/20/25 14:50 Ropinirole Hcl 1 Mg Tablet PO TID PRN restless legs Sodium Chloride 1 spray 02/20/25 14:50 Saline 0.65% Cali Soln 44 Ml Btl NASAL TID PRN nasal dryness Spironolactone 25 mg 02/21/25 09:00 02/22/25 15:50 Spironolactone 25 Mg Tablet PO 25 mg DAILY SONIA Administration Tramadol HCl 50 mg 02/20/25 14:50 02/22/25 15:38 Tramadol Hcl (*Crx) 50 Mg Tablet PO 50 mg Q6H PRN Administration Pain 4-6 Trazodone HCl 50 mg 02/20/25 14:50 Trazodone Hcl 50 Mg Tablet PO HS PRN Insomnia Radiology Results: ITS Impressions Brain MRI 02/21/25 08:33 IMPRESSION: 1. Small left temporal occipital acute infarct. 2. Avidly enhancing mass in the suprasellar cistern with central calcification suggestive of meningioma. Assessment is however significantly limited on MRI due to prominent motion artifact on multiple sequences included on the post contrast images and a pituitary origin could not be absolutely excluded. Would consider follow-up pituitary protocol MRI when patient's mental status improves sufficient to allow for imaging without motion. 3. Age-related changes including mild diffuse volume loss and moderate scattered white matter T2 hyperintensity consistent with chronic small vessel ischemic disease. Labs Labs: Laboratory Results - last 24 hr 02/22/25 02/22/25 02/22/25 08:06 11:56 16:48 WBC RBC Hgb Hct MCV MCH MCHC RDW Plt Count MPV Immature Gran % (Auto) Neut % (Auto) Lymph % (Auto) Dane % (Auto) Eos % (Auto) Baso % (Auto) Lymph # (Auto) Dane # (Auto) Eos # (Auto) Baso # (Auto) Abs Immat Gran (auto) Absolute Neuts (auto) Absolute Nucleated RBC Nucleated RBC % Sodium Potassium Chloride Carbon Dioxide Anion Gap BUN Creatinine Estim Creat Clear Calc Estimated GFR Glucose POC Capillary Glucose 161 H 132 H 174 H Calcium Magnesium Total Bilirubin AST ALT Alkaline Phosphatase Total Protein Albumin 02/22/25 02/23/25 21:22 04:27 WBC 6.9 RBC 4.39 Hgb 11.5 L Hct 38.3 MCV 87.2 MCH 26.2 MCHC 30.0 L RDW 18.6 H Plt Count 201 MPV 9.2 Immature Gran % (Auto) 0.1 Neut % (Auto) 54.5 Lymph % (Auto) 30.2 Dane % (Auto) 7.4 Eos % (Auto) 7.4 H Baso % (Auto) 0.4 Lymph # (Auto) 2.09 Dane # (Auto) 0.5 Eos # (Auto) 0.5 H Baso # (Auto) 0.0 Abs Immat Gran (auto) 0.01 Absolute Neuts (auto) 3.8 Absolute Nucleated RBC 0.000 Nucleated RBC % 0.0 Sodium 138 Potassium 3.8 Chloride 111 H Carbon Dioxide 19 L Anion Gap 8 BUN 16 Creatinine 1.03 H Estim Creat Clear Calc Not Reportable Estimated GFR 50 L Glucose 135 H POC Capillary Glucose 170 H Calcium 8.7 Magnesium 2.2 Total Bilirubin 0.6 AST 35 ALT < 6 L Alkaline Phosphatase 49 Total Protein 6.4 Albumin 3.4 L Quality VTE Prophylaxis VTE prophylaxis: pharmacologic ordered
[2025-02-23] MEDS: ATORVASTATIN 40 MG TABLET PO (08:28)
[2025-02-23] MEDS: CLOPIDOGREL BISULFATE 75 MG TABLET PO (08:28)
[2025-02-23] MEDS: FERROUS SULFATE 325 MG TABLET DR BY MOUTH ×2 (08:29→17:48)
[2025-02-23] MEDS: ISOSORBIDE DINITRATE 10 MG TABLET PO ×2 (08:29→17:48)
[2025-02-23] MEDS: FENOFIBRATE,MICRONIZED 48 MG TABLET PO (08:29)
[2025-02-23] MEDS: SPIRONOLACTONE 25 MG TABLET PO (08:29)
[2025-02-23] MEDS: ASPIRIN 81 MG ENTERIC TABLET PO (08:29)
[2025-02-23] MEDS: CARBIDOPA/LEVODOPA 25/100 MG CR TABLET 1 TABLET PO ×2 (08:29→20:41)
[2025-02-23] MEDS: ENOXAPARIN 40 MG/0.4 ML SYRINGE SUB-Q (08:35)
[2025-02-23] MEDS: EPINASTINE 0.05% 1 EACH EACH EYE ×2 (08:36→20:41)
--- NOTE | 2025-02-23 08:39 | PCSTNOTE ---
Please refer to the Bedside Swallow Evaluation in the EMR. Please note, silent aspiration cannot be ruled out at bedside. The patient is an 89 year old female admitted with AMS. Orders received to complete a BSE. The patient was positioned upright in bed and assessed with her morning meal that included the following consistencies: thin liquid via straw, solids and puree/soft. Oral Stage: The patient required upper and lower dentures to effectively masticate the bolus and some extra time but oral preparation and transit was overall timely. Pharyngeal Stage: Swallow initiation was viewed to be timely with good laryngeal elevation and no CSA for all consistencies. Recommend: Continue Regular Diet Thin liquid . No further speech services indicated at this time.
--- NOTE | 2025-02-23 11:27 | PCOTNOTE ---
The patient treatment was not able to be completed patient out of the room. Will plan to continue treatment per plan of care.
--- NOTE | 2025-02-23 11:29 | PCPTNOTE ---
Attempted to see patient for PT, however patient was out of the room for testing.
[2025-02-23] MEDS: AZITHROMYCIN 500 MG TABLET PO (12:41)
--- NOTE | 2025-02-23 14:29 | PCOTNOTE ---
The patient treatment was not able to be completed. Patient working with PT at this time. Will plan to continue treatment per plan of care.
[2025-02-23] MEDS: GABAPENTIN 300 MG CAPSULE PO (20:41)
[2025-02-24] VITALS (10 sets, daily range): BP systolic 144–167; BP diastolic 9–79; PULSE 71–86; RESP 18; TEMP 36.3–36.6; O2SAT 92–99
[2025-02-24 05:02] LABS: Hematocrit 38.8 % (37.0-47.0); Hemoglobin 11.6 g/dL (12.0-15.0); Immature Granulocyte Percent A 0.3 % (0-0.5); Lymphocytes Absolute Auto 2.12 K/mm3 (0.9-3.2); Mean Corpuscular HGB Conc 29.9 g/dl (32-36); Mean Corpuscular Hemoglobin 26.3 pg (26-34); Mean Corpuscular Volume 88.0 fl (80-100); Nucleated Red Blood Cells Absolute Auto 0.000 K/mm3 (0.0-0.012); Nucleated Red Blood Cells Perc 0.0 % (0.0-0.2); Platelet Count Result 220 k/mm3 (150-375); Red Blood Count 4.41 M/mm3 (4.2-5.4); White Blood Count 7.2 K/mm3 (4.5-10.0)
[2025-02-24 05:18] LABS: Alanine Aminotransferase 6 U/L (6-35); Albumin Level 3.7 g/dL (3.5-5.1); Alkaline Phosphatase 57 U/L (38-126); Anion Gap 7 mmol/L (4-12); Aspartate Amino Transferase 35 U/L (14-36); Bilirubin,Total 0.5 mg/dL (0.2-1.3); Blood Urea Nitrogen 19 mg/dL (7-17); Calcium 9.1 mg/dL (8.4-10.2); Carbon Dioxide 23 mmol/L (22-30); Chloride 108 mmol/L (98-107); Estimated Glomerular Filt Rate 48; Glucose 114 mg/dL (65-110); Magnesium 2.0 mg/dL (1.6-2.3); Potassium 4.1 mmol/L (3.4-5.0); Sodium 138 mmol/L (137-145); Total Protein 6.7 g/dL (6.3-8.2)
[2025-02-24] MEDS: LEVOTHYROXINE SODIUM 50 MCG TABLET PO (05:36)
[2025-02-24] MEDS: ENOXAPARIN 40 MG/0.4 ML SYRINGE SUB-Q (09:26)
[2025-02-24] MEDS: FERROUS SULFATE 325 MG TABLET DR BY MOUTH ×2 (09:27→16:22)
[2025-02-24] MEDS: EPINASTINE 0.05% 1 EACH EACH EYE ×2 (09:27→20:05)
[2025-02-24] MEDS: CLOPIDOGREL BISULFATE 75 MG TABLET PO (09:27)
[2025-02-24] MEDS: ASPIRIN 81 MG ENTERIC TABLET PO (09:27)
[2025-02-24] MEDS: ATORVASTATIN 40 MG TABLET PO (09:27)
[2025-02-24] MEDS: SPIRONOLACTONE 25 MG TABLET PO (09:27)
[2025-02-24] MEDS: FENOFIBRATE,MICRONIZED 48 MG TABLET PO (09:27)
[2025-02-24] MEDS: ISOSORBIDE DINITRATE 10 MG TABLET PO ×2 (09:27→16:22)
[2025-02-24] MEDS: CARBIDOPA/LEVODOPA 25/100 MG CR TABLET 1 TABLET PO ×2 (09:27→20:04)
--- NOTE | 2025-02-24 11:37 | P.PNIM_ITS ---
Progress Note: A&P Assessment and Plan (1) Acute CVA (cerebrovascular accident): Code(s): I63.9 - Cerebral infarction, unspecified Status: Acute Assessment and Plan: - presented with AMS. LKW unclear. Normally alert and oriented x4 and lives alone. - CT and CTA [place]: a 2.5 x 2.4 cm centrally calcified suprasellar mass. No acute LVO or significant stenosis. - MRI brain with small left temporal occipital acute infarct - continue neuro checks - PT/OT - recommended SNF - [facility] - recommended regular diet - monitor on telemetry - continue ASA, Plavix, atorvastatin. - neurology followed. (2) Altered mental status: Code(s): R41.82 - Altered mental status, unspecified Status: Acute Assessment and Plan: -patient with altered mental status unknown last known well. Patient lives alone, she was alert and oriented x4, caring for herself presented to the emergency department with altered mental status, aphasia - viral panel negative -TSH elevated T4 WNL patient history of hypothyroidism unsure if patient was taking her medication - ammonia level within normal limits - neuroimaging as above - UA negative - CXR with atelectasis versus infiltrates - management of pnuemonia as below - patient received IV Ativan 2mg prior to MRI which caused increased sedation and confusion. Continues to improve. - initial AMS may be secondary to acute CVA vs infection vs dehydration - continue to monitor mental status (3) Pneumonia: Qualifiers: Laterality: unspecified laterality Lung location: unspecified part of lung Pneumonia type: due to unspecified organism Qualified Code(s): J18.9 - Pneumonia, unspecified organism Code(s): J18.9 - Pneumonia, unspecified organism Status: Acute Assessment and Plan: -chest x-ray with patchy opacities in the left mid and lower lung -afebrile, no leukocytosis. Procalcitonin 0.1. -per family, patient had productive cough prior to onset of altered mental status - completed azithromycin 500 mg x3 days - transitioned to Levaquin to complete 5 day course (4) Meningioma: Code(s): D32.9 - Benign neoplasm of meninges, unspecified Status: Acute Assessment and Plan: - MRI brain Avidly enhancing mass in the suprasellar cistern with central calcif ication suggestive of meningioma. Assessment is however significantly limited on MRI due to prominent motion artifact on multiple sequences included on the post contrast images and a pituitary origin could not be absolutely excluded. Would consider follow-up pituitary protocol MRI when patient's mental status improves sufficient to allow for imaging without motion. -neurosurgery consulted- highly unlikely that this is causing patient's altered mental status. Dr. Brown recommended MRI pituitary gland once patient is able to hold still (inpatient vs. outpatient) and follow-up with neurosurgery as outpatient for further endocrine labs. No acute surgical intervention warranted. Also recommended Ophthalmology consultation as outpatient (5) Essential hypertension: Code(s): I10 - Essential (primary) hypertension Status: Acute Assessment and Plan: - BP stable -continue home Imdur (6) Diabetes mellitus: Code(s): E11.9 - Type 2 diabetes mellitus without complications Status: Acute Assessment and Plan: - Accu-Checks a.c. HS - low-dose SSI - hypoglycemic protocol - diabetic diet - patient on Levemir 20u at home, resume long-acting insulin as needed. (7) Hypothyroidism: Code(s): E03.9 - Hypothyroidism, unspecified Status: Acute Assessment and Plan: - patient with history of hypothyroidism TSH 8.320/Free t4 1.09 - continue Synthroid (8) SILVINO (acute kidney injury): Code(s): N17.9 - Acute kidney failure, unspecified Status: Acute Assessment and Plan: - Cr fluctuating, baseline appears around 1.0 - patient with good urinary output and intake -avoid nephrotoxins (9) Parkinsons: Code(s): G20.A1 - Parkinson's disease without dyskinesia, without mention of fluctuations Status: Acute Assessment and Plan: - continue home carbidopa levodopa (10) Neuropathy: Code(s): G62.9 - Polyneuropathy, unspecified Status: Acute Assessment and Plan: - continue gabapentin (11) Cardiomyopathy: Code(s): I42.9 - Cardiomyopathy, unspecified Status: Acute Assessment and Plan: - echo with EF 40-45%, grade 1 diastolic dysfunction - per history per family, follows with Dr. Sanderson as outpatient - monitor volume status (12) Aortic stenosis: Code(s): I35.0 - Nonrheumatic aortic (valve) stenosis Status: Acute Assessment and Plan: - echo with severe aortic valve stenosis, CHEPE 0.7 cm2 - called patient's cardiology office (Dr. Sanderson, [facility]). Patient was being followed for this and TAVR has been discussed. Office recommended following up as soon as possible as outpatient to discuss options. (13) Edema of left upper extremity: Code(s): R60.0 - Localized edema Status: Acute Assessment and Plan: - LUE doppler negative for DVT - likely dependent edema as patient has chronic left shoulder pain and has minimal use of her left arm (14) Bilateral shoulder pain: Code(s): M25.511 - Pain in right shoulder; M25.512 - Pain in left shoulder Status: Acute Assessment and Plan: - bruising noted over bilateral shoulders - bilateral shoulder XR with severe arthritis, no acute process Plan Code status: Full code per family DVT prophylaxis: Lovenox Disposition: [facility] Date/time seen: 02/24/25 11:37 Interval history: Patient is an 89-year-old female who presented to the emergency department via EMS at [facility] and transferred to [facility] for further neurological ev aluation. Patient seen and examined at bedside. Alert and oriented x3-4 this AM. Denies pain. Review of Systems Review of Systems: All systems reviewed & are unremarkable except as noted in HPI and below Exam Narrative: General: NAD Eyes: EOMI ENT: neck supple Cardiovascular: Regular rate and rhythm, +systolic murmur Respiratory: Clear to auscultation, respirations even and unlabored on RA Gastrointestinal: Soft, non tender Genitourinary: no suprapubic tenderness Musculoskeletal: +LUE edema with tenderness to palpation Skin: warm, dry Neuro: Alert and oriented x3-4. Face symmetric. Speech clear. Psych: Mood appropriate Objective Data Vital Signs Vital Signs: Vital Signs - 24 hr 02/23/25 12:00 02/23/25 14:48 02/23/25 16:00 Temperature 97.4 F L Pulse Rate 80 71 63 Respiratory Rate 18 Blood Pressure 139/58 L Pulse Oximetry 98 Oxygen Delivery 02/23/25 20:00 02/23/25 20:00 02/23/25 22:00 Temperature 98.2 F Pulse Rate 72 73 Respiratory Rate 18 Blood Pressure 150/62 H Pulse Oximetry 100 Oxygen Delivery Room Air 02/24/25 00:00 02/24/25 04:00 02/24/25 06:00 Temperature 97.3 F L Pulse Rate 74 83 71 Respiratory Rate 18 Blood Pressure 149/9 H Pulse Oximetry 92 Oxygen Delivery 02/24/25 07:46 02/24/25 08:00 Temperature Pulse Rate 81 Respiratory Rate Blood Pressure Pulse Oximetry Oxygen Delivery Room Air Intake/Output Intake/Output: Intake & Output 02/21/25 02/22/25 02/23/25 02/24/25 23:59 23:59 23:59 23:59 Intake Total 2300.0 1599.2 680 240 Output Total 1500 525 400 801 Balance 800.0 1074.2 280 -561 Meds/Results Medications: Active Medications Generic Name Dose Route Start Last Admin Trade Name Freq PRN Reason Stop Dose Admin Acetaminophen 650 mg 02/20/25 13:17 Acetaminophen 325 Mg Tablet PO Q4H PRN Mild Pain (1-3) or Fever Aspirin 81 mg 02/21/25 09:00 02/24/25 09:27 Aspirin 81 Mg Enteric Tablet PO 81 mg DAILY SONIA Administration Atorvastatin Calcium 40 mg 02/21/25 11:50 02/24/25 09:27 Atorvastatin 40 Mg Tablet PO 40 mg DAILY SONIA Administration Carbidopa/Levodopa 1 tablet 02/20/25 21:00 02/24/25 09:27 Carbidopa/Levodopa 25/100 Mg Cr Tablet PO 1 tablet Q12H SONIA Administration Clopidogrel Bisulfate 75 mg 02/21/25 11:50 02/24/25 09:27 Clopidogrel Bisulfate 75 Mg Tablet PO 75 mg QAM SONIA Administration Dextrose 12.5 gm 02/20/25 13:21 Dextrose 50% 25 Gm/50 Ml Syringe IV PUSH PRN PRN Hypoglycemia Protocol Enoxaparin Sodium 40 mg 02/21/25 09:00 02/24/25 09:26 Enoxaparin 40 Mg/0.4 Ml Syringe SUB-Q 40 mg DAILY SONIA Administration Fenofibrate 48 mg 02/21/25 09:00 02/24/25 09:27 Fenofibrate,Micronized 48 Mg Tablet PO 48 mg QAM SONIA Administration Ferrous Sulfate 325 mg 02/20/25 17:00 02/24/25 09:27 Ferrous Sulfate [address] BY MOUTH 325 mg BID SONIA Administration Gabapentin 300 mg 02/20/25 21:00 02/23/25 20:41 Gabapentin 300 Mg Capsule PO 300 mg HS SONIA Administration Glucagon 1 mg 02/20/25 13:21 Glucagon For Inj 1 Mg Vial IM PRN PRN Hypoglycemia Protocol Glucose 15 gm 02/20/25 13:21 Glucose Oral Gel 15 Gm Of Glucse In 37.5 Gm Tube PO PRN PRN Hypoglycemia Protocol Dextrose 1,000 mls @ 50 mls/hr 02/20/25 13:21 Dextrose 5% 1,000 Ml IVPB PRN PRN Hypoglycemia Protocol Insulin Aspart 2 - 5 units 02/20/25 17:00 02/24/25 09:26 Insulin Aspart (*Bkc) 100 Units/Ml SUB-Q Not Given TIDWM [facility] Protocol Isosorbide Dinitrate 10 mg 02/20/25 17:00 02/24/25 09:27 Isosorbide Dinitrate 10 Mg Tablet PO 10 mg BID SONIA Administration Levofloxacin 250 mg 02/24/25 09:00 02/24/25 09:27 Levofloxacin 250 Mg Tablet PO 250 mg QAM [facility] Administration Levothyroxine Sodium 50 mcg 02/21/25 06:30 02/24/25 05:36 Levothyroxine Sodium 50 Mcg Tablet PO 50 mcg DAILY@0630 [facility] Administration Home Med ( 1 drop 02/22/25 21:00 02/24/25 09:27 Epinastine 0.05 % EACH EYE 03/24/25 20:59 1 drop Drops) Q12HR [facility] Administration Ondansetron HCl 4 mg 02/20/25 13:17 Ondansetron Inj 4 Mg/2 Ml Vial IV PUSH Q6H PRN Nausea And Vomiting Polyethylene Glycol 17 gm 02/20/25 14:50 Polyethylene Glycol 3350 17 Gm Powd.Pack PO DAILY PRN Constipation Ropinirole HCl 2 mg 02/20/25 14:50 Ropinirole Hcl 1 Mg Tablet PO TID PRN restless legs Sodium Chloride 1 spray 02/20/25 14:50 Saline 0.65% Cali Soln 44 Ml Btl NASAL TID PRN nasal dryness Spironolactone 25 mg 02/21/25 09:00 02/24/25 09:27 Spironolactone 25 Mg Tablet PO 25 mg DAILY SONIA Administration Tramadol HCl 50 mg 02/20/25 14:50 02/22/25 15:38 Tramadol Hcl (*Crx) 50 Mg Tablet PO 50 mg Q6H PRN Administration Pain 4-6 Trazodone HCl 50 mg 02/20/25 14:50 Trazodone Hcl 50 Mg Tablet PO HS PRN Insomnia Radiology Results: ITS Impressions Brain MRI 02/21/25 08:33 IMPRESSION: 1. Small left temporal occipital acute infarct. 2. Avidly enhancing mass in the suprasellar cistern with central calcification suggestive of meningioma. Assessment is however significantly limited on MRI due to prominent motion artifact on multiple sequences included on the post contrast images and a pituitary origin could not be absolutely excluded. Would consider follow-up pituitary protocol MRI when patient's mental status improves sufficient to allow for imaging without motion. 3. Age-related changes including mild diffuse volume loss and moderate scattered white matter T2 hyperintensity consistent with chronic small vessel ischemic disease. Venous Doppler Study 02/23/25 12:40 IMPRESSION: 1: No left upper extremity deep venous thrombosis identified. 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 Labs Labs: Laboratory Results - last 24 hr 02/23/25 02/23/25 02/24/25 17:16 20:02 04:26 WBC 7.2 RBC 4.41 Hgb 11.6 L Hct 38.8 MCV 88.0 MCH 26.3 MCHC 29.9 L RDW 18.2 H Plt Count 220 MPV 9.5 Immature Gran % (Auto) 0.3 Neut % (Auto) 53.6 Lymph % (Auto) 29.7 Drew % (Auto) 8.7 H Eos % (Auto) 7.3 H Baso % (Auto) 0.4 Lymph # (Auto) 2.12 Drew # (Auto) 0.6 Eos # (Auto) 0.5 H Baso # (Auto) 0.0 Abs Immat Gran (auto) 0.02 Absolute Neuts (auto) 3.8 Absolute Nucleated RBC 0.000 Nucleated RBC % 0.0 Sodium 138 Potassium 4.1 Chloride 108 H Carbon Dioxide 23 Anion Gap 7 BUN 19 H Creatinine 1.08 H Estim Creat Clear Calc Not Reportable Estimated GFR 48 L Glucose 114 H POC Capillary Glucose 141 H 141 H Calcium 9.1 Magnesium 2.0 Total Bilirubin 0.5 AST 35 ALT 6 Alkaline Phosphatase 57 Total Protein 6.7 Albumin 3.7 02/24/25 07:55 WBC RBC Hgb Hct MCV MCH MCHC RDW Plt Count MPV Immature Gran % (Auto) Neut % (Auto) Lymph % (Auto) Drew % (Auto) Eos % (Auto) Baso % (Auto) Lymph # (Auto) Drew # (Auto) Eos # (Auto) Baso # (Auto) Abs Immat Gran (auto) Absolute Neuts (auto) Absolute Nucleated RBC Nucleated RBC % Sodium Potassium Chloride Carbon Dioxide Anion Gap BUN Creatinine Estim Creat Clear Calc Estimated GFR Glucose POC Capillary Glucose 97 Calcium Magnesium Total Bilirubin AST ALT Alkaline Phosphatase Total Protein Albumin
[2025-02-24] MEDS: LOSARTAN POTASSIUM 12.5 MG TABLET PO (14:42)
[2025-02-24] MEDS: GABAPENTIN 300 MG CAPSULE PO (20:04)
[2025-02-24] MEDS: MELATONIN 5 MG TABLET PO (20:04)
[2025-02-25] VITALS: PULSE 80
[2025-02-25 04:00] VITALS: PULSE 82
[2025-02-25 04:33] LABS: Anion Gap 9 mmol/L (4-12); Blood Urea Nitrogen 15 mg/dL (7-17); Calcium 9.2 mg/dL (8.4-10.2); Carbon Dioxide 19 mmol/L (22-30); Chloride 110 mmol/L (98-107); Estimated Glomerular Filt Rate 56; Glucose 137 mg/dL (65-110); Potassium 3.6 mmol/L (3.4-5.0); Sodium 138 mmol/L (137-145)
[2025-02-25] MEDS: LEVOTHYROXINE SODIUM 50 MCG TABLET PO (05:40)
[2025-02-25 06:00] VITALS: BP 153/78; PULSE 80; RESP 18; TEMP 36.7; O2SAT 98
--- NOTE | 2025-02-25 07:29 | P.PNIM_ITS ---
Progress Note: A&P Assessment and Plan (1) Acute CVA (cerebrovascular accident): Code(s): I63.9 - Cerebral infarction, unspecified Status: Acute Assessment and Plan: - presented with AMS. LKW unclear. Normally alert and oriented x4 and lives alone. - CT and CTA [place]: a 2.5 x 2.4 cm centrally calcified suprasellar mass. No acute LVO or significant stenosis. - MRI brain with small left temporal occipital acute infarct - PT/OT - recommended SNF - [facility] - recommended regular diet - monitor on telemetry - continue ASA, Plavix, atorvastatin. - now back to baseline with no residual neuro deficits - neurology followed. (2) Altered mental status: Code(s): R41.82 - Altered mental status, unspecified Status: Acute Assessment and Plan: -patient with altered mental status unknown last known well. Patient lives alone, she was alert and oriented x4, caring for herself presented to the emergency department with altered mental status, aphasia - viral panel negative -TSH elevated T4 WNL patient history of hypothyroidism unsure if patient was taking her medication - ammonia level within normal limits - neuroimaging as above - UA negative - CXR with atelectasis versus infiltrates - management of pnuemonia as below - patient received IV Ativan 2mg prior to MRI which caused increased sedation and confusion. Continues to improve. - initial AMS may be secondary to acute CVA vs infection vs dehydration - now back to baseline (3) Pneumonia: Qualifiers: Laterality: unspecified laterality Lung location: unspecified part of lung Pneumonia type: due to unspecified organism Qualified Code(s): J18.9 - Pneumonia, unspecified organism Code(s): J18.9 - Pneumonia, unspecified organism Status: Acute Assessment and Plan: -chest x-ray with patchy opacities in the left mid and lower lung -afebrile, no leukocytosis. Procalcitonin 0.1. -per family, patient had productive cough prior to onset of altered mental status - completed azithromycin 500 mg x3 days - transitioned to Levaquin to complete 5 day course (4) Meningioma: Code(s): D32.9 - Benign neoplasm of meninges, unspecified Status: Acute Assessment and Plan: - MRI brain Avidly enhancing mass in the suprasellar cistern with central calcification suggestive of meningioma. Assessment is however significantly limited on MRI due to prominent motion artifact on multiple sequences included on the post contrast images and a pituitary origin could not be absolutely excluded. Would consider follow-up pituitary protocol MRI when patient's mental status improves sufficient to allow for imaging without motion. -neurosurgery consulted- highly unlikely that this is causing patient's altered mental status. Dr. Brown recommended MRI pituitary gland once patient is able to hold still (inpatient vs. outpatient) and follow-up with neurosurgery as outpatient for further endocrine labs. No acute surgical intervention warranted. Also recommended Ophthalmology consultation as outpatient (5) Essential hypertension: Code(s): I10 - Essential (primary) hypertension Status: Acute Assessment and Plan: - BP trend high -continue home Imdur. Started low dose losartan. - Monitor BP trend (6) Diabetes mellitus: Code(s): E11.9 - Type 2 diabetes mellitus without complications Status: Acute Assessment and Plan: - Hgb A1c 6.7 - Accu-Checks a.c. HS - low-dose SSI - hypoglycemic protocol - diabetic diet - patient on Levemir 20u at home, resume long-acting insulin as needed. (7) Hypothyroidism: Code(s): E03.9 - Hypothyroidism, unspecified Status: Acute Assessment and Plan: - patient with history of hypothyroidism TSH 8.320/Free t4 1.09 - continue Synthroid (8) SILVINO (acute kidney injury): Code(s): N17.9 - Acute kidney failure, unspecified Status: Acute Assessment and Plan: - Cr fluctuating, baseline appears around 1.0 - patient with good urinary output and intake -avoid nephrotoxins (9) Parkinsons: Code(s): G20.A1 - Parkinson's disease without dyskinesia, without mention of fluctuations Status: Acute Assessment and Plan: - continue home carbidopa levodopa (10) Neuropathy: Code(s): G62.9 - Polyneuropathy, unspecified Status: Acute Assessment and Plan: - continue gabapentin (11) Cardiomyopathy: Code(s): I42.9 - Cardiomyopathy, unspecified Status: Acute Assessment and Plan: - echo with EF 40-45%, grade 1 diastolic dysfunction - per history per family, follows with Dr. Sanderson as outpatient - monitor volume status - started losartan (12) Aortic stenosis: Code(s): I35.0 - Nonrheumatic aortic (valve) stenosis Status: Acute Assessment and Plan: - echo with severe aortic valve stenosis, CHEPE 0.7 cm2 - called patient's cardiology office (Dr. Sanderson, [facility]). Patient was being followed for this and TAVR has been discussed. Office recommended following up as soon as possible as outpatient to discuss options. (13) Edema of left upper extremity: Code(s): R60.0 - Localized edema Status: Acute Assessment and Plan: - LUE doppler negative for DVT - likely dependent edema as patient has chronic left shoulder pain and has minimal use of her left arm (14) Bilateral shoulder pain: Code(s): M25.511 - Pain in right shoulder; M25.512 - Pain in left shoulder Status: Acute Assessment and Plan: - bruising noted over bilateral shoulders - bilateral shoulder XR with severe arthritis, no acute process Plan Code status: Full code per family DVT prophylaxis: Lovenox Disposition: [facility] Date/time seen: 02/25/25 07:29 Interval history: Patient is an 89-year-old female who presented to the emergency department via EMS at [place] and transferred to [facility] for further neurological evaluation. Patient seen and examined at bedside. Alert and oriented x3-4 this AM. Denies pain. Review of Systems Review of Systems: All systems reviewed & are unremarkable except as noted in HPI and below Exam Narrative: General: NAD Eyes: EOMI ENT: neck supple Cardiovascular: Regular rate and rhythm, +systolic murmur Respiratory: Clear to auscultation, respirations even and unlabored on RA Gastrointestinal: Soft, non tender Genitourinary: no suprapubic tenderness Musculoskeletal: +LUE edema with tenderness to palpation Skin: warm, dry Neuro: Alert and oriented x3-4. Face symmetric. Speech clear. Psych: Mood appropriate Objective Data Vital Signs Vital Signs: Vital Signs - 24 hr 02/24/25 07:46 02/24/25 08:00 02/24/25 12:00 Temperature Pulse Rate 81 86 Respiratory Rate Blood Pressure Pulse Oximetry Oxygen Delivery Room Air 02/24/25 13:21 02/24/25 16:00 02/24/25 20:00 Temperature 97.5 F L Pulse Rate 85 80 Respiratory Rate 18 Blood Pressure 167/77 H Pulse Oximetry 97 Oxygen Delivery Room Air 02/24/25 20:00 02/24/25 21:04 02/24/25 22:00 Temperature 97.8 F Pulse Rate 82 82 Respiratory Rate 18 Blood Pressure 144/79 H Pulse Oximetry 94 99 Oxygen Delivery Room Air 02/25/25 00:00 02/25/25 04:00 02/25/25 06:00 Temperature 98.1 F Pulse Rate 80 82 80 Respiratory Rate 18 Blood Pressure 153/78 H Pulse Oximetry 98 Oxygen Delivery 02/25/25 07:17 Temperature Pulse Rate Respiratory Rate Blood Pressure Pulse Oximetry Oxygen Delivery Room Air Intake/Output Intake/Output: Intake & Output 02/22/25 02/23/25 02/24/25 02/25/25 23:59 23:59 23:59 23:59 Intake Total 1599.2 680 480 Output Total 525 400 801 700 Balance 1074.2 280 -673 -700 Meds/Results Medications: Active Medications Generic Name Dose Route Start Last Admin Trade Name Freq PRN Reason Stop Dose Admin Acetaminophen 650 mg 02/20/25 13:17 Acetaminophen 325 Mg Tablet PO Q4H PRN Mild Pain (1-3) or Fever Aspirin 81 mg 02/21/25 09:00 02/24/25 09:27 Aspirin 81 Mg Enteric Tablet PO 81 mg DAILY SONIA Administration Atorvastatin Calcium 40 mg 02/21/25 11:50 02/24/25 09:27 Atorvastatin 40 Mg Tablet PO 40 mg DAILY SONIA Administration Carbidopa/Levodopa 1 tablet 02/20/25 21:00 02/24/25 20:04 Carbidopa/Levodopa 25/100 Mg Cr Tablet PO 1 tablet Q12H SONIA Administration Clopidogrel Bisulfate 75 mg 02/21/25 11:50 02/24/25 09:27 Clopidogrel Bisulfate 75 Mg Tablet PO 75 mg QAM SONIA Administration Dextrose 12.5 gm 02/20/25 13:21 Dextrose 50% 25 Gm/50 Ml Syringe IV PUSH PRN PRN Hypoglycemia Protocol Enoxaparin Sodium 40 mg 02/21/25 09:00 02/24/25 09:26 Enoxaparin 40 Mg/0.4 Ml Syringe SUB-Q 40 mg DAILY SONIA Administration Fenofibrate 48 mg 02/21/25 09:00 02/24/25 09:27 Fenofibrate,Micronized 48 Mg Tablet PO 48 mg QAM SONIA Administration Ferrous Sulfate 325 mg 02/20/25 17:00 02/24/25 16:22 Ferrous Sulfate [address] BY MOUTH 325 mg BID SONIA Administration Gabapentin 300 mg 02/20/25 21:00 02/24/25 20:04 Gabapentin 300 Mg Capsule PO 300 mg HS SONIA Administration Glucagon 1 mg 02/20/25 13:21 Glucagon For Inj 1 Mg Vial IM PRN PRN Hypoglycemia Protocol Glucose 15 gm 02/20/25 13:21 Glucose Oral Gel 15 Gm Of Glucse In 37.5 Gm Tube PO PRN PRN Hypoglycemia Protocol Dextrose 1,000 mls @ 50 mls/hr 02/20/25 13:21 Dextrose 5% 1,000 Ml IVPB PRN PRN Hypoglycemia Protocol Insulin Aspart 2 - 5 units 02/20/25 17:00 02/25/25 07:10 Insulin Aspart (*Bkc) 100 Units/Ml SUB-Q Not Given TIDWM SONIA Protocol Isosorbide Dinitrate 10 mg 02/20/25 17:00 02/24/25 16:22 Isosorbide Dinitrate 10 Mg Tablet PO 10 mg BID SONIA Administration Levofloxacin 250 mg 02/24/25 09:00 02/24/25 09:27 Levofloxacin 250 Mg Tablet PO 250 mg QAM SONIA Administration Levothyroxine Sodium 50 mcg 02/21/25 06:30 02/25/25 05:40 Levothyroxine Sodium 50 Mcg Tablet PO 50 mcg DAILY@0630 SONIA Administration Losartan Potassium 12.5 mg 02/24/25 14:25 02/24/25 14:42 Losartan Potassium 12.5 Mg Tablet PO 12.5 mg DAILY SONIA Administration Melatonin 5 mg 02/24/25 20:00 02/24/25 20:04 Melatonin 5 Mg Tablet PO 5 mg HS PRN Administration Insomnia Home Med ( 1 drop 02/22/25 21:00 02/24/25 20:05 Epinastine 0.05 % EACH EYE 03/24/25 20:59 1 drop Drops) Q12HR SONIA Administration Ondansetron HCl 4 mg 02/20/25 13:17 Ondansetron Inj 4 Mg/2 Ml Vial IV PUSH Q6H PRN Nausea And Vomiting Polyethylene Glycol 17 gm 02/20/25 14:50 Polyethylene Glycol 3350 17 Gm Powd.Pack PO DAILY PRN Constipation Ropinirole HCl 2 mg 02/20/25 14:50 Ropinirole Hcl 1 Mg Tablet PO TID PRN restless legs Sodium Chloride 1 spray 02/20/25 14:50 Saline 0.65% Cali Soln 44 Ml Btl NASAL TID PRN nasal dryness Spironolactone 25 mg 02/21/25 09:00 02/24/25 09:27 Spironolactone 25 Mg Tablet PO 25 mg DAILY SONIA Administration Tramadol HCl 50 mg 02/20/25 14:50 02/22/25 15:38 Tramadol Hcl (*Crx) 50 Mg Tablet PO 50 mg Q6H PRN Administration Pain 4-6 Trazodone HCl 50 mg 02/20/25 14:50 02/24/25 23:50 Trazodone Hcl 50 Mg Tablet PO 50 mg HS PRN Administration Insomnia Radiology Results: ITS Impressions Brain MRI 02/21/25 08:33 IMPRESSION: 1. Small left temporal occipital acute infarct. 2. Avidly enhancing mass in the suprasellar cistern with central calcification suggestive of meningioma. Assessment is however significantly limited on MRI due to prominent motion artifact on multiple sequences included on the post contrast images and a pituitary origin could not be absolutely excluded. Would consider follow-up pituitary protocol MRI when patient's mental status improves sufficient to allow for imaging without motion. 3. Age-related changes including mild diffuse volume loss and moderate scattered white matter T2 hyperintensity consistent with chronic small vessel ischemic disease. Venous Doppler Study 02/23/25 12:40 IMPRESSION: 1: No left upper extremity deep venous thrombosis identified. 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 Labs Labs: Laboratory Results - last 24 hr 02/24/25 02/24/25 02/24/25 07:55 11:52 16:43 Sodium Potassium Chloride Carbon Dioxide Anion Gap BUN Creatinine Estim Creat Clear Calc Estimated GFR Glucose POC Capillary Glucose 97 127 H 151 H Calcium 02/24/25 02/25/25 20:42 03:52 Sodium 138 Potassium 3.6 Chloride 110 H Carbon Dioxide 19 L Anion Gap 9 BUN 15 Creatinine 0.94 Estim Creat Clear Calc Not Reportable Estimated GFR 56 L Glucose 137 H POC Capillary Glucose 189 H Calcium 9.2 Quality VTE Prophylaxis VTE prophylaxis: pharmacologic ordered
[2025-02-25 08:00] VITALS: PULSE 82
[2025-02-25] MEDS: EPINASTINE 0.05% 1 EACH EACH EYE (08:19)
[2025-02-25] MEDS: ATORVASTATIN 40 MG TABLET PO (08:20)
[2025-02-25] MEDS: CARBIDOPA/LEVODOPA 25/100 MG CR TABLET 1 TABLET PO (08:20)
[2025-02-25] MEDS: FERROUS SULFATE 325 MG TABLET DR BY MOUTH (08:20)
[2025-02-25] MEDS: SPIRONOLACTONE 25 MG TABLET PO (08:20)
[2025-02-25] MEDS: ASPIRIN 81 MG ENTERIC TABLET PO (08:20)
[2025-02-25] MEDS: FENOFIBRATE,MICRONIZED 48 MG TABLET PO (08:20)
[2025-02-25] MEDS: ENOXAPARIN 40 MG/0.4 ML SYRINGE SUB-Q (08:20)
[2025-02-25] MEDS: ISOSORBIDE DINITRATE 10 MG TABLET PO (08:20)
[2025-02-25] MEDS: CLOPIDOGREL BISULFATE 75 MG TABLET PO (08:20)
[2025-02-25] MEDS: LOSARTAN POTASSIUM 12.5 MG TABLET PO (08:20)
--- NOTE | 2025-02-25 11:25 | PM.DS ---
DS: Admitting Diagnosis Discharge Date 02/25/25 Admitting Diagnosis - altered mental status - meningioma - HTN -T2DM - hypothyroidism - SILVINO DS: Discharge Diagnosis Discharge Diagnosis (1) Acute CVA (cerebrovascular accident): Code(s): I63.9 - Cerebral infarction, unspecified Status: Acute (2) Altered mental status: Code(s): R41.82 - Altered mental status, unspecified Status: Acute (3) Pneumonia: Qualifiers: Laterality: unspecified laterality Lung location: unspecified part of lung Pneumonia type: due to unspecified organism Qualified Code(s): J18.9 - Pneumonia, unspecified organism Code(s): J18.9 - Pneumonia, unspecified organism Status: Acute (4) Meningioma: Code(s): D32.9 - Benign neoplasm of meninges, unspecified Status: Acute (5) Essential hypertension: Code(s): I10 - Essential (primary) hypertension Status: Acute (6) Diabetes mellitus: Code(s): E11.9 - Type 2 diabetes mellitus without complications Status: Acute (7) Hypothyroidism: Code(s): E03.9 - Hypothyroidism, unspecified Status: Acute (8) SILVINO (acute kidney injury): Code(s): N17.9 - Acute kidney failure, unspecified Status: Acute (9) Parkinsons: Code(s): G20.A1 - Parkinson's disease without dyskinesia, without mention of fluctuations Status: Acute (10) Neuropathy: Code(s): G62.9 - Polyneuropathy, unspecified Status: Acute (11) Cardiomyopathy: Code(s): I42.9 - Cardiomyopathy, unspecified Status: Acute (12) Aortic stenosis: Code(s): I35.0 - Nonrheumatic aortic (valve) stenosis Status: Acute (13) Edema of left upper extremity: Code(s): R60.0 - Localized edema Status: Acute (14) Bilateral shoulder pain: Code(s): M25.511 - Pain in right shoulder; M25.512 - Pain in left shoulder Status: Acute DS: Summary Hospital Course Reason for hospitalization: - altered mental status - meningioma - HTN -T2DM - hypothyroidism - SILVINO Hospital Course: Patient is an 89-year-old female who originally presented to the [facility] emergency department with altered mental status, aphasia. Work-up at [facility] showed CT head and CTA head and neck with a 2.5 x 2.4 cm centrally calcified suprasellar mass. No acute LVO or significant stenosis. CXR patchy opacities in the left mid and lower lung. with Bicarb 19, Cr 1.04, GFR 50, AST 38, procal 0.1, TSH 8.32, free T4 1.09. Patient was initially admitted to [facility] for treatment of possible pneumonia causing altered mental status. Patient continued to have aphasia and case was discussed with on-call Neurology who recommended patient be transferred to [place] for further neurologic evaluation including MRI brain. MRI brain showed a small left temporal occipital acute infarct. Neurology was consulted. Patient was continued on aspirin 81 mg and started on Plavix 75 mg. Pravastatin was stopped and atorvastatin 40 mg was started. Patient was continued on IV Rocephin and azithromycin for possible pneumonia. Her mental status did improve however continued to fluctuate while in the hospital. Patient does have some mild baseline memory impairment and likely had a component of hospital-acquired delirium during admission. PT/OT evaluated and recommended SNF. She will follow-up with neurology as an outpatient. Patient was transitioned to Levaquin for pneumonia in light of penicillin allergy to complete a 5 day course. She remained afebrile without leukocytosis. MRI brain also showed avidly enhancing mass in the suprasellar cistern with central calcification suggestive of meningioma. Assessment is however significantly limited on MRI due to prominent motion artifact on multiple sequences included on the post contrast images and a pituitary origin could not be absolutely excluded. Neurosurgery consulted and felt that it was highly unlikely that this finding was causing patient's altered mental status. Recommended MRI pituitary gland as outpatient and follow-up with neurosurgery as outpatient for further endocrine labs. No acute surgical intervention warranted. Also recommended ophthalmology consultation as outpatient. Patient has history of hypertension and BP trend was high in the hospital. In light of acute stroke and the need for better BP control, patient was started on low-dose losartan. She will continue Imdur and Aldactone. SNF was instructed to monitor BP and to titrate meds as needed. In regards to patient's diabetes, patient was previously managed on Levemir 20u daily, but patient's family reports she has been noncompliant with her insulin for a long time. Patient has expressed not wanting aggressive management of her diabetes. Her Hgb a1c was only 6.7. She did not require insulin while admitted. SNF instructed to monitor blood sugars and consider adding medication if needed. In regards to patient's hypothyroidism, TSH 8.320/Free t4 1.09. Unclear if patient is compliant with Synthroid. Recommend to continue Synthroid 50 mcg and repeat TSH in 4-6 weeks. Patient had mild SILVINO on admission with Cr 1.0, baseline 0.7. She received IV fluids with improvement. Instructed SNF to obtain repeat BMP in 3 days. Patient's echocardiogram showed EF 40-45% and severe aortic stenosis. I contacted patient's cardiology office (Dr. Sanderson) and she has been following with them for these issues. Last seen as outpatient 12/2023. They recommended she follow-up as soon as possible for TAVR evaluation. Should patient not wish to undergo intervention or is not a candidate, would recommend hospice evaluation. . Patient currently seems asymptomatic from aortic stenosis and appeared euvolemic on discharge. Patient has chronic LUE edema. LUE doppler was negative for DVT. All discharge instructions were reviewed with patient's granddaughter, Chiquita, who expressed understanding. Patient was discharged to [facility] in stable condition. Status at Discharge Functional status at discharge: uses cane/walker Overall status at discharge: patient is progressing back to baseline Time Spent with Patient Time attestation: Total time spent providing and/or coordinating discharge services: Time spent: Greater than 30 minutes Exam Narrative: General: NAD Eyes: EOMI ENT: neck supple Cardiovascular: Regular rate and rhythm, +systolic murmur Respiratory: Clear to auscultation, respirations even and unlabored on RA Gastrointestinal: Soft, non tender Genitourinary: no suprapubic tenderness Musculoskeletal: +LUE edema Skin: warm, dry Neuro: Alert. Face symmetric. Speech clear. Psych: Mood appropriate DS: Data Data Completed and Pending Completed studies during hospitalization: ITS Impressions Brain MRI 02/21/25 08:33 IMPRESSION: 1. Small left temporal occipital acute infarct. 2. Avidly enhancing mass in the suprasellar cistern with central calcification suggestive of meningioma. Assessment is however significantly limited on MRI due to prominent motion artifact on multiple sequences included on the post contrast images and a pituitary origin could not be absolutely excluded. Would consider follow-up pituitary protocol MRI when patient's mental status improves sufficient to allow for imaging without motion. 3. Age-related changes including mild diffuse volume loss and moderate scattered white matter T2 hyperintensity consistent with chronic small vessel ischemic disease. Venous Doppler Study 02/23/25 12:40 IMPRESSION: 1: No left upper extremity deep venous thrombosis identified. 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 Labs on day of discharge: Labs from last 24 hours 02/25/25 02/25/25 02/24/25 08:08 03:52 20:42 Sodium 138 Potassium 3.6 Chloride 110 H Carbon Dioxide 19 L Anion Gap 9 BUN 15 Creatinine 0.94 Estim Creat Clear Calc Not Reportable Estimated GFR 56 L Glucose 137 H POC Capillary Glucose Pending 189 H Calcium 9.2 02/24/25 02/24/25 16:43 11:52 Sodium Potassium Chloride Carbon Dioxide Anion Gap BUN Creatinine Estim Creat Clear Calc Estimated GFR Glucose POC Capillary Glucose 151 H 127 H Calcium Discharge Plan Discharge Attending physician on discharge: Marilu Cain Consulting providers: Kate Guzman; Cayetano Quintero; Lashawn Batres; Brittnee Brown Discharging Clinician: Lashawn Batres Anticipated Discharge Date/Time: 02/25/25 10:49 Patient Disposition: SNF Activity: as tolerated Diet: as tolerated Discharge Instructions: While in the hospital, the patient was treated for an acute stroke that has caused intermittent confusion. Also suspect that patient has some hospital-acquired delirium. Recommend that patient is reoriented frequently, limit disruptions at night. Monitor for worsening confusion. For patient's stroke, she has been started on Plavix and has been continued on aspirin. Her pravastatin was switched to atorvastatin. She will need to follow up with Neurology in the next 3-4 weeks. 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 Neurosurgery saw the patient while in the hospital and recommended an outpatient MRI pituitary gland and outpatient follow-up for further endocrine lab testing. Patient also has severe aortic stenosis that has worsened since her last cardiology visit in December 2023. Her supervisor smoke control (Dr. Sanderson) recommends that she follow-up as soon as possible to discuss possible TAVR (noninvasive valve replacement). Patient also has history of CHF with EF 40-45%. Watch for signs of fluid overload. Patient was also treated for pneumonia. She will finish a course of Levaquin and only needs one more day of antibiotics. Watch for worsening cough, fevers, shortness of breath or hypoxia. Follow in the hospital, the patient's blood pressure was elevated. We have started low-dose losartan. Continue to monitor blood pressures and titrate medications as needed. Patient is a diabetic, formally on insulin. Last hemoglobin A1c was 6.7 in the hospital. Patient is noncompliant with insulin. She did not need insulin while hospitalized. Recommend checking blood sugars twice daily and consider adding low-dose sliding scale if needed. Patient has history of hypothyroidism. TSH was 8.3. Unclear if patient has been totally compliant with her Synthroid. She will continue Synthroid 50 mcg. Recommend rechecking a TSH in 4-6 weeks. Please recheck and BMP and CBC in 3 days. Patient Instructions: Aortic Stenosis (DC), Ischemic Stroke (DC) Patient Language: Lebanese Stand Alone Forms: General Discharge Information Follow-up/Referrals: Brittnee Brown MD [Physician, Neurosurgery] - Call for Appointment Referral Note: in 2 weeks for repeat MRI pituitary gland and endocrine labs Maria E,Olman Amado MD [Non-Staff, Unknown] - Call for Appointment Referral Note: as soon as possible to discuss aortic stenosis Cayetano Quintero MD [Physician, Neurology] - Call for Appointment Referral Note: in 3-4 weeks Discharge Medications: New atorvastatin 40 mg Tablet 40 mg PO DAILY Qty: 30 0RF clopidogrel 75 mg Tablet 75 mg PO QAM Qty: 30 0RF levofloxacin 250 mg Tablet 250 mg PO QAM 1 Days Qty: 1 0RF losartan 25 mg tablet 12.5 mg PO DAILY Qty: 30 0RF Continued aspirin [Adult Low Dose Aspirin] 81 mg tablet,delayed release (DR/EC) 81 mg PO DAILY acetaminophen [Tylenol] 325 mg tablet 650 mg PO Q4H PRN (Reason: fever or pain) epinastine 0.05 % drops 1 drp EACH EYE Q12H tramadol 50 mg tablet 50 mg PO Q6H PRN (Reason: pain) Qty: 4 0RF gabapentin 300 mg capsule 300 mg PO HS Qty: 5 0RF isosorbide dinitrate 10 mg tablet 10 mg PO BID levothyroxine 50 mcg tablet 50 mcg PO DAILY ropinirole 2 mg tablet 2 mg PO TID PRN (Reason: restless legs) Rx Instructions: restless legs spironolactone 25 mg tablet 25 mg PO DAILY ferrous sulfate [FeroSul] 325 mg (65 mg iron) tablet 325 mg PO BID fenofibrate 54 mg tablet 54 mg PO DAILY Rx Instructions: with breakfast polyethylene glycol 3350 [Miralax] 17 gram/dose powder 17 g PO DAILY PRN (Reason: constipation) Little Remedies Saline 0.65 % aerosol,spray 1 spray intranasal TID PRN (Reason: nasal dryness) trazodone 50 mg tablet 50 mg PO HS PRN (Reason: insomnia) Qty: 1 0RF carbidopa-levodopa 50-200 mg tablet extended release 1 tablet PO Q12H Qty: 60 0RF Discontinued carbidopa-levodopa 25-100 mg tablet 1 tablet PO Q12H Levemir U-100 Insulin 100 unit/mL solution 20 unit SUBCUT DAILY pravastatin 40 mg tablet 40 mg PO HS naloxone [Narcan] 4 mg/actuation spray,non-aerosol 4 mg intranasal Q2-3M PRN (Reason: opioid overdose) Rx Instructions: spray 1 dose into ONE nostril; alternate nostrils w each dose until help arrives Date of admission: 02/20/25 12:05 Primary Care Provider: Peter Romo Admitting Provider: Marilu Cain Attending physician on admission: Marilu Cain Condition: Stable
== END 2025-02-25 12:40 | DRG 64 ==
PROVIDERS: Nurse Practitioner Family; Admitting Provider Internal Medicine; PCP Internal Medicine; Visit Provider Physician Assistant
DX: I63.9 Cerebral infarction, unspecified (principal); J18.9 Pneumonia, unspecified organism; N17.9 Acute kidney failure, unspecified; I42.9 Cardiomyopathy, unspecified; G93.40 Encephalopathy, unspecified; R47.01 Aphasia; E86.0 Dehydration; R41.82 Altered mental status, unspecified; I10 Essential (primary) hypertension; E03.9 Hypothyroidism, unspecified; F06.8 Other specified mental disorders due to known physiological condition; D32.9 Benign neoplasm of meninges, unspecified; G20.A1 Parkinson's disease without dyskinesia, without mention of fluctuations; E11.42 Type 2 diabetes mellitus with diabetic polyneuropathy; I35.0 Nonrheumatic aortic (valve) stenosis; M19.212 Secondary osteoarthritis, left shoulder; M19.211 Secondary osteoarthritis, right shoulder
CPT/HCPCS: 36415; 70553; 73030; 80048; 80053; 80061; 82948; 83036; 83735; 84145; 85025; 87637; 92610; 93971; 96375; 97110; 97162; 97166; 97530; A9270; A9577; C8929; J0456; J0696; J1650; J2060; J3475; J3480; J7050; J7121; Q9957

== ENCOUNTER 2025-03-10 06:25 | Emergency (ER) | payer MEDICARE, MEDICAID, SELFPAY ==
[2025-03-10] VITALS (24 sets, daily range): BP systolic 169–206; BP diastolic 72–130; PULSE 72–101; RESP 14–26; TEMP 36.6–36.8; O2SAT 93–99
--- NOTE | ~2025-03-10 | XR_ITS ---
EXAMINATION: XR chest 1V portable DATE: 03/10/2025 06:52 INDICATION: Chest pain TECHNIQUE: frontal view of the chest was obtained. COMPARISON: Chest radiograph dated 02/19/2025 FINDINGS: Mild increased interstitial pattern and a few peripheral Carol B-lines in the bilateral mid and lower lung zones consistent with mild pulmonary edema. No pleural effusion or pneumothorax. Borderline heart size accounting for AP technique. Median sternotomy wires and mediastinal surgical clips are seen, likely from prior coronary artery bypass grafting. Atherosclerotic aorta. Moderate to severe bilateral glenohumeral osteoarthritis. IMPRESSION: 1. Likely congestive heart failure with borderline heart size and mild pulmonary edema. Reviewed, dictated and finalized at location A. IMPRESSION: 1. Likely congestive heart failure with borderline heart size and mild pulmonar y edema.
--- NOTE | 2025-03-10 06:34 | ECG_ITS ---
Test Date: 2025-03-10 06:31:02 Measurements Intervals [place] Rate: 77 P: 46 IN: 162 QRS: 4 QRSD: 85 T: 52 QT: 387 QTc: 439 Interpretive Statements SINUS RHYTHM NONSPECIFIC T-WAVE ABNORMALITIES Compared to ECG 02/19/2025 11:56:01 Ventricular premature complex(es) no longer present Myocardial infarct finding no longer present Electronically Signed On 03-10-2025 10:54:26 CDT by David Del Real M.D.
[2025-03-10 07:16] LABS: Hematocrit 46.0 % (37.0-47.0); Hemoglobin 14.1 g/dL (12.0-15.0); Immature Granulocyte Percent A 0.4 % (0-0.5); Lymphocytes Absolute Auto 1.34 K/mm3 (0.9-3.2); Mean Corpuscular HGB Conc 30.7 g/dl (32-36); Mean Corpuscular Hemoglobin 26.5 pg (26-34); Mean Corpuscular Volume 86.5 fl (80-100); Nucleated Red Blood Cells Absolute Auto 0.000 K/mm3 (0.0-0.012); Nucleated Red Blood Cells Perc 0.0 % (0.0-0.2); Platelet Count Result 311 k/mm3 (150-375); Red Blood Count 5.32 M/mm3 (4.2-5.4); White Blood Count 11.4 K/mm3 (4.5-10.0)
[2025-03-10 07:23] LABS: Alanine Aminotransferase 8 U/L (6-35); Albumin Level 3.9 g/dL (3.5-5.1); Alkaline Phosphatase 65 U/L (38-126); Anion Gap 9 mmol/L (4-12); Aspartate Amino Transferase 31 U/L (14-36); Bilirubin,Total 0.6 mg/dL (0.2-1.3); Blood Urea Nitrogen 21 mg/dL (7-17); Calcium 9.8 mg/dL (8.4-10.2); Carbon Dioxide 27 mmol/L (22-30); Chloride 102 mmol/L (98-107); Estimated Glomerular Filt Rate > 60; Glucose 152 mg/dL (65-110); Lipase 119 U/L (23-300); Potassium 3.6 mmol/L (3.4-5.0); Sodium 138 mmol/L (137-145); Total Protein 7.7 g/dL (6.3-8.2)
[2025-03-10 07:34] LABS: Troponin I 0.030 ng/mL (0.000-0.034)
--- NOTE | 2025-03-10 08:39 | ED.GENADULT ---
HPI - General Adult General Chief complaint: Chest Pain Stated complaint: cp Time Seen by Provider: 03/10/25 07:06 History of Present Illness HPI narrative: Patient a an 89 year old female who presents emergency department chief complaint of chest pain. Patient reports that throughout the night she started having some discomfort in her chest patient reports that was both sharp and a pressure sensation patient reports symptoms are doing better at this time called EMS was transported the ER Related Data Home Medications ?Medication ?Instructions ?Recorded ?Confirmed ?Last Taken ?Type fenofibrate 54 mg tablet 54 mg PO DAILY 08/27/24 02/20/25 Unknown History ferrous sulfate 325 mg (65 mg 325 mg PO BID 08/27/24 02/20/25 Unknown History iron) tablet (FeroSul) isosorbide dinitrate 10 mg tablet 10 mg PO BID 08/27/24 02/20/25 Unknown History levothyroxine 50 mcg tablet 50 mcg PO DAILY 08/27/24 02/20/25 Unknown History polyethylene glycol 3350 17 17 g PO DAILY PRN constipation 08/27/24 02/20/25 Unknown History gram/dose oral powder (Miralax) ropinirole 2 mg tablet 2 mg PO TID PRN restless legs 08/27/24 02/20/25 Unknown History sodium chloride 0.65 % nasal spray 1 spray intranasal TID PRN nasal 08/27/24 02/20/25 Unknown History aerosol (Little Remedies Saline) dryness spironolactone 25 mg tablet 25 mg PO DAILY 08/27/24 02/20/25 Unknown History aspirin 81 mg tablet,delayed 81 mg PO DAILY 02/19/25 02/20/25 Unknown History release (Adult Low Dose Aspirin) acetaminophen 325 mg tablet 650 mg PO Q4H PRN fever or pain 02/20/25 02/20/25 Unknown History (Tylenol) epinastine 0.05 % eye drops 1 drp EACH EYE Q12H 02/20/25 02/20/25 Unknown History Allergies Allergy/AdvReac Type Severity Reaction Status Date / Time Penicillins Allergy Unknown Rash Verified 02/20/25 14:25 Review of Systems Review of Systems: A 10 system review of systems was completed on the patient and is negative except for what is stated in the HPI. Nursing and ancillary documentation was reviewed. [facility] Past Medical History Medical History Neuropathy Parkinsons Hypothyroidism Diabetes mellitus Essential hypertension Family History Family History Sibling Family history of chronic obstructive pulmonary disease Family history of diabetes mellitus in first degree relative Social History Social History Smoking status: Unknown if ever smoked Second hand tobacco smoke exposure: No Alcohol intake: never Substance use: never Substance use type: does not use Do You Feel Safe in your Home?: Yes Lack of Transportation: YES Lack of Food: Never True Current Housing: I Have Housing Concerned About Future Housing: No Difficulty Paying Gas/Electric Bills: No Difficulty Paying for Meds: No Currently Unemployed: No Education: Don't Know Difficulty w/ Childcare or Family Care: No Spiritual care concerns: No Exam Narrative: GENERAL: Well-appearing, well-nourished, and in no acute distress. HEAD: Normocephalic, atraumatic. EYES: PERRLA and EOMI. ENT: Nares clear, no rhinorrhea or epistaxis. Mucous membranes moist. NECK: Supple. CHEST: Clear to auscultation. No respiratory distress. HEART: Regular rate and rhythm. No murmur heard. Normal peripheral pulses. ABDOMEN: Soft, nontender, nondistended, normal active bowel sounds. EXTREMITIES: Normal range of motion. No edema. SKIN: Warm, dry, no rash. NEURO: No focal deficits. Alert and oriented x3. PSYCH: Normal mood and affect. Course Vital Signs Vital signs: Vital Signs Temperature 36.8 C 03/10/25 06:24 Pulse Rate 84 03/10/25 06:24 Respiratory Rate 18 03/10/25 06:24 Blood Pressure 189/81 H 03/10/25 06:24 Pulse Oximetry 93 03/10/25 06:24 Oxygen Delivery Room Air 03/10/25 06:24 Temperature 36.6 C 03/10/25 07:21 Pulse Rate 101 H 03/10/25 09:45 Respiratory Rate 20 03/10/25 09:45 Blood Pressure 169/130 H 03/10/25 08:02 Pulse Oximetry 97 03/10/25 09:00 Oxygen Delivery Room Air 03/10/25 06:43 Medical Decision Making MDM Narrative Medical decision making narrative: Differential diagnosis includes ACS, pneumonia, pneumothorax, EKG showed no acute ischemic changes Initial troponin was 0.030 hour repeat was 0.032 Vital Signs Vital Signs: Vital Signs Temperature 36.8 C 03/10/25 06:24 Pulse Rate 84 03/10/25 06:24 Respiratory Rate 18 03/10/25 06:24 Blood Pressure 189/81 H 03/10/25 06:24 Pulse Oximetry 93 03/10/25 06:24 Oxygen Delivery Room Air 03/10/25 06:24 Temperature 36.6 C 03/10/25 07:21 Pulse Rate 101 H 03/10/25 09:45 Respiratory Rate 20 03/10/25 09:45 Blood Pressure 169/130 H 03/10/25 08:02 Pulse Oximetry 97 03/10/25 09:00 Oxygen Delivery Room Air 03/10/25 06:43 Lab Data 03/10/25 07:05 03/10/25 07:05 Labs: Lab Results 03/10/25 03/10/25 Range/Units 07:05 09:51 WBC 11.4 H (4.5-10.0) K/mm3 RBC 5.32 (4.2-5.4) M/mm3 Hgb 14.1 (12.0-15.0) g/dL Hct 46.0 (37.0-47.0) % MCV 86.5 (80-100) fl MCH 26.5 (26-34) pg MCHC 30.7 L (32-36) g/dl RDW 17.9 H (11.5-14.5) % Plt Count 311 (150-375) k/mm3 MPV 9.7 (7.4-10.4) fl Immature Gran % (Auto) 0.4 (0-0.5) % Neut % (Auto) 78.1 H (45.5-73.1) % Lymph % (Auto) 11.8 L (18.3-44.2) % [place] % (Auto) 7.0 (2.6-8.5) % Eos % (Auto) 2.3 (0-4.4) % Baso % (Auto) 0.4 (0.2-1.2) % Lymph # (Auto) 1.34 (0.9-3.2) K/mm3 [place] # (Auto) 0.8 H (0.1-0.6) K/mm3 Eos # (Auto) 0.3 (0-0.3) K/mm3 Baso # (Auto) 0.0 (0.0-0.1) K/mm3 Abs Immat Gran (auto) 0.04 H (0.00-0.031) K/mm3 Absolute Neuts (auto) 8.9 H (1.3-6.7) K/mm3 Absolute Nucleated RBC 0.000 (0.0-0.012) K/mm3 Nucleated RBC % 0.0 (0.0-0.2) % PT 14.6 (11.1-14.7) Seconds INR 1.1 APTT 29.0 (22.3-36.8) Seconds Sodium 138 (137-145) mmol/L Potassium 3.6 (3.4-5.0) mmol/L Chloride 102 (98-107) mmol/L Carbon Dioxide 27 (22-30) mmol/L Anion Gap 9 (4-12) mmol/L BUN 21 H (7-17) mg/dL Creatinine 0.87 (0.7-1.0) mg/dL Estim Creat Clear Calc Not Reportable Estimated GFR > 60 (59 - ) Glucose 152 H (65-110) mg/dL Calcium 9.8 (8.4-10.2) mg/dL Total Bilirubin 0.6 (0.2-1.3) mg/dL AST 31 (14-36) U/L ALT 8 (6-35) U/L Alkaline Phosphatase 65 (38-126) U/L Troponin I 0.030 0.032 (0.000-0.034) ng/mL Total Protein 7.7 (6.3-8.2) g/dL Albumin 3.9 (3.5-5.1) g/dL Lipase 119 (23-300) U/L Discharge Plan Discharge Clinical Impression: Chest pain Patient Disposition: NH Senior Living/Asst Living Condition: Stable Instructions: Antibiotic Form, Chest Pain (ED) Patient Language: Citizen Of [place] Prescriptions: No Action aspirin [Adult Low Dose Aspirin] 81 mg tablet,delayed release (DR/EC) 81 mg PO DAILY acetaminophen [Tylenol] 325 mg tablet 650 mg PO Q4H PRN (Reason: fever or pain) epinastine 0.05 % drops 1 drp EACH EYE Q12H atorvastatin 40 mg Tablet 40 mg PO DAILY Qty: 30 0RF clopidogrel 75 mg Tablet 75 mg PO QAM Qty: 30 0RF levofloxacin 250 mg Tablet 250 mg PO QAM 1 Days Qty: 1 0RF losartan 25 mg tablet 12.5 mg PO DAILY Qty: 30 0RF tramadol 50 mg tablet 50 mg PO Q6H PRN (Reason: pain) Qty: 4 0RF gabapentin 300 mg capsule 300 mg PO HS Qty: 5 0RF isosorbide dinitrate 10 mg tablet 10 mg PO BID levothyroxine 50 mcg tablet 50 mcg PO DAILY ropinirole 2 mg tablet 2 mg PO TID PRN (Reason: restless legs) Rx Instructions: restless legs spironolactone 25 mg tablet 25 mg PO DAILY ferrous sulfate [FeroSul] 325 mg (65 mg iron) tablet 325 mg PO BID fenofibrate 54 mg tablet 54 mg PO DAILY Rx Instructions: with breakfast polyethylene glycol 3350 [Miralax] 17 gram/dose powder 17 g PO DAILY PRN (Reason: constipation) Little Remedies Saline 0.65 % aerosol,spray 1 spray intranasal TID PRN (Reason: nasal dryness) trazodone 50 mg tablet 50 mg PO HS PRN (Reason: insomnia) Qty: 1 0RF carbidopa-levodopa 50-200 mg tablet extended release 1 tablet PO Q12H Qty: 60 0RF Follow-up/Referrals: Peter Romo MD [Primary Care Provider, Internal Medicine] Time of Disposition: 10:32
[2025-03-10 08:59] LABS: INR 1.1; Prothrombin Time 14.6 Seconds (11.1-14.7)
[2025-03-10 09:00] LABS: Partial Thromboplastin Time 29.0 Seconds (22.3-36.8)
--- NOTE | 2025-03-10 09:53 | ECG_ITS ---
Test Date: 2025-03-10 09:56:21 Measurements Intervals [place] Rate: 81 P: 77 [place]: 158 QRS: 3 QRSD: 84 T: 68 QT: 387 QTc: 451 Interpretive Statements SINUS RHYTHM NONSPECIFIC T-WAVE ABNORMALITY Compared to ECG 03/10/2025 06:31:02 T-wave abnormality now present Electronically Signed On 03-10-2025 10:55:05 CDT by David Del Real M.D.
[2025-03-10 10:27] LABS: Troponin I 0.032 ng/mL (0.000-0.034)
== END 2025-03-10 11:58 ==
PROVIDERS: Emergency Medicine; Emergency Provider Emergency Medicine; PCP Internal Medicine
DX: R07.89 Other chest pain (principal); E11.40 Type 2 diabetes mellitus with diabetic neuropathy, unspecified; E03.9 Hypothyroidism, unspecified; I10 Essential (primary) hypertension; G20.A1 Parkinson's disease without dyskinesia, without mention of fluctuations; Z79.82 Long term (current) use of aspirin; Z79.02 Long term (current) use of antithrombotics/antiplatelets; Z79.899 Other long term (current) drug therapy; R94.31 Abnormal electrocardiogram [ECG] [EKG]
CPT/HCPCS: 36415; 71045; 80053; 83690; 84484; 85025; 85610; 85730; 93005; 99284